=== PATIENT | male | born 1950 | race Caucasian/White ===

== ENCOUNTER 2016-12-29 23:35 | Inpatient (IN) ==
--- NOTE | 2016-12-30 00:44 | Emergency Department Note ---
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 He had fallen twice today and was previously evaluated at [facility] ED 2 hours ago. He takes a baby aspirin and reports imaging of his head did not show stroke. Full workup was reportedly performed and he was discharged home. As he was walking into his house with his walker, his legs felt weak and he subsequently fell striking his right hip. This was how he fell twice earlier today. Denies any head trauma or neck pain. Denies any loss of consciousness. Since then he has been nauseated and had a episode of emesis. Family is concerned as they can't take care of him at home with this weakness. He normally is able to ambulate with a walker and today is worse. He has physical therapy coming to the house twice a week. Denies any other symptoms such as fever, recent illness, chest pain, shortness of breath, abdominal pain. Pain only in his right hip. No facial droop moves all 4 extremities without much discomfort. He is blind in the right eye. Pain Scale: 5 - Related Data Home Medications Medication Instructions Recorded Confirmed Aspirin 325 mg PO QDPC 06/05/15 09/11/15 Finasteride 5 mg PO QDPC 06/05/15 09/11/15 Gabapentin 800 mg PO TID 06/05/15 09/11/15 GlipiZIDE 10 mg PO BID 06/05/15 09/11/15 Levemir 30 units SQ QPM 06/05/15 09/11/15 Levemir 40 units SQ QAM 06/05/15 09/11/15 Lisinopril/Hydrochlorothiazide 20 - 25 mg PO QDPC 06/05/15 09/11/15 Primidone 50 mg PO QDPC 06/05/15 09/11/15 Ranitidine 150 mg PO BID 06/05/15 09/11/15 Simvastatin 10 mg PO DAILY 06/05/15 09/11/15 Tamsulosin 0.4 mg PO DAILY 06/05/15 09/11/15 TraMADol 50 mg PO PRN PRN 06/05/15 09/11/15 Calcitriol [Rocaltrol] 0.25 PO DAILY 09/11/15 TraMADol [Ultram] 50 mg PO BID 09/11/15 09/11/15 Previous Rx's Medication Instructions Recorded Ondansetron ODT [Zofran ODT] 4 mg SL Q6HR #10 tab.rapdis 09/11/15 Allergies Allergy/AdvReac Type Severity Reaction Status Date / Time No Known Allergies Allergy Verified 12/29/16 23:37 All systems ED: reviewed and negative except as stated. Constitutional: Reports: weakness. Denies: fever, chills Cardiovascular: Denies: chest pain Respiratory: Denies: cough, dyspnea Gastrointestinal: Reports: nausea, vomiting. Denies: abdominal pain Genitourinary: Denies: urgency, dysuria Musculoskeletal: Denies: back pain Integumentary: Denies: rash, abrasion Past Medical History - Past Medical History Attestation: Yes The following information was validated with the patient. Source: patient Medical history: Reports: CVA, diabetes, hyperlipidemia, hypertension, renal disease, other Surgical history: Reports: other (eye surgeries) Psychiatric history: Reports: no psych history - Social History Smoking Status: Former smoker Smokeless Tobacco Status: No Alcohol use: Reports: none Drug use: Reports: none Physical Exam - General Limitations: no limitations General appearance: alert, in no apparent distress, obese - Head Head exam: atraumatic, normocephalic, normal inspection - Eye Eye exam: Present: normal appearance, PERRL, EOMI (With verbal command) - ENT ENT exam: normal exam, normal oropharynx, mucous membranes moist - Neck Neck exam: Present: normal inspection, full ROM, trachea midline. Absent: tenderness - Expanded Neck Exam Neck exam focused ED: Absent: midline tenderness, paraspinal tenderness - Chest Chest inspection: Present: normal inspection, symmetric chest wall rise - Respiratory Respiratory exam: Present: normal lung sounds bilaterally. Absent: respiratory distress, wheezes, stridor - Cardiovascular Cardiovascular exam: Present: regular rate, normal rhythm, normal heart sounds. Absent: systolic murmur, diastolic murmur - Abdominal Exam Abdominal exam: Present: soft (Obese), Non-Tender, normal bowel sounds. Absent : tenderness, distention, guarding, rebound, rigidity - Extremities Exam Extremities exam: Present: normal inspection, full ROM, normal capillary refill. Absent: tenderness, pedal edema, calf tenderness - Expanded Lower Extremity Exam Hip/Pelvis exam: Present: pelvis stable. Absent: dislocation, external rotation , internal rotation, shortening - Neurological Exam Neurological exam: Present: alert, oriented X3 - Expanded Neurological Exam Patient oriented to: Present: person, place, time Speech: Present: fluid speech Cranial nerves: EOM function (II, III, IV, ): Normal, facial sensation (V): Normal, facial palsy (VII): Normal, gag reflex (IX): Normal, spinal accessory function (XI): Normal, tongue deviation (XII): Normal Motor strength - LUE: 5/5 Motor strength - RUE: 5/5 Motor strength - LLE: 5/5 Motor strength - RLE: 4/5 Upper motor neuron exam: adelfo neglect: Absent bilaterally Sensory exam upper extremity: light touch: Normal Sensory exam lower extremity: light touch: Normal - Psychiatric Psychiatric exam: Present: normal affect, normal mood - Skin Skin exam: Present: warm, dry, intact, normal color Course Course Narrative: 66-year-old male presents the ED for generalized weakness. He is normally able to walk and ambulate throughout the house with a walker however today he has fallen 3 times. Reports his legs are giving out. He takes a baby aspirin denies any head trauma. Denies any neck pain. He appears in no acute distress. He is not septic appearing. HR in the 90s. He moves all 4 extremities without much difficulty. Due to discomfort in his right hip he is not able to hold it up as long as the left. Neurologic exam is otherwise unremarkable without any focal neural deficits. His pelvis is stable and does not reveal any shortening or internal rotation. He has diabetic neuropathy below the knees bilaterally. Bilateral edematous legs that are chronic. Lungs are clear to auscultation bilaterally. Heart's regular rate and rhythm. He does not have any cervical tenderness. family is concerned that they are unable to care for him at home. He does have physical therapy coming to the house twice a week. Will attempt to obtain records from [facility] to limit any unnecessary radiation. Patient and family are in agreement with plan. X-ray of the hip ordered. Dinesh for from nausea. - Reevaluation(s) Reevaluation #1: He has renal insufficiency. Apparently he follows with Dr. Hood and Dr. Altamirano and in discussion for possible hemodialysis which patient does not wish to have. He is unable to stand upon his own strength. He is overall generally weak. Review of his medical record from [facility] this morning. At that time he was complaining of head and right hip pain. CT of the head did not show any stroke or bleed. reiterates as well as patient that he did not hit his head. Neurologic exam is normal without any focal neuro deficits. Repeat CT of head not performed as a result. Patient will be admitted for generalized weakness, frequent falls in renal insufficiency. Patient is in agreement with plan. Time: 04:02 - Consultations Consultation #1: Spoke with on-call hospitalist leobardo Ly to admit for generalized weakness, frequent falls, renal insufficiency. No further orders at this time Time: 04:56 Vital Signs Temperature 98.6 F 12/29/16 23:38 Pulse Rate 97 12/29/16 23:38 Respiratory Rate 18 12/29/16 23:38 Blood Pressure 133/74 12/29/16 23:38 O2 Sat by Pulse Oximetry 92 12/29/16 23:38 Temperature 98.6 F 12/29/16 23:38 Pulse Rate 92 12/30/16 04:42 Respiratory Rate 18 12/30/16 05:12 Blood Pressure 158/82 12/30/16 05:12 O2 Sat by Pulse Oximetry 95 12/30/16 04:42 Oxygen Delivery Oxygen Delivery Nasal Cannula Weakness - Medical Records Medical records reviewed: Yes I reviewed the patient's medical records. - Lab Data Lab results reviewed: Yes I reviewed the patient's lab results. Result diagrams: 12/30/16 02:13 12/30/16 02:13 Lab Results 12/29/16 12/30/16 12/30/16 Range/Units 23:47 02:13 02:13 WBC 14.9 H (4.3-11.1) K/mcL RBC 3.57 L (4.19-5.50) M/mcL Hgb 10.2 L (12.9-16.9) g/dL Hct 31.5 L (37.5-50.1) % MCV 88.2 (83.0-100.0) fL MCH 28.6 (28.0-33.3) pg MCHC 32.4 (31.6-35.5) g/dL RDW 12.7 (11.5-14.5) % Plt Count 219 (140-400) K/mcL MPV 9.8 (9.4-12.4) fL Immature Gran % 0.5 (0-4) % Seg Neutrophils % 81.2 % Lymphocytes % 10.1 % Monocytes % 7.2 % Eosinophils % 0.7 % Basophils % 0.3 % Neutrophils # 12.1 H (1.6-8.9) K/mcL Lymphocytes # 1.5 (0.6-4.6) K/mcL Monocytes # 1.1 (0.0-1.3) K/mcL Eosinophils # 0.1 (0.0-0.6) K/mcL Basophils # 0.0 (0.0-0.2) K/mcL Sodium 137 (136-145) mEq/L Potassium 4.5 (3.5-4.5) mEq/L Chloride 104 (98-109) mEq/L Carbon Dioxide 21 (19-29) mEq/L BUN 68 H (8-26) mg/dL Creatinine 4.31 H (0.72-1.25) mg/dL Est GFR ( Amer) 17 L (> 60) Est GFR (Non-Af Amer) 14 L (> 60) BUN/Creatinine Ratio 16 (6-26) Glucose 164 H (70-99) mg/dL POC Glucose 143 H (58-89) Calculated Osmolality 307 H (280-300) Calcium 11.1 H (8.6-10.8) mg/dL Total Bilirubin 0.3 (0.2-1.2) mg/dL AST 18 (5-34) Units/L ALT 16 (0-55) Units/L Alkaline Phosphatase 69 (38-126) Units/L Troponin I (0-0.03) ng/mL Serum Total Protein 7.3 (6.0-8.3) g/dL Albumin 2.9 L (3.5-5.0) g/dL Globulin 4.4 H (2.4-3.5) g/dL Albumin/Globulin Ratio 0.7 L (1.1-2.2) Urine Color (Yellow) Urine Clarity (Clear) Urine pH (5.0-8.0) pH Units Ur Specific [place] (1.010-1.025) Urine Protein (Neg-Trace) mg/dL Urine Glucose (UA) (Normal) mg/dL Urine Ketones (Negative) mg/dL Urine Blood (Negative) Urine Nitrite (Negative) Urine Bilirubin (Negative) Urine Urobilinogen (Normal) mg/dL Ur Leukocyte Esterase (Negative) Urine Microscopic RBC (0-3) per hpf Urine Microscopic WBC (0-3) per hpf Ur Squamous Epith Cells (None-Few) per lpf Urine Bacteria (None-Few) per hpf Hyaline Casts (None-Few) per lpf Ur Culture Indicated? (NO) 12/30/16 12/30/16 Range/Units 02:13 03:00 WBC (4.3-11.1) K/mcL RBC (4.19-5.50) M/mcL Hgb (12.9-16.9) g/dL Hct (37.5-50.1) % MCV (83.0-100.0) fL MCH (28.0-33.3) pg MCHC (31.6-35.5) g/dL RDW (11.5-14.5) % Plt Count (140-400) K/mcL MPV (9.4-12.4) fL Immature Gran % (0-4) % Seg Neutrophils % % Lymphocytes % % Monocytes % % Eosinophils % % Basophils % % Neutrophils # (1.6-8.9) K/mcL Lymphocytes # (0.6-4.6) K/mcL Monocytes # (0.0-1.3) K/mcL Eosinophils # (0.0-0.6) K/mcL Basophils # (0.0-0.2) K/mcL Sodium (136-145) mEq/L Potassium (3.5-4.5) mEq/L Chloride (98-109) mEq/L Carbon Dioxide (19-29) mEq/L BUN (8-26) mg/dL Creatinine (0.72-1.25) mg/dL Est GFR ( Amer) (> 60) Est GFR (Non-Af Amer) (> 60) BUN/Creatinine Ratio (6-26) Glucose (70-99) mg/dL POC Glucose (58-89) Calculated Osmolality (280-300) Calcium (8.6-10.8) mg/dL Total Bilirubin (0.2-1.2) mg/dL AST (5-34) Units/L ALT (0-55) Units/L Alkaline Phosphatase (38-126) Units/L Troponin I 0.02 (0-0.03) ng/mL Serum Total Protein (6.0-8.3) g/dL Albumin (3.5-5.0) g/dL Globulin (2.4-3.5) g/dL Albumin/Globulin Ratio (1.1-2.2) Urine Color Yellow (Yellow) Urine Clarity Clear (Clear) Urine pH 5.5 (5.0-8.0) pH Units Ur Specific [place] 1.019 (1.010-1.025) Urine Protein >=300 H (Neg-Trace) mg/dL Urine Glucose (UA) 250 H (Normal) mg/dL Urine Ketones Negative (Negative) mg/dL Urine Blood Moderate H (Negative) Urine Nitrite Negative (Negative) Urine Bilirubin Negative (Negative) Urine Urobilinogen Normal (Normal) mg/dL Ur Leukocyte Esterase Negative (Negative) Urine Microscopic RBC 0-3 (0-3) per hpf Urine Microscopic WBC 0-3 (0-3) per hpf Ur Squamous Epith Cells Many H (None-Few) per lpf Urine Bacteria None Seen (None-Few) per hpf Hyaline Casts None Seen (None-Few) per lpf Ur Culture Indicated? NO (NO) - Radiology Data Radiology results reviewed: Yes I reviewed the patient's radiology results. Chest X-Ray 12/30/16 00:22 IMPRESSION: No definite acute disease. D/ / Cristiano Basurto MD / Cristiano Basurto MD Interpreting Provider: Cristiano Basurto MD Hip X-Ray 12/30/16 00:40 IMPRESSION: No acute osseous abnormality of the right hip. D/ / Asa Lawler MD / Asa Lawler MD Interpreting Provider: Asa Lawler MD - EKG Data EKG attestation: Yes I reviewed and interpreted this EKG. EKG results narrative: EKG performed 2340 normal sinus rhythm 97 bpm, good R-R wave progression, normal axis, there is baseline artifact, non-specific ST-T wave changes. No STEMI pattern. Intervals are within normal limits. Compared to old EKG performed 07/17/2016 shows consistent findings. No acute ischemic changes. Attestation Statement - Attestation Attestation: I personally interviewed and examined this patient and my medical decision- making was reviewed with the ED Resident Physician, Dr. Pelayo. I agree with the documented findings, disposition and treatment plan as described except to the extent set forth below. Patient is a 66-year-old white male who is brought to the emergency department for evaluation of frequent falls. Patient was evaluated twice in the last 24 hours at [facility] ED for similar complaints. Patient had CT imaging labs and following their evaluation both times patient was discharged home. Following the last discharge, he should was attempting to get out of his vehicle once he arrived home and subsequently fell onto his right side. Patient 's has been with him during these falls and he denies any preceding symptoms just complains of overwhelming generalized weakness and that his "legs give out on him". Patient is complaining of some right hip pain following the fall. Patient had issues with chronic right lower extremity edema compared to left and patient has a baseline mild weakness of his right upper and lower extremities following remote stroke. I agree with Dr. Pelayo's physical exam findings. Patient had plain film imaging which was unremarkable. We did obtain records from [facility] which did not show any abnormal findings on imaging or lab work. Patient's labs here show worsening acute on chronic renal insufficiency and uremia. After speaking with the patient's apparently his physicians have discussed the possibility of him going on dialysis due to his worsening renal function. We will admit the patient for further evaluation and treatment of his generalized weakness and frequent falls.
[2016-12-30 02:18] LABS: Basophils % 0.3 %; Eosinophils # 0.1 K/mcL (0.0-0.6); Eosinophils % 0.7 %; Hematocrit 31.5 % (37.5-50.1); Hemoglobin 10.2 g/dL (12.9-16.9); Immature Granulocytes % 0.5 % (0-4); Lymphocytes # 1.5 K/mcL (0.6-4.6); Lymphocytes % 10.1 %; Mean Corpuscular HGB Conc 32.4 g/dL (31.6-35.5); Mean Corpuscular Hemoglobin 28.6 pg (28.0-33.3); Mean Corpuscular Volume 88.2 fL (83.0-100.0); Mean Platelet Volume 9.8 fL (9.4-12.4); Monocytes # 1.1 K/mcL (0.0-1.3); Monocytes % 7.2 %; Neutrophils # 12.1 K/mcL (1.6-8.9); Platelet Count 219 K/mcL (140-400); Red Blood Count 3.57 M/mcL (4.19-5.50); Red Cell Distribution Width 12.7 % (11.5-14.5); Segmented Neutrophils % 81.2 %
[2016-12-30 02:31] LABS: Albumin 2.9 g/dL (3.5-5.0); Albumin/Globulin Ratio 0.7 (1.1-2.2); Bilirubin,Total 0.3 mg/dL (0.2-1.2); Calcium 11.1 mg/dL (8.6-10.8); Globulin 4.4 g/dL (2.4-3.5); Potassium 4.5 mEq/L (3.5-4.5); Total Protein 7.3 g/dL (6.0-8.3)
[2016-12-30 03:08] LABS: Bilirubin,Urine Negative (Negative); Blood,Urine Moderate (Negative); Clarity,Urine Clear (Clear); Color,Urine Yellow (Yellow); Glucose,Urine (UA) 250 mg/dL (Normal); Ketones,Urine Negative (Negative); Leukocyte Esterase,Urine Negative (Negative); Nitrite,Urine Negative (Negative); PH,Urine 5.5 pH Units (5.0-8.0); Protein,Urine >=300 mg/dL (Neg-Trace); Specific Gravity,Urine 1.019 (1.010-1.025); Urobilinogen,Urine Normal (Normal)
[2016-12-30 03:11] LABS: Bacteria,Urine None Seen per hpf (None-Few); Hyaline Casts,Urine None Seen per lpf (None-Few); RBC,Urine 0-3 per hpf (0-3); Squamous Epithelial Cell,Urine Many per lpf (None-Few); WBC,Urine 0-3 per hpf (0-3)
[2016-12-30] MEDS ORDERED: 0.9 % Sodium Chloride 1,000 ML IVC ONE (03:24)
[2016-12-30] MEDS ORDERED: Naloxone 0.4 MG/ML INJ IVP PRN (10:00)
[2016-12-30] MEDS ORDERED: Acetaminophen 325 MG TABLET PO PRN (10:00)
--- NOTE | 2016-12-30 10:44 | Internal Med History&Physical ---
Date of Encounter: 12/30/16 Time of Encounter: 08:30 Assessment and Plan (1) Frequent falls Current visit: Yes Status: Acute Suspect is likely due to CVA versus extension of prior CVA. Will request for MRI brain; PT / OT evaluation. Will check orthostatic vitals. (2) CVA (cerebral vascular accident) Current visit: Yes Status: Suspected Suspect CVA versus extension of prior CVA. Will request for MRI brain; PT / OT evaluation. Qualifiers: CVA mechanism: unspecified Qualified Code(s): I63.9 - Cerebral infarction, unspecified (3) Swelling of right lower extremity Current visit: Yes Status: Acute Will request Venous doppler to exclude DVT. (4) CKD (chronic kidney disease) stage 4, GFR 15-29 ml/min Current visit: Yes Status: Chronic Monitor renal function (5) 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 Current visit: Yes Status: Chronic Start sliding scale insulin and continue home dose Qualifiers: 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 type: type 2 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 complication status: with neurologic complications 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 complication detail: with polyneuropathy 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 usp insulin use: with usp use Qualified Code(s): E11.42 - Type 2 diabetes mellitus with diabetic polyneuropathy; Z79.4 - residential (current) use of insulin (6) History of CVA (cerebrovascular accident) Current visit: Yes Status: Chronic Apparently had residual right sided weakness, which is worse now (7) Leucocytosis Current visit: Yes Status: Acute No obvious source of infection at this time. Monitor WBC counts Qualifiers: Leukocytosis type: unspecified Qualified Code(s): D72.829 - Elevated white blood cell count, unspecified (8) Effusion of knee joint right Current visit: Yes Status: Acute Will obtain X-ray of the right knee. Will consider orthopedic consult, if there is concern on the X-Ray. (9) DVT prophylaxis Current visit: Yes Status: Acute subcutaneous heparin Internal Medicine - H&P: HPI Chief complaint: Falls Admitted From: Emergency Dept Plans for Post Hospital Care: [facility] History of present illness: Mr. 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 He apparently fell down twice yesterday and was evaluated at [facility] ED - apparently imaging of his head did not show stroke and Full workup was reportedly performed and he was discharged home. As he was walking into his house with his walker, and he had another fall. He reports that his right leg is weak since yesterday morning and he does not have control of the right leg (which he reports is new). He denies weakness of the right upper extremity, change in speech or facial weakness. He denies headache, vision changes (at baseline he has poor vision in his right eye), chest pain, shortness of breath cough, expectoration, fever, chills, abdominal pain, dysuria, hematuria, bowel problems. He reports some nausea but no vomiting. He was evaluated in the ER, CXR and X-ray right hip were negative. He is admitted to the hospitalist service for further work up and management. Past Med Surg Social Fam HX - Past Medical History Medical history: CVA, diabetes, hyperlipidemia, hypertension, renal disease, other Psychiatric history: no psych history - Past Surgical History Surgical History: other (eye surgeries) - Social History Smoking Status: Former smoker Smokeless Tobacco Status: No Alcohol use: none Drug use: none - Family History Mother History Unknown: Yes Living Status: Father History Unknown: Yes Living Status: Hx Family Endocrine Disorder: Yes (diabetes) Internal Medicine - H&P: Meds Aspirin 325 mg PO QDPC 06/05/15 [History] Finasteride 5 mg PO QDPC 06/05/15 [History] GlipiZIDE 10 mg PO BID 06/05/15 [History] Levemir 55 units SQ QAM 06/05/15 [History] Levemir 55 units SQ QPM 06/05/15 [History] Primidone 50 mg PO QDPC 06/05/15 [History] Ranitidine 150 mg PO BID 06/05/15 [History] Simvastatin 10 mg PO DAILY 06/05/15 [History] Tamsulosin 0.4 mg PO DAILY 06/05/15 [History] TraMADol 50 mg PO TID PRN 06/05/15 [History] Calcitriol [Rocaltrol] 0.25 PO DAILY 09/11/15 [History] Ondansetron ODT [Zofran ODT] 4 mg SL Q6HR #10 tab.rapdis 09/11/15 [Rx] TraMADol [Ultram] 50 mg PO BID 09/11/15 [History] Furosemide [Lasix] 20 mg PO DAILY 12/30/16 [History] Iron 65 mg PO DAILY 12/30/16 [History] Losartan [Cozaar] 50 mg PO 12/30/16 [History] Montelukast [Singulair] 10 mg PO DAILY 12/30/16 [History] Novolog 10 unit SQ TID 12/30/16 [History] Pregabalin [Lyrica] 100 mg PO BID 12/30/16 [History] Allergies No Known Allergies Allergy (Verified 12/29/16 23:37) All Systems PM: A 10-system review of systems was performed and is negative for pertinent findings except as documented above in the HPI. - Constitutional Vitals: Temp Pulse Resp BP Pulse Ox 98.3 F 95 18 184/101 97 12/30/16 06:52 12/30/16 06:52 12/30/16 06:52 12/30/16 06:52 12/30/16 06:52 Exam: General: Not in acute distress at the time of my evaluation HEENT: Oral mucosa is moist. No scleral icterus. There is redness of the right eye Neck: No obvious neck swellings Lungs: Clear to auscultation Cardiac: Regular rate and rhythm. systolic murmur present Abdomen: Soft, non tender. Bowel sounds present Genitourinary: No garay catheter Neurological: Alert and oriented. No gross cranial nerve deficits. There is 4/5 power in right lower extremity. There is reduced sensation of the right leg upto the knee Psych: Not aggressive or agitated Extremities: There is edema of the right leg/foot. There is suspicion for right knee effusion. Skin: No generalized rash Internal Med - H&P Results - Labs CBC & Chem 7: 12/30/16 02:13 12/30/16 02:13 - EKG Data -: EKG Interpreted by Myself EKG shows normal: sinus rhythm - EKG Data EKG comments: ST depression in leads I, AVL 12/30/16 10:48 - Impressions ITS Impressions Chest X-Ray 12/30/16 00:22 IMPRESSION: No definite acute disease. D/ / Cristiano Basurto MD / Cristiano Basurto MD Interpreting Provider: Cristiano Basurto MD Hip X-Ray 12/30/16 00:40 IMPRESSION: No acute osseous abnormality of the right hip. D/ / Asa Lawler MD / Asa Lawler MD Interpreting Provider: Asa Lawler MD
[2016-12-30] MEDS ORDERED: *HR* Dextrose 50 % in Water (Syg) 50 ML SYRINGE IVP PRN (10:58)
[2016-12-30] MEDS ORDERED: D5% in Water 1,000 ML IVC PRN (10:58)
[2016-12-30] MEDS ORDERED: Dextrose Gel 15 GM PO PRN ×2 (10:58)
--- NOTE | 2016-12-30 12:03 | Electrocardiograph Report ---
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
[2016-12-30] MEDS: Insulin LISPRO 300 UNITS/3 ML VIAL SQ SCH ×3 (13:44→21:23)
[2016-12-30] MEDS: *HR* Heparin 5,000 UNIT/ML VIAL SQ SCH ×2 (16:29→23:59)
[2016-12-30] MEDS: Pregabalin 50 MG CAPSULE PO SCH (21:23)
[2016-12-30] MEDS ORDERED: Ondansetron 4 MG/2 ML VIAL IVP PRN (22:15)
[2016-12-31 04:58] LABS: Basophils % 0.3 %; Eosinophils # 0.3 K/mcL (0.0-0.6); Eosinophils % 2.1 %; Hematocrit 30.2 % (37.5-50.1); Hemoglobin 9.6 g/dL (12.9-16.9); Immature Granulocytes % 0.6 % (0-4); Lymphocytes # 1.8 K/mcL (0.6-4.6); Lymphocytes % 14.8 %; Mean Corpuscular HGB Conc 31.8 g/dL (31.6-35.5); Mean Corpuscular Hemoglobin 28.6 pg (28.0-33.3); Mean Corpuscular Volume 89.9 fL (83.0-100.0); Mean Platelet Volume 10.5 fL (9.4-12.4); Neutrophils # 8.9 K/mcL (1.6-8.9); Platelet Count 198 K/mcL (140-400); Red Blood Count 3.36 M/mcL (4.19-5.50); Red Cell Distribution Width 12.7 % (11.5-14.5); Segmented Neutrophils % 74.2 %
[2016-12-31 05:18] LABS: Calcium 10.5 mg/dL (8.6-10.8); Potassium 4.1 mEq/L (3.5-4.5)
[2016-12-31 05:41] LABS: Thyroid Stimulating Hormone 1.314 mcIU/mL (0.350-4.840)
[2016-12-31] MEDS: *HR* Heparin 5,000 UNIT/ML VIAL SQ SCH ×3 (08:52→23:31)
[2016-12-31] MEDS: Furosemide 20 MG TABLET PO SCH (08:52)
[2016-12-31] MEDS: Pregabalin 50 MG CAPSULE PO SCH ×2 (08:52→21:39)
[2016-12-31] MEDS: Primidone 50 MG TABLET PO SCH (08:52)
[2016-12-31] MEDS: Aspirin Enteric Coated 325 MG Tablet PO SCH (08:52)
[2016-12-31] MEDS: Insulin LISPRO 300 UNITS/3 ML VIAL SQ SCH ×4 (08:53→21:39)
--- NOTE | 2016-12-31 12:16 | Venous Imaging Report ---
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 Left lower extremity: normal contralateral exam. Findings Prior Study: No prior study available for comparison. Lower Extremity Venous Duplex Side Vein Compress Spontaneous Flow Augment Diameter (cm) Depth (cm) Left Common Femoral Normal Yes Phasic Yes Right Distal Iliac Normal Yes Phasic Yes Right Common Femoral Normal Yes Phasic Yes Right Superficial Femoral Normal Yes Phasic Yes Right Popliteal Normal Yes Phasic Yes Right Posterior Tibial Normal Yes Phasic Yes Right Peroneal Normal Yes Phasic Yes Right Saphenofemoral Junction Normal Yes Phasic Yes Right Great Saphenous Normal Yes Phasic Yes Right Lesser Saphenous Normal Yes Phasic Yes Updated by Damaso Ernst MD, FACS on 12/31/2016 12:09:49 PM Damaso Ernst MD electronically signed on 12/31/2016 12:10:13 PM with status of Final
--- NOTE | 2016-12-31 14:00 | Internal Med Progress Note ---
Addendum entered and electronically signed by Leo Kennedy DO 12/31 17:31: ISMA on CKD. CKD stage IV documented with current GFR 15. Renal function improving. Likely diabetic nephropathy. - continue to monitor renal function with am labs - renally dose antibiotics and medications. Original Note: <Leo Kennedy - Last Filed: 12/31/16 17:17> Date of Encounter: 12/31/16 Time of Encounter: 11:00 - Assessment and plan (1) Right ankle injury Current Visit: Yes Status: Acute Assessment and plan: Concern for fracture, current image is not definitive for fracture. Patient had mechanical fall. Sensation reduced with diabetic neuropathy. Plan: - 3 view image of the ankle. Qualifiers: Qualified Code(s): S99.911A - Unspecified injury of right ankle, initial encounter (2) Acute right eye pain Current Visit: Yes Status: Acute Assessment and plan: Patient is blind in the right eye. appears to have jose l-orbital cellulits, concern for orbital cellulitis. inflammation of surrounding orbital structures. Patient has had worsening vision in the left eye, likely secondary to uncontrolled DM. Plan: - Zosyn - Ciprofloxacin drops - Neurology consult- discussed with neurology team. (3) Phthisis bulbi of right eye Current Visit: Yes Status: Acute Assessment and plan: There is right phthisis bulbi that is new since the previous CT on 06/05/2015. - Visualized on MRI of the brain. - Spoke with Dr. Barahona, will monitor tonight and call him back in the morning to determine inpatient vs. outpatient evaluation. (4) 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 Current Visit: Yes Status: Chronic Assessment and plan: Uncontrolled. Significant microvascular complications, Diabetic neuropathy, diabetic vision loss and diabetic neuropathy. Plan: - continue inpatient glucose control with Low dose sliding scale corrections. - If glucoses continue to be elevated will add on basal dose insulin. Prefer glucose level < 140 Qualifiers: 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 type: type 2 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 complication status: with neurologic complications 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 complication detail: with polyneuropathy 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 group home insulin use: with truck terminal manager use Qualified Code(s): E11.42 - Type 2 diabetes mellitus with diabetic polyneuropathy; Z79.4 - intermediate card tender (current) use of insulin (5) Frequent falls Current Visit: Yes Status: Acute Assessment and plan: Frequent falls from multiple inhibiting factors including blindness, severe peripheral neuropathy, previous falls, injured ankle Plan: - fall precautions. (6) DVT prophylaxis Current Visit: Yes Status: Acute Assessment and plan: SQ Heparin Q8hrs - Subjective Interval history: Mr. Prado has been seen and evaluated at patient bedside this morning. Patients is at bedside. He is sitting up and complains of right eye tenderness. He says he can not feel any pain in his right foot because his diabetic neuropathy is so bad. He does admit to falling the other day but is unsure if he inverted his ankle. The ankle/foot swelling is chronic but his says the lateral echymosis is new. In regards to his sight he says that over the past few years his sight has degraded and that in his right eye he is completely blind but his left eye he retains 30-40% vision with no peripheral vision. His right eye has been hurting him and he was putting erythromycin ointment in the eye that he recently obtained a script for. - Constitutional Vitals: Temp Pulse Resp BP Pulse Ox 98.1 F 94 16 107/64 99 12/31/16 11:01 12/31/16 11:01 12/31/16 11:01 12/31/16 11:01 12/31/16 11:01 General appearance: Present: cooperative, A&O X 3, pleasant, no acute distress - Head Head exam: Present: atraumatic, normocephalic - Eye Additional comments: Right eye appears to be atrophied, there is a white appearance behind the iris. the sclera and conjunctiva are injected with periorbital swelling. The eye is deviated to the right. The right pupil is small and irregular in shape with no pupillary reflex. - ENT ENT exam: Present: mucous membranes moist - Neck Neck exam general surgery: Present: supple, trachea midline. Absent: lymphadenopathy - Respiratory Respiratory exam: Present: CTAB. Absent: accessory muscle use, rales, rhonchi, wheezes - Cardiovascular Cardiovascular exam: Present: irregular rhythm - GI/Abdominal GI/Abdominal exam: Present: normal bowel sounds, soft, no peritoneal signs. Absent: distended, tenderness - Extremities Exam Additional comments: right foot is edematous with 2+ pitting to the right ankle. There is eccymosis on the right lateral aspect of the ankle. The LE are without hair bilateral. Sensation is very poor in both legs with difficulty with discrepancy of touch. Poor pedal pulses. - Neurological Exam Neurological exam: Present: alert. Absent: pronater drift, facial droop, speech deficit - Psychiatric Psychiatric exam: Present: normal affect, normal mood Internal Medicine: Result - Labs CBC & Chem 7: 12/31/16 03:36 12/31/16 03:36 Labs: Short CBC 12/31/16 Range/Units 03:36 WBC 11.9 H (4.3-11.1) K/mcL Hgb 9.6 L (12.9-16.9) g/dL Hct 30.2 L (37.5-50.1) % Plt Count 198 (140-400) K/mcL Neutrophils # 8.9 (1.6-8.9) K/mcL BMP 12/31/16 03:36 Sodium 138 Potassium 4.1 Chloride 104 Carbon Dioxide 22 BUN 59 H Creatinine 3.96 H Glucose 176 H Calcium 10.5 - Impressions Impressions Brain MRI 12/30/16 10:06 IMPRESSION: 1. No evidence of acute infarct. 2. Cerebral and cerebellar parenchymal volume loss with moderate chronic microvascular white matter ischemic disease. Chronic lacunar infarcts are noted in the left putamen, and left centrum semiovale. 3. There is right phthisis bulbi that is new since the previous CT on 06/05/2015. Correlation with ophthalmologic exam may be of benefit. D/ / 12/30/2016 13:58:17 Jamal Gamboa MD / [email or web address] Interpreting Provider: Jamal Gamboa MD Ankle X-Ray 12/30/16 22:17 IMPRESSION: Focal lucency is seen along the medial malleolus. If there is point tenderness in this location repeat dedicated three-view right ankle radiographs are recommended. Diffuse soft tissue swelling. D/ / Akosua Carey MD / Akosua Carey MD Interpreting Provider: Akosua Carey MD Consult Discharge Plan - Plan Referrals: Anju Britt [Primary Care Provider] - <Mikle Caicedo - Last Filed: 12/31/16 19:36> Date of Encounter: 12/31/16 - Constitutional Vitals: Temp Pulse Resp BP Pulse Ox 97.8 F 78 18 159/82 96 12/31/16 15:00 12/31/16 15:00 12/31/16 15:00 12/31/16 15:00 12/31/16 15:00 Internal Medicine: Result - Labs CBC & Chem 7: 12/31/16 03:36 12/31/16 03:36 Labs: Short CBC 12/31/16 Range/Units 03:36 WBC 11.9 H (4.3-11.1) K/mcL Hgb 9.6 L (12.9-16.9) g/dL Hct 30.2 L (37.5-50.1) % Plt Count 198 (140-400) K/mcL Neutrophils # 8.9 (1.6-8.9) K/mcL BMP 12/31/16 03:36 Sodium 138 Potassium 4.1 Chloride 104 Carbon Dioxide 22 BUN 59 H Creatinine 3.96 H Glucose 176 H Calcium 10.5 - Impressions Impressions Ankle X-Ray 12/30/16 22:17 IMPRESSION: Focal lucency is seen along the medial malleolus. If there is point tenderness in this location repeat dedicated three-view right ankle radiographs are recommended. Diffuse soft tissue swelling. D/ / Akosua Carey MD / Akosua Carey MD Interpreting Provider: Akosua Carey MD Ankle X-Ray 12/31/16 12:04 IMPRESSION: Soft tissue edema without fracture. D/ / 12/31/2016 15:34:41 Mauricio Davenport MD / [place] Interpreting Provider: Mauricio Davenport MD - Attending Attestation I examined this patient and my medical decision-making was reviewed with the Dr Kennedy, Resident Physician. I agree with the documented findings, disposition and treatment plan as described except to the extent set forth below. He appears generally weak, awake alert oriented 3. Neurologic exam nonfocal. Right ankle as swollen and show some superficial bruising, pain with passive mobilization. We will reimage D right ankle to evaluate for fracture. We will add topical right eye antibiotic for conjunctivitis. Consult neurology for recurrent strokes.
[2016-12-31] MEDS: Piperacillin/Tazobactam 3.375 GM in D5% in Water (Mini-Bag+) 100 ML IVPB SCH (15:50)
[2016-12-31] MEDS: Ciprofloxacin OPTH Soln 2.5 ML BOTTLE RIGHT EYE SCH ×3 (15:52→23:33)
--- NOTE | 2016-12-31 15:58 | Neurology - Consult Note ---
Date of Encounter: 12/31/16 Time of Encounter: 15:57 Assessment and Plan (1) Generalized weakness Current Visit: Yes Status: Acute Patient is a 66 year old man with PMH signfiicant for CVA, HTN, DM, diabetic neuropathy who developed what appeared to be diffuse weakness, although with emphasis on the right leg, likely due to ongoing medical condition, such as infectious process. Weakness improved and leg muscle strength is at least 4/5 bilaterally. There is no significant back pain to suggest Lumbar radiculopathy. No MRI of brain abnormality to suggest frontal infarct which can cause leg weakness. It is not an ascending weakness and the weakness is improving thereofre Guillain barre syndrome is unlikely. Patient does have diabetic neuropathy with sensory deficits which can also contribute to weakness as well. Overall speaking, this appears to be generalized weakness secondary to ongoing medical conditions on top of previous cerebral infarct. focal neurological deficits can certainly be aggravated by acute medical conditions. Patient is slowly improving and i expect him to continue to improve. Will not recommend further imaging studies from neurological perspective. Will follow up in AM tomorrow (2) Frequent falls Current Visit: Yes Status: Acute Secondary to diffuse weakness on top of previous CVA, diabetic neuropathy History of Present Illness Chief complaint: Weakness and difficulty walking HPI: Mr. Prado is a 66 year old male with PMH significant for morbid obesity, DM, diabetic neuropathy, hypertension and history of lacunar infarct, who developed acute onset of right leg weakness/diffuse weakness and falls. Patient interviewed in the presence of his . Last Wednesday he woke up experiencing right leg weakness. No back pain though. When he stood up he fell. He admits weakness to his right leg only but it appears that he was weak all over and the says that he was dropping his arms as well and that she could not help him to stand up. HE was initially evaluated at [facility] ER and he was eventually discharged home but he was not better and was still weak. He was then brought to [facility] for further evaluation. He was found to have an elevated WBV of 14. No fever reported. MRI of brain showed no acute infarct. He did have history of left periventricular infarct during 2011 causing weakness in his legs. At the time of this interview his leg weakness improved but not 100% recovered. He denies significant arm weakness. He does have diabetic neuropathy and could not feel very well below the knee. This has been a chronic condition though. Past Med Surg Social Fam HX - Past Medical History Medical history: CVA, diabetes, hyperlipidemia, hypertension, renal disease, other Psychiatric history: no psych history - Past Surgical History Surgical History: other (eye surgeries) - Social History Smoking Status: Former smoker Smokeless Tobacco Status: No Alcohol use: none Drug use: none - Family History Mother History Unknown: Yes Living Status: Father History Unknown: Yes Living Status: Hx Family Endocrine Disorder: Yes (diabetes) Medications and Allergies Aspirin [Ecotrin] 325 mg PO DAILY #0 06/05/15 [History] Finasteride [Proscar] 5 mg PO DAILY #0 06/05/15 [History] GlipiZIDE [Glipizide] 10 mg PO BID #0 06/05/15 [History] Insulin DETEMIR [Levemir Flextouch] 55 unit SQ BID #0 06/05/15 [History] Primidone [Mysoline] 50 mg PO DAILY #0 06/05/15 [History] Ranitidine HCl [Zantac] 150 mg PO BID #0 06/05/15 [History] Simvastatin [Zocor] 10 mg PO DAILY #0 06/05/15 [History] Tamsulosin [Flomax] 0.4 mg PO DAILY #0 06/05/15 [History] Calcitriol [Rocaltrol] 0.25 mcg PO DAILY 09/11/15 [History] Ferrous Sulfate [Iron] 325 mg PO DAILY 12/30/16 [History] Furosemide [Lasix] 20 mg PO DAILY 12/30/16 [History] Insulin ASPART [Novolog Flexpen] 10 unit SQ TID 12/30/16 [History] Losartan [Cozaar] 50 mg PO DAILY 12/30/16 [History] Montelukast [Singulair] 10 mg PO DAILY 12/30/16 [History] Omeprazole Magnesium 20 mg PO DAILY 12/30/16 [History] Pregabalin [Lyrica] 100 mg PO BID 12/30/16 [History] Allergies No Known Allergies Allergy (Verified 12/29/16 23:37) All Systems: A 10-system review of systems was performed and is negative for pertinent findings except as documented above in the HPI. Physical Examination - Vital Signs Vital Signs: Initial Vital Signs Temp Pulse Resp BP Pulse Ox 98.6 F 97 18 133/74 92 12/29/16 23:38 12/29/16 23:38 12/29/16 23:38 12/29/16 23:38 12/29/16 23:38 - Constitutional General appearance: comfortable - Neurologic Sensorimotor examination: other (Stocking pattern of sensory loss) Motor examination - right side: 4/5: hip flexors, tibialis Anterior, quadriceps , toe extension (EHL), plantarflexion, 5/5: deltoids, biceps, triceps, wrist flexion, wrist extension, cardiopulmonary supervisor Motor examination - left side: 4/5: quadriceps, tibialis Anterior, toe extension (EHL), plantarflexion, 5/5: deltoids, biceps, triceps, wrist flexion, wrist extension, hip flexors, cardiopulmonary supervisor Detailed sensory examination: other (Stocking pattern of sensory reduction to both legs) Reflex and gait examination: other (Gait not assessed) Reflexes: Biceps: 0, Triceps: 0, Brachioradialis: 0, Patella: 0 Mental Status Examination: awake, alert, oriented to person, oriented to place, oriented to time, follows commands appropriately, answers questions appropriately, no agnosia, no aphasia, no aproxia Cranial nerve examination: PERRL, EOMI, visual truong intact (Right eye blind), corneal reflexes brisk symmetrically, sensory to face intact, mastication intact , no facial asymmetry is present, no dysarthria, hearing is intact symmetrically , soft palate elevates bilaterally upon phonation, gag reflex intact, flexes SCM and trapezius muscles symmetrically with full power, tongue protrudes midline, no atrophy or facial fasiculations present Results - Laboratory Findings CBC and BMP: 12/31/16 03:36 12/31/16 03:36 Abnormal lab findings: Abnormal lab results WBC 11.9 K/mcL (4.3-11.1) H 12/31/16 03:36 RBC 3.36 M/mcL (4.19-5.50) L 12/31/16 03:36 Hgb 9.6 g/dL (12.9-16.9) L 12/31/16 03:36 Hct 30.2 % (37.5-50.1) L 12/31/16 03:36 BUN 59 mg/dL (8-26) H 12/31/16 03:36 Creatinine 3.96 mg/dL (0.72-1.25) H 12/31/16 03:36 Est GFR ( Amer) 19 (> 60) L 12/31/16 03:36 Est GFR (Non-Af Amer) 15 (> 60) L 12/31/16 03:36 Glucose 176 mg/dL (70-99) H 12/31/16 03:36 POC Glucose 255 (58-89) H 12/31/16 11:03 Calculated Osmolality 307 (280-300) H 12/31/16 03:36 Albumin 2.9 g/dL (3.5-5.0) L 12/30/16 02:13 Globulin 4.4 g/dL (2.4-3.5) H 12/30/16 02:13 Albumin/Globulin Ratio 0.7 (1.1-2.2) L 12/30/16 02:13 Urine Protein >=300 mg/dL (Neg-Trace) H 12/30/16 03:00 Urine Glucose (UA) 250 mg/dL (Normal) H 12/30/16 03:00 Urine Blood Moderate (Negative) H 12/30/16 03:00 Ur Squamous Epith Cells Many per lpf (None-Few) H 12/30/16 03:00 Consult Discharge Plan - Plan Referrals: Anju Britt [Primary Care Provider] -
[2017-01-01] MEDS: Piperacillin/Tazobactam 3.375 GM in D5% in Water (Mini-Bag+) 100 ML IVPB SCH ×2 (00:08→11:54)
[2017-01-01] MEDS: Ciprofloxacin OPTH Soln 2.5 ML BOTTLE RIGHT EYE SCH ×6 (03:43→23:44)
[2017-01-01 05:22] LABS: Basophils % 0.3 %; Eosinophils # 0.5 K/mcL (0.0-0.6); Hematocrit 29.6 % (37.5-50.1); Immature Granulocytes % 0.5 % (0-4); Lymphocytes # 2.3 K/mcL (0.6-4.6); Lymphocytes % 25.1 %; Mean Corpuscular HGB Conc 30.4 g/dL (31.6-35.5); Mean Corpuscular Hemoglobin 27.9 pg (28.0-33.3); Mean Corpuscular Volume 91.6 fL (83.0-100.0); Mean Platelet Volume 10.5 fL (9.4-12.4); Monocytes % 10.3 %; Neutrophils # 5.5 K/mcL (1.6-8.9); Platelet Count 203 K/mcL (140-400); Red Blood Count 3.23 M/mcL (4.19-5.50); Red Cell Distribution Width 12.9 % (11.5-14.5); Segmented Neutrophils % 58.8 %
[2017-01-01 05:45] LABS: Albumin 2.4 g/dL (3.5-5.0); Albumin/Globulin Ratio 0.6 (1.1-2.2); Bilirubin,Total 0.4 mg/dL (0.2-1.2); Calcium 10.5 mg/dL (8.6-10.8); Globulin 4.3 g/dL (2.4-3.5); Potassium 4.3 mEq/L (3.5-4.5); Total Protein 6.7 g/dL (6.0-8.3)
[2017-01-01] MEDS: Primidone 50 MG TABLET PO SCH (07:59)
[2017-01-01] MEDS: *HR* Heparin 5,000 UNIT/ML VIAL SQ SCH ×3 (07:59→23:45)
[2017-01-01] MEDS: Pregabalin 50 MG CAPSULE PO SCH ×2 (07:59→21:41)
[2017-01-01] MEDS: Furosemide 20 MG TABLET PO SCH (08:00)
[2017-01-01] MEDS: Aspirin Enteric Coated 325 MG Tablet PO SCH (08:00)
[2017-01-01] MEDS: Insulin LISPRO 300 UNITS/3 ML VIAL SQ SCH ×4 (08:01→21:40)
--- NOTE | 2017-01-01 08:41 | Internal Med Progress Note ---
<Leo Kennedy - Last Filed: 01/01/17 08:39> Date of Encounter: 01/01/17 Time of Encounter: 08:39 - Assessment and plan (1) Right ankle injury Current Visit: Yes Status: Acute Assessment and plan: Imaging does not demonstrate any new fractures. With ecchymosis, likely suffered an ankle sprain. Plan: - Continue physical therapy - PT recommendations ECF/SNF post discharge. Qualifiers: Qualified Code(s): S99.911A - Unspecified injury of right ankle, initial encounter (2) Acute right eye pain Current Visit: Yes Status: Acute Assessment and plan: Patient is blind in the right eye. appears to have jose l-orbital cellulits, concern for orbital cellulitis. inflammation of surrounding orbital structures. Patient has had worsening vision in the left eye, likely secondary to uncontrolled DM. - Spoke with Dr. Parra to evaluate the patients eye inpatient today. Plan: - Zosyn - Ciprofloxacin drops - Ophthalmology consult. (3) Phthisis bulbi of right eye Current Visit: Yes Status: Acute Assessment and plan: There is right phthisis bulbi that is new since the previous CT on 06/05/2015. - Visualized on MRI of the brain. - Spoke with Dr. Parra as above (4) 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 Current Visit: Yes Status: Chronic Assessment and plan: Uncontrolled. Significant microvascular complications, Diabetic neuropathy, diabetic vision loss and diabetic neuropathy. Glucose elevated today. Started on 1/2 home dose levemir BID. Plan: - continue inpatient glucose control with Low dose sliding scale corrections. - Added Levemir 25mg BID. Prefer glucose level < 140 Qualifiers: 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 type: type 2 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 complication status: with neurologic complications 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 complication detail: with polyneuropathy 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 intermediate teacher insulin use: with nursing home use Qualified Code(s): E11.42 - Type 2 diabetes mellitus with diabetic polyneuropathy; Z79.4 - intermediate project manager (current) use of insulin (5) Frequent falls Current Visit: Yes Status: Acute Assessment and plan: Frequent falls from multiple inhibiting factors including blindness, severe peripheral neuropathy, previous falls, injured ankle Plan: - fall precautions. - PT (6) End stage kidney disease Current Visit: Yes Status: Acute Assessment and plan: ISMA on CKD. His GFR has not been greater than 15 during his inpatient stay. He demonstrates ISMA on his CKD. Started Zosyn yesterday. Plan: - NS at 125ml/hr for one bag. - Continue to closely monitor renal function and avoid nephrotoxic medications and renally dose antibiotics. (7) DVT prophylaxis Current Visit: Yes Status: Acute Assessment and plan: SQ Heparin Q8hrs - Subjective Interval history: Mr. Prado has been seen and evaluated at patient bedside this morning. Denies any new concerns this morning. He is continuing to have discomfort to his right eye. He is experiencing an itchy feeling and pain to light palpation and moving of the right eye. He is unsure of improvement from yesterday. He denies any new symptoms or signs. He is tolerating PO intake and is open to evaluation from the [facility] Treatment Teacher. He is agreeable to working with PT this morning and understands he will need rehabilitation post inpatient stay. - Constitutional Vitals: Temp Pulse Resp BP Pulse Ox 98.1 F 78 16 159/75 92 01/01/17 06:51 01/01/17 06:51 01/01/17 06:51 01/01/17 06:51 01/01/17 06:51 General appearance: Present: cooperative, A&O X 3, pleasant, no acute distress - Head Head exam: Present: atraumatic, normocephalic - Eye Additional comments: Right eye appears to be atrophied, there is a white appearance behind the iris. the sclera and conjunctiva are injected with periorbital swelling. The eye is deviated to the right. The right pupil is small and irregular in shape with no pupillary reflex. - ENT ENT exam: Present: mucous membranes moist - Neck Neck exam general surgery: Present: supple, trachea midline. Absent: lymphadenopathy - Respiratory Respiratory exam: Present: CTAB. Absent: accessory muscle use, rales, rhonchi, wheezes - Cardiovascular Cardiovascular exam: Present: irregular rhythm. Absent: diastolic murmur, gallop, rubs, systolic murmur - GI/Abdominal GI/Abdominal exam: Present: normal bowel sounds, soft, no peritoneal signs. Absent: distended, tenderness - Extremities Exam Additional comments: right foot is edematous with 2+ pitting to the right ankle. There is eccymosis on the right lateral aspect of the ankle. The LE are without hair bilateral. Sensation is very poor in both legs with difficulty with discrepancy of touch. Poor pedal pulses. - Neurological Exam Neurological exam: Present: alert - Psychiatric Psychiatric exam: Present: normal affect, normal mood Internal Medicine: Result - Labs CBC & Chem 7: 01/01/17 04:40 01/01/17 04:40 Labs: Short CBC 01/01/17 Range/Units 04:40 WBC 9.3 (4.3-11.1) K/mcL Hgb 9.0 L (12.9-16.9) g/dL Hct 29.6 L (37.5-50.1) % Plt Count 203 (140-400) K/mcL Neutrophils # 5.5 (1.6-8.9) K/mcL BMP 01/01/17 04:40 Sodium 137 Potassium 4.3 Chloride 103 Carbon Dioxide 22 BUN 62 H Creatinine 4.51 H Glucose 217 H Calcium 10.5 Liver Function 01/01/17 Range/Units 04:40 Total Bilirubin 0.4 (0.2-1.2) mg/dL AST 15 (5-34) Units/L ALT 15 (0-55) Units/L Alkaline Phosphatase 60 (38-126) Units/L Albumin 2.4 L (3.5-5.0) g/dL - Impressions Impressions Ankle X-Ray 12/31/16 12:04 IMPRESSION: Soft tissue edema without fracture. D/ / 12/31/2016 15:34:41 Mauricio Davenport MD / [place] Interpreting Provider: Mauricio Davenport MD Consult Discharge Plan - Plan Referrals: Anju Britt [Primary Care Provider] - <Mikel Caicedo - Last Filed: 01/01/17 18:36> Date of Encounter: 01/01/17 - Constitutional Vitals: Temp Pulse Resp BP Pulse Ox 98.7 F 82 16 158/86 96 01/01/17 16:08 01/01/17 16:08 01/01/17 16:08 01/01/17 16:08 01/01/17 16:08 Internal Medicine: Result - Labs CBC & Chem 7: 01/01/17 04:40 01/01/17 04:40 Labs: Short CBC 01/01/17 Range/Units 04:40 WBC 9.3 (4.3-11.1) K/mcL Hgb 9.0 L (12.9-16.9) g/dL Hct 29.6 L (37.5-50.1) % Plt Count 203 (140-400) K/mcL Neutrophils # 5.5 (1.6-8.9) K/mcL BMP 01/01/17 04:40 Sodium 137 Potassium 4.3 Chloride 103 Carbon Dioxide 22 BUN 62 H Creatinine 4.51 H Glucose 217 H Calcium 10.5 Liver Function 01/01/17 Range/Units 04:40 Total Bilirubin 0.4 (0.2-1.2) mg/dL AST 15 (5-34) Units/L ALT 15 (0-55) Units/L Alkaline Phosphatase 60 (38-126) Units/L Albumin 2.4 L (3.5-5.0) g/dL - Impressions Impressions Ankle X-Ray 12/31/16 12:04 IMPRESSION: Soft tissue edema without fracture. D/ / 12/31/2016 15:34:41 Mauricio Davenport MD / [place] Interpreting Provider: Mauricio Davenport MD - Attending Attestation I examined this patient and my medical decision-making was reviewed with the Resident Physician, Dr. Kennedy. I agree with the documented findings, disposition and treatment plan as described except to the extent set forth below. He was evaluated in the bedside, currently sitting up in the chair, his right evaluation reveals erythema of the eyelid with mild discharge. There is corneal opacification. There is tenderness to palpation of periorbital area. Heart exam reveals a sinus rhythm S1-S2 no murmurs. Lungs are clear. I appreciate neurology recommendations. We will continue with IV Zosyn for suspected right periorbital cellulitis. Awaiting ophthalmology evaluation.
[2017-01-01] MEDS ORDERED: 0.9 % Sodium Chloride 1,000 ML IVC SCH (08:45)
[2017-01-01] MEDS: Insulin DETEMIR 100 UNIT/ML X5UNITS SQ SCH ×2 (09:06→21:41)
--- NOTE | 2017-01-01 09:32 | Neurology Progress Note ---
Date of Encounter: 01/01/17 Time of Encounter: 09:30 Assessment and Plan (1) Generalized weakness Current Visit: Yes Status: Acute Improving today, likely related to infectious process and co-morbidities including DM Head MRI did not demonstrate any acute intracranial abnormalities, no need for additional imaging Continue antibiotics and physical therapy per management team He will likely be discharged to [facility] for short term rehab Subjective Principal diagnosis: weakness, difficulty walking Interval history: Pt seen and examined. He states his strength is much better than yesterday and feels almost back to baseline. He was able to walk some short distances according to the physical therapist this morning. He still complains of mild headache in the back of his head after he feel back on it. No new visual complaints. 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 Absent : calf tenderness, cyanotic, pedal edema - Neurological Exam Sensorimotor examination: Present: other (Stocking pattern of sensory loss) Motor examination - right side: 5/5: deltoids, biceps, triceps, product promoter retail pet, hip flexors Motor examination - left side: 5/5: deltoids, biceps, triceps, wrist flexion, wrist extension, hip flexors, product promoter retail pet Sensation intact: Present: other (Stocking pattern of sensory reduction to both legs) Reflex and gait examination: other (Gait not assessed) Mental Status Examination: Present: awake, alert, oriented to person, oriented to place, oriented to time, follows commands appropriately, answers questions appropriately, no agnosia, no aphasia, no aproxia Cranial nerve examination: Present: visual truong intact (Right eye blind), corneal reflexes brisk symmetrically, sensory to face intact, mastication intact , no facial asymmetry is present, no dysarthria, hearing is intact symmetrically , soft palate elevates bilaterally upon phonation, gag reflex intact, flexes SCM and trapezius muscles symmetrically with full power, tongue protrudes midline, no atrophy or facial fasiculations present Results - Laboratory Findings CBC and BMP: 01/01/17 04:40 01/01/17 04:40 Abnormal lab findings: Abnormal lab results RBC 3.23 M/mcL (4.19-5.50) L 01/01/17 04:40 Hgb 9.0 g/dL (12.9-16.9) L 01/01/17 04:40 Hct 29.6 % (37.5-50.1) L 01/01/17 04:40 MCH 27.9 pg (28.0-33.3) L 01/01/17 04:40 MCHC 30.4 g/dL (31.6-35.5) L 01/01/17 04:40 BUN 62 mg/dL (8-26) H 01/01/17 04:40 Creatinine 4.51 mg/dL (0.72-1.25) H 01/01/17 04:40 Est GFR ( Amer) 16 (> 60) L 01/01/17 04:40 Est GFR (Non-Af Amer) 13 (> 60) L 01/01/17 04:40 Glucose 217 mg/dL (70-99) H 01/01/17 04:40 POC Glucose 225 (58-89) H 12/31/16 16:21 Calculated Osmolality 308 (280-300) H 01/01/17 04:40 Albumin 2.4 g/dL (3.5-5.0) L 01/01/17 04:40 Globulin 4.3 g/dL (2.4-3.5) H 01/01/17 04:40 Albumin/Globulin Ratio 0.6 (1.1-2.2) L 01/01/17 04:40 Urine Protein >=300 mg/dL (Neg-Trace) H 12/30/16 03:00 Urine Glucose (UA) 250 mg/dL (Normal) H 12/30/16 03:00 Urine Blood Moderate (Negative) H 12/30/16 03:00 Ur Squamous Epith Cells Many per lpf (None-Few) H 12/30/16 03:00 Consult Discharge Plan - Plan Referrals: Anju Britt [Primary Care Provider] -
--- NOTE | 2017-01-01 15:35 | Internal Medicine Consult Note ---
Date of Encounter: 01/01/17 Time of Encounter: 15:23 Internal Medicine - CN: HPI - Data of Consult Consult date: 01/01/17 Requesting Physician: Mikel Caicedo MD Patient is a diabetic with the complaint of right eye pain. There is swelling and discharge in the right eye as well. Patient reports that he is blind in the right eye and has no light perception in the right eye at all. He also has limited vision in the left eye. Patient has had cataract with lens implant surgery performed by Dr. Damaso Pelletier and patient is a patient of Dr. Wesley Vincent. Reportedly he lost vision in the right eye within the last year and the appearance of the right eye is not changed significantly other than the swelling around the right eyelids and discharge in the right eye at this time. Examination revealed visual acuity without correction of no light perception in the right eye and 20/200-1 in the left eye. Slit-lamp examination reveals erythema and mild swelling of the eyelids of the right eye and a yellowish white mucopurulent discharge in the right eye. 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 The right cornea has endothelial folds in the anterior chamber is deep and clear. The pupil was dilated and irregular and the pupil was filled with a white membrane in the right eye. No view could be obtained of the posterior segment in the right eye with a fundus lens at the slit-lamp. Examination of the left eye revealed a narrow anterior chamber angle grade slit. The anterior chamber was clear. The pupil was peaked for the 3:00 meridian. A posterior chamber intraocular lens implant was in place. Examination of the posterior segment through an undilated pupil revealed scattered scarring in the peripheral retina and a cup-to-disc ratio of approximately 0.7 and the optic disc was pale. This was through an undilated pupil. The intraocular pressures were 0 mmHg in the right eye and 13 mmHg in the left eye. The right eye was soft. Impression 1. mild preseptal eyelid cellulitis and conjunctivitis of the right eye. 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 2. Pseudophakia of the left eye. Recommendation continue with topical and intravenous antibiotics. The patient should follow-up with an trailhead construction worker after discharge. He can return to Dr. Pelletier and I would be happy to see him as well if he desires. Vitaly L Aida D.O. - Consult Narrative History of present illness: Mr. Prado is a 66 year old male Past Med Surg Social Fam HX - Past Medical History Medical history: CVA, diabetes, hyperlipidemia, hypertension, renal disease, other Psychiatric history: no psych history - Past Surgical History Surgical History: other (eye surgeries) - Social History Smoking Status: Former smoker Smokeless Tobacco Status: No Alcohol use: none Drug use: none - Family History Mother History Unknown: Yes Living Status: Father History Unknown: Yes Living Status: Hx Family Endocrine Disorder: Yes (diabetes) Internal Medicine - CN: Meds Aspirin [Ecotrin] 325 mg PO DAILY #0 06/05/15 [History] Finasteride [Proscar] 5 mg PO DAILY #0 06/05/15 [History] GlipiZIDE [Glipizide] 10 mg PO BID #0 06/05/15 [History] Insulin DETEMIR [Levemir Flextouch] 55 unit SQ BID #0 06/05/15 [History] Primidone [Mysoline] 50 mg PO DAILY #0 06/05/15 [History] Ranitidine HCl [Zantac] 150 mg PO BID #0 06/05/15 [History] Simvastatin [Zocor] 10 mg PO DAILY #0 06/05/15 [History] Tamsulosin [Flomax] 0.4 mg PO DAILY #0 06/05/15 [History] Calcitriol [Rocaltrol] 0.25 mcg PO DAILY 09/11/15 [History] Ferrous Sulfate [Iron] 325 mg PO DAILY 12/30/16 [History] Furosemide [Lasix] 20 mg PO DAILY 12/30/16 [History] Insulin ASPART [Novolog Flexpen] 10 unit SQ TID 12/30/16 [History] Losartan [Cozaar] 50 mg PO DAILY 12/30/16 [History] Montelukast [Singulair] 10 mg PO DAILY 12/30/16 [History] Omeprazole Magnesium 20 mg PO DAILY 12/30/16 [History] Pregabalin [Lyrica] 100 mg PO BID 12/30/16 [History] Allergies No Known Allergies Allergy (Verified 12/29/16 23:37) Internal Medicine - CN: Exam - Constitutional Vitals: Temp Pulse Resp BP Pulse Ox 98.5 F 72 16 128/76 97 01/01/17 11:09 01/01/17 11:09 01/01/17 11:09 01/01/17 11:09 01/01/17 11:09 Internal Medicine - CN: Reslt - Labs CBC & Chem 7: 01/01/17 04:40 01/01/17 04:40 Labs: Short CBC 01/01/17 Range/Units 04:40 WBC 9.3 (4.3-11.1) K/mcL Hgb 9.0 L (12.9-16.9) g/dL Hct 29.6 L (37.5-50.1) % Plt Count 203 (140-400) K/mcL Neutrophils # 5.5 (1.6-8.9) K/mcL BMP 01/01/17 04:40 Sodium 137 Potassium 4.3 Chloride 103 Carbon Dioxide 22 BUN 62 H Creatinine 4.51 H Glucose 217 H Calcium 10.5 Liver Function 01/01/17 Range/Units 04:40 Total Bilirubin 0.4 (0.2-1.2) mg/dL AST 15 (5-34) Units/L ALT 15 (0-55) Units/L Alkaline Phosphatase 60 (38-126) Units/L Albumin 2.4 L (3.5-5.0) g/dL - Impressions Impressions Ankle X-Ray 12/31/16 12:04 IMPRESSION: Soft tissue edema without fracture. D/ / 12/31/2016 15:34:41 Mauricio Davenport MD / [place] Interpreting Provider: Mauricio Davenport MD Consult Discharge Plan - Plan Referrals: Anju Britt [Primary Care Provider] -
[2017-01-02] MEDS: Piperacillin/Tazobactam 3.375 GM in D5% in Water (Mini-Bag+) 100 ML IVPB SCH (01:33)
[2017-01-02] MEDS: Ciprofloxacin OPTH Soln 2.5 ML BOTTLE RIGHT EYE SCH ×3 (04:25→12:19)
[2017-01-02 05:16] LABS: Albumin 2.4 g/dL (3.5-5.0); Albumin/Globulin Ratio 0.5 (1.1-2.2); Bilirubin,Total 0.4 mg/dL (0.2-1.2); Calcium 10.3 mg/dL (8.6-10.8); Potassium 4.5 mEq/L (3.5-4.5); Total Protein 7.4 g/dL (6.0-8.3)
[2017-01-02 06:11] LABS: Basophils % 0.4 %; Eosinophils # 0.4 K/mcL (0.0-0.6); Eosinophils % 4.6 %; Hematocrit 28.3 % (37.5-50.1); Immature Granulocytes % 0.4 % (0-4); Lymphocytes # 1.6 K/mcL (0.6-4.6); Lymphocytes % 16.7 %; Mean Corpuscular HGB Conc 31.8 g/dL (31.6-35.5); Mean Corpuscular Hemoglobin 28.8 pg (28.0-33.3); Mean Corpuscular Volume 90.7 fL (83.0-100.0); Mean Platelet Volume 10.4 fL (9.4-12.4); Monocytes # 0.8 K/mcL (0.0-1.3); Monocytes % 8.7 %; Neutrophils # 6.4 K/mcL (1.6-8.9); Platelet Count 202 K/mcL (140-400); Red Blood Count 3.12 M/mcL (4.19-5.50); Red Cell Distribution Width 12.8 % (11.5-14.5); Segmented Neutrophils % 69.2 %
--- NOTE | 2017-01-02 07:49 | Discharge Summary ---
<Leo Kennedy - Last Filed: 01/02/17 08:52> Date of Encounter: 01/02/17 Time of Encounter: 07:47 - Discharge Diagnosis (1) Right ankle injury Priority: Primary Status: Acute Qualifiers: Qualified Code(s): S99.911A - Unspecified injury of right ankle, initial encounter (2) Acute right eye pain Priority: Primary Status: Acute (3) Phthisis bulbi of right eye Priority: Primary Status: Acute (4) 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 Priority: Secondary Status: Chronic Qualifiers: 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 type: type 2 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 complication status: with neurologic complications 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 complication detail: with polyneuropathy 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 jail insulin use: with emt intermediate use Qualified Code(s): E11.42 - Type 2 diabetes mellitus with diabetic polyneuropathy; Z79.4 - MCC (current) use of insulin (5) Frequent falls Priority: Secondary Status: Acute (6) End stage kidney disease Priority: Primary Status: Acute (7) DVT prophylaxis Priority: Secondary Status: Acute - Discharge Medications Prescriptions: Ciprofloxacin OPTH Soln [Ciloxan OPTH Soln] 2 drop RIGHT EYE Q4HR 7 Days Pregabalin [Lyrica] 50 mg PO DAILY #14 capsule Home Medications: Aspirin [Ecotrin] 325 mg PO DAILY #0 06/05/15 [History] Finasteride [Proscar] 5 mg PO DAILY #0 06/05/15 [History] Primidone [Mysoline] 50 mg PO DAILY #0 06/05/15 [History] Ranitidine HCl [Zantac] 150 mg PO BID #0 06/05/15 [History] Simvastatin [Zocor] 10 mg PO DAILY #0 06/05/15 [History] Tamsulosin [Flomax] 0.4 mg PO DAILY #0 06/05/15 [History] Calcitriol [Rocaltrol] 0.25 mcg PO DAILY 09/11/15 [History] Ferrous Sulfate [Iron] 325 mg PO DAILY 12/30/16 [History] Insulin ASPART [Novolog Flexpen] 10 unit SQ TID 12/30/16 [History] Montelukast [Singulair] 10 mg PO DAILY 12/30/16 [History] Omeprazole Magnesium 20 mg PO DAILY 12/30/16 [History] Ciprofloxacin OPTH Soln [Ciloxan OPTH Soln] 2 drop RIGHT EYE Q4HR 7 Days [Rx] Insulin DETEMIR [Levemir Flextouch] 25 unit SQ BID #0 01/02/17 [Rx] Pregabalin [Lyrica] 50 mg PO DAILY #14 capsule 01/02/17 [Rx] Allergies/Adverse Reactions: Allergies No Known Allergies Allergy (Verified 12/29/16 23:37) Procedures/tests Complete & Pending: Procedures Performed prior 72 hours Category Date Time Status MR head/brain wo con [MR] Routine MRI 12/30/16 10:06 Completed EV venous imaging LE RT Routine Y 12/30/16 10:06 Completed Date of admission: 12/30/16 10:00 Primary care physician: Anju Britt Consults: 12/30/16 10:08 PT [Consult to Physical Therapy] [CONS] Routine Comment: Evaluate, develop and implement POC 12/30/16 10:58 OT [Consult to Occupational Therapy] [CONS] Routine Comment: Evaluate, develop and implement POC 12/31/16 12:05 Consult to Neurology [CONS] Routine Consulting Provider: [facility] Reason for Consult: New MRI findings of right eye. Call Completed: No 12/31/16 13:56 Consult to Fence Installer Foreman [CONS] Routine Reason for SW Consult: Pt/OT suggests SNF 01/01/17 14:24 Consult to Physician [CONS] Routine Consulting Provider: Vitaly Parra Reason for Consult: periorbital cellulitis Call Completed: Yes Discharging clinician: Leo Kennedy Anticipated date of discharge: 01/02/17 - Patient Status Disposition: Transfer SNF Condition: Fair Functional capacity at discharge: uses cane/walker Overall status at discharge: patient is progressing back to baseline - Discharge Instructions Follow Up With: Anju Britt [Primary Care Provider] - [facility] [Provider Group] Vitaly Parra, DO [Non-Partnered Physician] - Additional Instructions: I recommend follow up with your PCP in the next 3-5 days Complete antibiotic as prescribed. Follow up with Ophtamology ( Dr. Parra) in the next week. follow up with Nephrology post discharge - Diet and Activity Activity: as per physical therapy Diet: diabetic diet Interval History: Mr. 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 Originally was evaluated holes or emergency departments and in images of his head did not demonstrate any acute stroke, after arriving home he fell while walking into the house with a walker. He is brought to the [facility] emergency department and further evaluated. Chest x-ray was completed upon arrival but did not demonstrate any acute disease process. Hip x-ray did not demonstrate any acute osseous abnormality of the right hip. X-ray demonstrates moderate suprapatellar joint effusion but no evidence of acute fracture dislocation of the right knee. Brain MRI did not demonstrate any evidence of acute infarct, cerebral and cerebellar parenchymal volume loss with moderate chronic microvascular white matter ischemic disease. Chronic lacunar infarcts are noted in the left putamen and left centrum semiovale. There is a right phthisis bulbi that is new since the previous CT on 2014. Duplex Doppler of the lower extremities is negative for DVT. Laboratory work demonstrated a WBC count 14.9 hemoglobin 10.2 hematocrit 31.5, creatinine 4.31 GFR 14 be on a 68, glucose 239. He was admitted to the general medical floor with concern for possible CVA, frequent falls and swelling of his right lower extremity. After admission to general medical floor he was further evaluated and to review imaging of his right ankle did not demonstrate any acute fractures. He did have acute right eye pain swelling was started on Zosyn and ciprofloxacin eyedrops. Neurology was consult if further concern of CVA tenderness and acute CVA was not suspected and there were no recommendations for further imaging studies for neurologic perspective. Dr. Parra from ophthalmology was consult for evaluation of the patient's painful , swollen right eye. He was seen and evaluated by ophthalmology who agreed with the current antibiotic treatment plan and recommended outpatient follow- up. During his inpatient stay he was seen and evaluated by physical therapy and occupational therapy who recommended SNF/ECF. Mr. Prado was seen and evaluated on 01/02/2017 and deemed stable for discharge to ECF with appropriate follow-up with PCP and ophthalmology. Appropriate antibiotics were provided at the time of discharge. Hospital course: Mr. Prado is a 66 year old male - Time Spent with Patient Total time spent providing and/or coordinating discharge services: - Constitutional Vitals: Temp Pulse Resp BP Pulse Ox 98.8 F 73 16 164/78 96 01/02/17 06:53 01/02/17 06:53 01/02/17 06:53 01/02/17 06:53 01/02/17 06:53 General appearance: Present: cooperative, A&O X 3, pleasant, no acute distress - Head Head exam: Present: atraumatic, normocephalic - Eye Additional comments: Right eye appears to be atrophied, there is a white appearance behind the iris. the sclera and conjunctiva are injected with periorbital swelling that is improved. The eye is deviated to the right. The left pupil is small and irregular in shape with no pupillary reflex. - ENT ENT exam: Present: mucous membranes moist - Neck Neck exam general surgery: Present: supple, trachea midline. Absent: lymphadenopathy - Respiratory Respiratory exam: Present: CTAB. Absent: accessory muscle use, rales, rhonchi, wheezes - Cardiovascular Cardiovascular exam: Present: RRR, +S1, +S2. Absent: diastolic murmur, gallop, rubs, systolic murmur - GI/Abdominal GI/Abdominal exam: Present: normal bowel sounds, soft, no peritoneal signs. Absent: distended, tenderness - Extremities Exam Additional comments: right foot is edematous with 2+ pitting to the right ankle. There is eccymosis on the right lateral aspect of the ankle. The LE are without hair bilateral. Sensation is very poor in both legs with difficulty with discrepancy of touch. Poor pedal pulses. - Neurological Exam Neurological exam: Present: alert, oriented X3, no focal deficits. Absent: pronater drift, facial droop, speech deficit - Psychiatric Psychiatric exam: Present: normal affect, normal mood <Mikel Caicedo - Last Filed: 01/02/17 18:34> Date of Encounter: 01/02/17 Date of admission: 12/30/16 10:00 Primary care physician: Anju Britt Consults: 12/30/16 10:08 PT [Consult to Physical Therapy] [CONS] Routine Comment: Evaluate, develop and implement POC 12/30/16 10:58 OT [Consult to Occupational Therapy] [CONS] Routine Comment: Evaluate, develop and implement POC 12/31/16 12:05 Consult to Neurology [CONS] Routine Consulting Provider: [facility] Reason for Consult: New MRI findings of right eye. Call Completed: No 12/31/16 13:56 Consult to Fence Installer Foreman [CONS] Routine Reason for SW Consult: Pt/OT suggests SNF 01/01/17 14:24 Consult to Physician [CONS] Routine Consulting Provider: Vitaly Parra Reason for Consult: periorbital cellulitis Call Completed: Yes Hospital course: Mr. Prado is a 66 year old male - Time Spent with Patient Total time spent providing and/or coordinating discharge services: - Constitutional Vitals: Temp Pulse Resp BP Pulse Ox 98.8 F 73 16 164/78 96 01/02/17 06:53 01/02/17 06:53 01/02/17 06:53 01/02/17 06:53 01/02/17 08:21 - Attending Attestation I examined this patient and my medical decision-making was reviewed with the Resident Physician, Dr Kennedy. I agree with the documented findings, disposition and treatment plan as described except to the extent set forth below. Patient currently reports no eye pain. He has diminished vision in the left eye and he is blind in the right eye. His heart is regular S1 and S2 with no murmurs. Lungs exam reveals bibasilar crackles. Lower extremity edema is present but diminished from previous days. We will discharged the patient to subacute rehabilitation. Hold his Lasix for now due to worsening creatinine. Have him follow-up with nephrology closely.
[2017-01-02] MEDS: *HR* Heparin 5,000 UNIT/ML VIAL SQ SCH (08:19)
[2017-01-02] MEDS: Primidone 50 MG TABLET PO SCH (08:20)
[2017-01-02] MEDS: Pregabalin 50 MG CAPSULE PO SCH (08:20)
[2017-01-02] MEDS: Insulin LISPRO 300 UNITS/3 ML VIAL SQ SCH ×2 (08:20→12:18)
[2017-01-02] MEDS: Furosemide 20 MG TABLET PO SCH (08:21)
[2017-01-02] MEDS: Aspirin Enteric Coated 325 MG Tablet PO SCH (08:21)
[2017-01-02] MEDS: Insulin DETEMIR 100 UNIT/ML X5UNITS SQ SCH (09:06)
--- NOTE | 2017-01-02 09:08 | Physician Discharge Referral ---
ExtendedCare Referral Info Transfer To: ecf Provider in Charge after Transfer: PCP Institutional Level of Care: Skilled - Diagnosis (1) Right ankle injury Priority: Primary Status: Acute (2) Acute right eye pain Priority: Primary Status: Acute (3) Phthisis bulbi of right eye Priority: Primary Status: Acute (4) 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 Priority: Secondary Status: Chronic (5) Frequent falls Priority: Primary Status: Acute (6) End stage kidney disease Priority: Secondary Status: Acute (7) DVT prophylaxis Priority: Secondary Status: Acute - Transfer Medications Prescriptions: Ciprofloxacin OPTH Soln [Ciloxan OPTH Soln] 2 drop RIGHT EYE Q4HR 7 Days Home Medications: Aspirin [Ecotrin] 325 mg PO DAILY #0 06/05/15 [History] Finasteride [Proscar] 5 mg PO DAILY #0 06/05/15 [History] GlipiZIDE [Glipizide] 10 mg PO BID #0 06/05/15 [History] Insulin DETEMIR [Levemir Flextouch] 55 unit SQ BID #0 06/05/15 [History] Primidone [Mysoline] 50 mg PO DAILY #0 06/05/15 [History] Ranitidine HCl [Zantac] 150 mg PO BID #0 06/05/15 [History] Simvastatin [Zocor] 10 mg PO DAILY #0 06/05/15 [History] Tamsulosin [Flomax] 0.4 mg PO DAILY #0 06/05/15 [History] Calcitriol [Rocaltrol] 0.25 mcg PO DAILY 09/11/15 [History] Ferrous Sulfate [Iron] 325 mg PO DAILY 12/30/16 [History] Furosemide [Lasix] 20 mg PO DAILY 12/30/16 [History] Insulin ASPART [Novolog Flexpen] 10 unit SQ TID 12/30/16 [History] Montelukast [Singulair] 10 mg PO DAILY 12/30/16 [History] Omeprazole Magnesium 20 mg PO DAILY 12/30/16 [History] Pregabalin [Lyrica] 100 mg PO BID 12/30/16 [History] Ciprofloxacin OPTH Soln [Ciloxan OPTH Soln] 2 drop RIGHT EYE Q4HR 7 Days [Rx] Allergies/Adverse Reactions: Allergies No Known Allergies Allergy (Verified 12/29/16 23:37) - Respiratory Orders Smoking Cessation: Smoking cessation has been advised. For more information, call the [place] Tobacco Quit Line at 3-708-CCAD-NOW. - Ancillary Orders May use pressure relief devices daily prn, May consult with Dentist, Cna, Photo Printer PRN - Advance Directives Living Will: No Power of Sanding Machine Tender Automatic: No Code Status: Full Code - Mobility Orders Ambulate - Rehabiliation Orders Rehab Potential: Good Rehab Orders: ROM Exercises, Evaluation for Physical Therapy, Evaluation for Occupational Therapy - Treatments Skin tear care topically daily PRN per policy, Fleet enema rectally every other day PRN cleansing purposes - Diet Orders No Added Salt (MATTHEW), Renal CERTIFICATION: I certify that the transfer of the above named patient to an Extended Care Facility is necessary for the continuing treatment of the diagnosis listed. The above information is true and accurate reflection of patient's current condition. Confidential - Redisclosure prohibited without a patient's written consent.
[2017-01-05 10:32] VITALS: BP 164/78
== END 2017-01-02 12:43 | DRG 683 ==
LOC: 3NENU 23:35 → EMEROO 23:35 → 3NENU 12-30 05:14
PROVIDERS: ADMIT Internal Medicine; ATTEND Internal Medicine

== ENCOUNTER 2017-06-15 13:49 | Inpatient (IN) ==
[2017-06-15] MEDS ORDERED: Naloxone 0.4 MG/ML INJ IVP PRN (16:01)
[2017-06-15] MEDS ORDERED: Acetaminophen 325 MG TABLET PO PRN (16:01)
[2017-06-15 16:32] LABS: ABG Base Excess 2.7 mEq/L (-2.0 to 3.0); ABG HCO3 31 mEq/L (21-27); ABG Oxygen Saturation 97 % (95-98); ABG PCO2 69 mmHg (35-45); ABG PH 7.26 pH Units (7.32-7.45); ABG PO2 99 mmHg (85-104); ABG TCO2 33.1 mEq/L (20-26); Blood Gas FiO2 40 %; Blood Gas Modality BIPAP
[2017-06-15 17:13] LABS: Albumin/Globulin Ratio 0.7 (1.1-2.2); Bilirubin,Total 0.2 mg/dL (0.2-1.2); Calcium 8.6 mg/dL (8.6-10.8); Globulin 4.3 g/dL (2.4-3.5); Magnesium 1.9 mg/dL (1.6-2.6); Phosphorous 4.6 mg/dL (2.3-4.7); Potassium 5.5 mEq/L (3.5-4.5); Total Protein 7.3 g/dL (6.0-8.3)
--- NOTE | 2017-06-15 17:13 | Internal Med History&Physical ---
Date of Encounter: 06/15/17 Time of Encounter: 17:07 Assessment and Plan (1) Acute and chronic respiratory failure with hypoxia Current visit: Yes Status: Acute Reviewed his CXR showing patchy infiltrates in RML, RLL and LLL..Severe vascular congestion noticed Mostly aspirational pneumonia His resp failure multi factorial due to volume overload, COPD exacerbation and Pnemonia Will cont IV diuresis with Lasix 40mg IV Q8hr. so far had -1400 cc since this morning Strict I & O Reviewed ABG --still in resp acidosis with Ph: 7.26, Pco2 -69 So changed BiPAP setting to 20/8 Fio2 35 Repeat ABG in 1 hr Consulted pulmonary started him on empirical abx Zosyn sent for blood cx, sputum cx Cont BiPAP for next 24hrs Pt is high risk for respiratory and cardiac failure.. will continue critical care for now. Talked to pt's family at bed side and explained to them about critical condition due to his multiple commodities Pt and family wanted continue as full code for now I spent 60 minutes on this pt's critical care (2) Acute and chronic respiratory failure with hypercapnia Current visit: Yes Status: Acute (3) Volume overload Current visit: Yes Status: Acute due to Renal failure and Acute on chronic diastolic CHF exacerbation Reviewed 2 D Echo from 06/2016 showed normal LVEF 60%, DIastolic dysfunction will get another 2 D Echo Cont Lasix 40 IV Q8hr cont close monitoring Qualifiers: Qualified Code(s): E87.70 - Fluid overload, unspecified (4) Diastolic CHF, acute on chronic Current visit: Yes Status: Acute (5) Pneumonia Current visit: Yes Status: Acute mostly aspirational superimposed with bacerial infection on Zosyn abx Qualifiers: Pneumonia type: aspiration pneumonia Aspiration pneumonia type: due to gastric secretions Qualified Code(s): J69.0 - Pneumonitis due to inhalation of food and vomit (6) ISMA (acute kidney injury) Current visit: No Status: Acute ISMA with CKD-4 Cont IV Lasix avoid nephro toxic meds resumed all his home meds Consulted Nephro Pt does agree for HD now Waiting on Nephro evaluation Talked to Dr. Be who is panning on seeing him later today (7) CKD (chronic kidney disease) stage 4, GFR 15-29 ml/min Current visit: No Status: Chronic (8) Hyperkalemia Current visit: No Status: Resolved K + slightly better.. down to 5.5 Cont close monitoring Cont duoneb Will give 1 dose Kayexalate 15gm (9) Acute delirium Current visit: Yes Status: Acute Due to toxic and metabolic encephaloapthy his Left UE twitching also mostly due to his hypercapneic resp failure / hyperkalemia / hyperuricemia cont close monitoring for now no active seizure activity will put him on seizure precautions too (10) 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 Current visit: No Status: Chronic on ISS Qualifiers: 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 type: type 2 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 complication status: with neurologic complications 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 complication detail: with polyneuropathy 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 watermaster insulin use: with watermaster use Qualified Code(s): E11.42 - Type 2 diabetes mellitus with diabetic polyneuropathy; Z79.4 - halfway (current) use of insulin (11) ABIGAIL on CPAP Current visit: No Status: Acute (12) DVT prophylaxis Current visit: No Status: Acute on SQ heparin Internal Medicine - H&P: HPI Chief complaint: Shortness of breath Admitted From: Emergency Dept Plans for Post Hospital Care: Home History of present illness: Mr. Prado is a 67 year old male with known PMH of HTN, HLD, CHF, Uncontrolled DM2, CKD-4 who has been following with Nephro Dr. Be was taken to [facility] this morning when found him very lethargic , disoriented and severe SOB. Apparently pt was in severe hypoxia with Spo2 in 70's, he was placed on 100% O2 through NRB and eventually changed to BiPAP in the ER. He was also in severe respiratory acidosis with initial Ph : 7.26, PCo2 68 Po2 158.. With BiPAP his Ph improved to 7.31 and Pco2 58. We were asked to leah the pt here for further higher level of care. Pt also was severe volume overload with CKD-4, Hyperkalemia with K + 5.9. Now pt is alert, awake and Oriented x 3, still looks mild confused. He does have some twitching in Left arm since this morning as per . He denied any CP. No abd. Winter cath + Past Med Surg Social Fam HX - Past Medical History Medical history: CVA, diabetes, hyperlipidemia, hypertension, renal disease, other Psychiatric history: no psych history - Past Surgical History Surgical History: other - Social History Smoking Status: Former smoker Smokeless Tobacco Status: No Alcohol use: none Drug use: none - Family History Mother Living Status: Father Living Status: Hx Family Endocrine Disorder: Yes (diabetes) Internal Medicine - H&P: Meds Aspirin [Ecotrin] 325 mg PO DAILY #0 06/05/15 [History] Finasteride [Proscar] 5 mg PO DAILY #0 06/05/15 [History] Primidone [Mysoline] 50 mg PO DAILY #0 06/05/15 [History] Ranitidine HCl [Zantac] 150 mg PO BID #0 06/05/15 [History] Simvastatin [Zocor] 10 mg PO DAILY #0 06/05/15 [History] Tamsulosin [Flomax] 0.4 mg PO DAILY #0 06/05/15 [History] Calcitriol [Rocaltrol] 0.25 mcg PO DAILY 09/11/15 [History] Ferrous Sulfate [Iron] 325 mg PO DAILY 12/30/16 [History] Insulin ASPART [Novolog Flexpen] 10 unit SQ TID 12/30/16 [History] Montelukast [Singulair] 10 mg PO DAILY 12/30/16 [History] Omeprazole Magnesium 20 mg PO DAILY 12/30/16 [History] Ciprofloxacin OPTH Soln [Ciloxan OPTH Soln] 2 drop RIGHT EYE Q4HR 7 Days [Rx] Insulin DETEMIR [Levemir Flextouch] 25 unit SQ BID #0 01/02/17 [Rx] Pregabalin [Lyrica] 50 mg PO DAILY #14 capsule 01/02/17 [Rx] 3 Allergy/AdvReac Type Severity Reaction Status Date / Time No Known Allergies Allergy Verified 12/29/16 23:37 All Systems PM: A 10-system review of systems was performed and is negative for pertinent findings except as documented above in the HPI. Review of systems: All the systems are reviewed everything is benign except the systems and symptoms I mentioned in the history of present illness - Constitutional Vitals: Temp Pulse Resp BP Pulse Ox 98.6 F 83 20 173/93 99 06/15/17 15:40 06/15/17 15:54 06/15/17 16:57 06/15/17 16:57 06/15/17 16:57 General appearance: Present: mild distress, A&O X 3, obese, answers questions appropriately - Head Head exam: Present: atraumatic, normal inspection - Respiratory Respiratory exam: Present: decreased breath sounds, rales, respiratory distress (mild), wheezes. Absent: rhonchi - Cardiovascular Cardiovascular exam: Present: gallop, RRR, +S1, +S2. Absent: diastolic murmur, rubs, systolic murmur - GI/Abdominal GI/Abdominal exam: Present: distended, normal bowel sounds, soft. Absent: rebound, rigid, tenderness - Extremities Exam Extremities exam: Present: pedal edema (3+). Absent: calf tenderness, tenderness - Neurological Exam Neurological exam: Present: alert, altered, oriented X3, no focal deficits, strengths equal and symetr throughout. Absent: pronater drift, speech deficit - Psychiatric Psychiatric exam: Present: anxious Internal Med - H&P Results - ABG Interpretation ABG results: 06/15/17 16:20 ABG pH 7.26 L ABG pCO2 69 H ABG pO2 99 ABG HCO3 31 H ABG Total CO2 33.1 H ABG O2 Saturation 97 ABG Base Excess 2.7
[2017-06-15] MEDS: Furosemide 40 MG/4 ML VIAL IVP SCH (17:26)
[2017-06-15] MEDS: *HR* Heparin 5,000 UNIT/ML VIAL SQ SCH (17:26)
[2017-06-15] MEDS: Piperacillin/Tazobactam 3.375 GM in D5% in Water (Mini-Bag+) 100 ML IVPB SCH (17:27)
[2017-06-15] MEDS ORDERED: Dextrose Gel 15 GM PO PRN ×2 (17:32)
[2017-06-15] MEDS ORDERED: *HR* Dextrose 50 % in Water (Syg) 50 ML SYRINGE IVP PRN (17:32)
[2017-06-15] MEDS ORDERED: D5% in Water 1,000 ML IVC PRN (17:32)
[2017-06-15 18:27] LABS: ABG Base Excess 2.5 mEq/L (-2.0 to 3.0); ABG HCO3 29 mEq/L (21-27); ABG Oxygen Saturation 98 % (95-98); ABG PCO2 57 mmHg (35-45); ABG PH 7.32 pH Units (7.32-7.45); ABG PO2 113 mmHg (85-104); ABG TCO2 31.1 mEq/L (20-26); Blood Gas FiO2 35 %; Blood Gas Modality BIPAP
[2017-06-15] MEDS: Ipratropium/Albuterol Neb 3 ML IH SCH (20:40)
[2017-06-15 20:47] LABS: ABG Base Excess 2.6 mEq/L (-2.0 to 3.0); ABG HCO3 30 mEq/L (21-27); ABG Oxygen Saturation 95 % (95-98); ABG PCO2 61 mmHg (35-45); ABG PO2 81 mmHg (85-104); ABG TCO2 31.9 mEq/L (20-26); Blood Gas FiO2 35 %; Blood Gas Modality BIPAP
[2017-06-16] MEDS: Ipratropium/Albuterol Neb 3 ML IH SCH ×6 (00:44→19:48)
--- NOTE | 2017-06-16 01:23 | Pulmonology Consult Note ---
Date of Encounter: 06/16/17 Time of Encounter: 00:22 History of Present Illness Consult date: 06/16/17 Requesting physician: Dorina Mojica Reason for consult: dyspnea, hypoxemia, pneumonia Chief complaint: SOB Past Med Surg Social Fam HX - Past Medical History Medical history: CVA, diabetes, hyperlipidemia, hypertension, renal disease, other Psychiatric history: no psych history - Past Surgical History Surgical History: other - Social History Smoking Status: Former smoker Smokeless Tobacco Status: No Alcohol use: none Drug use: none - Family History Mother Living Status: Father Living Status: Hx Family Endocrine Disorder: Yes (diabetes) Medications and Allergies Aspirin [Ecotrin] 325 mg PO DAILY #0 06/05/15 [History] Finasteride [Proscar] 5 mg PO DAILY #0 06/05/15 [History] Primidone [Mysoline] 50 mg PO DAILY #0 06/05/15 [History] Ranitidine HCl [Zantac] 150 mg PO BID #0 06/05/15 [History] Simvastatin [Zocor] 10 mg PO QPM #0 06/05/15 [History] Tamsulosin [Flomax] 0.4 mg PO DAILY #0 06/05/15 [History] Calcitriol [Rocaltrol] 0.25 mcg PO DAILY 09/11/15 [History] Insulin ASPART [Novolog Flexpen] 15 unit SQ TID 12/30/16 [History] Montelukast [Singulair] 10 mg PO QPM 12/30/16 [History] Furosemide [Lasix] 20 mg PO DAILY 06/15/17 [History] Insulin DETEMIR [Levemir Flextouch] 40 unit SQ BID 06/15/17 [History] Losartan Potassium [Cozaar] 50 mg PO DAILY 06/15/17 [History] Ondansetron HCl [Zofran] 4 mg PO BID 06/15/17 [History] Oxygen 2 l NS AD 06/15/17 [History] PrednisoLONE Acetate 1% Opth [PredFORTE 1%] 1 drop OP QID PRN 06/15/17 [History] Pregabalin [Lyrica] 100 mg PO BID 06/15/17 [History] Tramadol HCl [Ultram] 50 mg PO BID PRN 06/15/17 [History] 3 Allergy/AdvReac Type Severity Reaction Status Date / Time No Known Allergies Allergy Verified 12/29/16 23:37 All Systems: A 10-system review of systems was performed and is negative for pertinent findings except as documented above in the HPI. Physical Examination Vital Signs: Vital Signs, Last 4 Hours Temp Pulse Resp BP Pulse Ox 06/15/17 23:42 98.4 F 68 12 158/92 96 06/15/17 22:59 76 16 138/73 97 06/15/17 22:00 69 10 128/66 94 06/15/17 20:48 73 16 153/83 97 06/15/17 20:40 19 153/83 96 Ventilator Settings Ventilator Settings: Ventilator Settings, Last 8 Hours Ventilator Mode Bi-Level Ventilator Mode Bi-Level Results - Laboratory Findings CBC and BMP: 06/15/17 16:38 ABG ABG pH 7.30 pH Units (7.32-7.45) L 06/15/17 20:37 ABG pCO2 61 mmHg (35-45) H 06/15/17 20:37 ABG pO2 81 mmHg (85-104) L 06/15/17 20:37 ABG O2 Saturation 95 % (95-98) 06/15/17 20:37 Abnormal lab findings: Abnormal lab results ABG pH 7.30 pH Units (7.32-7.45) L 06/15/17 20:37 ABG pCO2 61 mmHg (35-45) H 06/15/17 20:37 ABG pO2 81 mmHg (85-104) L 06/15/17 20:37 ABG HCO3 30 mEq/L (21-27) H 06/15/17 20:37 ABG Total CO2 31.9 mEq/L (20-26) H 06/15/17 20:37 Potassium 5.5 mEq/L (3.5-4.5) H 06/15/17 16:38 Chloride 110 mEq/L (98-109) H 06/15/17 16:38 BUN 49 mg/dL (8-26) H 06/15/17 16:38 Creatinine 4.73 mg/dL (0.72-1.25) H 06/15/17 16:38 Est GFR ( Amer) 15 (> 60) L 06/15/17 16:38 Est GFR (Non-Af Amer) 12 (> 60) L 06/15/17 16:38 Glucose 125 mg/dL (70-99) H 06/15/17 16:38 POC Glucose 115 (58-89) H 06/15/17 15:45 Calculated Osmolality 314 (280-300) H 06/15/17 16:38 Albumin 3.0 g/dL (3.5-5.0) L 06/15/17 16:38 Globulin 4.3 g/dL (2.4-3.5) H 06/15/17 16:38 Albumin/Globulin Ratio 0.7 (1.1-2.2) L 06/15/17 16:38 - Clinical Findings Intake & Output: Intake & Output 06/15/17 06/15/17 06/16/17 15:59 23:59 07:59 Intake Total 0 / 0 Output Total 1400 / 1400 Balance -1400 / -1400 Weight 126.4 kg 92.2 kg Consult Discharge Plan - Plan Referrals: NONE,PCP [Primary Care Provider] -
[2017-06-16 04:45] LABS: Basophils % 0.3 %; Eosinophils # 0.1 K/mcL (0.0-0.6); Eosinophils % 1.6 %; Hematocrit 32.3 % (37.5-50.1); Hemoglobin 9.7 g/dL (12.9-16.9); Immature Granulocytes % 0.2 % (0-4); Lymphocytes % 23.1 %; Mean Corpuscular Hemoglobin 28.6 pg (28.0-33.3); Mean Corpuscular Volume 95.3 fL (83.0-100.0); Mean Platelet Volume 10.4 fL (9.4-12.4); Monocytes # 0.7 K/mcL (0.0-1.3); Monocytes % 8.5 %; Neutrophils # 5.8 K/mcL (1.6-8.9); Platelet Count 158 K/mcL (140-400); Red Blood Count 3.39 M/mcL (4.19-5.50); Red Cell Distribution Width 14.7 % (11.5-14.5); Segmented Neutrophils % 66.3 %
[2017-06-16 05:03] LABS: Calcium 8.4 mg/dL (8.6-10.8); Magnesium 1.6 mg/dL (1.6-2.6); Phosphorous 3.9 mg/dL (2.3-4.7)
[2017-06-16] MEDS: Famotidine 20 MG/2 ML VIAL IVP SCH (05:52)
[2017-06-16] MEDS: Piperacillin/Tazobactam 3.375 GM in D5% in Water (Mini-Bag+) 100 ML IVPB SCH ×2 (05:52→17:02)
[2017-06-16] MEDS: *HR* Heparin 5,000 UNIT/ML VIAL SQ SCH ×2 (05:52→17:02)
[2017-06-16] MEDS: Insulin LISPRO 300 UNITS/3 ML VIAL SQ SCH ×3 (07:50→17:03)
[2017-06-16] MEDS ORDERED: Perflutren Lipid Microsphere 1.3 ML in 0.9 % Sodium Chloride 8.7 ML IVP ONE (08:26)
--- NOTE | 2017-06-16 08:47 | Nephrology Consult Note ---
Date of Encounter: 06/16/17 Time of Encounter: 08:45 Assessment and Plan (1) CKD (chronic kidney disease) stage 4, GFR 15-29 ml/min Current Visit: No Status: Chronic The patient has a history of progressive stage IV almost stage V chronic kidney disease. He now presents with volume overload and respiratory failure. He is improved with conservative treatment so far. His potassium is improved. His symptoms of improved with diuretics. Blood pressure is poorly controlled. We will adjust his diuretics as well as his antihypertensive regimen today. If he continues to improve we will treat him conservatively. If he fails to improve and/or if his renal function worsens we will initiate dialysis. I discussed this with the patient in the family and they are in agreement with this plan. 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 insulin use: without custodial use Chronic kidney disease stage: stage 4 (severe) Qualified Code(s): E11.22 - Type 2 diabetes mellitus with diabetic chronic kidney disease; N18.4 - Chronic kidney disease, stage 4 (severe) (3) Benign hypertension with CKD (chronic kidney disease) stage IV Current Visit: Yes Status: Acute (4) Anemia in CKD (chronic kidney disease) Current Visit: Yes Status: Acute Qualifiers: Chronic kidney disease stage: stage 4 (severe) Qualified Code(s): N18.4 - Chronic kidney disease, stage 4 (severe); D63.1 - Anemia in chronic kidney disease History of Present Illness - History of Present Illness This is a 67-year-old male with a history of progressive stage IV to stage V chronic kidney disease in the setting of diabetes along with proteinuria. Patient was admitted to the hospital following a 3 week history of increasing swelling and shortness of breath. He was noted to be volume overloaded. His creatinine is 4.59 with a GFR of 13. He has been treated with diuretics with some improvement in his symptoms. He also required BiPAP because of hypoxemia as well as hypercapnia. Currently is being weaned down to nasal cannula. Overall he says he feels better. Family reports that he was having some confusion at home likely related to his hypercapnia. His blood pressure remains elevated. He has occasional nausea which has been present for 6 months. He denies any vomiting. He says his appetite is been good. He denies any chest pain. He denies any previous history of heart disease. Patient has progressive stage IV to stage V chronic kidney disease. He has been adamant in the past and he does not want to have dialysis. Since she has been admitted to the hospital he now says he is agreeable to dialysis should become necessary. Past Med Surg Social Fam HX - Past Medical History Medical history: CVA, diabetes, hyperlipidemia, hypertension, renal disease, other Psychiatric history: no psych history - Past Surgical History Surgical History: other - Social History Smoking Status: Former smoker Smokeless Tobacco Status: No Alcohol use: none Drug use: none - Family History Mother Living Status: Father Living Status: Hx Family Endocrine Disorder: Yes (diabetes) Medications and Allergies Aspirin [Ecotrin] 325 mg PO DAILY #0 06/05/15 [History] Finasteride [Proscar] 5 mg PO DAILY #0 06/05/15 [History] Primidone [Mysoline] 50 mg PO DAILY #0 06/05/15 [History] Ranitidine HCl [Zantac] 150 mg PO BID #0 06/05/15 [History] Simvastatin [Zocor] 10 mg PO QPM #0 06/05/15 [History] Tamsulosin [Flomax] 0.4 mg PO DAILY #0 06/05/15 [History] Calcitriol [Rocaltrol] 0.25 mcg PO DAILY 09/11/15 [History] Insulin ASPART [Novolog Flexpen] 15 unit SQ TID 12/30/16 [History] Montelukast [Singulair] 10 mg PO QPM 12/30/16 [History] Furosemide [Lasix] 20 mg PO DAILY 06/15/17 [History] Insulin DETEMIR [Levemir Flextouch] 40 unit SQ BID 06/15/17 [History] Losartan Potassium [Cozaar] 50 mg PO DAILY 06/15/17 [History] Ondansetron HCl [Zofran] 4 mg PO BID 06/15/17 [History] Oxygen 2 l NS AD 06/15/17 [History] PrednisoLONE Acetate 1% Opth [PredFORTE 1%] 1 drop OP QID PRN 06/15/17 [History] Pregabalin [Lyrica] 100 mg PO BID 06/15/17 [History] Tramadol HCl [Ultram] 50 mg PO BID PRN 06/15/17 [History] 3 Allergy/AdvReac Type Severity Reaction Status Date / Time No Known Allergies Allergy Verified 12/29/16 23:37 Review of Systems Constitutional: weakness Eyes: bilateral: blurred vision (patient denies), diplopia (patient denies) Nose, mouth and throat: no dizziness, no headache(s) Cardiovascular: as per HPI, dyspnea, dyspnea on exertion, edema, leg edema, orthopnea Respiratory: cough, dyspnea, dyspnea on exertion Gastrointestinal: nausea Genitourinary Male: as per HPI Musculoskeletal: no muscle weakness, no numbness Integumentary: no hirsutism, no striae Neurological: convulsions, weakness Psychiatric: no depression, no difficulty concentrating Endocrine: as per HPI Exam - Vital Signs Vital signs: Initial Vital Signs Temp Pulse Resp BP Pulse Ox 98.6 F 83 22 136/104 96 06/15/17 15:40 06/15/17 15:40 06/15/17 15:40 06/15/17 15:40 06/15/17 15:40 Vital Signs - Last 8 Hours Temp Pulse Resp BP Pulse Ox 06/16/17 07:54 98.5 F 06/16/17 07:44 89 06/16/17 07:33 12 95 06/16/17 07:00 89 16 170/85 97 06/16/17 06:02 98.4 F 06/16/17 05:53 88 12 140/74 94 06/16/17 05:00 90 15 160/78 06/16/17 04:00 79 11 174/88 98 06/16/17 03:55 20 174/80 96 06/16/17 03:00 86 13 174/92 97 06/16/17 01:56 88 06/16/17 01:48 86 17 156/88 96 06/16/17 00:47 70 12 144/80 98 Intake and Output 06/15/17 06/16/17 06/16/17 23:59 07:59 15:59 Intake Total 0 / 0 600 / 600 Output Total 1400 / 1400 150 / 150 Balance -1400 / -1400 450 / 450 Intake: IV Fluids 100 / 100 Zosyn 3.375 GM In Dextrose 5% ( 100 / 100 Minibag+) 100 ML 100 ML @ 25 mls/hr IVPB Q12HR [facility] Rx#: [id number] Oral 0 / 0 500 / 500 Output: Catheter 1400 / 1400 150 / 150 Other: Weight 126.4 kg 92.2 kg Blood Glucose* 134 Patient Weight 06/16/17 23:59 Weight 92.2 kg - General Appearance Exam: The patient is seen and examined in the intensive care unit. Patient is alert and oriented. He is in no acute distress. He is on a nasal cannula. Winter catheter is in place. Lungs diminished breath sounds bilaterally. Heart regular rate and rhythm with a 2/6 systolic murmur. There is no friction rub. Abdomen shows normal bowel sounds are braze masses kassy megaly or tenderness. The reduction ratio 3+ lower extremity swelling greater on the right compared to the left. Results - Lab Results 06/16/17 04:34 06/16/17 04:34 Most recent lab results ABG pH 7.30 pH Units (7.32-7.45) L 06/15/17 20:37 ABG pCO2 61 mmHg (35-45) H 06/15/17 20:37 ABG pO2 81 mmHg (85-104) L 06/15/17 20:37 ABG HCO3 30 mEq/L (21-27) H 06/15/17 20:37 ABG O2 Saturation 95 % (95-98) 06/15/17 20:37 Calcium 8.4 mg/dL (8.6-10.8) L 06/16/17 04:34 Phosphorus 3.9 mg/dL (2.3-4.7) 06/16/17 04:34 Magnesium 1.6 mg/dL (1.6-2.6) 06/16/17 04:34 Consult Discharge Plan - Plan Referrals: NONE,PCP [Primary Care Provider] -
[2017-06-16] MEDS: Furosemide 40 MG/4 ML VIAL IVP SCH ×3 (08:50→17:02)
--- NOTE | 2017-06-16 09:33 | Internal Med Progress Note ---
Date of Encounter: 06/16/17 Time of Encounter: 09:30 - Assessment and plan (1) Volume overload Current Visit: Yes Status: Acute Assessment and plan: Patient is admitted with signs and symptoms of volume overload, pulmonary edema likely secondary to worsening renal failure. Continue aggressive diuresis with IV Lasix along with fluid restriction and urine output monitoring. Continue supplemental oxygen. Nephrology on board. Follow up 2-D echocardiogram. Qualifiers: Hypervolemia type: unspecified Qualified Code(s): E87.70 - Fluid overload, unspecified (2) Acute and chronic respiratory failure with hypoxia Current Visit: Yes Status: Acute Assessment and plan: Patient was admitted with volume overload and respiratory failure with worsening CKD. Continue IV Lasix with Zaroxolyn per Nephrology; continue supplemental O2 and NIPPV at this time; ABG shows respiratory acidosis. (3) Diastolic CHF, acute on chronic Current Visit: Yes Status: Acute Assessment and plan: Volume overload mainly due to worsening CKD; continue IV Lasix and Zaroxolyn and fluid restriction; beta libra; BiPAP support as needed. Follow-up echocardiogram. (4) Essential hypertension Current Visit: Yes Status: Chronic Assessment and plan: Blood pressure noted to be uncontrolled due to volume overload. Hold ARB at this time due to hyperkalemia. Norvasc and labetalol have been started, will use when necessary IV hydralazine for appropriate blood pressure control. (5) CKD (chronic kidney disease) stage 4, GFR 15-29 ml/min Current Visit: Yes Status: Chronic Assessment and plan: Nephrology consulted. Patient will likely need initiation off renal replacement therapy. Noted to have hyperphosphatemia due to secondary hyperparathyroidism. (6) Hyperkalemia Current Visit: Yes Status: Acute Assessment and plan: Improving serum potassium but continues to be above normal. We will give another dose of 15 g Kayexalate. (7) 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 Current Visit: Yes Status: Chronic Assessment and plan: Accu-Chek blood glucose monitoring with sliding scale insulin. Diabetic diet. 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 pumper insulin use: with dredge pumper use Chronic kidney disease stage: stage 4 (severe) Qualified Code(s): E11.22 - Type 2 diabetes mellitus with diabetic chronic kidney disease; N18.4 - Chronic kidney disease, stage 4 (severe); Z79.4 - systems eng (current) use of insulin (8) ABIGAIL on CPAP Current Visit: Yes Status: Chronic - Subjective Interval history: Improved dyspnea; no chest pain, nausea, vomiting; does have generalized edema, patient is blind in right eye and unable to provide detailed history; - Constitutional Vitals: Temp Pulse Resp BP Pulse Ox 98.5 F 92 20 179/102 95 06/16/17 07:54 06/16/17 08:00 06/16/17 08:00 06/16/17 08:00 06/16/17 08:00 General appearance: Present: A&O X 3, obese, answers questions appropriately - Respiratory Respiratory exam: Present: decreased breath sounds, CTAB, rales. Absent: accessory muscle use, rhonchi, wheezes - Cardiovascular Cardiovascular exam: Present: RRR, +S1, +S2, tachycardia. Absent: diastolic murmur, gallop, rubs, systolic murmur - GI/Abdominal GI/Abdominal exam: Present: normal bowel sounds, soft (obese), no peritoneal signs. Absent: distended, tenderness - Extremities Exam Extremities exam: Present: full ROM, pedal edema (3+ pitting pedal edema, along with upper extremity edema), warm, radial pulses palpable and symmetrical. Absent: calf tenderness, cyanotic - Neurological Exam Neurological exam: Present: CN II-XII intact, oriented X3, no focal deficits. Absent: pronater drift, facial droop, speech deficit - Skin Skin exam: Present: dry, intact Internal Medicine: Result - Labs CBC & Chem 7: 06/18/17 17:15 06/18/17 05:16 Labs: Short CBC 06/16/17 Range/Units 04:34 WBC 8.7 (4.3-11.1) K/mcL Hgb 9.7 L (12.9-16.9) g/dL Hct 32.3 L (37.5-50.1) % Plt Count 158 (140-400) K/mcL Neutrophils # 5.8 (1.6-8.9) K/mcL BMP 06/15/17 06/16/17 16:38 04:34 Sodium 145 142 Potassium 5.5 H 5.0 H Chloride 110 H 107 Carbon Dioxide 27 25 BUN 49 H 47 H Creatinine 4.73 H 4.56 H Glucose 125 H 133 H Calcium 8.6 8.4 L Cardiac Enzymes 06/15/17 06/15/17 Range/Units 16:38 21:37 Troponin I 0.02 0.02 (0-0.03) ng/mL Liver Function 06/15/17 Range/Units 16:38 Total Bilirubin 0.2 (0.2-1.2) mg/dL AST 10 (5-34) Units/L ALT 12 (0-55) Units/L Alkaline Phosphatase 84 (38-126) Units/L Albumin 3.0 L (3.5-5.0) g/dL - ABG Interpretation ABG results: ABG ABG pH 7.30 pH Units (7.32-7.45) L 06/15/17 20:37 ABG pCO2 61 mmHg (35-45) H 06/15/17 20:37 ABG pO2 81 mmHg (85-104) L 06/15/17 20:37 ABG O2 Saturation 95 % (95-98) 06/15/17 20:37 - Impressions Impressions Chest X-Ray 06/15/17 16:51 IMPRESSION: 1. Cardiomegaly with vascular congestion and interstitial infiltrates likely representing edema and congestive failure. D/ / Tristian Robledo MD / Tristian Robledo MD Interpreting Provider: Tristian Robledo MD Consult Discharge Plan - Plan Referrals: NONE,PCP [Primary Care Provider] -
[2017-06-16] MEDS: amLODIPine 5 MG TABLET PO SCH (09:58)
[2017-06-16 12:37] LABS: Phosphorous 3.8 mg/dL (2.3-4.7)
[2017-06-17] MEDS: Ipratropium/Albuterol Neb 3 ML IH SCH ×7 (00:27→23:34)
[2017-06-17 04:00] LABS: Basophils % 0.2 %; Eosinophils # 0.2 K/mcL (0.0-0.6); Eosinophils % 1.6 %; Hematocrit 31.9 % (37.5-50.1); Hemoglobin 9.5 g/dL (12.9-16.9); Immature Granulocytes % 0.2 % (0-4); Lymphocytes # 1.5 K/mcL (0.6-4.6); Lymphocytes % 15.2 %; Mean Corpuscular HGB Conc 29.8 g/dL (31.6-35.5); Mean Corpuscular Hemoglobin 27.9 pg (28.0-33.3); Mean Corpuscular Volume 93.5 fL (83.0-100.0); Mean Platelet Volume 10.7 fL (9.4-12.4); Monocytes % 9.8 %; Neutrophils # 7.3 K/mcL (1.6-8.9); Platelet Count 150 K/mcL (140-400); Red Blood Count 3.41 M/mcL (4.19-5.50); Red Cell Distribution Width 14.8 % (11.5-14.5)
[2017-06-17 04:02] LABS: Magnesium 1.6 mg/dL (1.6-2.6); Phosphorous 4.9 mg/dL (2.3-4.7)
[2017-06-17 04:05] LABS: Albumin 2.6 g/dL (3.5-5.0); Albumin/Globulin Ratio 0.6 (1.1-2.2); Bilirubin,Total 0.4 mg/dL (0.2-1.2); Globulin 4.1 g/dL (2.4-3.5); Total Protein 6.7 g/dL (6.0-8.3)
[2017-06-17 04:12] LABS: Potassium 4.2 mEq/L (3.5-4.5)
[2017-06-17] MEDS: Famotidine 20 MG/2 ML VIAL IVP SCH (05:02)
[2017-06-17] MEDS: Piperacillin/Tazobactam 3.375 GM in D5% in Water (Mini-Bag+) 100 ML IVPB SCH ×2 (05:02→17:41)
[2017-06-17] MEDS: *HR* Heparin 5,000 UNIT/ML VIAL SQ SCH ×2 (05:02→17:42)
[2017-06-17] MEDS: Insulin LISPRO 300 UNITS/3 ML VIAL SQ SCH ×3 (08:32→16:12)
[2017-06-17] MEDS: amLODIPine 5 MG TABLET PO SCH (08:39)
[2017-06-17] MEDS: Finasteride 5 MG TABLET PO SCH (08:39)
[2017-06-17] MEDS: Aspirin Enteric Coated 325 MG Tablet PO SCH (08:39)
[2017-06-17] MEDS: Furosemide 40 MG/4 ML VIAL IVP SCH ×2 (08:40→17:41)
--- NOTE | 2017-06-17 09:53 | Nephrology Progress Note ---
Date of Encounter: 06/17/17 Time of Encounter: 09:30 - Assessment and Plan (1) CKD (chronic kidney disease) stage 4, GFR 15-29 ml/min Current Visit: No Status: Chronic CKD4-5. Volume overload with respiratory failure, improved with diuresis. Will add Zaroxolyn. Start on Calcitriol, PTH 271. Fereheme infusion, tsat 10. Goal is to treat conservatively versus starting on chronic HD, although patient agreeable to HD if needed. Subjective Interval history: Sitting up in bed. States breathing much better and no longer confused or "seeing things." Objective - Vital Signs Vital signs: Vital Signs Temp Pulse Resp BP Pulse Ox 06/17/17 09:11 91 16 170/78 93 06/17/17 08:00 98.0 F 91 16 169/84 93 06/17/17 07:50 17 95 06/17/17 07:29 98.0 F 06/17/17 07:00 92 16 138/66 93 06/17/17 06:00 73 22 135/65 97 06/17/17 05:01 97.7 F 80 17 163/81 97 06/17/17 04:01 20 158/73 98 06/17/17 04:00 76 20 158/73 98 06/17/17 03:12 74 22 125/57 92 06/17/17 02:00 75 20 143/65 94 06/17/17 01:00 78 18 161/79 98 06/17/17 00:28 18 152/72 97 06/17/17 00:07 95 06/17/17 00:00 85 22 152/72 95 06/16/17 23:00 98.9 F 87 20 116/68 96 06/16/17 22:01 89 20 132/61 96 06/16/17 21:00 89 20 155/99 95 06/16/17 20:00 98.5 F 86 22 157/64 95 06/16/17 19:48 21 96 06/16/17 19:00 89 21 157/64 96 06/16/17 18:00 89 20 141/66 95 06/16/17 17:00 93 22 136/101 96 06/16/17 16:07 94 06/16/17 16:00 92 20 140/66 94 06/16/17 15:21 22 95 06/16/17 15:14 90 09/20/17 15:00 98.8 F 92 20 124/73 96 06/16/17 14:00 93 20 145/69 98 06/16/17 13:00 98 18 176/81 98 06/16/17 12:00 93 18 159/72 97 06/16/17 11:27 17 95 06/16/17 11:15 91 06/16/17 11:00 98.6 F 91 20 191/94 97 06/16/17 10:00 95 20 184/95 95 Intake and Output 06/16/17 06/17/17 06/17/17 23:59 07:59 15:59 Intake Total 150 / 150 1080 / 1080 Output Total 800 / 800 700 / 700 Balance -650 / -650 -700 / -700 1080 / 1080 Intake: IV Fluids 100 / 100 Zosyn 3.375 GM In Dextrose 5% ( 100 / 100 Minibag+) 100 ML 100 ML @ 25 mls/hr IVPB Q12HR MADELYN Rx#: [id number] Oral 50 / 50 1079 / 1080 Output: Catheter 800 / 800 700 / 700 Other: Meal Breakfast Percent of Meal Consumed 100% Blood Glucose* 213 203 203 - General Appearance General appearance: Present: well-developed, well-nourished, appears started age , obese Neck: Present: no JVD Respiratory: Present: clear Cardiology: Present: edema, irregular rhythm Additional Comments: 1+ knees down Gastrointestinal: Present: normoactive bowel sounds, no tenderness, distended Integumentary: Present: warm and dry Neurologic: Present: alert and oriented x3 Psychiatric: Present: mood/affect appropriate, cooperative - Lab 06/17/17 03:44 06/17/17 03:44 Most recent lab results ABG pH 7.30 pH Units (7.32-7.45) L 06/15/17 20:37 ABG pCO2 61 mmHg (35-45) H 06/15/17 20:37 ABG pO2 81 mmHg (85-104) L 06/15/17 20:37 ABG HCO3 30 mEq/L (21-27) H 06/15/17 20:37 ABG O2 Saturation 95 % (95-98) 06/15/17 20:37 Calcium 8.0 mg/dL (8.6-10.8) L 06/17/17 03:44 Phosphorus 4.9 mg/dL (2.3-4.7) H 06/17/17 03:44 Magnesium 1.6 mg/dL (1.6-2.6) 06/17/17 03:44 Consult Discharge Plan - Plan Referrals: NONE,PCP [Primary Care Provider] -
[2017-06-17] MEDS ORDERED: Ferumoxytol 510 MG in 0.9 % Sodium Chloride 100 ML IVPB ONE (10:00)
[2017-06-17] MEDS ORDERED: metOLazone 5 MG TABLET PO SCH (10:00)
[2017-06-17] MEDS: metOLazone 5 MG TABLET PO SCH (12:33)
[2017-06-17] MEDS: Ondansetron 4 MG/2 ML VIAL IVP PRN ×3 (12:54→23:13)
--- NOTE | 2017-06-17 13:40 | Event Note ---
Date of Encounter: 06/17/17 Time of Encounter: 13:38 I spoke with the admitting hospitalist Dr. Mojica regarding this patient on 06/16 and he confirmed that although patient presented with acute respiratory failure that this was being managed appropriately and did not require pulmonary/ critical care consult and therefore they will consult should be removed and patient was to be transferred out of ICU when bed was available.
[2017-06-17] MEDS ORDERED: Magnesium Sulfate 2 GM in D5% in Water 100 ML IVPB ONE (14:46)
--- NOTE | 2017-06-17 15:00 | Internal Med Progress Note ---
Date of Encounter: 06/17/17 Time of Encounter: 14:58 - Assessment and plan (1) Volume overload Current Visit: Yes Status: Acute Assessment and plan: Patient is admitted with signs and symptoms of volume overload, pulmonary edema likely secondary to worsening renal failure. Continue aggressive diuresis with IV Lasix along with fluid restriction and urine output monitoring. Zaroxolyn has been added by nephrology. Continue supplemental oxygen. Nephrology on board. 2-D echocardiogram shows preserved ejection fraction, mild left ventricular diastolic dysfunction, mild concentric left ventricular hypertrophy. Qualifiers: Hypervolemia type: unspecified Qualified Code(s): E87.70 - Fluid overload, unspecified (2) Diastolic CHF, acute on chronic Current Visit: Yes Status: Acute Assessment and plan: Volume overload mainly due to worsening CKD; continue IV Lasix and Zaroxolyn and fluid restriction; will increase dose of Labetalol due to HTN and tachycardia. BiPAP support as needed. Echocardiogram results as above. (3) Acute and chronic respiratory failure with hypoxia Current Visit: Yes Status: Acute Assessment and plan: Patient was admitted with volume overload and respiratory failure with worsening CKD. Continue IV Lasix with Zaroxolyn per Nephrology; continue supplemental O2 and NIPPV at this time; ABG shows respiratory acidosis. (4) Essential hypertension Current Visit: Yes Status: Chronic Assessment and plan: Blood pressure noted to be uncontrolled due to volume overload. Held ARB at this time due to hyperkalemia. Norvasc and labetalol have been started, increase doses, will use when necessary IV hydralazine for appropriate blood pressure control. (5) CKD (chronic kidney disease) stage 4, GFR 15-29 ml/min Current Visit: Yes Status: Chronic Assessment and plan: Nephrology on board. Serum creatinine slightly worsening. Patient will likely need initiation of renal replacement therapy. Noted to have hyperphosphatemia due to secondary hyperparathyroidism. (6) Hyperkalemia Current Visit: Yes Status: Resolved (7) 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 Current Visit: Yes Status: Chronic Assessment and plan: Accu-Chek blood glucose monitoring with sliding scale insulin. Blood sugars noted to be uncontrolled, start basal insulin. Diabetic diet. Qualifiers: 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 type: type 2 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 complication status: with kidney complications 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 complication detail: with chronic kidney disease 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 terminal supervisor insulin use: with terminal supervisor use Chronic kidney disease stage: stage 4 (severe) Qualified Code(s): E11.22 - Type 2 diabetes mellitus with diabetic chronic kidney disease; N18.4 - Chronic kidney disease, stage 4 (severe); Z79.4 - exterminator helper (current) use of insulin (8) ABIGAIL on CPAP Current Visit: Yes Status: Chronic - Subjective Interval history: Reports feeling slightly better; noted to have good urine output; multiple PVCs noted on Telemetry; persistent leg and arm swelling; no chest pain or dyspnea; noted to have right arm jerks; - Constitutional Vitals: Temp Pulse Resp BP Pulse Ox 97.3 F L 82 16 153/101 93 06/17/17 12:00 06/17/17 14:12 06/17/17 14:12 06/17/17 14:12 06/17/17 14:12 General appearance: Present: A&O X 3, obese, answers questions appropriately - Respiratory Respiratory exam: Present: CTAB (coarse breath sounds B/L). Absent: accessory muscle use, rales, rhonchi, wheezes - Cardiovascular Cardiovascular exam: Present: RRR, +S1, +S2. Absent: diastolic murmur, gallop, rubs, systolic murmur - GI/Abdominal GI/Abdominal exam: Present: normal bowel sounds, soft (obese), no peritoneal signs. Absent: distended, tenderness - Extremities Exam Extremities exam: Present: pedal edema, warm, radial pulses palpable and symmetrical. Absent: calf tenderness, cyanotic Additional comments: B/L lower and upper extremity edema - Neurological Exam Neurological exam: Present: CN II-XII intact, oriented X3, no focal deficits. Absent: pronater drift, facial droop, speech deficit Internal Medicine: Result - Labs CBC & Chem 7: 06/19/17 06:10 06/19/17 03:55 Labs: Short CBC 06/17/17 Range/Units 03:44 WBC 10.0 (4.3-11.1) K/mcL Hgb 9.5 L (12.9-16.9) g/dL Hct 31.9 L (37.5-50.1) % Plt Count 150 (140-400) K/mcL Neutrophils # 7.3 (1.6-8.9) K/mcL BMP 06/17/17 03:44 Sodium 139 Potassium 4.2 Chloride 104 Carbon Dioxide 26 BUN 51 H Creatinine 4.81 H Glucose 218 H Calcium 8.0 L Liver Function 06/17/17 Range/Units 03:44 Total Bilirubin 0.4 (0.2-1.2) mg/dL AST 8 (5-34) Units/L ALT 8 (0-55) Units/L Alkaline Phosphatase 72 (38-126) Units/L Albumin 2.6 L (3.5-5.0) g/dL - ABG Interpretation ABG results: ABG ABG pH 7.30 pH Units (7.32-7.45) L 06/15/17 20:37 ABG pCO2 61 mmHg (35-45) H 06/15/17 20:37 ABG pO2 81 mmHg (85-104) L 06/15/17 20:37 ABG O2 Saturation 95 % (95-98) 06/15/17 20:37 Consult Discharge Plan - Plan Referrals: NONE,PCP [Primary Care Provider] -
[2017-06-17] MEDS: Insulin DETEMIR 100 UNIT/ML X5UNITS SQ SCH (23:01)
[2017-06-18] MEDS ORDERED: *HR* Promethazine 25 MG/ML VIAL ONE (04:04)
[2017-06-18] MEDS: Ipratropium/Albuterol Neb 3 ML IH SCH ×6 (04:06→23:25)
[2017-06-18] MEDS ORDERED: *HR* Promethazine 25 MG/ML VIAL IVP ONE (04:21)
[2017-06-18 04:34] LABS: ABG Base Excess 2.7 mEq/L (-2.0 to 3.0); ABG HCO3 33 mEq/L (21-27); ABG Oxygen Saturation 82 % (95-98); ABG PO2 58 mmHg (85-104); ABG TCO2 35 mEq/L (20-26)
[2017-06-18 04:35] LABS: Blood Gas FiO2 36 %; Blood Gas Modality NC
[2017-06-18 04:36] LABS: ABG PCO2 85 mmHg (35-45); ABG PH 7.19 pH Units (7.32-7.45)
[2017-06-18 05:41] LABS: ABG Base Excess 2.6 mEq/L (-2.0 to 3.0); ABG HCO3 30 mEq/L (21-27); ABG Oxygen Saturation 89 % (95-98); ABG PCO2 63 mmHg (35-45); ABG PH 7.29 pH Units (7.32-7.45); ABG PO2 64 mmHg (85-104); ABG TCO2 32 mEq/L (20-26)
[2017-06-18 05:45] LABS: Blood Gas FiO2 35 %; Blood Gas Modality BIPAP
[2017-06-18 05:58] LABS: Basophils % 0.2 %; Eosinophils % 0.2 %; Mean Platelet Volume 11.2 fL (9.4-12.4); Segmented Neutrophils % 89.2 %
[2017-06-18 06:00] LABS: Hematocrit 33.1 % (37.5-50.1); Hemoglobin 9.8 g/dL (12.9-16.9); Immature Granulocytes % 0.4 % (0-4); Lymphocytes # 0.6 K/mcL (0.6-4.6); Lymphocytes % 4.7 %; Mean Corpuscular HGB Conc 29.6 g/dL (31.6-35.5); Mean Corpuscular Hemoglobin 28.4 pg (28.0-33.3); Mean Corpuscular Volume 95.9 fL (83.0-100.0); Monocytes # 0.6 K/mcL (0.0-1.3); Monocytes % 5.3 %; Neutrophils # 10.7 K/mcL (1.6-8.9); Platelet Count 156 K/mcL (140-400); Red Blood Count 3.45 M/mcL (4.19-5.50); Red Cell Distribution Width 15.2 % (11.5-14.5)
[2017-06-18] MEDS ORDERED: *HR* Promethazine 25 MG/ML VIAL IVP PRN (06:14)
[2017-06-18 06:15] LABS: Albumin 2.5 g/dL (3.5-5.0); Calcium 8.1 mg/dL (8.6-10.8); Magnesium 1.8 mg/dL (1.6-2.6); Phosphorous 7.1 mg/dL (2.3-4.7); Potassium 5.1 mEq/L (3.5-4.5)
[2017-06-18 06:43] LABS: Platelet Estimate Normal (Normal)
[2017-06-18] MEDS: Piperacillin/Tazobactam 3.375 GM in D5% in Water (Mini-Bag+) 100 ML IVPB SCH ×2 (06:52→17:16)
[2017-06-18] MEDS: Famotidine 20 MG/2 ML VIAL IVP SCH (06:54)
[2017-06-18] MEDS: *HR* Heparin 5,000 UNIT/ML VIAL SQ SCH ×2 (06:56→17:16)
[2017-06-18 08:11] LABS: ABG Base Excess 2.6 mEq/L (-2.0 to 3.0); ABG HCO3 30 mEq/L (21-27); ABG Oxygen Saturation 90 % (95-98); ABG PCO2 63 mmHg (35-45); ABG PH 7.29 pH Units (7.32-7.45); ABG PO2 66 mmHg (85-104); ABG TCO2 32 mEq/L (20-26); Blood Gas FiO2 44 %; Blood Gas Modality NC
[2017-06-18] MEDS: Furosemide 40 MG/4 ML VIAL IVP SCH ×2 (08:38→15:37)
[2017-06-18] MEDS: amLODIPine 5 MG TABLET PO SCH (08:46)
[2017-06-18] MEDS: Insulin LISPRO 300 UNITS/3 ML VIAL SQ SCH ×3 (08:46→15:46)
[2017-06-18] MEDS: Finasteride 5 MG TABLET PO SCH (08:46)
[2017-06-18] MEDS: Aspirin Enteric Coated 325 MG Tablet PO SCH (08:46)
[2017-06-18] MEDS: Insulin DETEMIR 100 UNIT/ML X5UNITS SQ SCH ×2 (08:48→22:28)
--- NOTE | 2017-06-18 09:01 | Internal Med Progress Note ---
Date of Encounter: 06/18/17 Time of Encounter: 08:40 - Assessment and plan (1) Hematemesis Current Visit: Yes Status: Acute Assessment and plan: New onset since this morning; currently controlled; monitor Hb closely; could be stress gastritis? Check CT abdomen/pelvis for persistent nausea and vomiting , could be uremia? Keep NPO, Will place NG tube and continue to monitor; PRN Zofran. Supportive care. Qualifiers: Nausea presence: with nausea Qualified Code(s): K92.0 - Hematemesis; R11.0 - Nausea (2) Aspiration into airway Current Visit: Yes Status: Suspected Assessment and plan: Could have had aspiration due to vomiting and use of BiPAP; continue IV Zosyn and supplemental O2; rest of the plan as below; Qualifiers: Encounter type: initial encounter Qualified Code(s): T17.908A - Unspecified foreign body in respiratory tract, part unspecified causing other injury, initial encounter (3) Acute and chronic respiratory failure with hypoxia Current Visit: Yes Status: Acute Assessment and plan: Patient was admitted with volume overload and respiratory failure with worsening CKD. Continue IV Lasix with Zaroxolyn per Nephrology; continue supplemental O2 and NIPPV at this time; ABG reviewed- shows partially improved respiratory acidosis and hypercapnia. Continue IV Zosyn for concern for possible aspiration and underlying Pneumonia; check CT chest. Initial blood cultures are uncollected, will repeat blood cultures today; Will consult Pulmonology for further assistance. (4) Diastolic CHF, acute on chronic Current Visit: Yes Status: Acute Assessment and plan: Echocardiogram shows preserved EF, mild LV diastolic dysfunction, mild concentric LVH. Volume overload mainly due to worsening CKD; continue IV Lasix and Zaroxolyn and fluid restriction; beta libra; BiPAP support as needed. (5) Volume overload Current Visit: Yes Status: Acute Qualifiers: Qualified Code(s): E87.70 - Fluid overload, unspecified (6) Essential hypertension Current Visit: Yes Status: Chronic Assessment and plan: continues to have uncontrolled BP due to volume overload; has been started on PO Labetalol and Norvasc, however cannot tolerate PO meds at this time. Will use PRN IV HYdralazine and Labetalol for appropriate BP control. (7) CKD (chronic kidney disease) stage 4, GFR 15-29 ml/min Current Visit: Yes Status: Chronic Assessment and plan: Noted to have worsening creatinine, hyperphosphatemia and hyperkalemia; Nephrology on board, recommend to optimize volume status and BP; may benefit from phosphate binders, will d/w Nephrology; (8) Hyperkalemia Current Visit: Yes Status: Acute Assessment and plan: due to renal failure; hold ACEI/ARB. Continue Telemetry monitoring and close monitoring for K; (9) 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 Current Visit: Yes Status: Chronic Assessment and plan: Noted to have elevated blood sugars; continue Accucheck blood glucose monitoring with basal bolus insulin regimen; has been started on basal insulin yesterday; currently NPO. Qualifiers: 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 type: type 2 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 complication status: with kidney complications 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 complication detail: with chronic kidney disease 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 intermediate insulin use: with intermediate use Chronic kidney disease stage: stage 4 (severe) Qualified Code(s): E11.22 - Type 2 diabetes mellitus with diabetic chronic kidney disease; N18.4 - Chronic kidney disease, stage 4 (severe); Z79.4 - FDC (current) use of insulin (10) ABIGAIL on CPAP Current Visit: Yes Status: Chronic - Subjective Interval history: Patient is currently drowsy, unable to answer questions; per nursing staff, patient vomited multiple times early this morning, including some coffee grounds ; he then went into respiratory distress and has been drowsy since then; - Constitutional Vitals: Temp Pulse Resp BP Pulse Ox 99.1 F 82 18 165/75 92 06/18/17 07:38 06/18/17 08:22 06/18/17 07:54 06/18/17 07:38 06/18/17 07:54 General appearance: Present: A&O X 0 (somnolent), obese. Absent: answers questions appropriately Exam: has coffee ground emesis on his hospital gown; has anasarca and peripheral edema - Respiratory Respiratory exam: Present: CTAB (coarse breath sounds B/L), rales (bibasal rales ). Absent: accessory muscle use, rhonchi, wheezes - Cardiovascular Cardiovascular exam: Present: RRR, +S1, +S2. Absent: diastolic murmur, gallop, rubs, systolic murmur - GI/Abdominal GI/Abdominal exam: Present: normal bowel sounds, soft (obese), no peritoneal signs. Absent: distended, tenderness - Extremities Exam Extremities exam: Present: pedal edema, warm, radial pulses palpable and symmetrical. Absent: calf tenderness, cyanotic - Neurological Exam Neurological exam: Present: altered, no focal deficits. Absent: pronater drift , facial droop, speech deficit - Skin Skin exam: Present: dry, intact Internal Medicine: Result - Labs CBC & Chem 7: 06/18/17 05:16 06/18/17 05:16 Labs: Short CBC 06/18/17 Range/Units 05:16 WBC 12.0 H (4.3-11.1) K/mcL Hgb 9.8 L (12.9-16.9) g/dL Hct 33.1 L (37.5-50.1) % Plt Count 156 (140-400) K/mcL Neutrophils # 10.7 H (1.6-8.9) K/mcL BMP 06/18/17 05:16 Sodium 139 Potassium 5.1 H Chloride 102 Carbon Dioxide 25 BUN 55 H Creatinine 5.56 H Glucose 268 H Calcium 8.1 L Liver Function 06/18/17 Range/Units 05:16 Albumin 2.5 L (3.5-5.0) g/dL - ABG Interpretation ABG results: ABG ABG pH 7.29 pH Units (7.32-7.45) L 06/18/17 07:59 ABG pCO2 63 mmHg (35-45) H 06/18/17 07:59 ABG pO2 66 mmHg (85-104) L 06/18/17 07:59 ABG O2 Saturation 90 % (95-98) L 06/18/17 07:59 - Impressions Impressions Chest X-Ray 06/18/17 04:08 IMPRESSION: Bilateral airspace disease could represent pneumonia and or aspiration. D/ / Jose Sanchez MD / Jose Sanchez MD Interpreting Provider: Jose Sanchez MD Consult Discharge Plan - Plan Referrals: NONE,PCP [Primary Care Provider] -
--- NOTE | 2017-06-18 09:33 | Pulmonology Consult Note ---
<Henrietta Dalton - Last Filed: 06/18/17 14:49> Date of Encounter: 06/18/17 Assessment and Plan (1) Acute and chronic respiratory failure with hypoxia Current Visit: Yes Status: Acute Patient transferred to the ICU after having aspiration into the airway while on BiPAP. Concern for respiratory failure caused us to intubate the patient emergently. Patient currently vented and sedated. Patient also presenting with fluid overload. Continue to trend ABGs. Patient's respiratory status now stable on ventilator. (2) Aspiration into airway Current Visit: Yes Status: Suspected Patient had an episode of vomiting while wearing the BiPAP. Concern for aspiration and airway. CT of the chest will be completed. IV Zosyn currently being given. Qualifiers: Encounter type: initial encounter Qualified Code(s): T17.908A - Unspecified foreign body in respiratory tract, part unspecified causing other injury, initial encounter (3) Hematemesis Current Visit: Yes Status: Acute Patient had episode of vomiting and hematemesis stable on the floor wearing BiPAP. Concern for possible GI bleed due to persistent nausea and vomiting since admission. We will complete a CT of the abdomen and chest to determine possible causes. The patient's hemoglobin stable at this time. No active bleeding noted at this time. Qualifiers: Nausea presence: with nausea Qualified Code(s): K92.0 - Hematemesis; R11.0 - Nausea (4) Diastolic CHF, acute on chronic Current Visit: Yes Status: Acute Echocardiogram shows preserved EF, mild LV diastolic dysfunction, mild concentric LVH. Volume overload mainly due to worsening CKD; continue IV Lasix and Zaroxolyn and fluid restriction; beta libra (5) Hyperkalemia Current Visit: Yes Status: Acute Due to end-stage renal disease. We will continue to trend. Currently 5.1. (6) Volume overload Current Visit: Yes Status: Acute due to Renal failure and Acute on chronic diastolic CHF exacerbation. Repeat echo shows stable EF from previous study. Continue Lasix. Qualifiers: Hypervolemia type: unspecified Qualified Code(s): E87.70 - Fluid overload, unspecified (7) CKD (chronic kidney disease) stage 4, GFR 15-29 ml/min Current Visit: Yes Status: Chronic Chronic condition. Nephrology has been consulted. Continue to follow BMP and kidney function (8) 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 Current Visit: Yes Status: Chronic Currently receiving basal insulin. We will continue to closely monitor glucose. Qualifiers: 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 type: type 2 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 complication status: with kidney complications 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 complication detail: with chronic kidney disease 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 usp insulin use: with intermediate frame tender use Chronic kidney disease stage: stage 4 (severe) Qualified Code(s): E11.22 - Type 2 diabetes mellitus with diabetic chronic kidney disease; N18.4 - Chronic kidney disease, stage 4 (severe); Z79.4 - penitentiary (current) use of insulin (9) DVT prophylaxis Current Visit: Yes Status: Acute Patient currently on subcutaneous heparin History of Present Illness Consult date: 06/18/17 Reason for consult: other (Acute Respiratory failure) Chief complaint: Acute respiratory failure History of present illness: 67 year old male with known PMH of HTN, HLD, CHF, Uncontrolled DM2, CKD-4 who has been following with Nephro Dr. Be was taken to [facility] ER, with complaints of lethargym disorientation, and severe SOB. Apparently pt was in severe hypoxia with Spo2 in 70's, he was placed on 100% O2 through NRB and eventually changed to BiPAP in the ER. He was also in severe respiratory acidosis with initial Ph : 7.26, PCo2 68 Po2 158.. With BiPAP his Ph improved to 7.31 and Pco2 58. Patient was admitted at [place] for further higher level of care. Pt also was severe volume overload with CKD-4, Hyperkalemia with K + 5.9. Patient originally admitted to the floor. While on the floor today he had an episode of altered mental status with vomiting into the BiPAP machine and possible aspiration. Hematemesis was also noted. Patient was transferred to the ICU. While in the ICU concern for impending respiratory failure and the patient was intubated. Poor venous access upon original presentation with a 20 placed in the right hand. Therefore central access was obtained in the right femoral vein. Patient has had worsening kidney function during his stay and therefore will need a temporary dialysis catheter placement per IR. Patient has also had persistent nausea and vomiting throughout his stay in the hospital. That in combination with the episode of hematemesis prompted us to obtain a CT of the abdomen and pelvis. Patient currently intubated and sedated. The majority of the information obtained was through charts. Medications and Allergies Aspirin [Ecotrin] 325 mg PO DAILY #0 06/05/15 [History] Finasteride [Proscar] 5 mg PO DAILY #0 06/05/15 [History] Primidone [Mysoline] 50 mg PO DAILY #0 06/05/15 [History] Ranitidine HCl [Zantac] 150 mg PO BID #0 06/05/15 [History] Simvastatin [Zocor] 10 mg PO QPM #0 06/05/15 [History] Tamsulosin [Flomax] 0.4 mg PO DAILY #0 06/05/15 [History] Calcitriol [Rocaltrol] 0.25 mcg PO DAILY 09/11/15 [History] Insulin ASPART [Novolog Flexpen] 15 unit SQ TID 12/30/16 [History] Montelukast [Singulair] 10 mg PO QPM 12/30/16 [History] Furosemide [Lasix] 20 mg PO DAILY 06/15/17 [History] Insulin DETEMIR [Levemir Flextouch] 40 unit SQ BID 06/15/17 [History] Losartan Potassium [Cozaar] 50 mg PO DAILY 06/15/17 [History] Ondansetron HCl [Zofran] 4 mg PO BID 06/15/17 [History] Oxygen 2 l NS AD 06/15/17 [History] PrednisoLONE Acetate 1% Opth [PredFORTE 1%] 1 drop OP QID PRN 06/15/17 [History] Pregabalin [Lyrica] 100 mg PO BID 06/15/17 [History] Tramadol HCl [Ultram] 50 mg PO BID PRN 06/15/17 [History] 3 Allergy/AdvReac Type Severity Reaction Status Date / Time No Known Allergies Allergy Verified 12/29/16 23:37 ROS unobtainable: due to endotracheal tube All Systems: A 10-system review of systems was performed and is negative for pertinent findings except as documented above in the HPI. Physical Examination Vital Signs: Vital Signs, Last 4 Hours Temp Pulse Resp BP Pulse Ox 06/18/17 12:00 75 20 172/87 91 06/18/17 11:55 20 91 06/18/17 11:47 18 162/81 92 06/18/17 11:00 98.8 F 76 18 134/68 91 06/18/17 10:40 18 122/56 97 06/18/17 09:22 99.7 F H 84 28 110/64 89 06/18/17 08:30 85 General appearance: comatose Eyes: nonicteric ENT: oropharynx moist Neck: supple Effort: mildly labored Inspection: normal Auscultation: bilateral: clear, diminished breath sounds Cardiovascular: regular rate and rhythm Gastrointestinal: normoactive bowel sounds, soft, non-distended Integumentary: normal Extremities: no cyanosis, edema (2+ pitting edema) Musculoskeletal: no deformities unable to assess due to mental status Ventilator Settings Ventilator Settings: Ventilator Settings, Last 8 Hours Ventilator Mode A/C Ventilator Mode A/C Ventilator Mode A/C Ventilator Mode A/C Ventilator Mode A/C Ventilator Tidal Volume 500 Setting Ventilator Tidal Volume 500 Setting Ventilator Tidal Volume 500 Setting Ventilator Tidal Volume 500 Setting Ventilator Tidal Volume 500 Setting Ventilator Respiratory Rate 20 Setting Ventilator Respiratory Rate 20 Setting Ventilator Respiratory Rate 18 Setting Ventilator Respiratory Rate 18 Setting Ventilator Respiratory Rate 18 Setting Actual Respiratory Rate 20 Actual Respiratory Rate 22 Actual Respiratory Rate 18 Actual Respiratory Rate 18 Actual Respiratory Rate 18 Positive End Expiratory 10 Pressure Positive End Expiratory 10 Pressure Positive End Expiratory 8 Pressure Positive End Expiratory 8 Pressure Positive End Expiratory 8 Pressure Peak Inspiratory Airway 33 Pressure Peak Inspiratory Airway 31 Pressure Peak Inspiratory Airway 31 Pressure Peak Inspiratory Airway 26 Pressure Peak Inspiratory Airway 33 Pressure Results - Laboratory Findings CBC and BMP: 06/18/17 05:16 06/18/17 05:16 ABG ABG pH 7.30 pH Units (7.32-7.45) L 06/18/17 11:07 ABG pCO2 60 mmHg (35-45) H 06/18/17 11:07 ABG pO2 68 mmHg (85-104) L 06/18/17 11:07 ABG O2 Saturation 91 % (95-98) L 06/18/17 11:07 Abnormal lab findings: Abnormal lab results WBC 12.0 K/mcL (4.3-11.1) H 06/18/17 05:16 RBC 3.45 M/mcL (4.19-5.50) L 06/18/17 05:16 Hgb 9.8 g/dL (12.9-16.9) L 06/18/17 05:16 Hct 33.1 % (37.5-50.1) L 06/18/17 05:16 MCHC 29.6 g/dL (31.6-35.5) L 06/18/17 05:16 RDW 15.2 % (11.5-14.5) H 06/18/17 05:16 Neutrophils # 10.7 K/mcL (1.6-8.9) H 06/18/17 05:16 ABG pH 7.30 pH Units (7.32-7.45) L 06/18/17 11:07 ABG pCO2 60 mmHg (35-45) H 06/18/17 11:07 ABG pO2 68 mmHg (85-104) L 06/18/17 11:07 ABG HCO3 30 mEq/L (21-27) H 06/18/17 11:07 ABG Total CO2 31 mEq/L (20-26) H 06/18/17 11:07 ABG O2 Saturation 91 % (95-98) L 06/18/17 11:07 Potassium 5.1 mEq/L (3.5-4.5) H 06/18/17 05:16 BUN 55 mg/dL (8-26) H 06/18/17 05:16 Creatinine 5.56 mg/dL (0.72-1.25) H 06/18/17 05:16 Est GFR ( Amer) 13 (> 60) L 06/18/17 05:16 Est GFR (Non-Af Amer) 10 (> 60) L 06/18/17 05:16 Glucose 268 mg/dL (70-99) H 06/18/17 05:16 POC Glucose 226 (58-89) H 06/18/17 09:43 Calculated Osmolality 313 (280-300) H 06/18/17 05:16 Calcium 8.1 mg/dL (8.6-10.8) L 06/18/17 05:16 Phosphorus 7.1 mg/dL (2.3-4.7) H 06/18/17 05:16 Iron 25 mcg/dL (65-175) L 06/16/17 09:13 % Saturation 10 % (20-55) L 06/16/17 09:13 Albumin 2.5 g/dL (3.5-5.0) L 06/18/17 05:16 Globulin 4.1 g/dL (2.4-3.5) H 06/17/17 03:44 Albumin/Globulin Ratio 0.6 (1.1-2.2) L 06/17/17 03:44 PTH Intact 270.4 pg/ml (8.5-72.5) H 06/16/17 09:13 Gastric Occult Blood Positive (Negative) A 06/18/17 06:13 - Diagnostic Findings Chest x-ray: report reviewed, image reviewed - Clinical Findings Intake & Output: Intake & Output 06/17/17 06/18/17 06/18/17 23:59 07:59 15:59 Intake Total 100 / 100 103 / 103 Output Total 0 / 0 0 / 0 Balance 0 / 0 80 / 80 103 / 103 Weight 128 kg 128 kg Consult Discharge Plan - Plan Referrals: NONE,PCP [Primary Care Provider] - <Yordan Ty W - Last Filed: 06/19/17 06:24> Date of Encounter: 06/19/17 Time of Encounter: 09:33 Past Med Surg Social Fam HX - Past Medical History Medical history: CVA, diabetes, hyperlipidemia, hypertension, renal disease, other Psychiatric history: no psych history - Past Surgical History Surgical History: other - Social History Smoking Status: Former smoker Smokeless Tobacco Status: No Alcohol use: none Drug use: none - Family History Mother Living Status: Father Living Status: Hx Family Endocrine Disorder: Yes (diabetes) All Systems: A 10-system review of systems was performed and is negative for pertinent findings except as documented above in the HPI. Physical Examination Vital Signs: Vital Signs, Last 4 Hours Temp Pulse Resp BP Pulse Ox 06/18/17 09:22 99.7 F H 84 28 110/64 89 06/18/17 08:22 82 06/18/17 07:54 18 92 06/18/17 07:38 99.1 F 86 20 165/75 90 Results - Laboratory Findings CBC and BMP: 06/19/17 03:55 06/19/17 03:55 ABG ABG pH 7.29 pH Units (7.32-7.45) L 06/18/17 07:59 ABG pCO2 63 mmHg (35-45) H 06/18/17 07:59 ABG pO2 66 mmHg (85-104) L 06/18/17 07:59 ABG O2 Saturation 90 % (95-98) L 06/18/17 07:59 Abnormal lab findings: Abnormal lab results WBC 12.0 K/mcL (4.3-11.1) H 06/18/17 05:16 RBC 3.45 M/mcL (4.19-5.50) L 06/18/17 05:16 Hgb 9.8 g/dL (12.9-16.9) L 06/18/17 05:16 Hct 33.1 % (37.5-50.1) L 06/18/17 05:16 MCHC 29.6 g/dL (31.6-35.5) L 06/18/17 05:16 RDW 15.2 % (11.5-14.5) H 06/18/17 05:16 Neutrophils # 10.7 K/mcL (1.6-8.9) H 06/18/17 05:16 ABG pH 7.29 pH Units (7.32-7.45) L 06/18/17 07:59 ABG pCO2 63 mmHg (35-45) H 06/18/17 07:59 ABG pO2 66 mmHg (85-104) L 06/18/17 07:59 ABG HCO3 30 mEq/L (21-27) H 06/18/17 07:59 ABG Total CO2 32 mEq/L (20-26) H 06/18/17 07:59 ABG O2 Saturation 90 % (95-98) L 06/18/17 07:59 Potassium 5.1 mEq/L (3.5-4.5) H 06/18/17 05:16 BUN 55 mg/dL (8-26) H 06/18/17 05:16 Creatinine 5.56 mg/dL (0.72-1.25) H 06/18/17 05:16 Est GFR ( Amer) 13 (> 60) L 06/18/17 05:16 Est GFR (Non-Af Amer) 10 (> 60) L 06/18/17 05:16 Glucose 268 mg/dL (70-99) H 06/18/17 05:16 POC Glucose 186 (58-89) H 06/17/17 15:03 Calculated Osmolality 313 (280-300) H 06/18/17 05:16 Calcium 8.1 mg/dL (8.6-10.8) L 06/18/17 05:16 Phosphorus 7.1 mg/dL (2.3-4.7) H 06/18/17 05:16 Iron 25 mcg/dL (65-175) L 06/16/17 09:13 % Saturation 10 % (20-55) L 06/16/17 09:13 Albumin 2.5 g/dL (3.5-5.0) L 06/18/17 05:16 Globulin 4.1 g/dL (2.4-3.5) H 06/17/17 03:44 Albumin/Globulin Ratio 0.6 (1.1-2.2) L 06/17/17 03:44 PTH Intact 270.4 pg/ml (8.5-72.5) H 06/16/17 09:13 Gastric Occult Blood Positive (Negative) A 06/18/17 06:13 - Clinical Findings Intake & Output: Intake & Output 06/17/17 06/18/17 06/18/17 23:59 07:59 15:59 Intake Total 100 / 100 0 / 0 Output Total 0 / 0 0 / 0 Balance 0 / 0 80 / 80 0 / 0 Weight 128 kg - Attending Attestation I examined this patient and my medical decision-making was reviewed with the Resident Physician. I agree with the documented findings, disposition and treatment plan as described except to the extent set forth below. We independently had [id number] contact with the patient I spent 37min of Critical Care time with this patient. It involved decision making of high complexity to assess, manipulate, and support vital organ system failure and/or to prevent further life threatening deterioration of the patient' s condition. The time involved in the performance of separately reportable procedures was not counted toward critical care time. Patient seen and examined at bedside Labs, radiology, chart personally reviewed. Management was reviewed during multidisciplinary critical care rounds. Neuropsych: Acute encephalopathy which is related to acidosis kidney failure and sepsis. We will be Be treating the underlying cause no focal neurological deficits on examination. Continue sedation for mechanical ventilation including fentanyl and Precedex for medical Addison score 2-3 with daily sedation holiday Pulm: Acute on chronic hypoxic hypercarbic respiratory failure failure of noninvasive ventilation because of vomiting requiring intubation and mechanical ventilation we are employing a low tidal volume ventilatory strategy underlying pathophysiology includes cardiogenic pulmonary edema and aspiration pneumonia. Repeat ABG shows improvement in acidosis and acceptable oxygenation. Patient will be assessed for spontaneous breathing trial daily. Ventilator bundle to prevent and later associated pneumonia Cards: Patient has chronic heart failure without evidence shock we will continue to monitor FEN-GI: Nothing by mouth for now there is evidence of coffee-ground emesis and concern for gastrointestinal hemorrhage although hemoglobin has been stable and he is alert was hemodynamically stable we will be employing a proton pump inhibitor infusion and we will consult GI. I suspect that this may be a combination of gastritis and/or small Charis-Segovia tear from vomiting and it appears the patient has chronic issues with vomiting Renal: Acute on chronic renal failure with progression to need to dialysis temporary dialysis line has been placed nephrology has been consult we will start dialysis at their discretion Electrolytes will be monitored and replaced per protocol ID: Leukocytosis with evidence of aspiration on CT scan and chest x-ray. We are covering for healthcare associated organisms and aspiration pneumonia with plan for de-escalation broad-spectrum cultures have been obtained Heme/Onc: We are holding DVT prophylaxis at present concern of potential intestinal hemorrhage. Continue to monitor H&H has chronic stable anemia platelet count is acceptable Endo: Glucose Monitored Integ/MSK: Skin Care per routine ICU Nursing Protocol to prevent ulcers. Lines: All lines examined without evidence of infection. Right femoral CVC catheter placed for need for emergent access during time of intubation this can likely be removed in the next 24 hours in addition interventional radiology was consulted for placement of a temporary dialysis catheter as above. Dispo: Remain in ICU today CODE: Full code family including updated at bedside
[2017-06-18] MEDS ORDERED: 0.9 % Sodium Chloride 1,000 ML ONE (10:01)
[2017-06-18] MEDS ORDERED: Phenylephrine 10 MG in D5% in Water 250 ML IVC SCH (10:15)
[2017-06-18 11:15] LABS: ABG Base Excess 2.2 mEq/L (-2.0 to 3.0); ABG HCO3 30 mEq/L (21-27); ABG Oxygen Saturation 91 % (95-98); ABG PCO2 60 mmHg (35-45); ABG PO2 68 mmHg (85-104); ABG TCO2 31 mEq/L (20-26)
[2017-06-18 11:19] LABS: Blood Gas FiO2 70 %
[2017-06-18 11:20] LABS: Blood Gas Modality VT
[2017-06-18] MEDS: FentaNYL (PF) 1,000 MCG in 0.9 % Sodium Chloride 80 ML IVC SCH (11:20)
--- NOTE | 2017-06-18 11:43 | Procedure Note ---
Date of procedure: 06/18/17 Pre-op diagnosis: Respiratory Failure Post-op diagnosis: same Surgeon: Yordan Ty Condition: critical Disposition: ICU Procedures: Internal Med - Central Line Placement Right Femoral Consent Obtained: consent not possible/implied Time out performed: Yes Patient placed on monitor/pulse ox: Yes prep: mask, gown, gloves Central line prep: Chlorhexidine scrub, sterile drapes applied Local anesthesia used: Lidocaine 1% Amount of anesthesia used (mls): 5 Ultrasound used for placement: Yes Central line lumen inserted: triple Post Procedure: sutured in place, good blood return, all ports aspirated, flushed, capped, sterile dressing applied, dark venous blood, biodisk applied Patient tolerated procedure: well, no complications Complications: none - Intubation Time out performed: No (Emergent consent was deferred as procedure was an emergent ) Sedative: Etomidate Amount Given: 30 Paralytic: Rocuronium Amount Given: 70 Laryngoscope: fiber optic video scope ET tube size: 7.5 Tube secured depth (cm): 23 Tube secured location: teeth Tube placement confirmation: visualized tube passing through cords, equal breath sounds bilaterally, no breath sounds over epigastrium, confirmation by capnometry Patient tolerated procedure: well, no complications, other (Endotracheal tube was passed on the first attempt) Intubation complications: none
[2017-06-18] MEDS ORDERED: Lacri-Lube 3.5 GM TUBE BOTH EYES PRN (11:44)
[2017-06-18] MEDS: Lacri-Lube 3.5 GM TUBE BOTH EYES SCH ×3 (12:05→22:28)
[2017-06-18] MEDS: metOLazone 5 MG TABLET PO SCH (12:11)
--- NOTE | 2017-06-18 12:13 | Nephrology Progress Note ---
Date of Encounter: 06/18/17 Time of Encounter: 11:05 - Assessment and Plan (1) CKD (chronic kidney disease) stage 4, GFR 15-29 ml/min Current Visit: Yes Status: Chronic CKD4-5. Volume overload with respiratory failure, improved with diuresis. This morning Intubated/vent support in setting of aspiration. Renal fct worsening, remains volume overloaded. Goal was to treat conservatively versus starting on chronic HD, although patient agreeable to HD if needed. Given current situation will have temporary catheter placed in anticipation of starting HD, no immediate need for HD today. Subjective Interval history: Transfer to ICU. Intubated, vent support in setting of aspiration. at bedside. Discussed having temporary dialysis catheter placed in anticipation of starting HD with renal fct worsening and continued volume overload. in agreement. Discussed with Dr. Ty. Objective - Vital Signs Vital signs: Vital Signs Temp Pulse Resp BP Pulse Ox 06/18/17 12:00 75 20 172/87 91 06/18/17 11:55 20 91 06/18/17 11:47 18 162/81 92 06/18/17 11:00 98.8 F 76 18 134/68 91 06/18/17 10:40 18 122/56 97 06/18/17 09:22 99.7 F H 84 28 110/64 89 06/18/17 08:30 85 06/18/17 08:22 82 06/18/17 07:54 18 92 06/18/17 07:38 99.1 F 86 20 165/75 90 06/18/17 04:30 30 89 06/18/17 04:07 20 88 06/18/17 03:46 97.6 F 73 18 104/61 86 06/17/17 23:45 97.8 F 89 20 102/55 96 06/17/17 23:35 15 92 06/17/17 21:03 98.1 F 90 17 110/69 94 06/17/17 19:39 19 92 06/17/17 18:00 98.5 F 94 16 96/50 95 06/17/17 17:02 94 06/17/17 17:00 86 16 137/59 95 06/17/17 16:00 94 16 110/86 95 06/17/17 15:58 98.5 F 06/17/17 15:40 18 93 06/17/17 15:00 94 16 159/83 93 06/17/17 14:12 82 16 153/101 93 06/17/17 14:00 92 06/17/17 13:00 86 16 153/87 93 Intake and Output 06/17/17 06/18/17 06/18/17 23:59 07:59 15:59 Intake Total 100 / 100 0 / 0 Output Total 0 / 0 20 0 / 0 Balance 0 / 0 80 / 80 0 / 0 Intake: IV Fluids 100 / 100 Zosyn 3.375 GM In Dextrose 5% ( 100 / 100 Minibag+) 100 ML 100 ML @ 25 mls/hr IVPB Q12HR [facility] Rx#: [id number] Oral 0 / 0 Output: Urine 0 / 0 0 / 0 Emesis Other: Weight 128 kg 128 kg Blood Glucose* 233 248 226 Patient Weight 06/18/17 23:59 Weight 128 kg - General Appearance General appearance: Present: well-developed, well-nourished, appears started age , obese EENT: Present: mucous membranes moist Neck: Present: no JVD Respiratory: Present: course breath sounds Cardiology: Present: edema, regular rate, regular rhythm Additional Comments: generalized, pitting Gastrointestinal: Present: normoactive bowel sounds, no tenderness Integumentary: Present: warm and dry - Lab 06/18/17 05:16 06/18/17 05:16 Most recent lab results ABG pH 7.30 pH Units (7.32-7.45) L 06/18/17 11:07 ABG pCO2 60 mmHg (35-45) H 06/18/17 11:07 ABG pO2 68 mmHg (85-104) L 06/18/17 11:07 ABG HCO3 30 mEq/L (21-27) H 06/18/17 11:07 ABG O2 Saturation 91 % (95-98) L 06/18/17 11:07 Calcium 8.1 mg/dL (8.6-10.8) L 06/18/17 05:16 Phosphorus 7.1 mg/dL (2.3-4.7) H 06/18/17 05:16 Magnesium 1.8 mg/dL (1.6-2.6) 06/18/17 05:16 Consult Discharge Plan - Plan Referrals: NONE,PCP [Primary Care Provider] -
[2017-06-18] MEDS ORDERED: *HR* Heparin 5,000 UNIT/ML VIAL ONE (13:47)
--- NOTE | 2017-06-18 13:52 | IR Procedure Note ---
Date of procedure: 06/18/17 Consent Obtained: Written consent Timeout: Correct patient and procedure verified, Correct site verified, Time out performed, Skin prep completed Local anesthetic: Lidocaine 1% Indications: CRF Procedure Performed: Temp dialysis catheter placement Results/Findings: RIJ 15.5 F temp dialysis catheter placement Complications: None; Tolerated procedure well (Monitor on floor)
[2017-06-18] MEDS ORDERED: 0.9 % Sodium Chloride 500 ML ONE (15:15)
[2017-06-18 15:16] LABS: Hepatitis B Surface Antibody 0.55 mIU/mL; Hepatitis B Surface Antigen Nonreactive (Nonreactive)
[2017-06-18] MEDS: Pantoprazole 40 MG in 0.9 % Sodium Chloride Mini Bag 100 ML IVC SCH ×2 (15:37→20:47)
--- NOTE | 2017-06-18 15:39 | Procedure Note ---
Date of procedure: 06/18/17 Pre-op diagnosis: Respiratory failure aspiration pneumonia Post-op diagnosis: same Procedure: Bronchoscopy Indication for bronchoscopy was aspiration pneumonia with right lower lobe pneumonia. After consent was obtained AmBU disposable bronchoscope was used at bedside and enter through the endotracheal tube. The entire tracheobronchial tree was examined. The endotracheal tube was in satisfactory position the left tracheobronchial tree was normal without evidence of significant mucous secretions or obstruction the mucosa was otherwise normal. The right tracheobronchial tree was notable for thick mucoid secretions in the right lower lobe. The right middle lobe was noted to be obstructive this appeared to be related to chronic inflammation there is no clear obstructing lesion and no mucus plugging in that area. The right upper lobe was normal. Bronchoalveolar lavage was performed in the right middle lobe 20 mL of saline was instilled with return of 10 mL which was sent for microbiological analysis. Oxygen saturation was greater than 96% at all times and patient remained hemodynamically stable throughout the procedure there were no immediate complications family was updated post procedure. Anesthesia: IV sedation (Patient received continuous infusion of 50 g of fentanyl along with 2 boluses of 50 g each for a total of 100 g. In addition patient had continuous infusion of 20 g of propofol see nursing flow sheet for full details) Condition: stable Disposition: no change
[2017-06-18 17:36] LABS: Basophils % 0.2 %; Eosinophils # 0.1 K/mcL (0.0-0.6); Eosinophils % 0.4 %; Hematocrit 28.1 % (37.5-50.1); Hemoglobin 8.4 g/dL (12.9-16.9); Immature Granulocytes % 0.4 % (0-4); Lymphocytes # 1.5 K/mcL (0.6-4.6); Lymphocytes % 12.3 %; Mean Corpuscular HGB Conc 29.9 g/dL (31.6-35.5); Mean Corpuscular Hemoglobin 27.6 pg (28.0-33.3); Mean Corpuscular Volume 92.4 fL (83.0-100.0); Mean Platelet Volume 10.8 fL (9.4-12.4); Monocytes # 0.7 K/mcL (0.0-1.3); Monocytes % 5.4 %; Neutrophils # 10.2 K/mcL (1.6-8.9); Platelet Count 150 K/mcL (140-400); Red Blood Count 3.04 M/mcL (4.19-5.50); Red Cell Distribution Width 15.1 % (11.5-14.5); Segmented Neutrophils % 81.3 %
[2017-06-18 19:20] LABS: Calcium 7.8 mg/dL (8.6-10.8); Potassium 4.3 mEq/L (3.5-4.5)
[2017-06-18] MEDS: Chlorhexidine Rinse 15 ML MOUTHWASH MM SCH (22:28)
[2017-06-18 23:25] LABS: Hematocrit 26.8 % (37.5-50.1); Hemoglobin 8.2 g/dL (12.9-16.9)
[2017-06-19] MEDS: FentaNYL (PF) 1,000 MCG in 0.9 % Sodium Chloride 80 ML IVC SCH ×2 (00:18→13:00)
[2017-06-19] MEDS: Lacri-Lube 3.5 GM TUBE BOTH EYES SCH ×6 (00:18→20:09)
[2017-06-19] MEDS: Pantoprazole 40 MG in 0.9 % Sodium Chloride Mini Bag 100 ML IVC SCH ×2 (01:02→05:41)
[2017-06-19] MEDS: Ipratropium/Albuterol Neb 3 ML IH SCH ×6 (03:46→23:26)
[2017-06-19 04:14] LABS: Basophils % 0.4 %; Eosinophils # 0.4 K/mcL (0.0-0.6); Eosinophils % 3.7 %; Hematocrit 26.9 % (37.5-50.1); Hemoglobin 8.3 g/dL (12.9-16.9); Immature Granulocytes % 0.5 % (0-4); Lymphocytes % 18.6 %; Mean Corpuscular HGB Conc 30.9 g/dL (31.6-35.5); Mean Corpuscular Hemoglobin 28.5 pg (28.0-33.3); Mean Corpuscular Volume 92.4 fL (83.0-100.0); Mean Platelet Volume 11.4 fL (9.4-12.4); Monocytes # 0.9 K/mcL (0.0-1.3); Monocytes % 8.6 %; Neutrophils # 7.3 K/mcL (1.6-8.9); Platelet Count 139 K/mcL (140-400); Red Blood Count 2.91 M/mcL (4.19-5.50); Red Cell Distribution Width 15.3 % (11.5-14.5); Segmented Neutrophils % 68.2 %
[2017-06-19 04:26] LABS: Calcium 7.9 mg/dL (8.6-10.8); Potassium 4.3 mEq/L (3.5-4.5)
[2017-06-19 04:49] LABS: ABG HCO3 29 mEq/L (21-27); ABG Oxygen Saturation 98 % (95-98); ABG PCO2 46 mmHg (35-45); ABG PH 7.41 pH Units (7.32-7.45); ABG PO2 98 mmHg (85-104); ABG TCO2 31 mEq/L (20-26)
[2017-06-19 04:52] LABS: Blood Gas FiO2 60 %; Blood Gas Modality ASSIST CONTROL; Blood Gas PEEP 10 cm H2O; Blood Gas Respiration Rate 20; Blood Gas VT 500 cc
[2017-06-19] MEDS: Famotidine 20 MG/2 ML VIAL IVP SCH (05:09)
[2017-06-19] MEDS: *HR* Heparin 5,000 UNIT/ML VIAL SQ SCH (05:09)
[2017-06-19] MEDS: Piperacillin/Tazobactam 3.375 GM in D5% in Water (Mini-Bag+) 100 ML IVPB SCH ×2 (05:09→17:33)
[2017-06-19 06:29] LABS: Hematocrit 26.5 % (37.5-50.1); Hemoglobin 8.1 g/dL (12.9-16.9)
--- NOTE | 2017-06-19 06:56 | Pulmonology Progress Note ---
<KarsonCrescencioYordan W - Last Filed: 06/19/17 10:13> Date of Encounter: 06/19/17 Objective PUL Vital signs: Last Vital Signs Temp 98.8 F 06/19/17 08:14 Pulse 76 06/19/17 07:15 Resp 20 06/19/17 09:16 BP 132/68 06/19/17 07:15 Pulse Ox 92 06/19/17 09:16 Ventilator Settings Ventilator Settings: Ventilator Settings, Last 8 Hours Ventilator Mode A/C Ventilator Mode A/C Ventilator Mode A/C Ventilator Mode A/C Ventilator Mode A/C Ventilator Mode A/C Ventilator Mode A/C Ventilator Mode A/C Ventilator Mode A/C Ventilator Mode A/C Ventilator Mode A/C Ventilator Tidal Volume 500 Setting Ventilator Tidal Volume 500 Setting Ventilator Tidal Volume 500 Setting Ventilator Tidal Volume 500 Setting Ventilator Tidal Volume 500 Setting Ventilator Tidal Volume 500 Setting Ventilator Tidal Volume 500 Setting Ventilator Tidal Volume 500 Setting Ventilator Tidal Volume 500 Setting Ventilator Tidal Volume 500 Setting Ventilator Tidal Volume 500 Setting Ventilator Respiratory Rate 20 Setting Ventilator Respiratory Rate 20 Setting Ventilator Respiratory Rate 20 Setting Ventilator Respiratory Rate 20 Setting Ventilator Respiratory Rate 20 Setting Ventilator Respiratory Rate 20 Setting Ventilator Respiratory Rate 20 Setting Ventilator Respiratory Rate 20 Setting Ventilator Respiratory Rate 20 Setting Ventilator Respiratory Rate 20 Setting Ventilator Respiratory Rate 20 Setting Actual Respiratory Rate 20 Actual Respiratory Rate 20 Actual Respiratory Rate 20 Actual Respiratory Rate 20 Actual Respiratory Rate 20 Actual Respiratory Rate 20 Actual Respiratory Rate 20 Actual Respiratory Rate 20 Actual Respiratory Rate 20 Actual Respiratory Rate 20 Positive End Expiratory 10 Pressure Positive End Expiratory 10 Pressure Positive End Expiratory 10 Pressure Positive End Expiratory 10 Pressure Positive End Expiratory 10 Pressure Positive End Expiratory 10 Pressure Positive End Expiratory 10 Pressure Positive End Expiratory 10 Pressure Positive End Expiratory 10 Pressure Positive End Expiratory 10 Pressure Positive End Expiratory 10 Pressure Peak Inspiratory Airway 30 Pressure Peak Inspiratory Airway 32 Pressure Peak Inspiratory Airway 38 Pressure Peak Inspiratory Airway 29 Pressure Peak Inspiratory Airway 30 Pressure Peak Inspiratory Airway 31 Pressure Peak Inspiratory Airway 30 Pressure Peak Inspiratory Airway 29 Pressure Peak Inspiratory Airway 28 Pressure Peak Inspiratory Airway 28 Pressure Results - Laboratory Findings CBC and BMP: 06/19/17 06:10 06/19/17 03:55 ABG ABG pH 7.41 pH Units (7.32-7.45) 06/19/17 04:40 ABG pCO2 46 mmHg (35-45) H 06/19/17 04:40 ABG pO2 98 mmHg (85-104) 06/19/17 04:40 ABG O2 Saturation 98 % (95-98) 06/19/17 04:40 Abnormal lab findings: Abnormal lab results RBC 2.91 M/mcL (4.19-5.50) L 06/19/17 03:55 Hgb 8.1 g/dL (12.9-16.9) L 06/19/17 06:10 Hct 26.5 % (37.5-50.1) L 06/19/17 06:10 MCHC 30.9 g/dL (31.6-35.5) L 06/19/17 03:55 RDW 15.3 % (11.5-14.5) H 06/19/17 03:55 Plt Count 139 K/mcL (140-400) L 06/19/17 03:55 ABG pCO2 46 mmHg (35-45) H 06/19/17 04:40 ABG HCO3 29 mEq/L (21-27) H 06/19/17 04:40 ABG Total CO2 31 mEq/L (20-26) H 06/19/17 04:40 ABG Base Excess 4.0 mEq/L (-2.0 to 3.0) H 06/19/17 04:40 BUN 65 mg/dL (8-26) H 06/19/17 03:55 Creatinine 6.38 mg/dL (0.72-1.25) H 06/19/17 03:55 Est GFR ( Amer) 11 (> 60) L 06/19/17 03:55 Est GFR (Non-Af Amer) 9 (> 60) L 06/19/17 03:55 Glucose 61 mg/dL (70-99) L 06/19/17 03:55 Calculated Osmolality 309 (280-300) H 06/19/17 03:55 Calcium 7.9 mg/dL (8.6-10.8) L 06/19/17 03:55 Phosphorus 7.1 mg/dL (2.3-4.7) H 06/18/17 05:16 Iron 25 mcg/dL (65-175) L 06/16/17 09:13 % Saturation 10 % (20-55) L 06/16/17 09:13 Albumin 2.5 g/dL (3.5-5.0) L 06/18/17 05:16 Globulin 4.1 g/dL (2.4-3.5) H 06/17/17 03:44 Albumin/Globulin Ratio 0.6 (1.1-2.2) L 06/17/17 03:44 PTH Intact 270.4 pg/ml (8.5-72.5) H 06/16/17 09:13 Gastric Occult Blood Positive (Negative) A 06/18/17 06:13 - Microbiology Findings Microbiology Findings: Microbiology, Last 48 Hours 06/18/17 20:15 Sputum Culture - Preliminary Sputum - Clinical Findings Intake & Output: Intake & Output 06/18/17 06/19/17 06/19/17 23:59 07:59 15:59 Intake Total 217 / 217 233 / 233 Output Total 443 / 443 75 / 75 200 / 200 Balance -226 / -226 158 / 158 -200 / -200 Weight 127.23 kg Consult Discharge Plan - Plan Referrals: NONE,PCP [Primary Care Provider] - - Attending Attestation I examined this patient and my medical decision-making was reviewed with the Resident Physician. I agree with the documented findings, disposition and treatment plan as described except to the extent set forth below. We independently had [id number] contact with the patient Patient seen and examined at bedside Labs, radiology, chart personally reviewed. Management was reviewed during multidisciplinary critical care rounds. Neuropsych: He is on low-dose infusion of fentanyl but he is easily awoken and able to follow commands and interact with my examination. This is not optimal to the level of sedation currently. We will continue to employ daily sedation holiday while intubated and receiving sedation for vent. Pulm: Acute on chronic hypoxic hypercarbic respiratory failure this is a combination of cardiogenic pulmonary edema and aspiration pneumonia not intubated vent settings evaluated today. Employing a low tidal volume ventilatory strategy with acceptable oxygenation and ventilation. Plan to continue to wean FiO2 and PEEP once acceptable we will attempt spontaneous breathing trial. Continue ventilator bundle to prevent VAP Cards: Patient has chronic heart failure without evidence shock we will continue to monitor. He had a brief episode of ventricular tachycardia that self resolved and has not been seen since we will focus on replacing electrolytes and restarting beta libra FEN-GI: Nothing by mouth for now there is evidence of coffee-ground emesis and concern for gastrointestinal hemorrhage although hemoglobin has been stable. We will start twice a day dosing of PPI for this as well as consult gastroenterology. Renal: Acute on chronic renal failure with progression to need to dialysis temporary dialysis line has been placed nephrology has been consulted plan for renal replacement therapy today and we will monitor and replace electrolytes per protocol ID: We are treating broadly for aspiration pneumonia in the healthcare setting. Cultures pending status post bronchoscopy with BAL we will de-escalate antimicrobials based upon microbiological sensitivities Heme/Onc: We are holding DVT prophylaxis at present concern of potential intestinal hemorrhage. Continue to monitor H&H has chronic stable anemia platelet count is acceptable Endo: Glucose Monitored Integ/MSK: Skin Care per routine ICU Nursing Protocol to prevent ulcers. Lines: All lines examined without evidence of infection. Dispo: Remain in ICU today CODE: Full code family including updated at bedside <Henrietta Dalton - Last Filed: 06/19/17 11:01> Date of Encounter: 06/19/17 Time of Encounter: 08:30 Assessment and Plan (1) Acute and chronic respiratory failure with hypoxia Current Visit: Yes Status: Acute Patient transferred to the ICU after having aspiration into the airway while on BiPAP. Concern for respiratory failure caused us to intubate the patient emergently. Patient currently vented and sedated. Patient also presenting with fluid overload. Continue to trend ABGs. Patient's respiratory status now stable on ventilator. (2) Aspiration into airway Current Visit: Yes Status: Suspected Patient had an episode of vomiting while wearing the BiPAP. Concern for aspiration and airway. CT of the chest showed Multifocal patchy airspace disease throughout the majority of the right lung consistent with pneumonia. Partial collapse/consolidation in the dependent left upper lobe and left lower lobe, atelectasis and/or pneumonia. There are moderate bilateral pleural effusions.. IV Zosyn currently being given. Qualifiers: Encounter type: initial encounter Qualified Code(s): T17.908A - Unspecified foreign body in respiratory tract, part unspecified causing other injury, initial encounter (3) Hematemesis Current Visit: Yes Status: Acute Patient had episode of vomiting and hematemesis stable on the floor wearing BiPAP. Concern for possible GI bleed due to persistent nausea and vomiting since admission. CT of the abdomen showed No acute intraabdominal intrapelvic abnormality on noncontrast exam. The patient's hemoglobin stable at this time. No active bleeding noted at this time. Qualifiers: Nausea presence: with nausea Qualified Code(s): K92.0 - Hematemesis; R11.0 - Nausea (4) Diastolic CHF, acute on chronic Current Visit: Yes Status: Acute Echocardiogram shows preserved EF, mild LV diastolic dysfunction, mild concentric LVH. Volume overload mainly due to worsening CKD. Patient to be dialyzed today. Will continue to closely monitor urinary output and dialysis output. After dialysis as long as the pressure is stable we will start half of his home dose of beta libra. (5) Hyperkalemia Current Visit: Yes Status: Acute Now 4.3. Due to chronic kidney disease. Patient to be dialyzed today. On electrolyte protocol. Will continue to closely monitor (6) Volume overload Current Visit: Yes Status: Acute due to Renal failure and Acute on chronic diastolic CHF exacerbation. Repeat echo shows stable EF from previous study. Patient to get dialyzed today Qualifiers: Hypervolemia type: unspecified Qualified Code(s): E87.70 - Fluid overload, unspecified (7) CKD (chronic kidney disease) stage 4, GFR 15-29 ml/min Current Visit: Yes Status: Chronic Chronic condition. Nephrology has been consulted. Continue to follow BMP and kidney function. Creatinine acutely worsening at 6.38 this morning. will get dialyzed today. HD port was placed by IR yesterday (8) 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 Current Visit: Yes Status: Chronic Currently receiving basal insulin. We will continue to closely monitor glucose. 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 tach which self resolved. Otherwise patient stable at this time. Patient remains sedated and intubated at this time. HD port was placed yesterday by IR. Worsening kidney function with creatinine of 6.3. Plan to dialyze today. Objective PUL Vital signs: Last Vital Signs Temp 98.6 F 06/19/17 04:26 Pulse 74 06/19/17 06:00 Resp 20 09/23/17 06:00 BP 117/66 06/19/17 06:00 Pulse Ox 93 06/19/17 06:00 General appearance: comatose Eyes: nonicteric ENT: oropharynx moist Neck: supple Effort: normal Auscultation: bilateral: diminished breath sounds Cardiovascular: PVC's noted Gastrointestinal: hypoactive bowel sounds, soft, non-distended Integumentary: normal Extremities: no cyanosis, edema Musculoskeletal: no deformities Gait: normal posture unable to assess due to mental status Ventilator Settings Ventilator Settings: Ventilator Settings, Last 8 Hours Ventilator Mode A/C Ventilator Mode A/C Ventilator Mode A/C Ventilator Mode A/C Ventilator Mode A/C Ventilator Mode A/C Ventilator Mode A/C Ventilator Mode A/C Ventilator Mode A/C Ventilator Mode A/C Ventilator Mode A/C Ventilator Mode A/C Ventilator Mode A/C Ventilator Tidal Volume 500 Setting Ventilator Tidal Volume 500 Setting Ventilator Tidal Volume 500 Setting Ventilator Tidal Volume 500 Setting Ventilator Tidal Volume 500 Setting Ventilator Tidal Volume 500 Setting Ventilator Tidal Volume 500 Setting Ventilator Tidal Volume 500 Setting Ventilator Tidal Volume 500 Setting Ventilator Tidal Volume 500 Setting Ventilator Tidal Volume 500 Setting Ventilator Tidal Volume 500 Setting Ventilator Tidal Volume 500 Setting Ventilator Respiratory Rate 20 Setting Ventilator Respiratory Rate 20 Setting Ventilator Respiratory Rate 20 Setting Ventilator Respiratory Rate 20 Setting Ventilator Respiratory Rate 20 Setting Ventilator Respiratory Rate 20 Setting Ventilator Respiratory Rate 20 Setting Ventilator Respiratory Rate 20 Setting Ventilator Respiratory Rate 20 Setting Ventilator Respiratory Rate 20 Setting Ventilator Respiratory Rate 20 Setting Ventilator Respiratory Rate 20 Setting Ventilator Respiratory Rate 20 Setting Actual Respiratory Rate 20 Actual Respiratory Rate 20 Actual Respiratory Rate 20 Actual Respiratory Rate 20 Actual Respiratory Rate 20 Actual Respiratory Rate 20 Actual Respiratory Rate 20 Actual Respiratory Rate 20 Actual Respiratory Rate 20 Actual Respiratory Rate 20 Actual Respiratory Rate 20 Actual Respiratory Rate 20 Positive End Expiratory 10 Pressure Positive End Expiratory 10 Pressure Positive End Expiratory 10 Pressure Positive End Expiratory 10 Pressure Positive End Expiratory 10 Pressure Positive End Expiratory 10 Pressure Positive End Expiratory 10 Pressure Positive End Expiratory 10 Pressure Positive End Expiratory 10 Pressure Positive End Expiratory 10 Pressure Positive End Expiratory 10 Pressure Positive End Expiratory 10 Pressure Positive End Expiratory 10 Pressure Peak Inspiratory Airway 29 Pressure Peak Inspiratory Airway 30 Pressure Peak Inspiratory Airway 31 Pressure Peak Inspiratory Airway 30 Pressure Peak Inspiratory Airway 29 Pressure Peak Inspiratory Airway 28 Pressure Peak Inspiratory Airway 28 Pressure Peak Inspiratory Airway 28 Pressure Peak Inspiratory Airway 28 Pressure Peak Inspiratory Airway 28 Pressure Peak Inspiratory Airway 30 Pressure Peak Inspiratory Airway 30 Pressure Results - Laboratory Findings CBC and BMP: 06/19/17 06:10 06/19/17 03:55 ABG ABG pH 7.41 pH Units (7.32-7.45) 06/19/17 04:40 ABG pCO2 46 mmHg (35-45) H 06/19/17 04:40 ABG pO2 98 mmHg (85-104) 06/19/17 04:40 ABG O2 Saturation 98 % (95-98) 06/19/17 04:40 Abnormal lab findings: Abnormal lab results RBC 2.91 M/mcL (4.19-5.50) L 06/19/17 03:55 Hgb 8.1 g/dL (12.9-16.9) L 06/19/17 06:10 Hct 26.5 % (37.5-50.1) L 06/19/17 06:10 MCHC 30.9 g/dL (31.6-35.5) L 06/19/17 03:55 RDW 15.3 % (11.5-14.5) H 06/19/17 03:55 Plt Count 139 K/mcL (140-400) L 06/19/17 03:55 ABG pCO2 46 mmHg (35-45) H 06/19/17 04:40 ABG HCO3 29 mEq/L (21-27) H 06/19/17 04:40 ABG Total CO2 31 mEq/L (20-26) H 06/19/17 04:40 ABG Base Excess 4.0 mEq/L (-2.0 to 3.0) H 06/19/17 04:40 BUN 65 mg/dL (8-26) H 06/19/17 03:55 Creatinine 6.38 mg/dL (0.72-1.25) H 06/19/17 03:55 Est GFR ( Amer) 11 (> 60) L 06/19/17 03:55 Est GFR (Non-Af Amer) 9 (> 60) L 06/19/17 03:55 Glucose 61 mg/dL (70-99) L 06/19/17 03:55 Calculated Osmolality 309 (280-300) H 06/19/17 03:55 Calcium 7.9 mg/dL (8.6-10.8) L 06/19/17 03:55 Phosphorus 7.1 mg/dL (2.3-4.7) H 06/18/17 05:16 Iron 25 mcg/dL (65-175) L 06/16/17 09:13 % Saturation 10 % (20-55) L 06/16/17 09:13 Albumin 2.5 g/dL (3.5-5.0) L 06/18/17 05:16 Globulin 4.1 g/dL (2.4-3.5) H 06/17/17 03:44 Albumin/Globulin Ratio 0.6 (1.1-2.2) L 06/17/17 03:44 PTH Intact 270.4 pg/ml (8.5-72.5) H 06/16/17 09:13 Gastric Occult Blood Positive (Negative) A 06/18/17 06:13 - Microbiology Findings Microbiology Findings: Microbiology, Last 48 Hours 06/18/17 20:15 Sputum Culture - Preliminary Sputum - Diagnostic Findings Chest x-ray: report reviewed, image reviewed - Clinical Findings Intake & Output: Intake & Output 06/18/17 06/18/17 06/19/17 15:59 23:59 07:59 Intake Total 213 / 213 217 / 217 233 / 233 Output Total 0 / 0 443 / 443 75 / 75 Balance 213 / 213 -226 / -226 158 / 158 Weight 128 kg 127.23 kg
[2017-06-19] MEDS: amLODIPine 5 MG TABLET PO SCH (09:05)
[2017-06-19] MEDS: Aspirin Enteric Coated 325 MG Tablet PO SCH (09:05)
[2017-06-19] MEDS: Finasteride 5 MG TABLET PO SCH (09:06)
[2017-06-19] MEDS ORDERED: Magnesium Sulfate 2 GM in D5% in Water 100 ML IVPB ONE (09:27)
[2017-06-19] MEDS: Chlorhexidine Rinse 15 ML MOUTHWASH MM SCH ×2 (09:35→20:09)
[2017-06-19] MEDS ORDERED: 0.9 % Sodium Chloride 250 ML IVC PRN (09:50)
--- NOTE | 2017-06-19 09:58 | Nephrology Progress Note ---
Date of Encounter: 06/19/17 Time of Encounter: 09:27 - Assessment and Plan (1) ISMA (acute kidney injury) Current Visit: No Status: Acute 1. Renal Failure. has worsening renal function with oliguria and volume overload. has underlying advanced CKD 4-5. Temporary IF dialysis cath was placed yesterday. will initiate Hemodialysis today. avoid heparin inview of recent hematemesis 2. HTN. BP stable, continue amlodipine and labetalol 3. Bone metabolism. cont calcitriol. Elevated po4. phoslo when PO feeds are started. 4. Chronic anemia with elevated RDW. Iron sat is low. check b12 and folate. Transfuse PRBC as needed Subjective Principal diagnosis: f/u of renal failure Interval history: intubated and sedated with Fentanyl. fio2 decreased from 60 % to 50 %. urine output is trending down, 363 ml in the last 24 hrs Objective - Vital Signs Vital signs: Vital Signs Temp Pulse Resp BP Pulse Ox 06/19/17 09:16 20 92 06/19/17 08:14 98.8 F 06/19/17 07:47 20 94 06/19/17 07:15 76 20 132/68 97 06/19/17 06:00 74 20 117/66 93 06/19/17 05:38 20 126/73 93 06/19/17 05:00 75 20 136/71 93 06/19/17 04:26 98.6 F 06/19/17 04:00 76 20 120/71 92 06/19/17 03:46 20 114/61 93 06/19/17 03:30 75 20 114/61 93 06/19/17 02:30 76 20 118/62 93 06/19/17 01:18 20 118/65 94 06/19/17 01:00 73 20 118/65 93 06/19/17 00:30 75 20 123/65 94 06/18/17 23:58 98.3 F 06/18/17 23:25 20 105/63 96 06/18/17 23:00 70 20 105/63 94 06/18/17 22:30 70 20 111/62 94 06/18/17 22:15 99.0 F 06/18/17 21:37 20 99/56 92 06/18/17 21:30 70 20 99/56 94 06/18/17 20:00 71 24 117/63 98 09/22/17 19:48 21 118/63 94 06/18/17 19:30 66 20 118/63 93 06/18/17 18:00 66 20 97/56 93 06/18/17 17:14 20 109/64 95 06/18/17 17:00 67 20 109/64 95 06/18/17 16:00 98.3 F 65 20 93/55 93 06/18/17 15:46 20 97 06/18/17 15:00 66 20 92/53 96 06/18/17 14:00 68 20 103/56 91 06/18/17 13:00 71 20 113/59 91 06/18/17 12:00 75 20 172/87 91 06/18/17 11:55 20 91 06/18/17 11:47 18 162/81 92 06/18/17 11:00 98.8 F 76 18 134/68 91 06/18/17 10:40 18 122/56 97 Intake and Output 06/18/17 06/19/17 06/19/17 23:59 07:59 15:59 Intake Total 217 / 217 233 / 233 Output Total 443 / 443 75 / 75 200 / 200 Balance -226 / -226 158 / 158 -200 / -200 Intake: IV Fluids 217 / 217 233 / 233 FentaNYL (PF) 1,000 MCG In 0.9 4 / 4 33 / 33 % Sodium Chloride 80 ML @ 50 MCG/HR 5 mls/hr IVC CONT [facility] Rx #:[id number] Protonix 40 MG In 0.9 % Sodium 100 / 100 200 / 200 Chloride (Mini-Bag +) 100 ML @ 20 mls/hr IVC .Q5H [facility] Rx#: [id number] Diprivan 1,000 mg In 100 ml @ 5 13 / 13 MCG/KG/MIN 3.84 mls/hr IVC . Q24H [facility] Rx#:[id number] Zosyn 3.375 GM In Dextrose 5% ( 100 / 100 Minibag+) 100 ML 100 ML @ 25 mls/hr IVPB Q12HR [facility] Rx#: [id number] Output: Catheter 363 / 363 75 / 75 200 / 200 Gastric Drainage 80 / 80 0 / 0 Other: Weight 127.23 kg Blood Glucose* 81 86 71 Patient Weight 06/19/17 23:59 Weight 127.23 kg - General Appearance Exam: CVS; s1s2 present, no murmurs RESP; decreased air entry, clear anteriorly ABD; Soft, NT, BS present, no organomegaly EXT; 2 # edema BUSGIRL; moving extremities spontaneously Rt IJ cath present - Lab 06/19/17 06:10 06/19/17 03:55 Most recent lab results ABG pH 7.41 pH Units (7.32-7.45) 06/19/17 04:40 ABG pCO2 46 mmHg (35-45) H 06/19/17 04:40 ABG pO2 98 mmHg (85-104) 06/19/17 04:40 ABG HCO3 29 mEq/L (21-27) H 06/19/17 04:40 ABG O2 Saturation 98 % (95-98) 06/19/17 04:40 Calcium 7.9 mg/dL (8.6-10.8) L 06/19/17 03:55 Phosphorus 7.1 mg/dL (2.3-4.7) H 06/18/17 05:16 Magnesium 1.8 mg/dL (1.6-2.6) 06/19/17 03:55 Consult Discharge Plan - Plan Referrals: NONE,PCP [Primary Care Provider] -
[2017-06-19] MEDS ORDERED: 0.9 % Sodium Chloride 1,000 ML PRIME SCH (10:00)
[2017-06-19] MEDS ORDERED: Magnesium Sulfate 2 GM in D5% in Water 100 ML IVPB PRN (10:02)
[2017-06-19] MEDS ORDERED: Calcium Gluconate 1,000 MG in D5% in Water 100 ML IVPB PRN (10:02)
[2017-06-19] MEDS ORDERED: Potassium Phosphate 44 MEQ in 0.9 % Sodium Chloride 250 ML IVPB PRN (10:02)
--- NOTE | 2017-06-19 10:22 | Nephrology Progress Note ---
Date of Encounter: 06/19/17 - Assessment and Plan (1) ISMA (acute kidney injury) Current Visit: No Status: Acute 1. Renal Failure. has worsening renal function with oliguria and volume overload. has underlying advanced CKD 4-5. Temporary IF dialysis cath was placed yesterday. will initiate Hemodialysis today. avoid heparin inview of recent hematemesis 2. HTN. BP stable, continue amlodipine and labetalol 3. Bone metabolism. cont calcitriol. Elevated po4. phoslo when PO feeds are started. 4. Chronic anemia with elevated RDW. Iron sat is low. check b12 and folate. Transfuse PRBC as needed Subjective Principal diagnosis: f/u of renal failure Interval history: intubated and sedated with Fentanyl. fio2 decreased from 60 % to 50 %. urine output is trending down, 363 ml in the last 24 hrs Objective - Vital Signs Vital signs: Vital Signs Temp Pulse Resp BP Pulse Ox 06/19/17 09:16 20 92 06/19/17 08:14 98.8 F 06/19/17 07:47 20 94 06/19/17 07:15 76 20 132/68 97 06/19/17 06:00 74 20 117/66 93 06/19/17 05:38 20 126/73 93 06/19/17 05:00 75 20 136/71 93 06/19/17 04:26 98.6 F 06/19/17 04:00 76 20 120/71 92 06/19/17 03:46 20 114/61 93 06/19/17 03:30 75 20 114/61 93 06/19/17 02:30 76 20 118/62 93 06/19/17 01:18 20 118/65 94 06/19/17 01:00 73 20 118/65 93 06/19/17 00:30 75 20 123/65 94 06/18/17 23:58 98.3 F 06/18/17 23:25 20 105/63 96 06/18/17 23:00 70 20 105/63 94 06/18/17 22:30 70 20 111/62 94 06/18/17 22:15 99.0 F 06/18/17 21:37 20 99/56 92 06/18/17 21:30 70 20 99/56 94 06/18/17 20:00 71 24 117/63 98 06/18/17 19:48 21 118/63 94 06/18/17 19:30 66 20 118/63 93 06/18/17 18:00 66 20 97/56 93 06/18/17 17:14 20 109/64 95 06/18/17 17:00 67 20 109/64 95 06/18/17 16:00 98.3 F 65 20 93/55 93 06/18/17 15:46 20 97 06/18/17 15:00 66 20 92/53 96 06/18/17 14:00 68 20 103/56 91 06/18/17 13:00 71 20 113/59 91 06/18/17 12:00 75 20 172/87 91 06/18/17 11:55 20 91 06/18/17 11:47 18 162/81 92 06/18/17 11:00 98.8 F 76 18 134/68 91 06/18/17 10:40 18 122/56 97 Intake and Output 06/18/17 06/19/17 06/19/17 23:59 07:59 15:59 Intake Total 217 / 217 233 / 233 Output Total 443 / 443 75 / 75 200 / 200 Balance -226 / -226 158 / 158 -200 / -200 Intake: IV Fluids 217 / 217 233 / 233 FentaNYL (PF) 1,000 MCG In 0.9 4 / 4 33 / 33 % Sodium Chloride 80 ML @ 50 MCG/HR 5 mls/hr IVC CONT [facility] Rx #:[id number] Protonix 40 MG In 0.9 % Sodium 100 / 100 200 / 200 Chloride (Mini-Bag +) 100 ML @ 20 mls/hr IVC .Q5H [facility] Rx#: [id number] Diprivan 1,000 mg In 100 ml @ 5 13 / 13 MCG/KG/MIN 3.84 mls/hr IVC . Q24H [facility] Rx#:[id number] Zosyn 3.375 GM In Dextrose 5% ( 100 / 100 Minibag+) 100 ML 100 ML @ 25 mls/hr IVPB Q12HR [facility] Rx#: [id number] Output: Catheter 363 / 363 75 / 75 200 / 200 Gastric Drainage 80 / 80 0 / 0 Other: Weight 127.23 kg Blood Glucose* 81 86 71 Patient Weight 06/19/17 23:59 Weight 127.23 kg - Lab 06/19/17 06:10 06/19/17 03:55 Most recent lab results ABG pH 7.41 pH Units (7.32-7.45) 06/19/17 04:40 ABG pCO2 46 mmHg (35-45) H 06/19/17 04:40 ABG pO2 98 mmHg (85-104) 06/19/17 04:40 ABG HCO3 29 mEq/L (21-27) H 06/19/17 04:40 ABG O2 Saturation 98 % (95-98) 06/19/17 04:40 Calcium 7.9 mg/dL (8.6-10.8) L 06/19/17 03:55 Phosphorus 7.1 mg/dL (2.3-4.7) H 06/18/17 05:16 Magnesium 1.8 mg/dL (1.6-2.6) 06/19/17 03:55 Consult Discharge Plan - Plan Referrals: NONE,PCP [Primary Care Provider] -
[2017-06-19] MEDS: Insulin LISPRO 300 UNITS/3 ML VIAL SQ SCH ×3 (11:02→16:34)
[2017-06-19] MEDS: Insulin DETEMIR 100 UNIT/ML X5UNITS SQ SCH ×2 (11:03→20:09)
--- NOTE | 2017-06-19 13:33 | Gastroenterology Consult Note ---
Date of Encounter: 06/19/17 Time of Encounter: 14:00 - Assessment and plan (1) Respiratory failure Current Visit: Yes Status: Acute Assessment and plan: Due to The pneumonia and is currently on the ventilator. Being managed by ICU attending. Qualifiers: Respiratory failure complication: hypoxia Qualified Code(s): J96.01 - Acute respiratory failure with hypoxia (2) Anemia Current Visit: Yes Status: Acute Assessment and plan: Patient with chronic anemia with a slight drop in his hemoglobin now with some blood in the NG tube rule out esophagitis/gastric causes for his anemia/blood in the NG. Also has chronic kidney disease which is contributing to his anemia. Plan: EGD today , cont PPI and follow H&H Qualifiers: Anemia type: due to chronic kidney disease Chronic kidney disease stage: on chronic dialysis Qualified Code(s): N18.6 - End stage renal disease; D63.1 - Anemia in chronic kidney disease; Z99.2 - Dependence on renal dialysis - Time Spent With Patient Total time spent is greater than 50% in coordination of care (as documented) at patient's floor/unit and/or counseling patient: GI History of Present Illness - Data of Consult Consult date: 06/19/17 Requesting Physician: Cherri Duran MD - Consult Narrative Reason for consult: Anemia with blood in the NG tube History of present illness: Mr. Prado is a 67 year old male currently in ICU on the ventilator for respiratory failure. Pt is noticed to have some blood in his NG tube and provide patient was complaining of abdominal abdominal pain by being pointing to the abdomen. No previous history of scopes done in the past. No history of abdominal pain prior to hospitalization at home per . On admission patient hemoglobin was more than 9 and it is down to 8.1 now. Past Med Surg Social Fam HX - Past Medical History Medical history: CVA, diabetes, hyperlipidemia, hypertension, renal disease, other Psychiatric history: no psych history - Past Surgical History Surgical History: other - Social History Smoking Status: Former smoker Smokeless Tobacco Status: No Alcohol use: none Drug use: none - Family History Mother Living Status: Father Living Status: Hx Family Endocrine Disorder: Yes (diabetes) Review of Systems: pt currently on the vent and no review of systems could be obtained from the patient other than getting information from the - Constitutional Vitals: Temp Pulse Resp BP Pulse Ox 98.9 F 78 18 107/68 96 06/19/17 12:40 06/19/17 11:15 06/19/17 12:40 06/19/17 12:40 06/19/17 11:15 CONSTITUTIONAL:~Patient currently on the vent sedated.~HEAD:~normocephalic.~EYES :~no jaundice.~NECK:~no obvious swelling.~HEART:~regular rate and rhythm, .~ LUNGS:~bilateral good air entry. Has ET tube in place ~ABDOMEN:~non distended, soft,, no masses pulpable, no organomegaly.~RECTAL EXAM:~Deferred.~EXTREMITIES:~ 2-3+ edema.~SKIN:~no stigmata of chronic liver disease.~NEUROLOGIC: sedated and is on the vent ( per at home he walks with the help of a cane).~~~~ Results - Labs CBC & Chem 7: 06/19/17 06:10 06/19/17 03:55 Labs: Last Result Calcium 7.9 mg/dL (8.6-10.8) L 06/19/17 03:55 Iron 25 mcg/dL (65-175) L 06/16/17 09:13 % Saturation 10 % (20-55) L 06/16/17 09:13 Transferrin 179 mg/dL (174-364) 06/16/17 09:13 Ferritin 162 ng/ml (22-275) 06/16/17 09:13 Troponin I 0.02 ng/mL (0-0.03) 06/15/17 21:37 Gastric Occult Blood Positive (Negative) A 06/18/17 06:13 Entire Visit Hgb 8.1 g/dL (12.9-16.9) L 06/19/17 06:10 Hct 26.5 % (37.5-50.1) L 06/19/17 06:10 Ferritin 162 ng/ml (22-275) 06/16/17 09:13 Total Bilirubin 0.4 mg/dL (0.2-1.2) 06/17/17 03:44 AST 8 Units/L (5-34) 06/17/17 03:44 ALT 8 Units/L (0-55) 06/17/17 03:44 - ABG ABG results: ABG ABG pH 7.41 pH Units (7.32-7.45) 06/19/17 04:40 ABG pCO2 46 mmHg (35-45) H 06/19/17 04:40 ABG pO2 98 mmHg (85-104) 06/19/17 04:40 ABG O2 Saturation 98 % (95-98) 06/19/17 04:40 - Impressions Impressions Guidance Needle Placement Ultrasound 06/18/17 00:00 IMPRESSION: 1. Right internal jugular vein temporary dialysis catheter placement as discussed above. D/ / Tristian Robledo MD / Tristian Robledo MD Interpreting Provider: Tristian Robledo MD Insertion Non-Tunneled Catheter 06/18/17 00:00 IMPRESSION: 1. Right internal jugular vein temporary dialysis catheter placement as discussed above. D/ / Tristian Robledo MD / Tristian Robledo MD Interpreting Provider: Tristian Robledo MD Abdomen/Pelvis CT 06/18/17 09:30 IMPRESSION: Multifocal patchy airspace disease throughout the majority of the right lung consistent with pneumonia. Partial collapse/consolidation in the dependent left upper lobe and left lower lobe, atelectasis and/or pneumonia. There are moderate bilateral pleural effusions. No acute intraabdominal intrapelvic abnormality on noncontrast exam. D/ / Sarah Nguyen MD / Sarah Nguyen MD Interpreting Provider: Sarah Nguyen MD Chest CT 06/18/17 09:30 IMPRESSION: Multifocal patchy airspace disease throughout the majority of the right lung consistent with pneumonia. Partial collapse/consolidation in the dependent left upper lobe and left lower lobe, atelectasis and/or pneumonia. There are moderate bilateral pleural effusions. No acute intraabdominal intrapelvic abnormality on noncontrast exam. D/ / Sarah Nguyen MD / Sarah Nguyen MD Interpreting Provider: Sarah Nguyen MD Consult Discharge Plan - Plan Referrals: NONE,PCP [Primary Care Provider] -
[2017-06-19] MEDS ORDERED: *HR* Midazolam HCl 5 MG/5 ML VIAL IVP PRN (13:47)
[2017-06-19] MEDS ORDERED: *HR* Midazolam HCl 5 MG/5 ML VIAL IVP ONE (13:48)
[2017-06-19 17:30] LABS: Hematocrit 28.1 % (37.5-50.1); Hemoglobin 8.5 g/dL (12.9-16.9)
[2017-06-19] MEDS: Pantoprazole 40 MG VIAL IVP SCH (17:33)
[2017-06-20] MEDS: Lacri-Lube 3.5 GM TUBE BOTH EYES SCH ×6 (00:03→22:36)
[2017-06-20] MEDS: FentaNYL (PF) 1,000 MCG in 0.9 % Sodium Chloride 80 ML IVC SCH (01:00)
[2017-06-20 03:18] LABS: Basophils % 0.3 %; Eosinophils # 0.4 K/mcL (0.0-0.6); Eosinophils % 3.1 %; Hematocrit 25.9 % (37.5-50.1); Immature Granulocytes % 0.7 % (0-4); Lymphocytes # 1.8 K/mcL (0.6-4.6); Lymphocytes % 14.9 %; Mean Corpuscular HGB Conc 30.9 g/dL (31.6-35.5); Mean Corpuscular Hemoglobin 28.2 pg (28.0-33.3); Mean Corpuscular Volume 91.2 fL (83.0-100.0); Mean Platelet Volume 10.6 fL (9.4-12.4); Monocytes # 1.2 K/mcL (0.0-1.3); Monocytes % 9.9 %; Neutrophils # 8.5 K/mcL (1.6-8.9); Platelet Count 133 K/mcL (140-400); Red Blood Count 2.84 M/mcL (4.19-5.50); Red Cell Distribution Width 15.3 % (11.5-14.5); Segmented Neutrophils % 71.1 %
[2017-06-20 03:24] LABS: Ionized Calcium 0.95 mmol/L (1.15-1.35)
[2017-06-20] MEDS: Ipratropium/Albuterol Neb 3 ML IH SCH ×5 (03:24→20:40)
[2017-06-20 03:26] LABS: Magnesium 1.9 mg/dL (1.6-2.6)
[2017-06-20 03:31] LABS: Albumin 2.2 g/dL (3.5-5.0); Calcium 7.8 mg/dL (8.6-10.8); Phosphorous 5.6 mg/dL (2.3-4.7)
[2017-06-20 04:25] LABS: Folate 7.6 ng/mL (7.0-31.4)
[2017-06-20] MEDS: Pantoprazole 40 MG VIAL IVP SCH ×2 (05:50→17:33)
[2017-06-20] MEDS: Piperacillin/Tazobactam 3.375 GM in D5% in Water (Mini-Bag+) 100 ML IVPB SCH ×2 (05:50→17:33)
[2017-06-20 05:52] LABS: ABG Base Excess 2.8 mEq/L (-2.0 to 3.0); ABG HCO3 27 mEq/L (21-27); ABG Oxygen Saturation 99 % (95-98); ABG PCO2 40 mmHg (35-45); ABG PH 7.44 pH Units (7.32-7.45); ABG PO2 117 mmHg (85-104); ABG TCO2 28 mEq/L (20-26)
--- NOTE | 2017-06-20 07:18 | Pulmonology Progress Note ---
<Henrietta Dalton - Last Filed: 06/20/17 09:20> Date of Encounter: 06/20/17 Time of Encounter: 07:30 Assessment and Plan (1) Acute and chronic respiratory failure with hypoxia Current Visit: Yes Status: Acute Patient transferred to the ICU after having aspiration into the airway while on BiPAP. Concern for respiratory failure caused us to intubate the patient emergently. Patient currently vented and sedated. Patient also presenting with fluid overload. Continue to trend ABGs. Patient's respiratory status now stable on ventilator. We will attempt CPAP trial and possible extubation today. (2) Aspiration into airway Current Visit: Yes Status: Suspected Patient had an episode of vomiting while wearing the BiPAP. Concern for aspiration and airway. CT of the chest showed Multifocal patchy airspace disease throughout the majority of the right lung consistent with pneumonia. Partial collapse/consolidation in the dependent left upper lobe and left lower lobe, atelectasis and/or pneumonia. There are moderate bilateral pleural effusions.. IV Zosyn currently being given. Qualifiers: Encounter type: initial encounter Qualified Code(s): T17.908A - Unspecified foreign body in respiratory tract, part unspecified causing other injury, initial encounter (3) Hematemesis Current Visit: Yes Status: Acute Patient had episode of vomiting and hematemesis stable on the floor wearing BiPAP. Concern for possible GI bleed due to persistent nausea and vomiting since admission. CT of the abdomen showed No acute intraabdominal intrapelvic abnormality on noncontrast exam. The patient's hemoglobin stable at this time. No active bleeding noted at this time. Bedside EGD completed yesterday which showed minimal blood but no active bleeding. Qualifiers: Nausea presence: with nausea Qualified Code(s): K92.0 - Hematemesis; R11.0 - Nausea (4) Diastolic CHF, acute on chronic Current Visit: Yes Status: Acute Echocardiogram shows preserved EF, mild LV diastolic dysfunction, mild concentric LVH. Volume overload mainly due to worsening CKD. Patient was dialyzed yesterday. Will continue to closely monitor urinary output and dialysis output. Patient now on half his home dose of his beta libra. (5) Hyperkalemia Current Visit: Yes Status: Resolved Now 4.0. Due to chronic kidney disease. Patient was dialyzed yesterday. On electrolyte protocol. Will continue to closely monitor (6) Volume overload Current Visit: Yes Status: Acute due to Renal failure and Acute on chronic diastolic CHF exacerbation. Repeat echo shows stable EF from previous study. Patient dialyzed yesterday with increased output. Urinary output also increasing. We will continue to closely monitor. Qualifiers: Hypervolemia type: unspecified Qualified Code(s): E87.70 - Fluid overload, unspecified (7) CKD (chronic kidney disease) stage 4, GFR 15-29 ml/min Current Visit: Yes Status: Chronic Chronic condition. Nephrology has been consulted. Continue to follow BMP and kidney function. Patient dialyzed yesterday with improving creatinine of 5.85. Possible dialysis today. (8) 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 Current Visit: Yes Status: Chronic Currently receiving basal insulin. We will continue to closely monitor glucose. Qualifiers: 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 type: type 2 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 complication status: with kidney complications 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 complication detail: with chronic kidney disease 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 half-way insulin use: with half-way use Chronic kidney disease stage: stage 4 (severe) Qualified Code(s): E11.22 - Type 2 diabetes mellitus with diabetic chronic kidney disease; N18.4 - Chronic kidney disease, stage 4 (severe); Z79.4 - rn long term care (current) use of insulin (9) DVT prophylaxis Current Visit: Yes Status: Acute Subcutaneous heparin Subjective Principal diagnosis: Acute Respiratory Failure Interval history: No acute events overnight. Patient continues to have PVCs. No episodes of SVT overnight. Patient dialyzed yesterday with improving creatinine of 5.85. Plan to CPAP trial and possible extubation today. Objective PUL Vital signs: Last Vital Signs Temp 98.6 F 06/20/17 04:00 Pulse 78 06/20/17 06:00 Resp 20 06/20/17 06:25 BP 130/74 06/20/17 06:25 Pulse Ox 97 06/20/17 06:25 General appearance: comatose Eyes: nonicteric ENT: oropharynx moist Neck: supple, no JVD Effort: normal Auscultation: bilateral: diminished breath sounds Cardiovascular: regular rate and rhythm, PVC's noted Gastrointestinal: hypoactive bowel sounds, non-distended Integumentary: normal Extremities: no cyanosis, edema Musculoskeletal: no deformities Gait: normal posture unable to assess due to mental status Ventilator Settings Ventilator Settings: Ventilator Settings, Last 8 Hours Ventilator Mode A/C Ventilator Mode A/C Ventilator Mode A/C Ventilator Mode A/C Ventilator Mode A/C Ventilator Mode A/C Ventilator Mode A/C Ventilator Mode A/C Ventilator Mode A/C Ventilator Mode A/C Ventilator Mode A/C Ventilator Mode A/C Ventilator Mode A/C Ventilator Tidal Volume 500 Setting Ventilator Tidal Volume 500 Setting Ventilator Tidal Volume 500 Setting Ventilator Tidal Volume 500 Setting Ventilator Tidal Volume 500 Setting Ventilator Tidal Volume 500 Setting Ventilator Tidal Volume 500 Setting Ventilator Tidal Volume 500 Setting Ventilator Tidal Volume 500 Setting Ventilator Tidal Volume 500 Setting Ventilator Tidal Volume 500 Setting Ventilator Tidal Volume 500 Setting Ventilator Tidal Volume 500 Setting Ventilator Respiratory Rate 20 Setting Ventilator Respiratory Rate 20 Setting Ventilator Respiratory Rate 20 Setting Ventilator Respiratory Rate 20 Setting Ventilator Respiratory Rate 20 Setting Ventilator Respiratory Rate 20 Setting Ventilator Respiratory Rate 20 Setting Ventilator Respiratory Rate 20 Setting Ventilator Respiratory Rate 20 Setting Ventilator Respiratory Rate 20 Setting Ventilator Respiratory Rate 20 Setting Ventilator Respiratory Rate 20 Setting Ventilator Respiratory Rate 20 Setting Actual Respiratory Rate 20 Actual Respiratory Rate 20 Actual Respiratory Rate 20 Actual Respiratory Rate 24 Actual Respiratory Rate 20 Actual Respiratory Rate 20 Actual Respiratory Rate 20 Actual Respiratory Rate 20 Actual Respiratory Rate 20 Actual Respiratory Rate 20 Actual Respiratory Rate 20 Actual Respiratory Rate 21 Positive End Expiratory 10 Pressure Positive End Expiratory 10 Pressure Positive End Expiratory 10 Pressure Positive End Expiratory 10 Pressure Positive End Expiratory 10 Pressure Positive End Expiratory 10 Pressure Positive End Expiratory 10 Pressure Positive End Expiratory 10 Pressure Positive End Expiratory 10 Pressure Positive End Expiratory 10 Pressure Positive End Expiratory 10 Pressure Positive End Expiratory 10 Pressure Positive End Expiratory 10 Pressure Peak Inspiratory Airway 32 Pressure Peak Inspiratory Airway 30 Pressure Peak Inspiratory Airway 30 Pressure Peak Inspiratory Airway 31 Pressure Peak Inspiratory Airway 32 Pressure Peak Inspiratory Airway 28 Pressure Peak Inspiratory Airway 31 Pressure Peak Inspiratory Airway 32 Pressure Peak Inspiratory Airway 30 Pressure Peak Inspiratory Airway 33 Pressure Peak Inspiratory Airway 32 Pressure Peak Inspiratory Airway 28 Pressure Results - Laboratory Findings CBC and BMP: 06/20/17 03:06 06/20/17 03:06 ABG ABG pH 7.44 pH Units (7.32-7.45) 06/20/17 05:45 ABG pCO2 40 mmHg (35-45) 06/20/17 05:45 ABG pO2 117 mmHg (85-104) H 06/20/17 05:45 ABG O2 Saturation 99 % (95-98) H 06/20/17 05:45 Abnormal lab findings: Abnormal lab results WBC 12.0 K/mcL (4.3-11.1) H 06/20/17 03:06 RBC 2.84 M/mcL (4.19-5.50) L 06/20/17 03:06 Hgb 8.0 g/dL (12.9-16.9) L 06/20/17 03:06 Hct 25.9 % (37.5-50.1) L 06/20/17 03:06 MCHC 30.9 g/dL (31.6-35.5) L 06/20/17 03:06 RDW 15.3 % (11.5-14.5) H 06/20/17 03:06 Plt Count 133 K/mcL (140-400) L 06/20/17 03:06 ABG pO2 117 mmHg (85-104) H 06/20/17 05:45 ABG Total CO2 28 mEq/L (20-26) H 06/20/17 05:45 ABG O2 Saturation 99 % (95-98) H 06/20/17 05:45 BUN 53 mg/dL (8-26) H 06/20/17 03:06 Creatinine 5.85 mg/dL (0.72-1.25) H 06/20/17 03:06 Est GFR ( Amer) 12 (> 60) L 06/20/17 03:06 Est GFR (Non-Af Amer) 10 (> 60) L 06/20/17 03:06 Glucose 104 mg/dL (70-99) H 06/20/17 03:06 POC Glucose 100 (58-89) H 06/20/17 04:20 Calculated Osmolality 301 (280-300) H 06/20/17 03:06 Calcium 7.8 mg/dL (8.6-10.8) L 06/20/17 03:06 Ionized Calcium 0.95 mmol/L (1.15-1.35) L 06/20/17 03:06 Phosphorus 5.6 mg/dL (2.3-4.7) H 06/20/17 03:06 Iron 25 mcg/dL (65-175) L 06/16/17 09:13 % Saturation 10 % (20-55) L 06/16/17 09:13 Albumin 2.2 g/dL (3.5-5.0) L 06/20/17 03:06 Globulin 4.1 g/dL (2.4-3.5) H 06/17/17 03:44 Albumin/Globulin Ratio 0.6 (1.1-2.2) L 06/17/17 03:44 PTH Intact 270.4 pg/ml (8.5-72.5) H 06/16/17 09:13 Gastric Occult Blood Positive (Negative) A 06/18/17 06:13 - Microbiology Findings Microbiology Findings: Microbiology, Last 48 Hours 06/18/17 15:39 Bronchoalveolar Lavage Culture - Preliminary Right Middle Lobe Lung No growth. 06/18/17 20:15 Sputum Culture - Preliminary Sputum - Diagnostic Findings Chest x-ray: report reviewed, image reviewed - Clinical Findings Intake & Output: Intake & Output 06/19/17 06/19/17 06/20/17 15:59 23:59 07:59 Intake Total 800 / 800 100 / 100 314 / 314 Output Total 2550 / 2550 225 / 225 225 / 225 Balance -1750 / -1750 -125 / -125 89 / 89 Weight 126.62 kg Consult Discharge Plan - Plan Referrals: NONE,PCP [Primary Care Provider] - <Yordan Ty W - Last Filed: 06/20/17 09:40> Date of Encounter: 06/20/17 Objective PUL Vital signs: Last Vital Signs Temp 98.6 F 06/20/17 04:00 Pulse 98 06/20/17 08:25 Resp 16 06/20/17 08:25 BP 180/88 06/20/17 08:25 Pulse Ox 97 06/20/17 08:25 Ventilator Settings Ventilator Settings: Ventilator Settings, Last 8 Hours Ventilator Mode CPAP Ventilator Mode CPAP Ventilator Mode A/C Ventilator Mode A/C Ventilator Mode A/C Ventilator Mode A/C Ventilator Mode A/C Ventilator Mode A/C Ventilator Mode A/C Ventilator Mode A/C Ventilator Mode A/C Ventilator Tidal Volume 500 Setting Ventilator Tidal Volume 500 Setting Ventilator Tidal Volume 500 Setting Ventilator Tidal Volume 500 Setting Ventilator Tidal Volume 500 Setting Ventilator Tidal Volume 500 Setting Ventilator Tidal Volume 500 Setting Ventilator Tidal Volume 500 Setting Ventilator Tidal Volume 500 Setting Ventilator Tidal Volume 500 Setting Ventilator Respiratory Rate 14 Setting Ventilator Respiratory Rate 20 Setting Ventilator Respiratory Rate 20 Setting Ventilator Respiratory Rate 20 Setting Ventilator Respiratory Rate 20 Setting Ventilator Respiratory Rate 20 Setting Ventilator Respiratory Rate 20 Setting Ventilator Respiratory Rate 20 Setting Ventilator Respiratory Rate 20 Setting Actual Respiratory Rate 16 Actual Respiratory Rate 12 Actual Respiratory Rate 16 Actual Respiratory Rate 20 Actual Respiratory Rate 20 Actual Respiratory Rate 20 Actual Respiratory Rate 24 Actual Respiratory Rate 20 Actual Respiratory Rate 20 Actual Respiratory Rate 20 Positive End Expiratory 5 Pressure Positive End Expiratory 5 Pressure Positive End Expiratory 8 Pressure Positive End Expiratory 10 Pressure Positive End Expiratory 10 Pressure Positive End Expiratory 10 Pressure Positive End Expiratory 10 Pressure Positive End Expiratory 10 Pressure Positive End Expiratory 10 Pressure Positive End Expiratory 10 Pressure Positive End Expiratory 10 Pressure Peak Inspiratory Airway 10 Pressure Peak Inspiratory Airway 10 Pressure Peak Inspiratory Airway 33 Pressure Peak Inspiratory Airway 32 Pressure Peak Inspiratory Airway 30 Pressure Peak Inspiratory Airway 30 Pressure Peak Inspiratory Airway 31 Pressure Peak Inspiratory Airway 32 Pressure Peak Inspiratory Airway 28 Pressure Peak Inspiratory Airway 31 Pressure Results - Laboratory Findings CBC and BMP: 06/20/17 03:06 06/20/17 03:06 ABG ABG pH 7.44 pH Units (7.32-7.45) 06/20/17 05:45 ABG pCO2 40 mmHg (35-45) 06/20/17 05:45 ABG pO2 117 mmHg (85-104) H 06/20/17 05:45 ABG O2 Saturation 99 % (95-98) H 06/20/17 05:45 Abnormal lab findings: Abnormal lab results WBC 12.0 K/mcL (4.3-11.1) H 06/20/17 03:06 RBC 2.84 M/mcL (4.19-5.50) L 06/20/17 03:06 Hgb 8.0 g/dL (12.9-16.9) L 06/20/17 03:06 Hct 25.9 % (37.5-50.1) L 06/20/17 03:06 MCHC 30.9 g/dL (31.6-35.5) L 06/20/17 03:06 RDW 15.3 % (11.5-14.5) H 06/20/17 03:06 Plt Count 133 K/mcL (140-400) L 06/20/17 03:06 ABG pO2 117 mmHg (85-104) H 06/20/17 05:45 ABG Total CO2 28 mEq/L (20-26) H 06/20/17 05:45 ABG O2 Saturation 99 % (95-98) H 06/20/17 05:45 BUN 53 mg/dL (8-26) H 06/20/17 03:06 Creatinine 5.85 mg/dL (0.72-1.25) H 06/20/17 03:06 Est GFR ( Amer) 12 (> 60) L 06/20/17 03:06 Est GFR (Non-Af Amer) 10 (> 60) L 06/20/17 03:06 Glucose 104 mg/dL (70-99) H 06/20/17 03:06 POC Glucose 124 (58-89) H 06/20/17 07:21 Calculated Osmolality 301 (280-300) H 06/20/17 03:06 Calcium 7.8 mg/dL (8.6-10.8) L 06/20/17 03:06 Ionized Calcium 0.95 mmol/L (1.15-1.35) L 06/20/17 03:06 Phosphorus 5.6 mg/dL (2.3-4.7) H 06/20/17 03:06 Iron 25 mcg/dL (65-175) L 06/16/17 09:13 % Saturation 10 % (20-55) L 06/16/17 09:13 Albumin 2.2 g/dL (3.5-5.0) L 06/20/17 03:06 Globulin 4.1 g/dL (2.4-3.5) H 06/17/17 03:44 Albumin/Globulin Ratio 0.6 (1.1-2.2) L 06/17/17 03:44 PTH Intact 270.4 pg/ml (8.5-72.5) H 06/16/17 09:13 Gastric Occult Blood Positive (Negative) A 06/18/17 06:13 - Microbiology Findings Microbiology Findings: Microbiology, Last 48 Hours 06/18/17 15:39 Bronchoalveolar Lavage Culture - Preliminary Right Middle Lobe Lung No growth. 06/18/17 20:15 Sputum Culture - Preliminary Sputum - Clinical Findings Intake & Output: Intake & Output 06/19/17 06/20/17 06/20/17 23:59 07:59 15:59 Intake Total 100 / 100 407 / 407 80 / 80 Output Total 225 / 225 225 / 225 Balance -125 / -125 182 / 182 80 / 80 Weight 126.62 kg - Attending Attestation I examined this patient and my medical decision-making was reviewed with the Resident Physician. I agree with the documented findings, disposition and treatment plan as described except to the extent set forth below. We independently had [id number] contact with the patient Patient seen and examined at bedside Labs, radiology, chart personally reviewed. Management was reviewed during multidisciplinary critical care rounds. Neuropsych: Alert and awake, follows commands no neuro deficit. Pulm: Acute on chronic hypoxic hypercarbic respiratory failure this is a combination of cardiogenic pulmonary edema and aspiration pneumonia acceptable oxygenation and ventilation today on current vent settings I have decreased his PEEP and FiO2 part for spontaneous breathing trial with likely extubation to BiPAP Cards: Patient has chronic heart failure without evidence shock we will continue to monitor. More hypertensive today restarting his beta libra at half dose and can adjust as tolerated FEN-GI: Evidence of coffee-ground emesis at the time of intubation scope yesterday without evidence of ongoing active bleeding or gastritis. If extubated can advance diet as tolerated once passes bedside swallow eval. If remains intubated could start trophic enteral nutrition. Continue PPI Renal: Acute on chronic kidney injury status post RT yesterday with 1 L volume removal may repeat ERP PROGRAMMER per nephrology discretion. Electrolytes are being monitored and replaced per electrolyte protocol ID: We are treating broadly for aspiration pneumonia in the healthcare setting. Continue piperacillin tazobactam stop Vancomycin Heme/Onc: Chemical DVT prophylaxis given Endo: Glucose Monitored Integ/MSK: Skin Care per routine ICU Nursing Protocol to prevent ulcers. Lines: All lines examined without evidence of infection. Dispo: Remain in ICU today for ventilator requirement CODE: Full code
[2017-06-20] MEDS: Insulin LISPRO 300 UNITS/3 ML VIAL SQ SCH ×3 (07:55→17:35)
[2017-06-20] MEDS: Chlorhexidine Rinse 15 ML MOUTHWASH MM SCH ×2 (08:11→22:36)
[2017-06-20] MEDS: Finasteride 5 MG TABLET PO SCH (08:12)
[2017-06-20] MEDS: *HR* Heparin 5,000 UNIT/ML VIAL SQ SCH ×3 (08:12→22:44)
[2017-06-20] MEDS: Aspirin Enteric Coated 325 MG Tablet PO SCH (08:12)
[2017-06-20] MEDS: amLODIPine 5 MG TABLET PO SCH (08:14)
[2017-06-20] MEDS ORDERED: Furosemide 80 MG in 0.9 % Sodium Chloride 50 ML IVPB ONE (08:24)
[2017-06-20] MEDS: Insulin DETEMIR 100 UNIT/ML X5UNITS SQ SCH ×2 (10:19→22:45)
--- NOTE | 2017-06-20 12:05 | Nephrology Progress Note ---
Date of Encounter: 06/20/17 Time of Encounter: 12:00 - Assessment and Plan (1) ISMA (acute kidney injury) Current Visit: No Status: Acute 1. Acute on chronic renal failure, currently ESRD. needs permanent dialysis cath in the next few days as pt recovers from aspiration pneumonia evaluate for HD in a.m and increase UF as tolerated by BP 2. HTN, BP is stable. 3. Chronic anemia of CKD. Received iv iron. start renal cap and procrit 4. Sec HPT, phoslo when PO feeds are started. cont calcitriol Subjective Principal diagnosis: acute on chronic renal failure Interval history: tolerated HD yesterday well, 2 kg fluid was removed. stable over night. awake, alert, follows commands. fio2 decreased to 40 % on spontaneous mode Objective - Vital Signs Vital signs: Vital Signs Temp Pulse Resp BP Pulse Ox 06/20/17 11:17 20 06/20/17 11:13 22 95 06/20/17 10:26 90 16 137/72 95 06/20/17 09:40 16 06/20/17 09:20 92 18 137/67 95 06/20/17 08:25 98 16 180/88 97 06/20/17 07:54 11 93 06/20/17 07:30 83 16 160/78 91 06/20/17 06:25 20 130/74 97 06/20/17 06:00 78 20 130/74 95 06/20/17 05:11 79 20 147/76 95 06/20/17 04:00 98.6 F 83 24 160/89 94 06/20/17 03:25 20 128/76 96 06/20/17 03:00 79 20 128/76 95 06/20/17 02:00 77 20 138/78 95 06/20/17 01:25 20 149/74 96 06/20/17 01:00 76 20 149/74 98 06/20/17 00:00 80 20 154/80 95 06/19/17 23:30 81 20 105/70 97 06/19/17 23:26 21 170/86 97 06/19/17 23:00 98.7 F 06/19/17 22:00 75 20 152/73 95 06/19/17 21:35 20 144/74 95 06/19/17 21:30 75 20 144/74 95 06/19/17 20:00 76 20 123/77 95 06/19/17 19:45 100.9 F H 06/19/17 19:39 20 130/62 91 06/19/17 19:00 79 23 119/60 92 06/19/17 18:15 80 20 122/64 93 06/19/17 17:59 20 94 06/19/17 17:15 85 20 134/65 93 06/19/17 16:15 86 20 145/81 94 06/19/17 15:59 100.3 F H 06/19/17 15:15 79 20 148/77 94 06/19/17 14:15 78 20 138/64 90 06/19/17 14:10 20 88 06/19/17 13:20 87 20 145/76 91 06/19/17 12:40 98.9 F 18 107/68 06/19/17 12:30 113/57 06/19/17 12:20 97.3 F L 73 20 116/96 92 06/19/17 12:15 100/53 Intake and Output 06/19/17 06/20/17 06/20/17 23:59 07:59 15:59 Intake Total 100 / 100 407 / 407 80 / 80 Output Total 225 / 225 225 / 225 Balance -125 / -125 182 / 182 80 / 80 Intake: IV Fluids 100 / 100 407 / 407 FentaNYL (PF) 1,000 MCG In 0.9 193 / 193 % Sodium Chloride 80 ML @ 50 MCG/HR 5 mls/hr IVC CONT [facility] Rx #:[id number] Calcium Gluconate 1,000 MG In 110 / 110 Dextrose 5% 100 ML @ 50 mls/hr IVPB Q6HR PRN Rx#:[id number] Magnesium Sulfate 2 GM In 104 / 104 Dextrose 5% 100 ML @ 50 mls/hr IVPB Q6H PRN Rx#:[id number] Zosyn 3.375 GM In Dextrose 5% ( 100 / 100 Minibag+) 100 ML 100 ML @ 25 mls/hr IVPB Q12HR [facility] Rx#: [id number] Free Water 80 / 80 Output: Catheter 225 / 225 225 / 225 Other: Weight 126.62 kg Blood Glucose* 101 100 Patient Weight 06/20/17 23:59 Weight 126.62 kg - General Appearance Exam: CVS; s1s2 present, no murmurs RESP; decreased air entry, clear anteriorly ABD; protrubarent, soft, NT, BS present EXT;2 # edema. - Lab 06/20/17 03:06 06/20/17 03:06 Most recent lab results ABG pH 7.44 pH Units (7.32-7.45) 06/20/17 05:45 ABG pCO2 40 mmHg (35-45) 06/20/17 05:45 ABG pO2 117 mmHg (85-104) H 06/20/17 05:45 ABG HCO3 27 mEq/L (21-27) 06/20/17 05:45 ABG O2 Saturation 99 % (95-98) H 06/20/17 05:45 Calcium 7.8 mg/dL (8.6-10.8) L 06/20/17 03:06 Phosphorus 5.6 mg/dL (2.3-4.7) H 06/20/17 03:06 Magnesium 1.9 mg/dL (1.6-2.6) 06/20/17 03:06 Consult Discharge Plan - Plan Referrals: NONE,PCP [Primary Care Provider] -
[2017-06-20 20:03] LABS: Hematocrit 26.7 % (37.5-50.1); Hemoglobin 8.1 g/dL (12.9-16.9)
[2017-06-21] MEDS: Lacri-Lube 3.5 GM TUBE BOTH EYES SCH ×3 (00:07→07:45)
[2017-06-21] MEDS: Ipratropium/Albuterol Neb 3 ML IH SCH ×7 (00:25→23:21)
[2017-06-21 04:10] LABS: Basophils % 0.3 %; Eosinophils # 0.3 K/mcL (0.0-0.6); Eosinophils % 2.4 %; Hematocrit 27.4 % (37.5-50.1); Immature Granulocytes % 0.4 % (0-4); Lymphocytes # 1.1 K/mcL (0.6-4.6); Lymphocytes % 8.4 %; Mean Corpuscular HGB Conc 29.2 g/dL (31.6-35.5); Mean Corpuscular Hemoglobin 27.9 pg (28.0-33.3); Mean Corpuscular Volume 95.5 fL (83.0-100.0); Mean Platelet Volume 11.7 fL (9.4-12.4); Monocytes # 1.1 K/mcL (0.0-1.3); Monocytes % 8.4 %; Neutrophils # 10.2 K/mcL (1.6-8.9); Platelet Count 130 K/mcL (140-400); Red Blood Count 2.87 M/mcL (4.19-5.50); Red Cell Distribution Width 15.1 % (11.5-14.5); Segmented Neutrophils % 80.1 %
[2017-06-21 04:13] LABS: Calcium 7.9 mg/dL (8.6-10.8); Potassium 4.2 mEq/L (3.5-4.5)
[2017-06-21 04:33] LABS: Magnesium 2.6 mg/dL (1.6-2.6)
[2017-06-21] MEDS: Pantoprazole 40 MG VIAL IVP SCH ×2 (05:46→17:55)
[2017-06-21] MEDS: *HR* Heparin 5,000 UNIT/ML VIAL SQ SCH ×3 (05:47→21:07)
[2017-06-21] MEDS: Piperacillin/Tazobactam 3.375 GM in D5% in Water (Mini-Bag+) 100 ML IVPB SCH (05:47)
[2017-06-21] MEDS: Aspirin Enteric Coated 325 MG Tablet PO SCH (07:45)
[2017-06-21] MEDS: Finasteride 5 MG TABLET PO SCH (07:46)
[2017-06-21] MEDS: amLODIPine 5 MG TABLET PO SCH (07:46)
[2017-06-21] MEDS ORDERED: Renal Vitamin 1 MG CAPSULE PO SCH (09:00)
[2017-06-21] MEDS: Insulin DETEMIR 100 UNIT/ML X5UNITS SQ SCH ×2 (09:01→19:54)
[2017-06-21] MEDS: Insulin LISPRO 300 UNITS/3 ML VIAL SQ SCH ×3 (09:02→15:53)
--- NOTE | 2017-06-21 10:40 | Pulmonology Progress Note ---
<Jc Enriquez - Last Filed: 06/21/17 11:16> Date of Encounter: 06/21/17 Time of Encounter: 09:57 Assessment and Plan (1) Acute and chronic respiratory failure with hypoxia Current Visit: Yes Status: Acute Patient emergently intubated after aspirating on BiPAP on the floor. - Currently tolerating NC. Transfer ordered to . - on Physical exam, patient currently not fluid overloaded. Dialysis today. - trend ABG (2) CKD (chronic kidney disease) stage 4, GFR 15-29 ml/min Current Visit: Yes Status: Chronic Chronic, and stable. Patient currently does not appear fluid overloaded. Cr. remains 4.8-6.4, responsive to dialysis. - Patient scheduled for dialysis today (3) Hyperkalemia Current Visit: Yes Status: Resolved Hyperkalemia most likely due to CKD. Currently 4.2. Stable (4) DVT prophylaxis Current Visit: Yes Status: Acute SubQ heparin (5) Volume overload Current Visit: Yes Status: Acute clinically is currently not volume overloaded. repeat echo shows stable EF from previous study. will receive dialysis today. UO continues to increase. closely monitor I/O Qualifiers: Hypervolemia type: unspecified Qualified Code(s): E87.70 - Fluid overload, unspecified (6) Diastolic CHF, acute on chronic Current Visit: Yes Status: Acute Echocardiogram shows preserved EF, mild LV diastolic dysfunction, mild concentric LVH. Volume overload mainly due to worsening CKD. Patient will be dialyzed today. Will continue to closely monitor urinary output and dialysis output. Patient now on half his home dose of his beta libra. (7) Hematemesis Current Visit: Yes Status: Acute Bedside EGD completed yesterday which showed minimal blood but no active bleeding. Qualifiers: Nausea presence: with nausea Qualified Code(s): K92.0 - Hematemesis; R11.0 - Nausea (8) Aspiration into airway Current Visit: Yes Status: Suspected currently not aspirating, and tolerating NC Qualifiers: Encounter type: initial encounter Qualified Code(s): T17.908A - Unspecified foreign body in respiratory tract, part unspecified causing other injury, initial encounter (9) 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 Current Visit: Yes Status: Chronic Continue Basal Insulin and closely monitor glucose Qualifiers: 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 type: type 2 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 complication status: with kidney complications 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 complication detail: with chronic kidney disease 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 prison insulin use: with prison use Chronic kidney disease stage: stage 4 (severe) Qualified Code(s): E11.22 - Type 2 diabetes mellitus with diabetic chronic kidney disease; N18.4 - Chronic kidney disease, stage 4 (severe); 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 Patient reports feeling better today, and feeling less fluid overloaded. No acute events overnight. Objective PUL Vital signs: Last Vital Signs Temp 98.3 F 06/21/17 07:25 Pulse 79 06/21/17 09:00 Resp 20 06/21/17 09:00 BP 136/86 06/21/17 09:00 Pulse Ox 94 06/21/17 09:00 General appearance: no acute distress Eyes: nonicteric ENT: oropharynx moist Neck: supple Effort: normal Cardiovascular: regular rate and rhythm Gastrointestinal: normoactive bowel sounds, non-distended Integumentary: normal Extremities: no cyanosis Musculoskeletal: no deformities normal mental status, non-focal exam mood appropriate, affect normal Results - Laboratory Findings CBC and BMP: 06/21/17 03:33 06/21/17 03:33 ABG ABG pH 7.44 pH Units (7.32-7.45) 06/20/17 05:45 ABG pCO2 40 mmHg (35-45) 06/20/17 05:45 ABG pO2 117 mmHg (85-104) H 06/20/17 05:45 ABG O2 Saturation 99 % (95-98) H 06/20/17 05:45 Abnormal lab findings: Abnormal lab results WBC 12.7 K/mcL (4.3-11.1) H 06/21/17 03:33 RBC 2.87 M/mcL (4.19-5.50) L 06/21/17 03:33 Hgb 8.0 g/dL (12.9-16.9) L 06/21/17 03:33 Hct 27.4 % (37.5-50.1) L 06/21/17 03:33 MCH 27.9 pg (28.0-33.3) L 06/21/17 03:33 MCHC 29.2 g/dL (31.6-35.5) L 06/21/17 03:33 RDW 15.1 % (11.5-14.5) H 06/21/17 03:33 Plt Count 130 K/mcL (140-400) L 06/21/17 03:33 Neutrophils # 10.2 K/mcL (1.6-8.9) H 06/21/17 03:33 ABG pO2 117 mmHg (85-104) H 06/20/17 05:45 ABG Total CO2 28 mEq/L (20-26) H 06/20/17 05:45 ABG O2 Saturation 99 % (95-98) H 06/20/17 05:45 BUN 60 mg/dL (8-26) H 06/21/17 03:33 Creatinine 6.40 mg/dL (0.72-1.25) H 06/21/17 03:33 Est GFR ( Amer) 11 (> 60) L 06/21/17 03:33 Est GFR (Non-Af Amer) 9 (> 60) L 06/21/17 03:33 Glucose 124 mg/dL (70-99) H 06/21/17 03:33 POC Glucose 118 (58-89) H 06/21/17 07:41 Calculated Osmolality 304 (280-300) H 06/21/17 03:33 Calcium 7.9 mg/dL (8.6-10.8) L 06/21/17 03:33 Ionized Calcium 0.95 mmol/L (1.15-1.35) L 06/20/17 03:06 Phosphorus 5.6 mg/dL (2.3-4.7) H 06/20/17 03:06 Iron 25 mcg/dL (65-175) L 06/16/17 09:13 % Saturation 10 % (20-55) L 06/16/17 09:13 Albumin 2.2 g/dL (3.5-5.0) L 06/20/17 03:06 Globulin 4.1 g/dL (2.4-3.5) H 06/17/17 03:44 Albumin/Globulin Ratio 0.6 (1.1-2.2) L 06/17/17 03:44 PTH Intact 270.4 pg/ml (8.5-72.5) H 06/16/17 09:13 Gastric Occult Blood Positive (Negative) A 06/18/17 06:13 - Microbiology Findings Microbiology Findings: Microbiology, Last 48 Hours 06/18/17 15:39 Bronchoalveolar Lavage Culture - Final Right Middle Lobe Lung No growth. 06/18/17 20:15 Sputum Culture - Final Sputum 06/18/17 11:14 Blood Culture - Preliminary Peripheral Venipuncture No growth. 06/18/17 09:49 Blood Culture - Preliminary Peripheral Venipuncture No growth. - Clinical Findings Intake & Output: Intake & Output 06/20/17 06/21/17 06/21/17 23:59 07:59 15:59 Intake Total 100 / 100 0 / 0 Output Total 425 / 425 750 / 750 Balance -325 / -325 -750 / -750 0 / 0 Weight 124.7 kg Consult Discharge Plan - Plan Referrals: NONE,PCP [Primary Care Provider] - <Priscila Diaz - Last Filed: 06/21/17 18:05> Date of Encounter: 06/21/17 Objective PUL Vital signs: Last Vital Signs Temp 98.4 F 06/21/17 15:30 Pulse 79 06/21/17 17:00 Resp 20 06/21/17 17:00 BP 150/70 06/21/17 17:00 Pulse Ox 93 06/21/17 17:00 Results - Laboratory Findings CBC and BMP: 06/21/17 03:33 06/21/17 03:33 ABG ABG pH 7.44 pH Units (7.32-7.45) 06/20/17 05:45 ABG pCO2 40 mmHg (35-45) 06/20/17 05:45 ABG pO2 117 mmHg (85-104) H 06/20/17 05:45 ABG O2 Saturation 99 % (95-98) H 06/20/17 05:45 Abnormal lab findings: Abnormal lab results WBC 12.7 K/mcL (4.3-11.1) H 06/21/17 03:33 RBC 2.87 M/mcL (4.19-5.50) L 06/21/17 03:33 Hgb 8.0 g/dL (12.9-16.9) L 06/21/17 03:33 Hct 27.4 % (37.5-50.1) L 06/21/17 03:33 MCH 27.9 pg (28.0-33.3) L 06/21/17 03:33 MCHC 29.2 g/dL (31.6-35.5) L 06/21/17 03:33 RDW 15.1 % (11.5-14.5) H 06/21/17 03:33 Plt Count 130 K/mcL (140-400) L 06/21/17 03:33 Neutrophils # 10.2 K/mcL (1.6-8.9) H 06/21/17 03:33 ABG pO2 117 mmHg (85-104) H 06/20/17 05:45 ABG Total CO2 28 mEq/L (20-26) H 06/20/17 05:45 ABG O2 Saturation 99 % (95-98) H 06/20/17 05:45 BUN 60 mg/dL (8-26) H 06/21/17 03:33 Creatinine 6.40 mg/dL (0.72-1.25) H 06/21/17 03:33 Est GFR ( Amer) 11 (> 60) L 06/21/17 03:33 Est GFR (Non-Af Amer) 9 (> 60) L 06/21/17 03:33 Glucose 124 mg/dL (70-99) H 06/21/17 03:33 Calculated Osmolality 304 (280-300) H 06/21/17 03:33 Calcium 7.9 mg/dL (8.6-10.8) L 06/21/17 03:33 Ionized Calcium 0.95 mmol/L (1.15-1.35) L 06/20/17 03:06 Phosphorus 5.6 mg/dL (2.3-4.7) H 06/20/17 03:06 Iron 25 mcg/dL (65-175) L 06/16/17 09:13 % Saturation 10 % (20-55) L 06/16/17 09:13 Albumin 2.2 g/dL (3.5-5.0) L 06/20/17 03:06 Globulin 4.1 g/dL (2.4-3.5) H 06/17/17 03:44 Albumin/Globulin Ratio 0.6 (1.1-2.2) L 06/17/17 03:44 PTH Intact 270.4 pg/ml (8.5-72.5) H 06/16/17 09:13 Gastric Occult Blood Positive (Negative) A 06/18/17 06:13 - Microbiology Findings Microbiology Findings: Microbiology, Last 48 Hours 06/18/17 15:39 Bronchoalveolar Lavage Culture - Final Right Middle Lobe Lung No growth. 06/18/17 20:15 Sputum Culture - Final Sputum 06/18/17 11:14 Blood Culture - Preliminary Peripheral Venipuncture No growth. 06/18/17 09:49 Blood Culture - Preliminary Peripheral Venipuncture No growth. - Clinical Findings Intake & Output: Intake & Output 06/21/17 06/21/17 06/21/17 07:59 15:59 23:59 Intake Total 700 / 700 Output Total 750 / 750 3175 / 3175 Balance -750 / -750 -2475 / -2475 Weight 124.7 kg 124.7 kg - Attending Attestation I saw the patient with the resident agree with History and Physical exam findings. 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 Cardiac : Hemodynamically stable Nutrition/GI: Patient had a swallow evaluation speech consulted because of concern for aspiration Renal : Acute on Chronic Kidney Injury looks like he will need ferry terminal agent dialysis to change the temporary dialysis catheter to permanent dialysis catheter Renal is following for daily dialysis needs will defer to Renal Heme onc : No acute issues ID : To complete Day 7 of zosyn Disposition : Patient will need step down with close monitoring for aspiration. Code status: Full Code Family/POA:
[2017-06-21] MEDS ORDERED: *HR* Promethazine 25 MG/ML VIAL IVP PRN (10:43)
[2017-06-21] MEDS ORDERED: Potassium Phosphate 44 MEQ in 0.9 % Sodium Chloride 250 ML IVPB PRN (10:43)
[2017-06-21] MEDS ORDERED: Acetaminophen 325 MG TABLET PO PRN (10:43)
[2017-06-21] MEDS ORDERED: Magnesium Sulfate 2 GM in D5% in Water 100 ML IVPB PRN (10:43)
[2017-06-21] MEDS ORDERED: Naloxone 0.4 MG/ML INJ IVP PRN (10:43)
[2017-06-21] MEDS ORDERED: Dextrose Gel 15 GM PO PRN ×2 (10:43)
[2017-06-21] MEDS ORDERED: D5% in Water 1,000 ML IVC PRN (10:43)
[2017-06-21] MEDS ORDERED: 0.9 % Sodium Chloride 250 ML IVC PRN ×2 (10:43→11:36)
[2017-06-21] MEDS ORDERED: *HR* Dextrose 50 % in Water (Syg) 50 ML SYRINGE IVP PRN (10:43)
[2017-06-21] MEDS ORDERED: Ondansetron 4 MG/2 ML VIAL IVP PRN (10:43)
[2017-06-21] MEDS ORDERED: 0.9 % Sodium Chloride 1,000 ML PRIME SCH (10:43)
[2017-06-21] MEDS ORDERED: Calcium Gluconate 1,000 MG in D5% in Water 100 ML IVPB PRN (10:43)
[2017-06-21] MEDS ORDERED: *HR* Heparin 10,000 UNIT/10 ML VIAL IV PRN (11:36)
--- NOTE | 2017-06-21 12:14 | Nephrology Progress Note ---
Date of Encounter: 06/21/17 Time of Encounter: 11:20 - Assessment and Plan (1) CKD (chronic kidney disease) stage 4, GFR 15-29 ml/min Current Visit: Yes Status: Chronic CKD4-5. Volume overload with respiratory failure, improved with diuresis. HD initiated on Wednesday. Renal fct worsening and will do HD today, orders given. Will consult IR for temp cath exchanged to tunneled catheter for outpatient chronic HD at [facility]. I will notify our office staff to put in motion outpatient HD arrangements. Subjective Principal diagnosis: acute on chronic renal failure Interval history: Transfer to ICU. at bedside. High flow O2. Discussed having temporary dialysis catheter replaced with tunneled catheter and need for chronic HD outpatient. Patient and verbally agree. Objective - Vital Signs Vital signs: Vital Signs Temp Pulse Resp BP Pulse Ox 06/21/17 11:49 26 94 06/21/17 11:30 98.4 F 06/21/17 11:00 96 06/21/17 10:00 96 26 139/75 94 06/21/17 09:00 79 20 136/86 94 06/21/17 08:00 92 06/21/17 07:52 22 136/77 94 06/21/17 07:25 98.3 F 06/21/17 07:00 96 22 136/77 94 06/21/17 06:00 84 24 139/71 96 06/21/17 05:00 77 26 137/71 95 06/21/17 04:46 98.4 F 06/21/17 04:00 86 25 149/75 92 06/21/17 03:53 24 118/57 92 06/21/17 03:00 84 28 118/57 95 06/21/17 02:00 78 25 124/63 93 06/21/17 01:00 79 25 140/70 95 06/21/17 00:25 26 114/73 94 06/21/17 00:20 98.2 F 06/21/17 00:00 77 26 114/73 94 06/20/17 23:00 81 24 132/68 94 06/20/17 22:25 23 107/49 94 06/20/17 22:00 87 22 107/49 88 06/20/17 21:00 87 18 127/67 93 06/20/17 20:40 18 134/63 92 06/20/17 20:25 98.2 F 06/20/17 20:00 81 22 134/63 93 06/20/17 19:00 89 18 133/65 93 06/20/17 18:33 96 06/20/17 18:15 89 25 128/62 92 06/20/17 17:15 90 26 130/64 90 06/20/17 16:19 16 89 06/20/17 16:00 86 26 140/70 91 06/20/17 15:45 98.8 F 06/20/17 15:00 86 26 139/71 95 06/20/17 13:35 90 25 148/68 94 06/20/17 12:44 98.7 F 06/20/17 12:20 98 26 143/74 96 Intake and Output 06/20/17 06/21/17 06/21/17 23:59 07:59 15:59 Intake Total 100 / 100 100 / 100 Output Total 425 / 425 750 / 750 225 / 225 Balance -325 / -325 -750 / -750 -125 / -125 Intake: IV Fluids 100 / 100 100 / 100 FentaNYL (PF) 1,000 MCG In 0.9 0 / 0 % Sodium Chloride 80 ML @ 50 MCG/HR 5 mls/hr IVC CONT [facility] Rx #:[id number] Zosyn 3.375 GM In Dextrose 5% ( 100 / 100 100 / 100 Minibag+) 100 ML 100 ML @ 25 mls/hr IVPB Q12HR [facility] Rx#: [id number] Oral 0 / 0 Output: Catheter 425 / 425 750 / 750 225 / 225 Other: Stool Size Large Stool Consistency formed Stool Characteristics Normal for Patient Stool Color Brown Weight 124.7 kg Blood Glucose* 132 118 122 Patient Weight 06/21/17 23:59 Weight 124.7 kg - General Appearance General appearance: Present: well-developed, well-nourished, appears started age , obese EENT: Present: mucous membranes moist Neck: Present: no JVD Respiratory: Present: clear Cardiology: Present: edema, regular rate, regular rhythm Additional Comments: mild-1+ pitting Gastrointestinal: Present: normoactive bowel sounds, no tenderness Integumentary: Present: warm and dry Neurologic: Present: alert and oriented x3 Psychiatric: Present: mood/affect appropriate, cooperative - Lab 06/21/17 03:33 06/21/17 03:33 Most recent lab results ABG pH 7.44 pH Units (7.32-7.45) 06/20/17 05:45 ABG pCO2 40 mmHg (35-45) 06/20/17 05:45 ABG pO2 117 mmHg (85-104) H 06/20/17 05:45 ABG HCO3 27 mEq/L (21-27) 06/20/17 05:45 ABG O2 Saturation 99 % (95-98) H 06/20/17 05:45 Calcium 7.9 mg/dL (8.6-10.8) L 06/21/17 03:33 Phosphorus 5.6 mg/dL (2.3-4.7) H 06/20/17 03:06 Magnesium 2.6 mg/dL (1.6-2.6) 06/21/17 03:33 Consult Discharge Plan - Plan Referrals: NONE,PCP [Primary Care Provider] -
[2017-06-21] MEDS ORDERED: *HR* Etomidate 40 MG/20 ML VIAL IVP ONE (14:01)
[2017-06-21] MEDS ORDERED: *HR* Rocuronium Bromide 100 MG/10 ML VIAL IVC ONE (14:01)
[2017-06-21] MEDS ORDERED: Piperacillin/Tazobactam 3.375 GM in D5% in Water (Mini-Bag+) 100 ML IVPB SCH (18:00)
[2017-06-22] MEDS: Ipratropium/Albuterol Neb 3 ML IH SCH ×7 (03:19→23:23)
[2017-06-22 04:01] LABS: Hematocrit 26.3 % (37.5-50.1); Hemoglobin 8.1 g/dL (12.9-16.9); Mean Corpuscular HGB Conc 30.8 g/dL (31.6-35.5); Mean Corpuscular Hemoglobin 28.8 pg (28.0-33.3); Mean Corpuscular Volume 93.6 fL (83.0-100.0); Mean Platelet Volume 11.4 fL (9.4-12.4); Platelet Count 141 K/mcL (140-400); Potassium 3.7 mEq/L (3.5-4.5); Red Blood Count 2.81 M/mcL (4.19-5.50); Red Cell Distribution Width 14.8 % (11.5-14.5)
[2017-06-22] MEDS: Pantoprazole 40 MG VIAL IVP SCH ×2 (06:04→18:34)
[2017-06-22] MEDS: *HR* Heparin 5,000 UNIT/ML VIAL SQ SCH ×3 (06:06→20:24)
--- NOTE | 2017-06-22 07:24 | Pulmonology Progress Note ---
<Jc Enriquez - Last Filed: 06/22/17 14:31> Date of Encounter: 06/22/17 Time of Encounter: 07:21 Assessment and Plan (1) Acute and chronic respiratory failure with hypoxia Current Visit: Yes Status: Acute hypoxic respiratory secondary to fluid overload vs aspiration pneumonia. Hx of CKD and diastolic CHF, patient was volume overloaded when admitted to ED. Patient emergently intubated after aspirating on BiPAP on the floor and then transferred to ICU. No growth on sputum, right middle lob lung, or blood. Finished 7 day course of zosyn yesterday. - received dialysis yesterday, removed 2600 and wt went from 124.7 to 120.2 today. renal is following. - patient tolerated NC yesterday until 8pm, when he was switched to high flow NC , and then at 10 PM when he was put on BiPAP. - Transfer orders in to 2N. - on Physical exam, patient currently not fluid overloaded, no JVD or peripheral edema. (2) CKD (chronic kidney disease) stage 4, GFR 15-29 ml/min Current Visit: Yes Status: Chronic Chronic, and stable. Patient currently does not appear fluid overloaded. Pre Dialysis patient Cr is ~6.4 and post dialysis Cr is ~5.45-5.85. Patient was started on HD on Wednesday - Patient received dialysis yesterday, removed 2600, and weight went from 124.7 yesterday to 120.2 today - Renal is following, patient will have temp cath changed to tunnel cath. Patient and agreed. (3) DVT prophylaxis Current Visit: Yes Status: Acute SubQ heparin (4) Volume overload Current Visit: Yes Status: Acute clinically is currently not volume overloaded. repeat echo shows stable EF from previous study. will receive dialysis today. UO continues to increase. closely monitor I/O. - no jvd, no peripheral edema Qualifiers: Hypervolemia type: unspecified Qualified Code(s): E87.70 - Fluid overload, unspecified (5) Diastolic CHF, acute on chronic Current Visit: Yes Status: Acute Echocardiogram shows preserved EF, mild LV diastolic dysfunction, mild concentric LVH. Volume overload mainly due to worsening CKD. Patient will be dialyzed today. Will continue to closely monitor urinary output and dialysis output. Patient now on half his home dose of his beta libra. (6) Aspiration into airway Current Visit: Yes Status: Suspected currently not aspirating. Patient failed modified barium swallow for liquids. Currently on Thickened [place] Qualifiers: Encounter type: initial encounter Qualified Code(s): T17.908A - Unspecified foreign body in respiratory tract, part unspecified causing other injury, initial encounter (7) 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 Current Visit: Yes Status: Chronic Continue Basal Insulin and closely monitor glucose Qualifiers: 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 type: type 2 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 complication status: with kidney complications 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 complication detail: with chronic kidney disease 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 alf insulin use: with alf use Chronic kidney disease stage: stage 4 (severe) Qualified Code(s): E11.22 - Type 2 diabetes mellitus with diabetic chronic kidney disease; N18.4 - Chronic kidney disease, stage 4 (severe); 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 Resolved (9) Hematemesis Current Visit: Yes Status: Acute Bedside EGD completed yesterday which showed minimal blood but no active bleeding. Qualifiers: Nausea presence: with nausea Qualified Code(s): K92.0 - Hematemesis; R11.0 - Nausea Subjective Principal diagnosis: acute on chronic renal failure Interval history: 67 year old male on day 5 in the ICU 2/2 aspiration pneumonia on BiPAP w/ Hx of HTN, HLD, CHF, uncontrolled DM2, CKD4. Patient reports that dialysis went well yesterday. no events overnight Objective PUL Vital signs: Last Vital Signs Temp 96.5 F L 06/22/17 05:03 Pulse 79 06/22/17 06:00 Resp 16 06/22/17 06:00 BP 147/71 06/22/17 06:00 Pulse Ox 94 06/22/17 06:00 General appearance: no acute distress Eyes: nonicteric Effort: normal Cardiovascular: regular rate and rhythm Gastrointestinal: normoactive bowel sounds Integumentary: normal Extremities: no cyanosis Musculoskeletal: no deformities normal mental status mood appropriate, affect normal Results - Laboratory Findings CBC and BMP: 06/22/17 03:40 06/22/17 03:40 ABG ABG pH 7.44 pH Units (7.32-7.45) 06/20/17 05:45 ABG pCO2 40 mmHg (35-45) 06/20/17 05:45 ABG pO2 117 mmHg (85-104) H 06/20/17 05:45 ABG O2 Saturation 99 % (95-98) H 06/20/17 05:45 Abnormal lab findings: Abnormal lab results RBC 2.81 M/mcL (4.19-5.50) L 06/22/17 03:40 Hgb 8.1 g/dL (12.9-16.9) L 06/22/17 03:40 Hct 26.3 % (37.5-50.1) L 06/22/17 03:40 MCHC 30.8 g/dL (31.6-35.5) L 06/22/17 03:40 RDW 14.8 % (11.5-14.5) H 06/22/17 03:40 Neutrophils # 10.2 K/mcL (1.6-8.9) H 06/21/17 03:33 ABG pO2 117 mmHg (85-104) H 06/20/17 05:45 ABG Total CO2 28 mEq/L (20-26) H 06/20/17 05:45 ABG O2 Saturation 99 % (95-98) H 06/20/17 05:45 BUN 44 mg/dL (8-26) H D 06/22/17 03:40 Creatinine 5.45 mg/dL (0.72-1.25) H 06/22/17 03:40 Est GFR ( Amer) 13 (> 60) L 06/22/17 03:40 Est GFR (Non-Af Amer) 11 (> 60) L 06/22/17 03:40 Glucose 136 mg/dL (70-99) H 06/22/17 03:40 POC Glucose 114 (58-89) H 06/22/17 04:44 Calcium 8.0 mg/dL (8.6-10.8) L 06/22/17 03:40 Ionized Calcium 0.95 mmol/L (1.15-1.35) L 06/20/17 03:06 Phosphorus 5.6 mg/dL (2.3-4.7) H 06/20/17 03:06 Iron 25 mcg/dL (65-175) L 06/16/17 09:13 % Saturation 10 % (20-55) L 06/16/17 09:13 Albumin 2.2 g/dL (3.5-5.0) L 06/20/17 03:06 Globulin 4.1 g/dL (2.4-3.5) H 06/17/17 03:44 Albumin/Globulin Ratio 0.6 (1.1-2.2) L 06/17/17 03:44 PTH Intact 270.4 pg/ml (8.5-72.5) H 06/16/17 09:13 Gastric Occult Blood Positive (Negative) A 06/18/17 06:13 - Microbiology Findings Microbiology Findings: Microbiology, Last 48 Hours 06/18/17 15:39 Bronchoalveolar Lavage Culture - Final Right Middle Lobe Lung No growth. 06/18/17 20:15 Sputum Culture - Final Sputum 06/18/17 11:14 Blood Culture - Preliminary Peripheral Venipuncture No growth. 06/18/17 09:49 Blood Culture - Preliminary Peripheral Venipuncture No growth. - Clinical Findings Intake & Output: Intake & Output 06/21/17 06/21/17 06/22/17 15:59 23:59 07:59 Intake Total 700 / 700 Output Total 3175 / 3175 100 / 100 275 / 275 Balance -2475 / -2475 -100 / -100 -275 / -275 Weight 124.7 kg 120.2 kg Consult Discharge Plan - Plan Referrals: NONE,PCP [Primary Care Provider] - <Priscila Diaz - Last Filed: 06/22/17 20:30> Date of Encounter: 06/22/17 Objective PUL Vital signs: Last Vital Signs Temp 98.4 F 06/22/17 16:00 Pulse 69 06/22/17 16:00 Resp 18 06/22/17 20:03 BP 140/76 06/22/17 16:00 Pulse Ox 95 06/22/17 20:03 Results - Laboratory Findings CBC and BMP: 06/22/17 03:40 06/22/17 03:40 ABG ABG pH 7.44 pH Units (7.32-7.45) 06/20/17 05:45 ABG pCO2 40 mmHg (35-45) 06/20/17 05:45 ABG pO2 117 mmHg (85-104) H 06/20/17 05:45 ABG O2 Saturation 99 % (95-98) H 06/20/17 05:45 Abnormal lab findings: Abnormal lab results RBC 2.81 M/mcL (4.19-5.50) L 06/22/17 03:40 Hgb 8.1 g/dL (12.9-16.9) L 06/22/17 03:40 Hct 26.3 % (37.5-50.1) L 06/22/17 03:40 MCHC 30.8 g/dL (31.6-35.5) L 06/22/17 03:40 RDW 14.8 % (11.5-14.5) H 06/22/17 03:40 Neutrophils # 10.2 K/mcL (1.6-8.9) H 06/21/17 03:33 ABG pO2 117 mmHg (85-104) H 06/20/17 05:45 ABG Total CO2 28 mEq/L (20-26) H 06/20/17 05:45 ABG O2 Saturation 99 % (95-98) H 06/20/17 05:45 BUN 44 mg/dL (8-26) H D 06/22/17 03:40 Creatinine 5.45 mg/dL (0.72-1.25) H 06/22/17 03:40 Est GFR ( Amer) 13 (> 60) L 06/22/17 03:40 Est GFR (Non-Af Amer) 11 (> 60) L 06/22/17 03:40 Glucose 136 mg/dL (70-99) H 06/22/17 03:40 POC Glucose 283 (58-89) H 06/22/17 20:15 Calcium 8.0 mg/dL (8.6-10.8) L 06/22/17 03:40 Ionized Calcium 0.95 mmol/L (1.15-1.35) L 06/20/17 03:06 Phosphorus 5.6 mg/dL (2.3-4.7) H 06/20/17 03:06 Iron 25 mcg/dL (65-175) L 06/16/17 09:13 % Saturation 10 % (20-55) L 06/16/17 09:13 Albumin 2.2 g/dL (3.5-5.0) L 06/20/17 03:06 Globulin 4.1 g/dL (2.4-3.5) H 06/17/17 03:44 Albumin/Globulin Ratio 0.6 (1.1-2.2) L 06/17/17 03:44 PTH Intact 270.4 pg/ml (8.5-72.5) H 06/16/17 09:13 Gastric Occult Blood Positive (Negative) A 06/18/17 06:13 - Clinical Findings Intake & Output: Intake & Output 06/22/17 06/22/17 06/22/17 07:59 15:59 23:59 Intake Total 480 / 480 Output Total 275 / 275 200 / 200 250 / 250 Balance -275 / -275 280 / 280 -250 / -250 Weight 120.2 kg - Attending Attestation I saw the patient with the resident agree with History and Physical exam findings. Labs and Radiology were reviewed Ventilator data were reviewed ACCOUNT PROCESSOR: Patient is conscious oriented x3 following commands NECK : No JVD appreciated Pulmonary : Hypoxic respiratory secondary to Fluid Vs Aspiration pneumonia bronchoscopy with BAL with no growth.Patient is off BIPAP during the day needs intermittent BIPAP at night will be need to evaluated for sleep apnea as an outpatient . Cardiac : Hemodynamically stable Nutrition/GI: Patient had a swallow evaluation speech consulted because of concern for aspiration which showed patient aspirated on thin liquids ok for nectar thick liquids and for chopped up food . Renal : Acute on Chronic Kidney Injury looks like he will need ferry terminal agent dialysis Renal following will get Permacath for tomorrow . Heme onc : No acute issues ID : Completed the antibiotics Disposition : Telemetry Code status: Full Code Family/POA:
[2017-06-22] MEDS: Insulin LISPRO 300 UNITS/3 ML VIAL SQ SCH ×3 (07:47→16:50)
--- NOTE | 2017-06-22 08:26 | Nephrology Progress Note ---
Date of Encounter: 06/22/17 Time of Encounter: 08:10 - Assessment and Plan (1) CKD (chronic kidney disease) stage 4, GFR 15-29 ml/min Current Visit: Yes Status: Chronic CKD4-5. Volume overload with respiratory failure, improved with diuresis. HD initiated on Wednesday. HD yesterday. Will consult IR for temp cath exchanged to tunneled catheter for outpatient chronic HD at [facility]. Assigned chair time at [place] on Wednesday, if discharged. Subjective Principal diagnosis: acute on chronic renal failure Interval history: High flow O2. Feeding self breakfast. No new complaints. Objective - Vital Signs Vital signs: Vital Signs Temp Pulse Resp BP Pulse Ox 06/22/17 08:07 98.2 F 06/22/17 06:00 79 16 147/71 94 06/22/17 05:03 96.5 F L 06/22/17 04:00 98.5 F 65 28 136/64 99 06/22/17 03:26 98.9 F 06/22/17 03:19 31 144/80 95 06/22/17 02:00 70 22 98 06/22/17 00:35 98.9 F 06/22/17 00:00 68 20 144/80 97 06/21/17 23:22 29 130/58 96 06/21/17 20:15 20 116/63 93 06/21/17 20:02 20 92 06/21/17 20:00 77 18 130/58 92 06/21/17 18:00 76 20 116/63 96 06/21/17 17:00 79 20 150/70 93 06/21/17 15:50 20 93 06/21/17 15:30 98.4 F 06/21/17 15:05 98.3 F 20 140/76 06/21/17 15:00 86 20 140/76 93 06/21/17 14:50 131/72 06/21/17 14:35 117/73 06/21/17 14:20 122/77 06/21/17 14:05 141/72 06/21/17 14:00 80 20 138/96 94 06/21/17 13:50 135/86 06/21/17 13:35 118/74 06/21/17 13:20 131/75 06/21/17 13:05 136/73 06/21/17 13:00 72 24 135/78 93 06/21/17 12:50 98.4 F 18 142/76 06/21/17 12:00 83 24 142/72 95 06/21/17 11:49 26 94 06/21/17 11:30 98.4 F 06/21/17 11:00 96 06/21/17 10:00 96 26 139/75 94 06/21/17 09:00 79 20 136/86 94 Intake and Output 06/21/17 06/22/17 06/22/17 23:59 07:59 15:59 Output Total 100 / 100 275 / 275 100 / 100 Balance -100 / -100 -275 / -275 -100 / -100 Output: Catheter 100 / 100 275 / 275 100 / 100 Other: Stool Size Large Stool Consistency formed Stool Color Brown # Bowel Movements 1 # Bowel Movement Diapers 1 Weight 120.2 kg Blood Glucose* 190 114 109 Patient Weight 06/22/17 23:59 Weight 120.2 kg - General Appearance General appearance: Present: well-developed, well-nourished, appears started age , obese EENT: Present: mucous membranes moist Neck: Present: no JVD Respiratory: Present: clear Cardiology: Present: no edema, regular rate, regular rhythm Gastrointestinal: Present: normoactive bowel sounds, no tenderness Integumentary: Present: warm and dry Neurologic: Present: alert and oriented x3 Psychiatric: Present: mood/affect appropriate, cooperative - Lab 06/22/17 03:40 06/22/17 03:40 Most recent lab results ABG pH 7.44 pH Units (7.32-7.45) 06/20/17 05:45 ABG pCO2 40 mmHg (35-45) 06/20/17 05:45 ABG pO2 117 mmHg (85-104) H 06/20/17 05:45 ABG HCO3 27 mEq/L (21-27) 06/20/17 05:45 ABG O2 Saturation 99 % (95-98) H 06/20/17 05:45 Calcium 8.0 mg/dL (8.6-10.8) L 06/22/17 03:40 Phosphorus 5.6 mg/dL (2.3-4.7) H 06/20/17 03:06 Magnesium 2.6 mg/dL (1.6-2.6) 06/21/17 03:33 Consult Discharge Plan - Plan Referrals: NONE,PCP [Primary Care Provider] -
[2017-06-22] MEDS ORDERED: Aspirin Enteric Coated 325 MG Tablet PO SCH (09:00)
[2017-06-22] MEDS ORDERED: Finasteride 5 MG TABLET PO SCH (09:00)
[2017-06-22] MEDS ORDERED: Renal Vitamin 1 MG CAPSULE PO SCH (09:00)
[2017-06-22] MEDS ORDERED: amLODIPine 5 MG TABLET PO SCH (09:00)
[2017-06-22] MEDS: Insulin DETEMIR 100 UNIT/ML X5UNITS SQ SCH ×2 (10:44→21:20)
[2017-06-22] MEDS ORDERED: NON-FORMULARY MEDICATION 1 EACH EACH (Oxygen [Oxygen] 2 L) NS SCH (13:17)
[2017-06-22] MEDS ORDERED: PrednisoLONE Acetate 1% Opth 5 ML BOTTLE BOTH EYES PRN (13:17)
[2017-06-22] MEDS ORDERED: traMADol 50 MG TABLET PO PRN (13:17)
[2017-06-22] MEDS ORDERED: Magnesium Sulfate 2 GM in D5% in Water 100 ML IVPB PRN (13:27)
[2017-06-22] MEDS ORDERED: *HR* Dextrose 50 % in Water (Syg) 50 ML SYRINGE IVP PRN (13:27)
[2017-06-22] MEDS ORDERED: Naloxone 0.4 MG/ML INJ IVP PRN (13:27)
[2017-06-22] MEDS ORDERED: Potassium Phosphate 44 MEQ in 0.9 % Sodium Chloride 250 ML IVPB PRN (13:27)
[2017-06-22] MEDS ORDERED: Acetaminophen 325 MG TABLET PO PRN (13:27)
[2017-06-22] MEDS ORDERED: Ondansetron 4 MG/2 ML VIAL IVP PRN (13:27)
[2017-06-22] MEDS ORDERED: D5% in Water 1,000 ML IVC PRN (13:27)
[2017-06-22] MEDS ORDERED: 0.9 % Sodium Chloride 250 ML IVC PRN ×2 (13:27)
[2017-06-22] MEDS ORDERED: 0.9 % Sodium Chloride 1,000 ML PRIME SCH (13:27)
[2017-06-22] MEDS ORDERED: *HR* Promethazine 25 MG/ML VIAL IVP PRN (13:27)
[2017-06-22] MEDS ORDERED: Calcium Gluconate 1,000 MG in D5% in Water 100 ML IVPB PRN (13:27)
[2017-06-22] MEDS ORDERED: Dextrose Gel 15 GM PO PRN ×2 (13:27)
[2017-06-22] MEDS ORDERED: *HR* Heparin 10,000 UNIT/10 ML VIAL IV PRN (13:27)
[2017-06-22] MEDS ORDERED: *HR* Heparin 5,000 UNIT/ML VIAL ONE (14:21)
[2017-06-22] MEDS ORDERED: Insulin LISPRO 300 UNITS/3 ML VIAL SQ SCH ×2 (15:00→21:00)
[2017-06-22] MEDS: Ondansetron ODT 4 MG TAB.RAPDIS PO SCH (20:24)
[2017-06-22] MEDS ORDERED: Pregabalin 50 MG CAPSULE PO SCH (21:00)
[2017-06-23] MEDS: Ipratropium/Albuterol Neb 3 ML IH SCH ×5 (03:42→20:41)
[2017-06-23] MEDS: Pantoprazole 40 MG VIAL IVP SCH ×2 (05:55→17:11)
[2017-06-23] MEDS: *HR* Heparin 5,000 UNIT/ML VIAL SQ SCH ×3 (05:55→21:48)
[2017-06-23] MEDS: Insulin LISPRO 300 UNITS/3 ML VIAL SQ SCH ×3 (07:42→17:15)
[2017-06-23] MEDS ORDERED: Heparin 1,000 UNITS/500 mL NS 500 ML ONE (07:59)
[2017-06-23] MEDS ORDERED: *HR* FentaNYL (PF) 100 MCG/2 ML VIAL IVP PRN (08:22)
[2017-06-23] MEDS ORDERED: *HR* Midazolam HCl 2 MG/2 ML VIAL IVP PRN (08:22)
[2017-06-23] MEDS ORDERED: ceFAZolin 2,000 MG in D5% in Water (Mini-Bag+) 100 ML IVPB ONE (08:22)
--- NOTE | 2017-06-23 08:23 | Pre-Sedation Evaluation ---
Pre-sedation evaluation - Pre-sedation checklist Date of procedure: 06/18/17 Recent Vitals: Last Vital Signs Temp 97.7 F 06/23/17 07:31 Pulse 65 06/23/17 07:45 Resp 16 06/23/17 07:45 BP 124/67 06/23/17 07:45 Pulse Ox 96 06/23/17 07:45 Airway Assessment: Patient can open mouth completely, TMJ function normal, Micrognathia (under-bite, receding chin) absent, Neck with adequate range of motion Possible difficult airway: No ASA Classification *see protocol: CLASS II-Mild systemic disease Plan of Care: Pt appropriate candidate for procedure/moderate/conscious sedation , Risks/benefits of procedure/sedation discussed w/ patient/family, If not NPO; Risk of intake outweiged by necessity to perform procedure
[2017-06-23] MEDS ORDERED: *HR* FentaNYL (PF) 100 MCG/2 ML VIAL ONE (08:33)
[2017-06-23] MEDS ORDERED: *HR* Midazolam HCl 2 MG/2 ML VIAL ONE (08:33)
[2017-06-23] MEDS ORDERED: 0.9 % Sodium Chloride 500 ML ONE (08:34)
[2017-06-23] MEDS ORDERED: *HR* Heparin 5,000 UNIT/ML VIAL ONE (08:52)
[2017-06-23] MEDS ORDERED: *HR* Heparin 10,000 UNIT/10 ML VIAL IV PRN (09:05)
[2017-06-23] MEDS ORDERED: 0.9 % Sodium Chloride 250 ML IVC PRN (09:05)
[2017-06-23] MEDS ORDERED: 0.9 % Sodium Chloride 1,000 ML PRIME SCH (09:15)
--- NOTE | 2017-06-23 09:27 | IR Procedure Note ---
Date of procedure: 06/23/17 Consent Obtained: Verbal consent Timeout: Correct patient and procedure verified, Correct site verified, Time out performed, Skin prep completed Indications: renal failure Procedure Performed: permacath Site/Technique: rt IJ access Results/Findings: adequate placement Estimated blood loss (cc): 4 Complications: None; Tolerated procedure well Post Procedure Treatment Plan: OK to use
[2017-06-23] MEDS: Renal Vitamin 1 MG CAPSULE PO SCH (12:51)
[2017-06-23] MEDS: Finasteride 5 MG TABLET PO SCH (12:51)
[2017-06-23] MEDS: Primidone 50 MG TABLET PO SCH (12:51)
[2017-06-23] MEDS: Ondansetron ODT 4 MG TAB.RAPDIS PO SCH ×2 (12:51→20:57)
[2017-06-23] MEDS: amLODIPine 5 MG TABLET PO SCH (12:52)
[2017-06-23] MEDS: Furosemide 20 MG TABLET PO SCH (12:52)
[2017-06-23] MEDS: Famotidine 20 MG TABLET PO SCH (12:52)
[2017-06-23] MEDS: Aspirin Enteric Coated 325 MG Tablet PO SCH (12:52)
--- NOTE | 2017-06-23 12:58 | Nephrology Progress Note ---
Date of Encounter: 06/23/17 Time of Encounter: 12:25 - Assessment and Plan (1) CKD (chronic kidney disease) stage 4, GFR 15-29 ml/min Current Visit: Yes Status: Chronic CKD4-5. Volume overload with respiratory failure, improved with diuresis. HD initiated on Wednesday. HD today, orders given. Tunneled cath placed today. To have outpatient chronic HD at [facility]. Assigned chair time at [place] on Wednesday, if discharged. Subjective Principal diagnosis: acute on chronic renal failure Interval history: Seen on HD. at bedside. Patient states may be transferred to [facility] for rehab. Patient states feels better since starting HD. Temp HD cath changed to tunneled. Nursing states had some bleeding issues and IR sutured and applied gelfoam. Objective - Vital Signs Vital signs: Vital Signs Temp Pulse Resp BP Pulse Ox 06/23/17 12:44 97.5 F L 20 112/79 06/23/17 12:10 106/68 06/23/17 11:40 105/68 06/23/17 11:10 119/66 06/23/17 10:40 101/70 06/23/17 10:10 121/63 06/23/17 09:40 97 F L 20 142/80 06/23/17 08:55 71 16 143/76 96 06/23/17 08:46 67 16 128/72 94 06/23/17 07:45 65 16 124/67 96 06/23/17 07:31 97.7 F 06/23/17 05:50 65 94 06/23/17 04:00 98.5 F 65 20 132/68 97 06/23/17 03:44 17 93 06/23/17 02:00 67 06/23/17 00:00 98.2 F 69 18 136/69 93 06/22/17 23:26 18 96 06/22/17 20:03 18 95 06/22/17 20:00 98.4 F 77 20 139/70 92 06/22/17 16:00 98.4 F 69 18 140/76 94 06/22/17 15:18 20 95 06/22/17 14:00 67 20 133/68 95 Intake and Output 06/22/17 06/23/17 06/23/17 23:59 07:59 15:59 Intake Total 50 / 50 0 / 0 600 / 600 Output Total 250 / 250 0 / 0 2600 / 2600 Balance -200 / -200 0 / 0 -1999 / -1999 Intake: Oral 50 / 50 0 / 0 0 / 0 Intake, Rinseback and Flushes 600 / 600 Output: Urine 0 / 0 0 / 0 0 / 0 Total Dialysis (HD) Output 2600 / 2600 Catheter 250 / 250 Other: Stool Size Large Stool Consistency loose Stool Color Yellow # Bowel Movements 2 Weight 119.7 kg Blood Glucose* 283 109 Hemodialysis Net Fluid Removed 2000 (mL) Patient Weight 06/23/17 23:59 Weight 119.7 kg - General Appearance General appearance: Present: well-developed, well-nourished, appears started age , obese EENT: Present: mucous membranes moist Neck: Present: no JVD Respiratory: Present: clear Cardiology: Present: edema, regular rate, regular rhythm Additional Comments: mild -1+ LE Gastrointestinal: Present: normoactive bowel sounds, no tenderness Integumentary: Present: warm and dry Neurologic: Present: alert and oriented x3 Psychiatric: Present: mood/affect appropriate, cooperative - Lab 06/22/17 03:40 06/22/17 03:40 Most recent lab results ABG pH 7.44 pH Units (7.32-7.45) 06/20/17 05:45 ABG pCO2 40 mmHg (35-45) 06/20/17 05:45 ABG pO2 117 mmHg (85-104) H 06/20/17 05:45 ABG HCO3 27 mEq/L (21-27) 06/20/17 05:45 ABG O2 Saturation 99 % (95-98) H 06/20/17 05:45 Calcium 8.0 mg/dL (8.6-10.8) L 06/22/17 03:40 Phosphorus 5.6 mg/dL (2.3-4.7) H 06/20/17 03:06 Magnesium 2.4 mg/dL (1.6-2.6) 06/22/17 12:45 Consult Discharge Plan - Plan Referrals: NONE,PCP [Primary Care Provider] -
[2017-06-23] MEDS: Insulin DETEMIR 100 UNIT/ML X5UNITS SQ SCH ×2 (13:01→20:57)
[2017-06-23 13:11] LABS: Hematocrit 31.3 % (37.5-50.1); Hemoglobin 9.1 g/dL (12.9-16.9); Mean Corpuscular HGB Conc 29.1 g/dL (31.6-35.5); Mean Corpuscular Hemoglobin 27.6 pg (28.0-33.3); Mean Corpuscular Volume 94.8 fL (83.0-100.0); Mean Platelet Volume 10.7 fL (9.4-12.4); Platelet Count 198 K/mcL (140-400); Red Cell Distribution Width 14.8 % (11.5-14.5)
[2017-06-23 13:28] LABS: Calcium 8.5 mg/dL (8.6-10.8); Potassium 3.8 mEq/L (3.5-4.5)
--- NOTE | 2017-06-23 15:04 | Internal Med Progress Note ---
Date of Encounter: 06/23/17 Time of Encounter: 14:40 - Assessment and plan (1) Acute and chronic respiratory failure with hypoxia Current Visit: Yes Status: Acute Assessment and plan: Acute on chronic hypoxic hypercapnic respiratory failure - secondary to volume overload from ESRD and diastolic CHF with aspiration pneumonia - now improved Continue hemodialysis, Lasix, O2 via nasal cannula Patient was dialyzed today, tolerated procedure well Right side HD permacath placed today Nephrology following Transfer to telemetry bed, labs in a.m., monitor closely (2) Pneumonia Current Visit: Yes Status: Acute Assessment and plan: Aspiration pneumonia, present on admission - now improved IV Zosyn seven-day course complete Continue DuoNeb, Tylenol as needed CT chest - reviewed Qualifiers: Pneumonia type: aspiration pneumonia Aspiration pneumonia type: due to gastric secretions Laterality: bilateral Lung location: unspecified part of lung Qualified Code(s): J69.0 - Pneumonitis due to inhalation of food and vomit (3) Diastolic CHF, acute on chronic Current Visit: Yes Status: Acute Assessment and plan: Acute respiratory failure secondary to acute on chronic diastolic CHF and volume overload due to ESRD - now improved Continue Lasix, Labetalol Echocardiogram - LVEF 60%, mild LV diastolic dysfunction, normal LV size and function (4) CKD (chronic kidney disease) stage 4, GFR 15-29 ml/min Current Visit: Yes Status: Chronic Assessment and plan: CKD stage 4-5 - with volume overload and respiratory failure - recently initiated on HD Tunneled catheter placed today Nephrology following Continue hemodialysis as outpatient (5) 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 Current Visit: Yes Status: Chronic Assessment and plan: Type 2 diabetes mellitus, insulin-dependent, hyperglycemia Continue glucose checks, insulin sliding scale, Levemir Qualifiers: 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 type: type 2 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 complication status: with kidney complications 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 complication detail: with chronic kidney disease 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 moth exterminator insulin use: with [facility] use Chronic kidney disease stage: stage 4 (severe) Qualified Code(s): E11.22 - Type 2 diabetes mellitus with diabetic chronic kidney disease; N18.4 - Chronic kidney disease, stage 4 (severe); Z79.4 - skilled nursing (current) use of insulin (6) Essential hypertension Current Visit: Yes Status: Chronic Assessment and plan: Essential hypertension, controlled, monitor Continue Amlodipine, Labetalol, IV hydralazine as needed (7) History of CVA (cerebrovascular accident) Current Visit: No Status: Chronic Assessment and plan: History of CVA, no obvious residual deficits Continue aspirin, statin (8) DVT prophylaxis Current Visit: Yes Status: Acute Assessment and plan: Continue heparin subcutaneous - Time Spent With Patient 25 - 35 minutes - Subjective Interval history: Examined in the ICU. Patient is awake and alert. Not in any distress. Denies chest pain or shortness of breath. Tolerating oral diet. No fever. No other acute events or complaints. Patient was admitted for acute on chronic hypoxic respiratory failure secondary to fluid overload likely due to ESRD. Patient underwent right-sided permacath placement today for hemodialysis. Tolerated procedure well. Patient is tolerating hemodialysis well. Anticipate discharge to ECF on Wednesday. Patient presented with aspiration pneumonia. IV Zosyn 7 day course completed. - Constitutional Vitals: Temp Pulse Resp BP Pulse Ox 97.5 F L 69 16 131/63 96 06/23/17 12:44 06/23/17 13:04 06/23/17 13:04 06/23/17 13:04 06/23/17 13:04 General appearance: Present: cooperative, A&O X 3, no acute distress, obese, answers questions appropriately - Head Head exam: Present: atraumatic - Eye Eye exam: Present: EOMI - ENT ENT exam: Present: mucous membranes moist - Respiratory Respiratory exam: Present: CTAB. Absent: chest wall tenderness, rales, rhonchi , wheezes, tachypnea Additional comments: Right side HD catheter present - Cardiovascular Cardiovascular exam: Present: RRR, +S1, +S2 - GI/Abdominal GI/Abdominal exam: Present: soft, no peritoneal signs. Absent: distended, firm , guarding, tenderness - Extremities Exam Extremities exam: Present: pedal edema (Bilateral lower leg 2+ pitting edema), radial pulses palpable and symmetrical. Absent: calf tenderness, cyanotic - Neurological Exam Neurological exam: Present: alert, CN II-XII intact, oriented X3, no focal deficits. Absent: facial droop, speech deficit Internal Medicine: Result - Labs CBC & Chem 7: 06/23/17 13:04 06/23/17 13:04 Labs: Short CBC 06/23/17 Range/Units 13:04 WBC 10.1 (4.3-11.1) K/mcL Hgb 9.1 L (12.9-16.9) g/dL Hct 31.3 L (37.5-50.1) % Plt Count 198 (140-400) K/mcL BMP 06/23/17 13:04 Sodium 141 Potassium 3.8 Chloride 102 Carbon Dioxide 26 BUN 28 H D Creatinine 4.02 H Glucose 84 Calcium 8.5 L - ABG Interpretation ABG results: ABG ABG pH 7.44 pH Units (7.32-7.45) 06/20/17 05:45 ABG pCO2 40 mmHg (35-45) 06/20/17 05:45 ABG pO2 117 mmHg (85-104) H 06/20/17 05:45 ABG O2 Saturation 99 % (95-98) H 06/20/17 05:45 - Impressions Impressions Guidance Needle Placement Ultrasound 06/23/17 00:00 IMPRESSION: Successful ultrasound and fluoroscopy guided tunneled Permacath catheter placement. Moderate sedation given over 30 minutes. D/ / 06/23/2017 11:06:39 Herminia Eubanks MD / jason Interpreting Provider: Herminia Eubanks MD Insertion Tunneled Catheter 06/23/17 00:00 IMPRESSION: Successful ultrasound and fluoroscopy guided tunneled Permacath catheter placement. Moderate sedation given over 30 minutes. D/ / 06/23/2017 11:06:39 Herminia Eubanks MD / jason Interpreting Provider: Herminia Eubanks MD Consult Discharge Plan - Plan Referrals: NONE,PCP [Primary Care Provider] -
[2017-06-23] MEDS ORDERED: Pregabalin 50 MG CAPSULE PO SCH (21:00)
[2017-06-24] MEDS: Ipratropium/Albuterol Neb 3 ML IH SCH ×7 (00:13→23:08)
[2017-06-24] MEDS: Pantoprazole 40 MG VIAL IVP SCH ×2 (05:18→16:22)
[2017-06-24] MEDS: *HR* Heparin 5,000 UNIT/ML VIAL SQ SCH ×3 (05:19→22:46)
[2017-06-24 06:19] LABS: Eosinophils # 0.4 K/mcL (0.0-0.6); Hematocrit 27.8 % (37.5-50.1); Hemoglobin 8.2 g/dL (12.9-16.9); Lymphocytes # 1.4 K/mcL (0.6-4.6); Mean Corpuscular HGB Conc 29.5 g/dL (31.6-35.5); Mean Corpuscular Hemoglobin 28.2 pg (28.0-33.3); Mean Corpuscular Volume 95.5 fL (83.0-100.0); Mean Platelet Volume 10.6 fL (9.4-12.4); Platelet Count 175 K/mcL (140-400); Red Blood Count 2.91 M/mcL (4.19-5.50); Red Cell Distribution Width 14.7 % (11.5-14.5)
[2017-06-24 06:30] LABS: Potassium 3.8 mEq/L (3.5-4.5)
[2017-06-24 07:25] LABS: Monocytes # 0.4 K/mcL (0.0-1.3); Neutrophils # 7.6 K/mcL (1.6-8.9)
[2017-06-24 07:26] LABS: Reactive Lymphocytes Present (Not Present)
[2017-06-24 07:27] LABS: Platelet Estimate Normal (Normal)
[2017-06-24] MEDS: Ondansetron ODT 4 MG TAB.RAPDIS PO SCH ×2 (08:29→20:46)
[2017-06-24] MEDS: Finasteride 5 MG TABLET PO SCH (08:29)
[2017-06-24] MEDS: Renal Vitamin 1 MG CAPSULE PO SCH (08:29)
[2017-06-24] MEDS: Furosemide 20 MG TABLET PO SCH (08:29)
[2017-06-24] MEDS: Primidone 50 MG TABLET PO SCH (08:29)
[2017-06-24] MEDS: amLODIPine 5 MG TABLET PO SCH (08:30)
[2017-06-24] MEDS: Famotidine 20 MG TABLET PO SCH (08:30)
[2017-06-24] MEDS: Aspirin Enteric Coated 325 MG Tablet PO SCH (08:30)
[2017-06-24] MEDS: Pregabalin 50 MG CAPSULE PO SCH (08:30)
[2017-06-24] MEDS: Insulin LISPRO 300 UNITS/3 ML VIAL SQ SCH ×3 (08:34→16:23)
[2017-06-24] MEDS: Insulin DETEMIR 100 UNIT/ML X5UNITS SQ SCH ×2 (08:37→20:46)
--- NOTE | 2017-06-24 09:35 | Nephrology Progress Note ---
Date of Encounter: 06/24/17 Time of Encounter: 09:30 - Assessment and Plan (1) CKD (chronic kidney disease) stage 4, GFR 15-29 ml/min Current Visit: Yes Status: Chronic CKD4-5. Volume overload with respiratory failure, improved with diuresis. Tunneled cath placed for outpatient HD. To have outpatient chronic HD at [facility]. Assigned chair time at [place] on Wednesday, if discharged prior , otherwise will dialyze here on Wednesday. Subjective Principal diagnosis: acute on chronic renal failure Interval history: Sitting up in bed. States feeling good, no new complaints. Objective - Vital Signs Vital signs: Vital Signs Temp Pulse Resp BP Pulse Ox 06/24/17 07:48 18 95 06/24/17 07:05 98 F 68 18 130/71 97 06/24/17 04:15 16 94 06/24/17 03:31 97.7 F 70 18 109/65 94 06/24/17 00:32 98.9 F 74 20 120/64 94 06/24/17 00:13 16 93 06/23/17 21:06 98.5 F 77 18 122/67 93 06/23/17 20:41 16 94 06/23/17 17:57 98.6 F 78 18 134/67 93 06/23/17 16:01 98.3 F 06/23/17 15:55 16 98 06/23/17 13:04 69 16 131/63 96 06/23/17 12:44 97.5 F L 20 112/79 06/23/17 12:10 106/68 06/23/17 11:40 105/68 06/23/17 11:10 119/66 06/23/17 10:40 101/70 06/23/17 10:10 121/63 06/23/17 09:40 97 F L 20 142/80 Intake and Output 06/23/17 06/24/17 06/24/17 23:59 07:59 15:59 Intake Total 80 / 80 Balance 80 / 80 Intake: Oral 80 / 80 Other: Weight 123 kg Blood Glucose* 102 77 Patient Weight 06/24/17 23:59 Weight 123 kg - General Appearance General appearance: Present: well-developed, well-nourished, appears started age , obese EENT: Present: mucous membranes moist Neck: Present: no JVD Respiratory: Present: clear Cardiology: Present: edema, regular rate, regular rhythm Additional Comments: trace Gastrointestinal: Present: normoactive bowel sounds, no tenderness, no guarding Integumentary: Present: warm and dry Neurologic: Present: alert and oriented x3 - Lab 06/24/17 05:44 06/24/17 05:44 Most recent lab results ABG pH 7.44 pH Units (7.32-7.45) 06/20/17 05:45 ABG pCO2 40 mmHg (35-45) 06/20/17 05:45 ABG pO2 117 mmHg (85-104) H 06/20/17 05:45 ABG HCO3 27 mEq/L (21-27) 06/20/17 05:45 ABG O2 Saturation 99 % (95-98) H 06/20/17 05:45 Calcium 8.0 mg/dL (8.6-10.8) L 06/24/17 05:44 Phosphorus 5.6 mg/dL (2.3-4.7) H 06/20/17 03:06 Magnesium 2.4 mg/dL (1.6-2.6) 06/22/17 12:45 Consult Discharge Plan - Plan Referrals: NONE,PCP [Primary Care Provider] -
[2017-06-24 10:26] LABS: ABG Base Excess 1.4 mEq/L (-2.0 to 3.0); ABG HCO3 28 mEq/L (21-27); ABG Oxygen Saturation 95 % (95-98); ABG PCO2 56 mmHg (35-45); ABG PH 7.31 pH Units (7.32-7.45); ABG PO2 81 mmHg (85-104); ABG TCO2 30 mEq/L (20-26)
[2017-06-24 10:28] LABS: Blood Gas Liter Flow 3 L/MIN; Blood Gas Modality NC
--- NOTE | 2017-06-24 19:03 | Internal Med Progress Note ---
Date of Encounter: 06/24/17 Time of Encounter: 09:30 - Assessment and plan (1) Acute and chronic respiratory failure with hypoxia Current Visit: Yes Status: Acute Assessment and plan: Acute on chronic hypoxic hypercapnic respiratory failure - secondary to volume overload from ESRD and diastolic CHF with aspiration pneumonia - now improved Continue hemodialysis, Lasix, O2 via nasal cannula. Patient was dialyzed today, tolerated procedure well Right side HD permacath placed today Nephrology following Needs close monitoring. Refuses bipap at times, repeat ABG in AM to assess current management. (2) Diastolic CHF, acute on chronic Current Visit: Yes Status: Acute Assessment and plan: Acute respiratory failure secondary to acute on chronic diastolic CHF and volume overload due to ESRD - now improved Continue Lasix, Labetalol. Echocardiogram - LVEF 60%, mild LV diastolic dysfunction, normal LV size and function (3) Pneumonia Current Visit: Yes Status: Acute Assessment and plan: Secondary to aspiration IV Zosyn seven-day course complete. Needs to continue speech therapy and as outpatient to prevent reoccurance. Diet appropriately changed per Speech Therapy. Qualifiers: Pneumonia type: aspiration pneumonia Aspiration pneumonia type: due to gastric secretions Laterality: bilateral Lung location: unspecified part of lung Qualified Code(s): J69.0 - Pneumonitis due to inhalation of food and vomit (4) Type 2 diabetes mellitus with diabetic chronic kidney disease Current Visit: Yes Status: Acute Assessment and plan: Goal of glucose of 140-180 while in hospital. Continue Levemir 40 mg BID and medium dose sliding scale. Qualifiers: 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 fdc insulin use: without intermediate designer use Chronic kidney disease stage: stage 4 (severe) Qualified Code(s): E11.22 - Type 2 diabetes mellitus with diabetic chronic kidney disease; N18.4 - Chronic kidney disease, stage 4 (severe) (5) Volume overload Current Visit: Yes Status: Acute Assessment and plan: Patient is admitted with signs and symptoms of volume overload, pulmonary edema likely secondary to worsening renal failure. Continue aggressive diuresis with IV Lasix along with fluid restriction and urine output monitoring. Zaroxolyn has been added by nephrology. Continue supplemental oxygen. Nephrology on board. 2-D echocardiogram shows preserved ejection fraction, mild left ventricular diastolic dysfunction, mild concentric left ventricular hypertrophy. Qualifiers: Hypervolemia type: unspecified Qualified Code(s): E87.70 - Fluid overload, unspecified (6) CKD (chronic kidney disease) stage 4, GFR 15-29 ml/min Current Visit: Yes Status: Chronic Assessment and plan: CKD stage 4-5 - with volume overload and respiratory failure - recently initiated on HD Tunneled catheter placed today Nephrology following Continue hemodialysis as outpatient (7) ABIGAIL on CPAP Current Visit: Yes Status: Chronic Assessment and plan: Continued to encourage compliance with BIPAP - Subjective Interval history: Overnight had difficulty sleeping. Patient fatigued this AM. States he had poor sleep. He was easily aroused but drowsy. ABG showed he had pH 7.1 with increased pCO2 in the 50s, similar to ABG done when he was stable. He refused bipap this AM. Working with Speech Therapy. Tunnel cath planned to placed for today. - Constitutional Vitals: Temp Pulse Resp BP Pulse Ox 97.9 F 82 18 106/59 94 06/24/17 18:35 06/24/17 18:35 06/24/17 18:35 06/24/17 18:35 06/24/17 18:35 General appearance: Present: cooperative, A&O X 3, no acute distress, obese, answers questions appropriately Exam: AAOx3 CVS: RRR, no m/r/g Lungs: decreased breath sounds at bases, + rales, air exchange is fair. Abdomen: soft, NT/ND Ext: trace bipedal edema, no cyanosis. Internal Medicine: Result - Labs CBC & Chem 7: 06/24/17 05:44 06/24/17 05:44 Labs: Short CBC 06/24/17 Range/Units 05:44 WBC 9.7 (4.3-11.1) K/mcL Hgb 8.2 L (12.9-16.9) g/dL Hct 27.8 L (37.5-50.1) % Plt Count 175 (140-400) K/mcL Neutrophils # 7.6 (1.6-8.9) K/mcL BMP 06/24/17 05:44 Sodium 139 Potassium 3.8 Chloride 104 Carbon Dioxide 22 BUN 36 H Creatinine 5.10 H Glucose 76 Calcium 8.0 L - ABG Interpretation ABG results: ABG ABG pH 7.31 pH Units (7.32-7.45) L 06/24/17 10:08 ABG pCO2 56 mmHg (35-45) H 06/24/17 10:08 ABG pO2 81 mmHg (85-104) L 06/24/17 10:08 ABG O2 Saturation 95 % (95-98) 06/24/17 10:08 Consult Discharge Plan - Plan Referrals: NONE,PCP [Primary Care Provider] -
[2017-06-25] MEDS: Ipratropium/Albuterol Neb 3 ML IH SCH ×3 (03:56→11:07)
[2017-06-25 04:19] LABS: Basophils % 0.3 %; Eosinophils # 0.4 K/mcL (0.0-0.6); Eosinophils % 3.9 %; Hematocrit 27.6 % (37.5-50.1); Hemoglobin 8.1 g/dL (12.9-16.9); Immature Granulocytes % 0.6 % (0-4); Lymphocytes # 1.6 K/mcL (0.6-4.6); Lymphocytes % 16.5 %; Mean Corpuscular HGB Conc 29.3 g/dL (31.6-35.5); Mean Corpuscular Hemoglobin 28.1 pg (28.0-33.3); Mean Corpuscular Volume 95.8 fL (83.0-100.0); Mean Platelet Volume 10.5 fL (9.4-12.4); Monocytes % 10.3 %; Neutrophils # 6.6 K/mcL (1.6-8.9); Platelet Count 204 K/mcL (140-400); Red Blood Count 2.88 M/mcL (4.19-5.50); Red Cell Distribution Width 14.8 % (11.5-14.5); Segmented Neutrophils % 68.4 %
[2017-06-25 04:33] LABS: Potassium 4.2 mEq/L (3.5-4.5)
[2017-06-25] MEDS: Pantoprazole 40 MG VIAL IVP SCH (06:04)
[2017-06-25] MEDS: *HR* Heparin 5,000 UNIT/ML VIAL SQ SCH (06:05)
[2017-06-25] MEDS ORDERED: 0.9 % Sodium Chloride 250 ML IVC PRN (08:08)
[2017-06-25] MEDS ORDERED: *HR* Heparin 10,000 UNIT/10 ML VIAL IV PRN (08:08)
[2017-06-25] MEDS ORDERED: 0.9 % Sodium Chloride 1,000 ML PRIME SCH (08:15)
[2017-06-25] MEDS ORDERED: 0.9 % Sodium Chloride 2,000 ML ONE (08:32)
--- NOTE | 2017-06-25 08:55 | Nephrology Progress Note ---
Date of Encounter: 06/25/17 Time of Encounter: 08:45 - Assessment and Plan (1) CKD (chronic kidney disease) stage 4, GFR 15-29 ml/min Current Visit: Yes Status: Chronic CKD4-5. Volume overload with respiratory failure, improved with diuresis. Tunneled cath placed for outpatient HD. To have outpatient chronic HD at [facility]. Assigned chair time in [facility]. Will dialyze today here. Orders given. Subjective Principal diagnosis: acute on chronic renal failure Interval history: Sitting up in bed. States feeling good, no new complaints. Nursing to band non dominant arm "No use" for potential future AVF site Objective - Vital Signs Vital signs: Vital Signs Temp Pulse Resp BP Pulse Ox 06/25/17 07:47 22 94 06/25/17 06:30 97.9 F 65 18 128/74 93 06/25/17 04:12 98.2 F 69 18 116/60 99 06/25/17 03:56 14 92 06/24/17 23:57 98.4 F 73 16 110/50 92 06/24/17 23:08 16 91 06/24/17 20:09 16 93 06/24/17 18:35 97.9 F 82 18 106/59 94 06/24/17 16:00 98 F 83 18 140/70 96 06/24/17 15:34 18 94 06/24/17 11:42 98.6 F 69 18 119/72 98 06/24/17 11:18 18 94 Intake and Output 06/24/17 06/25/17 06/25/17 23:59 07:59 15:59 Intake Total 240 / 240 Balance 240 / 240 Intake: Oral 240 / 240 Other: # Urine Diapers 1 Blood Glucose* 150 119 - General Appearance General appearance: Present: well-developed, well-nourished, appears started age , obese EENT: Present: mucous membranes moist Neck: Present: no JVD Respiratory: Present: clear Cardiology: Present: no edema, regular rate, regular rhythm Gastrointestinal: Present: normoactive bowel sounds, no tenderness Integumentary: Present: warm and dry Neurologic: Present: alert and oriented x3 Psychiatric: Present: mood/affect appropriate, cooperative - Lab 06/25/17 03:50 06/25/17 03:50 Most recent lab results ABG pH 7.31 pH Units (7.32-7.45) L 06/24/17 10:08 ABG pCO2 56 mmHg (35-45) H 06/24/17 10:08 ABG pO2 81 mmHg (85-104) L 06/24/17 10:08 ABG HCO3 28 mEq/L (21-27) H 06/24/17 10:08 ABG O2 Saturation 95 % (95-98) 06/24/17 10:08 Calcium 8.0 mg/dL (8.6-10.8) L 06/25/17 03:50 Phosphorus 5.6 mg/dL (2.3-4.7) H 06/20/17 03:06 Magnesium 2.4 mg/dL (1.6-2.6) 06/22/17 12:45 Consult Discharge Plan - Plan Referrals: NONE,PCP [Primary Care Provider] -
[2017-06-25 12:09] VITALS: BP 137/75
--- NOTE | 2017-06-25 12:26 | Discharge Summary ---
Date of Encounter: 06/25/17 Time of Encounter: 12:26 - Discharge Diagnosis (1) Acute and chronic respiratory failure with hypoxia Priority: Primary Status: Acute (2) Diastolic CHF, acute on chronic Priority: Secondary Status: Acute (3) Pneumonia Priority: Secondary Status: Acute Qualifiers: Pneumonia type: aspiration pneumonia Aspiration pneumonia type: due to gastric secretions Laterality: bilateral Lung location: unspecified part of lung Qualified Code(s): J69.0 - Pneumonitis due to inhalation of food and vomit (4) Type 2 diabetes mellitus with diabetic chronic kidney disease Priority: Secondary Status: Acute Qualifiers: 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 half-way insulin use: without terminal manager use Chronic kidney disease stage: stage 4 (severe) Qualified Code(s): E11.22 - Type 2 diabetes mellitus with diabetic chronic kidney disease; N18.4 - Chronic kidney disease, stage 4 (severe) (5) Volume overload Priority: Secondary Status: Acute Qualifiers: Hypervolemia type: unspecified Qualified Code(s): E87.70 - Fluid overload, unspecified (6) CKD (chronic kidney disease) stage 4, GFR 15-29 ml/min Priority: Secondary Status: Chronic (7) ABIGAIL on CPAP Priority: Secondary Status: Chronic - Discharge Medications Prescriptions: amLODIPine [Norvasc] 5 mg PO DAILY #30 tablet Labetalol [Trandate] 100 mg PO BID #60 tablet Home Medications: Aspirin [Ecotrin] 325 mg PO DAILY #0 06/05/15 [History] Finasteride [Proscar] 5 mg PO DAILY #0 06/05/15 [History] Primidone [Mysoline] 50 mg PO DAILY #0 06/05/15 [History] Ranitidine HCl [Zantac] 150 mg PO BID #0 06/05/15 [History] Simvastatin [Zocor] 10 mg PO QPM #0 06/05/15 [History] Tamsulosin [Flomax] 0.4 mg PO DAILY #0 06/05/15 [History] Calcitriol [Rocaltrol] 0.25 mcg PO DAILY 09/11/15 [History] Insulin ASPART [Novolog Flexpen] 15 unit SQ TID 12/30/16 [History] Montelukast [Singulair] 10 mg PO QPM 12/30/16 [History] Furosemide [Lasix] 20 mg PO DAILY 06/15/17 [History] Insulin DETEMIR [Levemir Flextouch] 40 unit SQ BID 06/15/17 [History] Ondansetron HCl [Zofran] 4 mg PO BID 06/15/17 [History] Oxygen 2 l NS AD 06/15/17 [History] PrednisoLONE Acetate 1% Opth [PredFORTE 1%] 1 drop OP QID PRN 06/15/17 [History] Pregabalin [Lyrica] 100 mg PO BID 06/15/17 [History] Tramadol HCl [Ultram] 50 mg PO BID PRN 06/15/17 [History] Epoetin Donell [Procrit] 10,000 unit SQ 3XW vial 06/25/17 [Rx] Labetalol [Trandate] 100 mg PO BID #60 tablet 06/25/17 [Rx] Pregabalin [Lyrica] 50 mg PO MoWeFr@2100 capsule 06/25/17 [Rx] amLODIPine [Norvasc] 5 mg PO DAILY #30 tablet 06/25/17 [Rx] Allergies/Adverse Reactions: 3 Allergy/AdvReac Type Severity Reaction Status Date / Time No Known Allergies Allergy Verified 12/29/16 23:37 Procedures/tests Complete & Pending: Procedures Performed prior 72 hours Category Date Time Status 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 [IR] Routine IR 06/23/17 Completed IR us guide needle place [IR] Routine IR 06/23/17 Completed Pending Tests Category Date Time Status Culture,Blood,Additional [BC] Stat Lab 06/15/17 16:05 Incomplete Date of admission: 06/15/17 15:34 Primary care physician: PCP NONE Consults: 06/15/17 16:07 Consult to Nephrology [CONS] Routine Consulting Provider: [facility] KARINA Reason for Consult: ISMA with CKD-4 Call Completed: Yes 06/17/17 15:02 Consult to Occupational Therapy [CONS] Routine Comment: Evaluate, develop and implement POC Reason for Consult: Generalized weakness, edema Consult to Physical Therapy [CONS] Routine Comment: Evaluate, develop and implement POC Reason for Consult: Generalized weakness, edema 06/18/17 08:54 Consult to Pulmonology [CONS] Routine Consulting Provider: [facility]m [facility] Reason for Consult: Acute on chronic respiratory failure, hypercapnia, pulmonary edema, hematemesis Call Completed: Yes 06/18/17 11:47 Consult to Interventional Radiology [CONS] Routine Consulting Provider: Radiology Interventional Cols Reason for Consult: Temporary Dialysis access (enoch cath vs HD port) Call Completed: Yes 06/19/17 09:18 Consult to Gastroenterology [CONS] Routine Consulting Provider: Gastroenterology Erika Reason for Consult: Blood per NG, hematemesis Call Completed: No 06/19/17 10:00 Consult to Dialysis [CONS] ONCE 06/19/17 11:45 Consult to Dialysis [CONS] ONCE 06/21/17 08:38 Consult to Speech Therapy [CONS] Routine Comment: Evaluate, develop and implement POC Reason for Consult: patient admitted due to aspiration pneumonia. Call Completed: Yes 06/21/17 11:45 Consult to Dialysis [CONS] ONCE 06/21/17 12:17 Consult to Interventional Radiology [CONS] Routine Consulting Provider: Radiology Interventional Cols Reason for Consult: needs temp cath exchange to tunneled for outpatient chronic HD Time Notified: 12:18 Call Completed: Yes 06/23/17 09:15 Consult to Dialysis [CONS] ONCE 06/25/17 08:15 Consult to Dialysis [CONS] ONCE Discharging clinician: Richard Mariee - Patient Status Disposition: Transfer Inpatient Rehab Fac Condition: Fair Functional capacity at discharge: uses cane/walker Overall status at discharge: patient is progressing back to baseline - Discharge Instructions Follow Up With: NONE,PCP [Primary Care Provider] - - Diet and Activity Activity: as per physical therapy Diet: other (Renal) Hospital course: Mr. Prado is a 67 year old male - Time Spent with Patient Total time spent providing and/or coordinating discharge services: - Constitutional Vitals: Temp Pulse Resp BP Pulse Ox 98.2 F 65 18 137/75 94 06/25/17 12:00 06/25/17 06:30 06/25/17 12:00 06/25/17 12:00 06/25/17 07:47 General appearance: Present: cooperative, A&O X 3, no acute distress, obese, answers questions appropriately
[2017-06-25] MEDS: Insulin LISPRO 300 UNITS/3 ML VIAL SQ SCH ×2 (12:29→12:30)
[2017-06-25] MEDS: Furosemide 20 MG TABLET PO SCH (12:41)
[2017-06-25] MEDS: Finasteride 5 MG TABLET PO SCH (12:41)
[2017-06-25] MEDS: amLODIPine 5 MG TABLET PO SCH (12:42)
[2017-06-25] MEDS: Ondansetron ODT 4 MG TAB.RAPDIS PO SCH (12:42)
[2017-06-25] MEDS: Primidone 50 MG TABLET PO SCH (12:42)
[2017-06-25] MEDS: Famotidine 20 MG TABLET PO SCH (12:42)
[2017-06-25] MEDS: Renal Vitamin 1 MG CAPSULE PO SCH (12:42)
[2017-06-25] MEDS: Aspirin Enteric Coated 325 MG Tablet PO SCH (12:43)
[2017-06-25] MEDS: Insulin DETEMIR 100 UNIT/ML X5UNITS SQ SCH (12:44)
[2017-06-25] MEDS: Pregabalin 50 MG CAPSULE PO SCH (12:44)
--- NOTE | 2017-06-25 12:50 | Physician Discharge Referral ---
ExtendedCare Referral Info Transfer To: [facility] Provider in Charge after Transfer: PCP (Inpatient Rehab), Other (inpatient rehab ) - Diagnosis (1) Acute and chronic respiratory failure with hypoxia Priority: Primary Status: Acute (2) Diastolic CHF, acute on chronic Priority: Secondary Status: Acute (3) Pneumonia Priority: Secondary Status: Acute (4) Type 2 diabetes mellitus with diabetic chronic kidney disease Priority: Secondary Status: Acute (5) Volume overload Priority: Secondary Status: Acute (6) CKD (chronic kidney disease) stage 4, GFR 15-29 ml/min Priority: Secondary Status: Chronic (7) ABIGAIL on CPAP Priority: Secondary Status: Chronic - Transfer Medications Prescriptions: amLODIPine [Norvasc] 5 mg PO DAILY #30 tablet Labetalol [Trandate] 100 mg PO BID #60 tablet Home Medications: Aspirin [Ecotrin] 325 mg PO DAILY #0 06/05/15 [History] Finasteride [Proscar] 5 mg PO DAILY #0 06/05/15 [History] Primidone [Mysoline] 50 mg PO DAILY #0 06/05/15 [History] Ranitidine HCl [Zantac] 150 mg PO BID #0 06/05/15 [History] Simvastatin [Zocor] 10 mg PO QPM #0 06/05/15 [History] Tamsulosin [Flomax] 0.4 mg PO DAILY #0 06/05/15 [History] Calcitriol [Rocaltrol] 0.25 mcg PO DAILY 09/11/15 [History] Insulin ASPART [Novolog Flexpen] 15 unit SQ TID 12/30/16 [History] Montelukast [Singulair] 10 mg PO QPM 12/30/16 [History] Furosemide [Lasix] 20 mg PO DAILY 06/15/17 [History] Insulin DETEMIR [Levemir Flextouch] 40 unit SQ BID 06/15/17 [History] Ondansetron HCl [Zofran] 4 mg PO BID 06/15/17 [History] Oxygen 2 l NS AD 06/15/17 [History] PrednisoLONE Acetate 1% Opth [PredFORTE 1%] 1 drop OP QID PRN 06/15/17 [History] Pregabalin [Lyrica] 100 mg PO BID 06/15/17 [History] Tramadol HCl [Ultram] 50 mg PO BID PRN 06/15/17 [History] Epoetin Donell [Procrit] 10,000 unit SQ 3XW vial 06/25/17 [Rx] Labetalol [Trandate] 100 mg PO BID #60 tablet 06/25/17 [Rx] Pregabalin [Lyrica] 50 mg PO MoWeFr@2100 capsule 06/25/17 [Rx] amLODIPine [Norvasc] 5 mg PO DAILY #30 tablet 06/25/17 [Rx] Allergies/Adverse Reactions: 3 Allergy/AdvReac Type Severity Reaction Status Date / Time No Known Allergies Allergy Verified 12/29/16 23:37 - Respiratory Orders Oxygen / L per min (2) Smoking Cessation: Smoking cessation has been advised. For more information, call the [employer] Tobacco Quit Line at 5-945-EMWW-NOW. - Mobility Orders Other (Walker) - Rehabiliation Orders Rehab Potential: Fair Rehab Orders: Evaluation for Physical Therapy, Evaluation for Occupational Therapy - Treatments Skin tear care topically daily PRN per policy, May check for fecal impaction rectally daily PRN - Diet Orders Renal CERTIFICATION: I certify that the transfer of the above named patient to an Extended Care Facility is necessary for the continuing treatment of the diagnosis listed. The above information is true and accurate reflection of patient's current condition. Confidential - Redisclosure prohibited without a patient's written consent.
== END 2017-06-25 14:33 | DRG 166 ==
LOC: ICNU 15:34 → SUATTDRO 15:34 → 2ANU 06-17 20:56 → ICNU 06-18 09:42 → 2ANU 06-23 17:54
PROVIDERS: ADMIT Family Medicine; ATTEND Student in an Organized Health Care Education/Training Program
PROC: IRPERMA (2017-06-23 09:00)

== ENCOUNTER 2017-06-29 14:19 | Inpatient (IN) ==
[2017-06-29] MEDS ORDERED: Aminoglycoside Consult 1 EACH MC ONE (16:23)
[2017-06-29] MEDS ORDERED: Naloxone 0.4 MG/ML INJ IVP PRN (19:52)
[2017-06-29] MEDS ORDERED: Ondansetron 4 MG/2 ML VIAL IVP PRN (19:58)
[2017-06-29] MEDS ORDERED: Acetaminophen 325 MG TABLET PO PRN (19:58)
[2017-06-29] MEDS ORDERED: Vancomycin 1,750 MG in D5% in Water 250 ML IVPB SCH (20:00)
[2017-06-29] MEDS ORDERED: PrednisoLONE Acetate 1% Opth 5 ML BOTTLE BOTH EYES PRN (20:06)
[2017-06-29] MEDS ORDERED: traMADol 50 MG TABLET PO PRN (20:06)
[2017-06-29] MEDS ORDERED: *HR* Dextrose 50 % in Water (Syg) 50 ML SYRINGE IVP PRN (20:06)
[2017-06-29] MEDS ORDERED: D5% in Water 1,000 ML IVC PRN (20:06)
[2017-06-29] MEDS ORDERED: Dextrose Gel 15 GM PO PRN ×2 (20:06)
--- NOTE | 2017-06-29 20:19 | Internal Med History&Physical ---
Date of Encounter: 06/29/17 Time of Encounter: 19:30 Assessment and Plan (1) Fever Current visit: Yes Status: Acute 1. Unfortunately, I have no documentation or records from [facility]. Fever reported by and confirmed by patient. 2. Will order some STAT labs including CBC, CMP, blood and urine cultures, and CXR. 3. Will start empiric antibiotics with Vancomycin and Zosyn and will deescalate when clinically appropriate. 4. Will monitor on telemetry and clinically as well. Qualifiers: Fever type: unspecified Qualified Code(s): R50.9 - Fever, unspecified (2) Weakness generalized Current visit: Yes Status: Acute 1. Will check labs and cultures as above. 2. If infection ruled out, then consider PT/OT consults. 3. Monitor glucose for hypoglycemia. (3) ESRD (end stage renal disease) on dialysis Current visit: Yes Status: Chronic 1. Consult Dr. Be for ESRD needs. 2. Monitor Potassium and other chemistry levels. (4) Essential hypertension Current visit: No Status: Chronic 1. Continue home meds as appropriate. 2. Monitor and adjust as necessary. (5) DVT prophylaxis Current visit: Yes Status: Acute 1. Heparin SQ. Internal Medicine - H&P: HPI Chief complaint: transfer from [facility] Admitted From: Hospital to Hospital Transfer Plans for Post Hospital Care: Transfer [facility] Facility History of present illness: Mr. Prado is a 67 year old male who presents in transfer from [facility] in [place]. He was just discharged from the hospital here to a swing bed at [facility] 4 days ago. Because of increasing weakness, somnolence, and reported fever, he was transferred back to [facility]. Unfortunately, there are no transfer records available and, according to nursing staff, no transfer records were sent with patient from [facility]. I obtained history exclusively from his and old records. Patient is somnolent but easily easily arousable, oriented, and does not appear to be in any distress. However, he is pale, has generalized weakness, and has some generalized edema. His reports that he had aspiration pneumonia requiring ICU admission during his last stay here at [facility]. He was sent to [facility] for rehabilitation in a swing bed. However, he has become progressively weaker and unable to care for himself now. His states he had a fever this weekend. He has had no difficulty breathing, but there were reports that his oxygen level was low. He still makes urine and has a Winter catheter in place since his stay at [facility]. Patient denies any chest pain, shortness of breath, coughing, congestion, vomiting, diarrhea, focal numbness, or any focal weakness. He and his both state he has had a fever and progressive weakness. Past Med Surg Social Fam HX - Past Medical History Source: old records reviewed, obtained from family Medical history: CVA, diabetes, hyperlipidemia, hypertension, renal disease Psychiatric history: no psych history - Past Surgical History Surgical History: other (eye surgeries) - Social History Smoking Status: Former smoker Smokeless Tobacco Status: No Alcohol use: none Drug use: none Current living situation: Home, With Family Recent Out of Country Travel Within the Last 8 Weeks: No - Family History Mother Living Status: Father Living Status: Hx Family Endocrine Disorder: Yes (diabetes) Internal Medicine - H&P: Meds Aspirin [Ecotrin] 325 mg PO DAILY #0 06/05/15 [History] Finasteride [Proscar] 5 mg PO DAILY #0 06/05/15 [History] Primidone [Mysoline] 50 mg PO DAILY #0 06/05/15 [History] Ranitidine HCl [Zantac] 150 mg PO BID #0 06/05/15 [History] Simvastatin [Zocor] 10 mg PO QPM #0 06/05/15 [History] Tamsulosin [Flomax] 0.4 mg PO DAILY #0 06/05/15 [History] Calcitriol [Rocaltrol] 0.25 mcg PO DAILY 09/11/15 [History] Insulin ASPART [Novolog Flexpen] 15 unit SQ TID 12/30/16 [History] Montelukast [Singulair] 10 mg PO QPM 12/30/16 [History] Furosemide [Lasix] 20 mg PO DAILY 06/15/17 [History] Insulin DETEMIR [Levemir Flextouch] 40 unit SQ BID 06/15/17 [History] Ondansetron HCl [Zofran] 4 mg PO BID 06/15/17 [History] Oxygen 2 l NS AD 06/15/17 [History] PrednisoLONE Acetate 1% Opth [PredFORTE 1%] 1 drop OP QID PRN 06/15/17 [History] Pregabalin [Lyrica] 100 mg PO BID 06/15/17 [History] Tramadol HCl [Ultram] 50 mg PO BID PRN 06/15/17 [History] Epoetin Donell [Procrit] 10,000 unit SQ 3XW vial 06/25/17 [Rx] Labetalol [Trandate] 100 mg PO BID #60 tablet 06/25/17 [Rx] Pregabalin [Lyrica] 50 mg PO MoWeFr@2100 capsule 06/25/17 [Rx] amLODIPine [Norvasc] 5 mg PO DAILY #30 tablet 06/25/17 [Rx] 3 Allergy/AdvReac Type Severity Reaction Status Date / Time No Known Allergies Allergy Verified 12/29/16 23:37 - Constitutional Constitutional: fever(s), weakness, no chills, no night sweats - EENT Eyes: 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)), no change in vision Ears: no ear pain, no tinnitus Nose, mouth and throat: no nasal congestion, no nasal discharge, no sinus pressure - Cardiovascular Cardiovascular ROS IM: edema, no chest pain, no dyspnea - Respiratory Respiratory: no cough, no dyspnea, no hemoptysis - Gastrointestinal Gastrointestinal: no abdominal pain, no diarrhea, no nausea, no vomiting - Genitourinary Genitourinary ROS male: no dysuria, no flank pain, no hematuria - Musculoskeletal Musculoskeletal ROS IM: no arthralgias, no back pain, no joint swelling - Integumentary Integumentary IM: sores (heel decubiti), no rash, no jaundice - Neurological Neurological ROS: weakness, no dizziness, no focal weakness, no frequent falls, no headache(s) - Psychiatric Psychiatric: no anxiety, no depression - Endocrine Endocrine IM: no polydipsia, no polyuria - Allergic/Immunologic Allergic/Immunologic: no GI upset with certain foods - Constitutional Vitals: Temp Pulse Resp BP Pulse Ox 98.0 F 70 19 158/78 94 06/29/17 18:38 06/29/17 18:38 06/29/17 18:38 06/29/17 18:38 06/29/17 18:38 General appearance: Present: A&O X 3, no acute distress Exam: somnolent and weak but easily arousable and appropriate - Head Head exam: Present: atraumatic, normal inspection - Expanded Head Exam Head exam expanded: Absent: abrasion, contusion, general tenderness - Eye Eye exam: Absent: scleral icterus Additional comments: blind in right eye - ENT ENT exam: Present: mucous membranes dry, normal exam, normal oropharynx - Neck Neck exam general surgery: Present: full ROM, supple. Absent: lymphadenopathy, tenderness - Expanded Neck Exam Neck exam: Absent: carotid bruit - Respiratory Respiratory exam: Present: decreased breath sounds (bases bilaterally), CTAB. Absent: chest wall tenderness, rales, respiratory distress, rhonchi, wheezes Additional comments: dialysis catheter in right subclavian area with no redness, pain, or swelling noted - Cardiovascular Cardiovascular exam: Present: RRR, +S1, +S2. Absent: diastolic murmur, systolic murmur - GI/Abdominal GI/Abdominal exam: Present: normal bowel sounds, soft. Absent: guarding, hepatomegaly, mass, rebound, splenomegaly, tenderness - Extremities Exam Extremities exam: Present: full ROM, pedal edema (2+ ). Absent: calf tenderness , joint swelling Additional comments: heels with dressing on them bilaterally - Back Exam Back exam: Absent: CVA tenderness (L), CVA tenderness (R), tenderness - Neurological Exam Neurological exam: Present: alert, oriented X3, no focal deficits. Absent: speech deficit - Psychiatric Psychiatric exam: Present: normal affect, normal mood - Skin Skin exam: Present: dry, pallor, warm. Absent: petechiae, rash
[2017-06-29 20:56] LABS: Basophils % 0.3 %; Eosinophils # 0.2 K/mcL (0.0-0.6); Hematocrit 26.2 % (37.5-50.1); Hemoglobin 7.7 g/dL (12.9-16.9); Immature Granulocytes % 1.2 % (0-4); Lymphocytes # 1.1 K/mcL (0.6-4.6); Lymphocytes % 14.6 %; Mean Corpuscular HGB Conc 29.4 g/dL (31.6-35.5); Mean Corpuscular Hemoglobin 27.8 pg (28.0-33.3); Mean Corpuscular Volume 94.6 fL (83.0-100.0); Mean Platelet Volume 9.6 fL (9.4-12.4); Monocytes # 0.8 K/mcL (0.0-1.3); Monocytes % 11.5 %; Neutrophils # 5.2 K/mcL (1.6-8.9); Platelet Count 235 K/mcL (140-400); Red Blood Count 2.77 M/mcL (4.19-5.50); Red Cell Distribution Width 14.9 % (11.5-14.5); Segmented Neutrophils % 70.4 %
[2017-06-29 21:01] LABS: INR 1.1; Prothrombin Time 11.5 Seconds (9.4-12.1)
[2017-06-29 21:04] LABS: Activated Partial Thrombo Time 27.9 Seconds (26.0-36.0)
[2017-06-29 21:11] LABS: Albumin 2.4 g/dL (3.5-5.0); Albumin/Globulin Ratio 0.5 (1.1-2.2); Bilirubin,Total 0.5 mg/dL (0.2-1.2); Calcium 7.9 mg/dL (8.6-10.8); Globulin 4.8 g/dL (2.4-3.5); Magnesium 1.9 mg/dL (1.6-2.6); Potassium 4.5 mEq/L (3.5-4.5); Total Protein 7.2 g/dL (6.0-8.3)
[2017-06-29 22:20] LABS: Hemoglobin A1C 6.8 %
[2017-06-29] MEDS: Pregabalin 50 MG CAPSULE PO SCH (22:30)
[2017-06-29] MEDS: *HR* Heparin 5,000 UNIT/ML VIAL SQ SCH (22:30)
[2017-06-29] MEDS: Insulin DETEMIR 100 UNIT/ML X5UNITS SQ SCH (22:30)
[2017-06-29] MEDS: Famotidine 20 MG TABLET PO SCH (22:31)
[2017-06-30] MEDS ORDERED: Vancomycin 1,500 MG in D5% in Water 250 ML IVPB ONE (01:00)
[2017-06-30 01:38] LABS: Bilirubin,Urine Negative (Negative); Blood,Urine Moderate (Negative); Clarity,Urine Cloudy (Clear); Color,Urine Yellow (Yellow); Glucose,Urine (UA) 500 mg/dL (Normal); Ketones,Urine Negative (Negative); Leukocyte Esterase,Urine Small (Negative); Nitrite,Urine Negative (Negative); Protein,Urine >=300 mg/dL (Neg-Trace); Specific Gravity,Urine 1.017 (1.010-1.025); Urobilinogen,Urine Normal (Normal)
[2017-06-30 01:41] LABS: Bacteria,Urine None Seen per hpf (None-Few); Hyaline Casts,Urine Few per lpf (None-Few); RBC,Urine 15-30 per hpf (0-3); Squamous Epithelial Cell,Urine Many per lpf (None-Few); WBC,Urine 30-50 per hpf (0-3)
[2017-06-30 01:51] LABS: Renal Epithelial Cells,Urine Few per hpf (None-Few); Transitional Epi Cells,Urine Few per hpf (None-Few)
[2017-06-30] MEDS: *HR* Heparin 5,000 UNIT/ML VIAL SQ SCH ×3 (05:11→21:38)
[2017-06-30] MEDS ORDERED: Piperacillin/Tazobactam 3.375 GM in D5% in Water (Mini-Bag+) 100 ML IVPB SCH (06:00)
--- NOTE | 2017-06-30 08:37 | Nephrology Consult Note ---
Date of Encounter: 06/30/17 Time of Encounter: 08:35 Assessment and Plan (1) End-stage renal disease Current Visit: Yes Status: Acute The patient will undergo dialysis today. He will continue to receive dialysis every Wednesday. A bestowed on [facility] for his anemia. We will follow the blood cultures. (2) 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 Current Visit: No Status: Chronic Qualifiers: 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 type: type 2 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 complication status: with kidney complications 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 complication detail: with chronic kidney disease 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 long chain beamer insulin use: with senior care use Chronic kidney disease stage: on chronic dialysis Qualified Code(s): E11.22 - Type 2 diabetes mellitus with diabetic chronic kidney disease; N18.6 - End stage renal disease; N18.6 - End stage renal disease; N18.6 - End stage renal disease; N18.6 - End stage renal disease; Z79.4 - alf (current) use of insulin; Z79.4 - intermediate project manager (current) use of insulin; Z79.4 - alf (current ) use of insulin; Z79.4 - intermediate project manager (current) use of insulin; Z99.2 - Dependence on renal dialysis; Z99.2 - Dependence on renal dialysis; Z99.2 - Dependence on renal dialysis; Z99.2 - Dependence on renal dialysis (3) ABIGAIL on CPAP Current Visit: No Status: Chronic (4) Anemia Current Visit: No Status: Acute Qualifiers: Anemia type: due to chronic kidney disease Chronic kidney disease stage: on chronic dialysis Qualified Code(s): N18.6 - End stage renal disease; D63.1 - Anemia in chronic kidney disease; Z99.2 - Dependence on renal dialysis (5) Fever Current Visit: Yes Status: Acute Qualifiers: Fever type: unspecified Qualified Code(s): R50.9 - Fever, unspecified History of Present Illness - History of Present Illness This is a 67-year-old male with progressive chronic kidney disease. He was recently hospitalized for respiratory failure and aspiration pneumonia. During that hospitalization he was started on dialysis. He subsequently was discharged for inpatient rehabilitation. He continued outpatient dialysis. Patient was sent from the inpatient rehabilitation facility to the emergency room. Patient is clear as to the reason. He is a very poor historian. Medical record indicates that no outside records were accompanied with the patient. There is an indication that the patient may have been febrile may have exhibited some mental status changes. This morning his mental status is close to his baseline. Hearing is afebrile. The patient currently denies any fevers chills or abdominal pain cough and shortness of breath chest pain dysuria or diarrhea. Cultures have been done and he has been started on empiric antibiotics. He is scheduled for his usual dialysis today his white count is normal. Vital signs are stable. Past Med Surg Social Fam HX - Past Medical History Medical history: CVA, diabetes, hyperlipidemia, hypertension, renal disease Psychiatric history: no psych history - Past Surgical History Surgical History: other (eye surgeries) - Social History Smoking Status: Former smoker Smokeless Tobacco Status: No Alcohol use: none Drug use: none - Family History Mother Living Status: Father Living Status: Hx Family Endocrine Disorder: Yes (diabetes) Medications and Allergies Aspirin [Ecotrin] 325 mg PO DAILY #0 06/05/15 [History] Finasteride [Proscar] 5 mg PO DAILY #0 06/05/15 [History] Primidone [Mysoline] 50 mg PO DAILY #0 06/05/15 [History] Ranitidine HCl [Zantac] 150 mg PO BID #0 06/05/15 [History] Simvastatin [Zocor] 10 mg PO QPM #0 06/05/15 [History] Tamsulosin [Flomax] 0.4 mg PO DAILY #0 06/05/15 [History] Calcitriol [Rocaltrol] 0.25 mcg PO DAILY 09/11/15 [History] Insulin ASPART [Novolog Flexpen] 15 unit SQ TID 12/30/16 [History] Montelukast [Singulair] 10 mg PO QPM 12/30/16 [History] Furosemide [Lasix] 20 mg PO DAILY 06/15/17 [History] Insulin DETEMIR [Levemir Flextouch] 40 unit SQ BID 06/15/17 [History] Ondansetron HCl [Zofran] 4 mg PO BID 06/15/17 [History] Oxygen 2 l NS AD 06/15/17 [History] PrednisoLONE Acetate 1% Opth [PredFORTE 1%] 1 drop OP QID PRN 06/15/17 [History] Pregabalin [Lyrica] 100 mg PO BID 06/15/17 [History] Tramadol HCl [Ultram] 50 mg PO BID PRN 06/15/17 [History] Epoetin Donell [Procrit] 10,000 unit SQ 3XW vial 06/25/17 [Rx] Labetalol [Trandate] 100 mg PO BID #60 tablet 06/25/17 [Rx] Pregabalin [Lyrica] 50 mg PO MoWeFr@2100 capsule 06/25/17 [Rx] amLODIPine [Norvasc] 5 mg PO DAILY #30 tablet 06/25/17 [Rx] 3 Allergy/AdvReac Type Severity Reaction Status Date / Time No Known Allergies Allergy Verified 12/29/16 23:37 Review of Systems Constitutional: weight gain Eyes: bilateral: blurred vision (patient denies), diplopia (patient denies) Nose, mouth and throat: no dizziness, no headache(s) Cardiovascular: dyspnea on exertion, no chest pain, no palpitations Respiratory: dyspnea on exertion Gastrointestinal: no abdominal pain, no change in bowel habits Musculoskeletal: no muscle weakness, no numbness Integumentary: no hirsutism, no striae Neurological: as per HPI, weakness Psychiatric: no depression, no difficulty concentrating Endocrine: as per HPI Exam - Vital Signs Vital signs: Initial Vital Signs Temp Pulse Resp BP Pulse Ox 98.0 F 84 18 138/60 95 06/29/17 16:41 06/29/17 16:41 06/29/17 16:41 06/29/17 16:41 06/29/17 16:41 Vital Signs - Last 8 Hours Temp Pulse Resp BP Pulse Ox 06/30/17 07:30 98.1 F 68 18 130/73 97 06/30/17 03:27 98.2 F 68 19 150/71 98 Intake and Output 06/29/17 06/30/17 06/30/17 23:59 07:59 15:59 Intake Total 0 / 0 Output Total 50 / 50 400 / 400 Balance -50 / -50 -400 / -400 Intake: Oral 0 / 0 Output: Urine 50 / 50 400 / 400 Other: Weight 109.769 kg 114.4 kg Blood Glucose* 180 132 Patient Weight 06/30/17 23:59 Weight 114.4 kg - General Appearance Exam: The patient is alert and oriented. He appears chronically ill. Lungs breath sounds otherwise clear. Heart regular rate and rhythm. Abdomen shows normal bowel sounds braze masses, megaly or tenderness. Motor examination mild lower extremity swelling. This is a large improvement compared to when the patient was hospitalized previously. There is a tunnel dialysis catheter in the right chest. Results - Lab Results 06/29/17 20:36 06/29/17 20:36 Most recent lab results Calcium 7.9 mg/dL (8.6-10.8) L 06/29/17 20:36 Magnesium 1.9 mg/dL (1.6-2.6) 06/29/17 20:36 Consult Discharge Plan - Plan Referrals: NONE,PCP [Primary Care Provider] -
[2017-06-30] MEDS ORDERED: 0.9 % Sodium Chloride 250 ML IVC PRN (08:39)
[2017-06-30] MEDS ORDERED: PrednisoLONE Acetate 1% Opth 5 ML BOTTLE BOTH EYES PRN (09:05)
[2017-06-30] MEDS: Insulin LISPRO 300 UNITS/3 ML VIAL SQ SCH ×5 (10:00→21:31)
[2017-06-30] MEDS: Aspirin Enteric Coated 325 MG Tablet PO SCH (10:24)
[2017-06-30] MEDS: Primidone 50 MG TABLET PO SCH (10:24)
[2017-06-30] MEDS: Furosemide 20 MG TABLET PO SCH (10:25)
[2017-06-30] MEDS: Finasteride 5 MG TABLET PO SCH (10:25)
[2017-06-30] MEDS: Famotidine 20 MG TABLET PO SCH (10:25)
[2017-06-30] MEDS: Pregabalin 50 MG CAPSULE PO SCH ×2 (10:26→21:37)
--- NOTE | 2017-06-30 10:51 | Internal Med Progress Note ---
Date of Encounter: 06/30/17 Time of Encounter: 10:49 - Assessment and plan (1) Diastolic CHF, acute on chronic Current Visit: No Status: Acute Assessment and plan: Acute on chronic diastolic CHF exacerbation Remove fluid through dialysis, continue Lasix Strict I's and O's and daily weight Will require fluid restriction Echocardiogram from May 2017 shows an ejection fraction of 60%, mild concentric left ventricular hypertrophy, mild diastolic dysfunction Chest x-ray showed:. Cardiomegaly with findings of acute congestive heart failure including small layering bilateral pleural effusions. (2) Aspiration pneumonia Current Visit: No Status: Acute Assessment and plan: Apparently was intubated during last hospitalization Continue mechanical diet with thick liquids, aspiration precautions De-escalate antibiotic therapy and discontinue vancomycin and Zosyn, start Unasyn IV Qualifiers: Aspiration pneumonia type: unspecified Laterality: bilateral Lung location: lower lobe of lung Qualified Code(s): J69.0 - Pneumonitis due to inhalation of food and vomit (3) ABIGAIL on CPAP Current Visit: No Status: Chronic (4) History of CVA (cerebrovascular accident) Current Visit: No Status: Chronic (5) Essential hypertension Current Visit: No Status: Chronic Assessment and plan: Stable, continue amlodipine and labetalol (6) Anemia Current Visit: No Status: Acute Assessment and plan: Anemia of chronic disease/end-stage renal disease Qualifiers: Anemia type: due to chronic kidney disease Chronic kidney disease stage: on chronic dialysis Qualified Code(s): N18.6 - End stage renal disease; D63.1 - Anemia in chronic kidney disease; Z99.2 - Dependence on renal dialysis (7) Fever Current Visit: Yes Status: Acute Assessment and plan: Possibly secondary to aspiration Qualifiers: Fever type: unspecified Qualified Code(s): R50.9 - Fever, unspecified (8) ESRD (end stage renal disease) on dialysis Current Visit: Yes Status: Chronic Assessment and plan: Continue hemodialysis (9) 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 Current Visit: No Status: Chronic Assessment and plan: Continue insulin sliding scale Levemir 40 units twice a day Qualifiers: 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 type: type 2 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 complication status: with kidney complications 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 complication detail: with chronic kidney disease 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 longterm insulin use: with longterm use Chronic kidney disease stage: on chronic dialysis Qualified Code(s): E11.22 - Type 2 diabetes mellitus with diabetic chronic kidney disease; N18.6 - End stage renal disease; Z99.2 - Dependence on renal dialysis; Z99.2 - Dependence on renal dialysis; Z99.2 - Dependence on renal dialysis; N18.6 - End stage renal disease; N18.6 - End stage renal disease; N18.6 - End stage renal disease ; Z79.4 - continuous churn buttermaker (current) use of insulin; Z79.4 - intermediate (current) use of insulin; Z79.4 - continuous churn buttermaker (current) use of insulin; Z79.4 - continuous churn buttermaker ( current) use of insulin; Z99.2 - Dependence on renal dialysis - Subjective Interval history: Very somnolent, poor historian. Does not remember much about what happened yesterday. Examined during dialysis. Denies any chest pain, feels short of breath, has minimal phlegm production. According to the records apparently he had a fever at the nursing facility. Denies pain. Appears to be comfortable - Constitutional Vitals: Temp Pulse Resp BP Pulse Ox 98.1 F 68 18 130/73 97 06/30/17 07:30 06/30/17 07:30 06/30/17 07:30 06/30/17 07:30 06/30/17 07:30 General appearance: Present: A&O X 3, no acute distress - Head Head exam: Present: atraumatic, normocephalic - Eye Eye exam: Present: PERRL, conjuntiva pink, sclera anicteric Pupils: Present: PERRL - Neck Neck exam general surgery: Present: supple, trachea midline. Absent: lymphadenopathy - Respiratory Respiratory exam: Present: decreased breath sounds, CTAB. Absent: accessory muscle use, rales, rhonchi, wheezes Additional comments: bibasilar fine crackles - Cardiovascular Cardiovascular exam: Present: RRR, +S1, +S2. Absent: diastolic murmur, gallop, rubs, systolic murmur - GI/Abdominal GI/Abdominal exam: Present: distended, normal bowel sounds, soft, no peritoneal signs. Absent: tenderness - Extremities Exam Extremities exam: Present: warm, radial pulses palpable and symmetrical. Absent : calf tenderness, cyanotic, pedal edema - Neurological Exam Neurological exam: Present: CN II-XII intact, oriented X3, no focal deficits. Absent: pronater drift, facial droop, speech deficit - Skin Skin exam: Present: dry, intact Additional comments: Right upper chest dialysis catheter Internal Medicine: Result - Labs CBC & Chem 7: 06/29/17 20:36 06/29/17 20:36 Labs: Short CBC 06/29/17 Range/Units 20:36 WBC 7.3 (4.3-11.1) K/mcL Hgb 7.7 L (12.9-16.9) g/dL Hct 26.2 L (37.5-50.1) % Plt Count 235 (140-400) K/mcL Neutrophils # 5.2 (1.6-8.9) K/mcL BMP 06/29/17 20:36 Sodium 136 Potassium 4.5 Chloride 100 Carbon Dioxide 26 BUN 46 H Creatinine 5.35 H Glucose 186 H Calcium 7.9 L Liver Function 06/29/17 Range/Units 20:36 Total Bilirubin 0.5 (0.2-1.2) mg/dL AST 57 H (5-34) Units/L ALT 30 (0-55) Units/L Alkaline Phosphatase 202 H (38-126) Units/L Albumin 2.4 L (3.5-5.0) g/dL Urine 06/30/17 Range/Units 01:20 Urine Color Yellow (Yellow) Urine Clarity Cloudy A (Clear) Urine pH 6.0 (5.0-8.0) pH Units Ur Specific [place] 1.017 (1.010-1.025) Urine Protein >=300 H (Neg-Trace) mg/dL Urine Glucose (UA) 500 H (Normal) mg/dL - ABG Interpretation ABG results: PT/INR, D-dimer PT 11.5 Seconds (9.4-12.1) 06/29/17 20:36 - Impressions Impressions Chest X-Ray 06/29/17 19:58 IMPRESSION: 1. Cardiomegaly with findings of acute congestive heart failure including small layering bilateral pleural effusions. 2. New right-sided dialysis catheter with the tip in the lower SVC. D/ / Asa Lawler MD / Asa Lawler MD Interpreting Provider: Asa Lawler MD Consult Discharge Plan - Plan Referrals: NONE,PCP [Primary Care Provider] -
[2017-06-30] MEDS: amLODIPine 5 MG TABLET PO SCH (11:31)
[2017-06-30] MEDS: Insulin DETEMIR 100 UNIT/ML X5UNITS SQ SCH ×2 (11:34→21:32)
[2017-06-30] MEDS: Ciprofloxacin OPTH Soln 2.5 ML BOTTLE BOTH EYES SCH ×3 (11:34→21:38)
[2017-06-30] MEDS ORDERED: Ampicillin/Sulbactam 1,500 MG in 0.9 % Sodium Chloride Mini Bag 100 ML IVPB SCH ×2 (12:00→17:00)
[2017-06-30] MEDS ORDERED: Ampicillin/Sulbactam 3,000 MG in 0.9 % Sodium Chloride Mini Bag 100 ML IVPB SCH (12:00)
[2017-06-30] MEDS: Levofloxacin 500 MG/100 ML 500 MG/100 ML BAG IVPB SCH (13:27)
[2017-06-30] MEDS ORDERED: 0.9 % Sodium Chloride 1,000 ML ONE (15:37)
[2017-06-30] MEDS ORDERED: Piperacillin/Tazobactam 2.25 GM in D5% in Water (Mini-Bag+) 100 ML IVPB SCH (16:00)
[2017-06-30] MEDS: Piperacillin/Tazobactam 3.375 GM in D5% in Water (Mini-Bag+) 100 ML IVPB SCH (17:31)
[2017-07-01] MEDS: Ciprofloxacin OPTH Soln 2.5 ML BOTTLE BOTH EYES SCH ×6 (01:00→21:50)
[2017-07-01 05:37] LABS: Hemoglobin 7.9 g/dL (12.9-16.9); Mean Corpuscular HGB Conc 29.3 g/dL (31.6-35.5); Mean Corpuscular Hemoglobin 27.7 pg (28.0-33.3); Mean Corpuscular Volume 94.7 fL (83.0-100.0); Mean Platelet Volume 9.8 fL (9.4-12.4); Platelet Count 228 K/mcL (140-400); Red Blood Count 2.85 M/mcL (4.19-5.50); Red Cell Distribution Width 14.7 % (11.5-14.5)
[2017-07-01 05:52] LABS: Calcium 7.8 mg/dL (8.6-10.8); Potassium 4.5 mEq/L (3.5-4.5)
[2017-07-01] MEDS: Piperacillin/Tazobactam 3.375 GM in D5% in Water (Mini-Bag+) 100 ML IVPB SCH ×2 (05:53→16:27)
[2017-07-01] MEDS: *HR* Heparin 5,000 UNIT/ML VIAL SQ SCH ×3 (05:53→21:48)
[2017-07-01] MEDS: Finasteride 5 MG TABLET PO SCH (09:44)
[2017-07-01] MEDS: Pregabalin 50 MG CAPSULE PO SCH (09:44)
[2017-07-01] MEDS: amLODIPine 5 MG TABLET PO SCH (09:44)
[2017-07-01] MEDS: Famotidine 20 MG TABLET PO SCH (09:45)
[2017-07-01] MEDS: Furosemide 20 MG TABLET PO SCH (09:45)
[2017-07-01] MEDS: Aspirin Enteric Coated 325 MG Tablet PO SCH (09:45)
[2017-07-01] MEDS: Primidone 50 MG TABLET PO SCH (09:45)
[2017-07-01] MEDS: Insulin LISPRO 300 UNITS/3 ML VIAL SQ SCH ×4 (09:52→21:50)
[2017-07-01] MEDS: Insulin DETEMIR 100 UNIT/ML X5UNITS SQ SCH ×2 (09:52→21:49)
--- NOTE | 2017-07-01 11:20 | Nephrology Progress Note ---
Date of Encounter: 07/01/17 Time of Encounter: 10:55 - Assessment and Plan (1) End stage kidney disease Current Visit: No Status: Acute Blood cultures negative. No HD today, keeping MWF schedule. Subjective Interval history: Laying quietly in bed. States feels somewhat stronger today. at bedside, no new complaints. Objective - Vital Signs Vital signs: Vital Signs Temp Pulse Resp BP Pulse Ox 07/01/17 10:36 98.3 F 66 18 100/59 97 07/01/17 06:41 98.1 F 68 18 108/59 96 07/01/17 03:44 97.5 F L 66 18 120/65 93 06/30/17 22:57 98.5 F 74 17 136/65 97 06/30/17 19:09 98.2 F 77 18 156/69 94 06/30/17 16:21 99.8 F H 77 18 136/78 93 06/30/17 13:05 97.8 F 18 104/68 06/30/17 12:45 113/57 06/30/17 12:15 129/69 06/30/17 11:45 130/62 Intake and Output 06/30/17 07/01/17 07/01/17 23:59 07:59 15:59 Intake Total 160 / 160 Output Total 150 / 150 Balance 160 / 160 -150 / -150 Intake: IV Fluids 100 / 100 Zosyn 3.375 GM In Dextrose 5% ( 100 / 100 Minibag+) 100 ML 100 ML @ 25 mls/hr IVPB Q12H [facility] Rx#: [id number] Oral 60 / 60 Output: Catheter 150 / 150 Other: Meal Dinner Percent of Meal Consumed 50% Weight 114 kg Blood Glucose* 119 102 110 Patient Weight 07/01/17 23:59 Weight 114 kg - General Appearance General appearance: Present: well-developed, well-nourished, appears started age , obese EENT: Present: mucous membranes moist Neck: Present: no JVD Cardiology: Present: edema, regular rate, regular rhythm Additional Comments: moderate pitting pedal edema Gastrointestinal: Present: normoactive bowel sounds, no tenderness Integumentary: Present: warm and dry Neurologic: Present: alert and oriented x3 Psychiatric: Present: mood/affect appropriate, cooperative - Lab 07/01/17 05:12 07/01/17 05:12 Most recent lab results Calcium 7.8 mg/dL (8.6-10.8) L 07/01/17 05:12 Magnesium 1.9 mg/dL (1.6-2.6) 06/29/17 20:36 Consult Discharge Plan - Plan Referrals: Anju Britt [Advanced Practice Nurse] -
--- NOTE | 2017-07-01 12:48 | Internal Med Progress Note ---
Date of Encounter: 07/01/17 Time of Encounter: 12:45 - Assessment and plan (1) Diastolic CHF, acute on chronic Current Visit: No Status: Acute Assessment and plan: Acute on chronic diastolic CHF exacerbation Removed fluid through dialysis, continue Lasix Strict I's and O's and daily weight Will require fluid restriction Echocardiogram from May 2017 shows an ejection fraction of 60%, mild concentric left ventricular hypertrophy, mild diastolic dysfunction Chest x-ray showed:. Cardiomegaly with findings of acute congestive heart failure including small layering bilateral pleural effusions. (2) Aspiration pneumonia Current Visit: No Status: Acute Assessment and plan: With gram-negative ruby bacteremia Apparently was intubated during last hospitalization Continue mechanical diet with thick liquids, aspiration precautions Discontinued IV vancomycin Continue Zosyn and Levaquin day 2 [facility] lab is reporting growth of gram-negative rods in blood. Apparently took only one bottle. Qualifiers: Aspiration pneumonia type: unspecified Laterality: bilateral Lung location: lower lobe of lung Qualified Code(s): J69.0 - Pneumonitis due to inhalation of food and vomit (3) ABIGAIL on CPAP Current Visit: No Status: Chronic (4) History of CVA (cerebrovascular accident) Current Visit: No Status: Chronic (5) Essential hypertension Current Visit: No Status: Chronic Assessment and plan: Stable, continue amlodipine and labetalol (6) Anemia Current Visit: No Status: Acute Assessment and plan: Anemia of chronic disease/end-stage renal disease Qualifiers: Anemia type: due to chronic kidney disease Chronic kidney disease stage: on chronic dialysis Qualified Code(s): N18.6 - End stage renal disease; D63.1 - Anemia in chronic kidney disease; Z99.2 - Dependence on renal dialysis (7) Fever Current Visit: Yes Status: Acute Assessment and plan: Possibly secondary to aspiration Qualifiers: Fever type: unspecified Qualified Code(s): R50.9 - Fever, unspecified (8) ESRD (end stage renal disease) on dialysis Current Visit: Yes Status: Chronic Assessment and plan: Continue hemodialysis (9) 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 Current Visit: No Status: Chronic Assessment and plan: Continue insulin sliding scale Levemir 40 units twice a day Qualifiers: 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 type: type 2 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 complication status: with kidney complications 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 complication detail: with chronic kidney disease 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 half-way insulin use: with long term care phlebotomist use Chronic kidney disease stage: on chronic dialysis Qualified Code(s): E11.22 - Type 2 diabetes mellitus with diabetic chronic kidney disease; N18.6 - End stage renal disease; Z99.2 - Dependence on renal dialysis; Z99.2 - Dependence on renal dialysis; Z99.2 - Dependence on renal dialysis; N18.6 - End stage renal disease; N18.6 - End stage renal disease; N18.6 - End stage renal disease ; Z79.4 - watermaster (current) use of insulin; Z79.4 - watermaster (current) use of insulin; Z79.4 - watermaster (current) use of insulin; Z79.4 - detention ( current) use of insulin; Z99.2 - Dependence on renal dialysis - Subjective Interval history: Somnolent, poor historian. Does not remember much about what happened prior to his admission. Denies any chest pain, feels short of breath, has minimal phlegm production. According to the records apparently he had a fever at the nursing facility. Denies pain. Appears to be comfortable - Constitutional Vitals: Temp Pulse Resp BP Pulse Ox 98.3 F 66 18 100/59 97 07/01/17 10:36 07/01/17 10:36 07/01/17 10:36 07/01/17 10:36 07/01/17 10:36 General appearance: Present: A&O X 3, no acute distress Exam: - Head Head exam: Present: atraumatic, normocephalic - Eye Eye exam: Present: PERRL, conjuntiva pink, sclera anicteric Pupils: Present: PERRL - Neck Neck exam general surgery: Present: supple, trachea midline. Absent: lymphadenopathy - Respiratory Respiratory exam: Present: decreased breath sounds, CTAB. Absent: accessory muscle use, rales, rhonchi, wheezes Additional comments: bibasilar fine crackles - Cardiovascular Cardiovascular exam: Present: RRR, +S1, +S2. Absent: diastolic murmur, gallop, rubs, systolic murmur - GI/Abdominal GI/Abdominal exam: Present: distended, normal bowel sounds, soft, no peritoneal signs. Absent: tenderness - Extremities Exam Extremities exam: Present: warm, radial pulses palpable and symmetrical. Absent : calf tenderness, cyanotic, pedal edema - Neurological Exam Neurological exam: Present: CN II-XII intact, oriented X3, no focal deficits. Absent: pronater drift, facial droop, speech deficit - Skin Skin exam: Present: dry, intact Additional comments: Right upper chest dialysis catheter Internal Medicine: Result - Labs CBC & Chem 7: 07/01/17 05:12 07/01/17 05:12 Labs: Short CBC 07/01/17 Range/Units 05:12 WBC 8.8 (4.3-11.1) K/mcL Hgb 7.9 L (12.9-16.9) g/dL Hct 27.0 L (37.5-50.1) % Plt Count 228 (140-400) K/mcL BMP 07/01/17 05:12 Sodium 136 Potassium 4.5 Chloride 100 Carbon Dioxide 25 BUN 40 H Creatinine 4.82 H Glucose 100 H Calcium 7.8 L - ABG Interpretation ABG results: PT/INR, D-dimer PT 11.5 Seconds (9.4-12.1) 06/29/17 20:36 Consult Discharge Plan - Plan Referrals: Anju Britt [Advanced Practice Nurse] -
[2017-07-01 15:27] LABS: ABG Base Excess 4 mEq/L (-2 to 3); ABG HCO3 31 mEq/L (21-27); ABG Oxygen Saturation 94 % (95-98); ABG PCO2 62 mmHg (35-45); ABG PH 7.31 pH Units (7.32-7.45); ABG PO2 81 mmHg (85-104); ABG TCO2 33 mEq/L (20-26); Blood Gas FiO2 2.5 (1-15=lpm or21-100=%)
[2017-07-02] MEDS: Ciprofloxacin OPTH Soln 2.5 ML BOTTLE BOTH EYES SCH ×6 (00:28→20:23)
[2017-07-02] MEDS: Piperacillin/Tazobactam 3.375 GM in D5% in Water (Mini-Bag+) 100 ML IVPB SCH ×2 (04:31→17:21)
[2017-07-02 05:17] LABS: Hematocrit 26.7 % (37.5-50.1); Hemoglobin 7.9 g/dL (12.9-16.9); Mean Corpuscular HGB Conc 29.6 g/dL (31.6-35.5); Mean Corpuscular Hemoglobin 27.7 pg (28.0-33.3); Mean Corpuscular Volume 93.7 fL (83.0-100.0); Mean Platelet Volume 9.8 fL (9.4-12.4); Platelet Count 234 K/mcL (140-400); Red Blood Count 2.85 M/mcL (4.19-5.50); Red Cell Distribution Width 14.6 % (11.5-14.5)
[2017-07-02 05:35] LABS: Calcium 8.3 mg/dL (8.6-10.8); Potassium 4.7 mEq/L (3.5-4.5)
[2017-07-02] MEDS: *HR* Heparin 5,000 UNIT/ML VIAL SQ SCH ×3 (05:56→21:42)
[2017-07-02] MEDS ORDERED: 0.9 % Sodium Chloride 2,000 ML ONE (06:56)
[2017-07-02] MEDS ORDERED: 0.9 % Sodium Chloride 250 ML IVC PRN (07:30)
[2017-07-02] MEDS ORDERED: *HR* Heparin 10,000 UNIT/10 ML VIAL IV PRN (07:30)
[2017-07-02] MEDS ORDERED: 0.9 % Sodium Chloride 1,000 ML PRIME SCH (07:30)
[2017-07-02] MEDS: Insulin LISPRO 300 UNITS/3 ML VIAL SQ SCH ×4 (07:45→20:45)
[2017-07-02] MEDS: Aspirin Enteric Coated 325 MG Tablet PO SCH (09:07)
[2017-07-02] MEDS: Primidone 50 MG TABLET PO SCH (09:07)
[2017-07-02] MEDS: amLODIPine 5 MG TABLET PO SCH (09:07)
[2017-07-02] MEDS: Furosemide 20 MG TABLET PO SCH (09:08)
[2017-07-02] MEDS: Pregabalin 50 MG CAPSULE PO SCH ×2 (09:08→20:23)
[2017-07-02] MEDS: Famotidine 20 MG TABLET PO SCH (09:08)
[2017-07-02] MEDS: Insulin DETEMIR 100 UNIT/ML X5UNITS SQ SCH ×2 (09:08→20:46)
[2017-07-02] MEDS: Finasteride 5 MG TABLET PO SCH (09:08)
--- NOTE | 2017-07-02 10:24 | Nephrology Progress Note ---
Date of Encounter: 07/02/17 Time of Encounter: 10:15 - Assessment and Plan (1) End stage kidney disease Current Visit: No Status: Acute Blood cultures negative. HD today, keeping MWF schedule. Orders given. Subjective Interval history: Seen on HD. States feeling better. No new complaints Objective - Vital Signs Vital signs: Vital Signs Temp Pulse Resp BP Pulse Ox 07/02/17 07:15 98.8 F 67 18 136/72 96 07/02/17 04:52 98.3 F 76 17 148/76 97 07/01/17 23:54 98.5 F 62 17 130/75 96 07/01/17 18:58 98 F 68 16 129/73 95 07/01/17 15:33 25 94 07/01/17 15:07 98.4 F 67 16 128/77 98 07/01/17 10:36 98.3 F 66 18 100/59 97 Intake and Output 07/01/17 07/02/17 07/02/17 23:59 07:59 15:59 Intake Total 100 / 100 Output Total 200 / 200 500 / 500 Balance 100 / 100 -200 / -200 -500 / -500 Intake: IV Fluids 100 / 100 Zosyn 3.375 GM In Dextrose 5% ( 100 / 100 Minibag+) 100 ML 100 ML @ 25 mls/hr IVPB Q12H [facility] Rx#: [id number] Oral 0 / 0 Output: Catheter 200 / 200 500 / 500 Other: Meal Dinner Breakfast Percent of Meal Consumed 90% 0% Weight 113.9 kg Blood Glucose* 270 110 Patient Weight 07/02/17 23:59 Weight 113.9 kg - General Appearance General appearance: Present: well-developed, well-nourished, appears started age , obese EENT: Present: mucous membranes moist Neck: Present: no JVD Respiratory: Present: clear Cardiology: Present: no edema, regular rate, regular rhythm Gastrointestinal: Present: normoactive bowel sounds, no tenderness Integumentary: Present: warm and dry Neurologic: Present: alert and oriented x3 Psychiatric: Present: mood/affect appropriate, cooperative - Lab 07/02/17 04:50 07/02/17 04:50 Most recent lab results ABG pH 7.31 pH Units (7.32-7.45) L 07/01/17 15:23 ABG pCO2 62 mmHg (35-45) H 10/05/17 15:23 ABG pO2 81 mmHg (85-104) L 07/01/17 15:23 ABG HCO3 31 mEq/L (21-27) H 07/01/17 15:23 ABG O2 Saturation 94 % (95-98) L 07/01/17 15:23 Calcium 8.3 mg/dL (8.6-10.8) L 07/02/17 04:50 Magnesium 1.9 mg/dL (1.6-2.6) 06/29/17 20:36 Consult Discharge Plan - Plan Referrals: Anju Britt [Advanced Practice Nurse] - 07/08/17 10:45 am (Please follow up as schedule..)
[2017-07-02] MEDS: Levofloxacin 500 MG/100 ML 500 MG/100 ML BAG IVPB SCH (13:54)
--- NOTE | 2017-07-02 14:43 | Internal Med Progress Note ---
Date of Encounter: 07/02/17 Time of Encounter: 14:41 - Assessment and plan (1) Diastolic CHF, acute on chronic Current Visit: No Status: Acute Assessment and plan: Acute on chronic diastolic CHF exacerbation Removed fluid through dialysis, continue Lasix Strict I's and O's and daily weight Will require fluid restriction Echocardiogram from May 2017 shows an ejection fraction of 60%, mild concentric left ventricular hypertrophy, mild diastolic dysfunction Chest x-ray showed:. Cardiomegaly with findings of acute congestive heart failure including small layering bilateral pleural effusions. (2) Aspiration pneumonia Current Visit: No Status: Acute Assessment and plan: With gram-negative ruby bacteremia Apparently was intubated during last hospitalization Continue mechanical diet with nectar thick liquids, aspiration precautions Discontinued IV vancomycin Continue Zosyn and Levaquin day 3 [facility] lab is reporting growth of gram-negative rods in blood. Apparently took only one bottle. Report still pending Qualifiers: Aspiration pneumonia type: unspecified Laterality: bilateral Lung location: lower lobe of lung Qualified Code(s): J69.0 - Pneumonitis due to inhalation of food and vomit (3) ABIGAIL on CPAP Current Visit: No Status: Chronic (4) History of CVA (cerebrovascular accident) Current Visit: No Status: Chronic (5) Essential hypertension Current Visit: No Status: Chronic Assessment and plan: Stable, continue amlodipine and labetalol (6) Anemia Current Visit: No Status: Acute Assessment and plan: Anemia of chronic disease/end-stage renal disease Qualifiers: Anemia type: due to chronic kidney disease Chronic kidney disease stage: on chronic dialysis Qualified Code(s): N18.6 - End stage renal disease; D63.1 - Anemia in chronic kidney disease; Z99.2 - Dependence on renal dialysis (7) Fever Current Visit: Yes Status: Acute Assessment and plan: Possibly secondary to aspiration Qualifiers: Fever type: unspecified Qualified Code(s): R50.9 - Fever, unspecified (8) ESRD (end stage renal disease) on dialysis Current Visit: Yes Status: Chronic Assessment and plan: Continue hemodialysis (9) 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 Current Visit: No Status: Chronic Assessment and plan: Continue insulin sliding scale Levemir 40 units twice a day Qualifiers: 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 type: type 2 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 complication status: with kidney complications 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 complication detail: with chronic kidney disease 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 terminal manager insulin use: with terminal manager use Chronic kidney disease stage: on chronic dialysis Qualified Code(s): E11.22 - Type 2 diabetes mellitus with diabetic chronic kidney disease; N18.6 - End stage renal disease; Z99.2 - Dependence on renal dialysis; Z99.2 - Dependence on renal dialysis; Z99.2 - Dependence on renal dialysis; N18.6 - End stage renal disease; N18.6 - End stage renal disease; N18.6 - End stage renal disease ; Z79.4 - lobsterman (current) use of insulin; Z79.4 - lobsterman (current) use of insulin; Z79.4 - skilled nursing (current) use of insulin; Z79.4 - lobsterman ( current) use of insulin; Z99.2 - Dependence on renal dialysis - Subjective Interval history: Somnolent, but more awake. Does not remember much about what happened prior to his admission. Denies any chest pain, feels short of breath, has minimal phlegm production. According to the records apparently he had a fever at the nursing facility. Denies pain. Appears to be comfortable - Constitutional Vitals: Temp Pulse Resp BP Pulse Ox 97.4 F L 67 18 109/56 96 07/02/17 13:37 07/02/17 07:15 07/02/17 13:37 07/02/17 13:37 07/02/17 07:15 General appearance: Present: A&O X 3, no acute distress Exam: Head Head exam: Present: atraumatic, normocephalic - Eye Eye exam: Present: PERRL, conjuntiva pink, sclera anicteric Pupils: Present: PERRL - Neck Neck exam general surgery: Present: supple, trachea midline. Absent: lymphadenopathy - Respiratory Respiratory exam: Present: decreased breath sounds, CTAB. Absent: accessory muscle use, rales, rhonchi, wheezes Additional comments: bibasilar fine crackles - Cardiovascular Cardiovascular exam: Present: RRR, +S1, +S2. Absent: diastolic murmur, gallop, rubs, systolic murmur - GI/Abdominal GI/Abdominal exam: Present: distended, normal bowel sounds, soft, no peritoneal signs. Absent: tenderness - Extremities Exam Extremities exam: Present: warm, radial pulses palpable and symmetrical. Absent : calf tenderness, cyanotic, pedal edema - Neurological Exam Neurological exam: Present: CN II-XII intact, oriented X3, no focal deficits. Absent: pronater drift, facial droop, speech deficit - Skin Skin exam: Present: dry, intact Additional comments: Right upper chest dialysis catheter Internal Medicine: Result - Labs CBC & Chem 7: 07/02/17 04:50 07/02/17 04:50 Labs: Short CBC 07/02/17 Range/Units 04:50 WBC 9.2 (4.3-11.1) K/mcL Hgb 7.9 L (12.9-16.9) g/dL Hct 26.7 L (37.5-50.1) % Plt Count 234 (140-400) K/mcL BMP 07/02/17 04:50 Sodium 137 Potassium 4.7 H Chloride 99 Carbon Dioxide 25 BUN 53 H D Creatinine 6.38 H Glucose 110 H Calcium 8.3 L - ABG Interpretation ABG results: ABG ABG pH 7.31 pH Units (7.32-7.45) L 07/01/17 15:23 ABG pCO2 62 mmHg (35-45) H 07/01/17 15:23 ABG pO2 81 mmHg (85-104) L 07/01/17 15:23 ABG O2 Saturation 94 % (95-98) L 07/01/17 15:23 PT/INR, D-dimer PT 11.5 Seconds (9.4-12.1) 06/29/17 20:36 Consult Discharge Plan - Plan Referrals: Anju Britt [Advanced Practice Nurse] - 07/08/17 10:45 am (Please follow up as schedule..)
[2017-07-03] MEDS: Ciprofloxacin OPTH Soln 2.5 ML BOTTLE BOTH EYES SCH ×6 (00:18→21:57)
[2017-07-03] MEDS: Piperacillin/Tazobactam 3.375 GM in D5% in Water (Mini-Bag+) 100 ML IVPB SCH ×2 (04:50→16:57)
[2017-07-03] MEDS: *HR* Heparin 5,000 UNIT/ML VIAL SQ SCH ×3 (06:04→21:56)
--- NOTE | 2017-07-03 09:16 | Nephrology Progress Note ---
Date of Encounter: 07/03/17 Time of Encounter: 09:05 - Assessment and Plan (1) End stage kidney disease Current Visit: No Status: Acute HD on Wednesday, keeping MWF schedule. Subjective Interval history: Sleeping, HOB elevated. Arouses easily.States did not feel weak after HD yesterday. Objective - Vital Signs Vital signs: Vital Signs Temp Pulse Resp BP Pulse Ox 07/03/17 07:36 97.4 F L 70 19 112/67 98 07/03/17 04:48 97.6 F 70 19 100/57 97 07/03/17 04:30 24 96 07/03/17 00:25 99.9 F H 75 19 130/67 97 07/03/17 00:06 30 97 07/02/17 19:56 98.6 F 80 22 133/82 95 07/02/17 15:43 98.4 F 82 20 120/63 91 07/02/17 13:37 97.4 F L 18 109/56 07/02/17 13:15 105/60 07/02/17 13:10 100/55 07/02/17 12:55 100/55 07/02/17 12:40 94/57 07/02/17 12:25 91/57 07/02/17 12:10 102/62 07/02/17 11:55 110/62 07/02/17 11:40 105/60 07/02/17 11:25 98/59 07/02/17 11:10 101/50 07/02/17 10:55 96/44 07/02/17 10:40 99/50 07/02/17 10:25 117/62 07/02/17 10:10 97 F L 18 121/57 Intake and Output 07/02/17 07/03/17 07/03/17 23:59 07:59 15:59 Intake Total 460 / 460 480 / 480 Output Total 150 / 150 Balance 310 / 310 480 / 480 Intake: IV Fluids 100 / 100 Zosyn 3.375 GM In Dextrose 5% ( 100 / 100 Minibag+) 100 ML 100 ML @ 25 mls/hr IVPB Q12H [facility] Rx#: [id number] Oral 360 / 360 480 / 480 Output: Catheter 150 / 150 Other: Meal No fluids given. Breakfast Percent of Meal Consumed 100% 100% Blood Glucose* 200 73 - General Appearance General appearance: Present: well-developed, well-nourished, appears started age , obese EENT: Present: mucous membranes moist Neck: Present: no JVD Respiratory: Present: clear Cardiology: Present: edema, regular rate, regular rhythm Additional Comments: mild pedal Gastrointestinal: Present: normoactive bowel sounds, no tenderness Integumentary: Present: warm and dry Neurologic: Present: alert and oriented x3 Psychiatric: Present: mood/affect appropriate, cooperative - Lab 07/02/17 04:50 07/02/17 04:50 Most recent lab results ABG pH 7.31 pH Units (7.32-7.45) L 07/01/17 15:23 ABG pCO2 62 mmHg (35-45) H 07/01/17 15:23 ABG pO2 81 mmHg (85-104) L 07/01/17 15:23 ABG HCO3 31 mEq/L (21-27) H 07/01/17 15:23 ABG O2 Saturation 94 % (95-98) L 07/01/17 15:23 Calcium 8.3 mg/dL (8.6-10.8) L 07/02/17 04:50 Magnesium 1.9 mg/dL (1.6-2.6) 06/29/17 20:36 Consult Discharge Plan - Plan Referrals: Anju Britt [Advanced Practice Nurse] - 07/08/17 10:45 am (Please follow up as schedule..)
[2017-07-03] MEDS: Insulin LISPRO 300 UNITS/3 ML VIAL SQ SCH ×4 (09:31→21:57)
[2017-07-03] MEDS: Famotidine 20 MG TABLET PO SCH ×2 (09:39→12:24)
[2017-07-03] MEDS: Aspirin Enteric Coated 325 MG Tablet PO SCH (09:39)
[2017-07-03] MEDS: Insulin DETEMIR 100 UNIT/ML X5UNITS SQ SCH ×3 (09:39→21:56)
[2017-07-03] MEDS: amLODIPine 5 MG TABLET PO SCH (09:39)
[2017-07-03] MEDS: Furosemide 20 MG TABLET PO SCH (09:39)
[2017-07-03] MEDS: Primidone 50 MG TABLET PO SCH (09:39)
[2017-07-03] MEDS: Finasteride 5 MG TABLET PO SCH (09:39)
[2017-07-03] MEDS: Pregabalin 50 MG CAPSULE PO SCH ×2 (09:40→12:23)
--- NOTE | 2017-07-03 15:37 | Internal Med Progress Note ---
Date of Encounter: 07/03/17 Time of Encounter: 15:35 - Assessment and plan (1) Aspiration pneumonia Current Visit: No Status: Acute Assessment and plan: With gram-negative ruby bacteremia Apparently was intubated during last hospitalization Continue mechanical diet with nectar thick liquids, aspiration precautions Discontinued IV vancomycin Continue Zosyn and Levaquin day 4 [facility] lab is reporting growth of gram-negative rods in blood. Apparently took only one bottle. Report still pending Qualifiers: Aspiration pneumonia type: unspecified Laterality: bilateral Lung location: lower lobe of lung Qualified Code(s): J69.0 - Pneumonitis due to inhalation of food and vomit (2) Diastolic CHF, acute on chronic Current Visit: No Status: Acute Assessment and plan: Acute on chronic diastolic CHF exacerbation Removed fluid through dialysis, continue Lasix Strict I's and O's and daily weight Will require fluid restriction Echocardiogram from May 2017 shows an ejection fraction of 60%, mild concentric left ventricular hypertrophy, mild diastolic dysfunction Chest x-ray showed:. Cardiomegaly with findings of acute congestive heart failure including small layering bilateral pleural effusions. (3) ABIGAIL on CPAP Current Visit: No Status: Chronic (4) History of CVA (cerebrovascular accident) Current Visit: No Status: Chronic (5) Essential hypertension Current Visit: No Status: Chronic Assessment and plan: Stable, continue amlodipine and labetalol (6) Anemia Current Visit: No Status: Acute Assessment and plan: Anemia of chronic disease/end-stage renal disease Qualifiers: Anemia type: due to chronic kidney disease Chronic kidney disease stage: on chronic dialysis Qualified Code(s): N18.6 - End stage renal disease; D63.1 - Anemia in chronic kidney disease; Z99.2 - Dependence on renal dialysis (7) Fever Current Visit: Yes Status: Acute Assessment and plan: Possibly secondary to aspiration Qualifiers: Fever type: unspecified Qualified Code(s): R50.9 - Fever, unspecified (8) ESRD (end stage renal disease) on dialysis Current Visit: Yes Status: Chronic Assessment and plan: Continue hemodialysis (9) 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 Current Visit: No Status: Chronic Assessment and plan: Continue insulin sliding scale Levemir 40 units twice a day Qualifiers: 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 type: type 2 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 complication status: with kidney complications 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 complication detail: with chronic kidney disease 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 keno terminal operator insulin use: with keno terminal operator use Chronic kidney disease stage: on chronic dialysis Qualified Code(s): E11.22 - Type 2 diabetes mellitus with diabetic chronic kidney disease; N18.6 - End stage renal disease; Z99.2 - Dependence on renal dialysis; Z99.2 - Dependence on renal dialysis; Z99.2 - Dependence on renal dialysis; N18.6 - End stage renal disease; N18.6 - End stage renal disease; N18.6 - End stage renal disease ; Z79.4 - termite exterminator helper (current) use of insulin; Z79.4 - termite exterminator helper (current) use of insulin; Z79.4 - correction (current) use of insulin; Z79.4 - termite exterminator helper ( current) use of insulin; Z99.2 - Dependence on renal dialysis - Subjective Interval history: Somnolent, but able to mention that he is not in pain. Does not remember much about what happened prior to his admission. Denies any chest pain, feels short of breath, has minimal phlegm production. According to the records apparently he had a fever at the nursing facility. Denies pain. - Constitutional Vitals: Temp Pulse Resp BP Pulse Ox 97.9 F 78 18 145/70 94 07/03/17 11:04 07/03/17 11:04 07/03/17 11:04 07/03/17 11:04 07/03/17 11:04 General appearance: Present: A&O X 3, no acute distress Exam: Head Head exam: Present: atraumatic, normocephalic - Eye Eye exam: Present: PERRL, conjuntiva pink, sclera anicteric Pupils: Present: PERRL - Neck Neck exam general surgery: Present: supple, trachea midline. Absent: lymphadenopathy - Respiratory Respiratory exam: Present: decreased breath sounds, CTAB. Absent: accessory muscle use, rales, rhonchi, wheezes Additional comments: bibasilar fine crackles - Cardiovascular Cardiovascular exam: Present: RRR, +S1, +S2. Absent: diastolic murmur, gallop, rubs, systolic murmur - GI/Abdominal GI/Abdominal exam: Present: distended, normal bowel sounds, soft, no peritoneal signs. Absent: tenderness - Extremities Exam Extremities exam: Present: warm, radial pulses palpable and symmetrical. Absent : calf tenderness, cyanotic, pedal edema - Neurological Exam Neurological exam: Present: CN II-XII intact, oriented X3, no focal deficits. Absent: pronater drift, facial droop, speech deficit - Skin Skin exam: Present: dry, intact Additional comments: Right upper chest dialysis catheter Internal Medicine: Result - Labs CBC & Chem 7: 07/02/17 04:50 07/02/17 04:50 - ABG Interpretation ABG results: ABG ABG pH 7.31 pH Units (7.32-7.45) L 07/01/17 15:23 ABG pCO2 62 mmHg (35-45) H 07/01/17 15:23 ABG pO2 81 mmHg (85-104) L 07/01/17 15:23 ABG O2 Saturation 94 % (95-98) L 07/01/17 15:23 PT/INR, D-dimer PT 11.5 Seconds (9.4-12.1) 06/29/17 20:36 Consult Discharge Plan - Plan Referrals: Anju Britt [Advanced Practice Nurse] - 07/08/17 10:45 am (Please follow up as schedule..)
[2017-07-03 23:45] LABS: Albumin 2.2 g/dL (3.5-5.0); Albumin/Globulin Ratio 0.4 (1.1-2.2); Bilirubin,Total 0.6 mg/dL (0.2-1.2); Calcium 8.2 mg/dL (8.6-10.8); Globulin 4.9 g/dL (2.4-3.5); Magnesium 1.9 mg/dL (1.6-2.6); Potassium 4.8 mEq/L (3.5-4.5); Total Protein 7.1 g/dL (6.0-8.3)
[2017-07-04] MEDS: Ciprofloxacin OPTH Soln 2.5 ML BOTTLE BOTH EYES SCH ×5 (00:43→17:07)
[2017-07-04] MEDS: Piperacillin/Tazobactam 3.375 GM in D5% in Water (Mini-Bag+) 100 ML IVPB SCH (05:47)
[2017-07-04] MEDS: *HR* Heparin 5,000 UNIT/ML VIAL SQ SCH ×2 (05:48→13:43)
[2017-07-04 08:02] LABS: Hematocrit 25.7 % (37.5-50.1); Hemoglobin 7.9 g/dL (12.9-16.9); Mean Corpuscular HGB Conc 30.7 g/dL (31.6-35.5); Mean Corpuscular Volume 91.1 fL (83.0-100.0); Mean Platelet Volume 9.3 fL (9.4-12.4); Platelet Count 224 K/mcL (140-400); Red Blood Count 2.82 M/mcL (4.19-5.50); Red Cell Distribution Width 14.8 % (11.5-14.5)
[2017-07-04 08:16] LABS: Calcium 8.4 mg/dL (8.6-10.8); Potassium 4.8 mEq/L (3.5-4.5)
[2017-07-04] MEDS: Primidone 50 MG TABLET PO SCH (08:22)
[2017-07-04] MEDS: Famotidine 20 MG TABLET PO SCH (08:23)
[2017-07-04] MEDS: amLODIPine 5 MG TABLET PO SCH (08:23)
[2017-07-04] MEDS: Insulin LISPRO 300 UNITS/3 ML VIAL SQ SCH ×3 (08:23→17:08)
[2017-07-04] MEDS: Finasteride 5 MG TABLET PO SCH (08:23)
[2017-07-04] MEDS: Pregabalin 50 MG CAPSULE PO SCH (08:23)
[2017-07-04] MEDS: Furosemide 20 MG TABLET PO SCH (08:23)
[2017-07-04] MEDS: Aspirin Enteric Coated 325 MG Tablet PO SCH (08:23)
[2017-07-04] MEDS: Insulin DETEMIR 100 UNIT/ML X5UNITS SQ SCH (08:29)
--- NOTE | 2017-07-04 09:43 | Nephrology Progress Note ---
Date of Encounter: 07/04/17 Time of Encounter: 09:35 - Assessment and Plan (1) End stage kidney disease Current Visit: No Status: Acute HD on Wednesday, keeping MWF schedule. Subjective Interval history: Laying in bed, head elevated. Ate breakfast. No new complaints. Objective - Vital Signs Vital signs: Vital Signs Temp Pulse Resp BP Pulse Ox 07/04/17 07:05 98.3 F 76 20 125/66 93 07/04/17 03:52 98.4 F 64 22 126/75 96 07/03/17 23:34 98.2 F 72 22 126/73 96 07/03/17 19:37 98.1 F 70 18 130/74 97 07/03/17 15:47 98.1 F 74 18 120/65 93 07/03/17 11:04 97.9 F 78 18 145/70 94 Intake and Output 07/03/17 07/04/17 07/04/17 23:59 07:59 15:59 Intake Total 340 / 340 0 / 0 Output Total 500 / 500 0 / 0 Balance 340 / 340 -500 / -500 0 / 0 Intake: IV Fluids 100 / 100 Zosyn 3.375 GM In Dextrose 5% ( 100 / 100 Minibag+) 100 ML 100 ML @ 25 mls/hr IVPB Q12H [facility] Rx#: [id number] Oral 240 / 240 0 / 0 Output: Urine 0 / 0 Catheter 500 / 500 Other: Meal Dinner Percent of Meal Consumed 100% Stool Size Small Stool Consistency soft Stool Color Brown Weight 113.5 kg Blood Glucose* 195 142 - General Appearance General appearance: Present: well-developed, well-nourished, appears started age , obese EENT: Present: mucous membranes moist Neck: Present: no JVD Respiratory: Present: clear Cardiology: Present: no edema, regular rate, regular rhythm Gastrointestinal: Present: normoactive bowel sounds, no tenderness Integumentary: Present: warm and dry Neurologic: Present: alert and oriented x3 Psychiatric: Present: mood/affect appropriate, cooperative - Lab 07/04/17 07:45 07/04/17 07:45 Most recent lab results ABG pH 7.31 pH Units (7.32-7.45) L 07/01/17 15:23 ABG pCO2 62 mmHg (35-45) H 07/01/17 15:23 ABG pO2 81 mmHg (85-104) L 07/01/17 15:23 ABG HCO3 31 mEq/L (21-27) H 07/01/17 15:23 ABG O2 Saturation 94 % (95-98) L 07/01/17 15:23 Calcium 8.4 mg/dL (8.6-10.8) L 07/04/17 07:45 Magnesium 1.9 mg/dL (1.6-2.6) 07/03/17 23:07 Consult Discharge Plan - Plan Referrals: Anju Britt [Advanced Practice Nurse] - 07/08/17 10:45 am (Please follow up as schedule..)
[2017-07-04] MEDS: Levofloxacin 500 MG/100 ML 500 MG/100 ML BAG IVPB SCH (12:03)
--- NOTE | 2017-07-04 12:33 | Discharge Summary ---
Date of Encounter: 07/04/17 Time of Encounter: 12:31 - Discharge Diagnosis (1) Aspiration pneumonia Priority: Primary Status: Acute Comments: Blood cultures possibly contaminated with Enterobacter asburiae Chest x-ray showed findings consistent with acute congestive heart failure including small bilateral pleural effusions/opacities, could represent pneumonia Qualifiers: Aspiration pneumonia type: unspecified Laterality: bilateral Lung location: lower lobe of lung Qualified Code(s): J69.0 - Pneumonitis due to inhalation of food and vomit (2) Diastolic CHF, acute on chronic Priority: Primary Status: Acute (3) ABIGAIL on CPAP Priority: Secondary Status: Chronic (4) History of CVA (cerebrovascular accident) Priority: Secondary Status: Chronic (5) Essential hypertension Priority: Secondary Status: Chronic (6) Anemia Priority: Secondary Status: Acute Comments: Anemia of chronic disease/end-stage renal disease Qualifiers: Anemia type: due to chronic kidney disease Chronic kidney disease stage: on chronic dialysis Qualified Code(s): N18.6 - End stage renal disease; D63.1 - Anemia in chronic kidney disease; Z99.2 - Dependence on renal dialysis (7) Fever Priority: Primary Status: Acute Qualifiers: Fever type: unspecified Qualified Code(s): R50.9 - Fever, unspecified (8) ESRD (end stage renal disease) on dialysis Priority: Secondary Status: Chronic (9) 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 Priority: Secondary Status: Chronic Qualifiers: 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 type: type 2 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 complication status: with kidney complications 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 complication detail: with chronic kidney disease 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 Chronic kidney disease stage: on chronic dialysis Qualified Code(s): E11.22 - Type 2 diabetes mellitus with diabetic chronic kidney disease; N18.6 - End stage renal disease; Z99.2 - Dependence on renal dialysis; Z99.2 - Dependence on renal dialysis; Z99.2 - Dependence on renal dialysis; N18.6 - End stage renal disease; N18.6 - End stage renal disease; N18.6 - End stage renal disease ; Z79.4 - FPC (current) use of insulin; Z79.4 - FPC (current) use of insulin; Z79.4 - FPC (current) use of insulin; 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; Z99.2 - Dependence on renal dialysis - Discharge Medications Prescriptions: Cefepime HCl/Dextrose, Iso-Osm [Cefepime 1 gm Injection] 1 gm IV DAILY #5 froz.piggy Tramadol HCl [Ultram] 50 mg PO BID PRN #15 tablet PRN Reason: Pain Home Medications: Aspirin [Ecotrin] 325 mg PO DAILY #0 06/05/15 [History] Finasteride [Proscar] 5 mg PO DAILY #0 06/05/15 [History] Primidone [Mysoline] 50 mg PO DAILY #0 06/05/15 [History] Ranitidine HCl [Zantac] 150 mg PO BID #0 06/05/15 [History] Simvastatin [Zocor] 10 mg PO QPM #0 06/05/15 [History] Tamsulosin [Flomax] 0.4 mg PO DAILY #0 06/05/15 [History] Calcitriol [Rocaltrol] 0.25 mcg PO DAILY 09/11/15 [History] Insulin ASPART [Novolog Flexpen] 15 unit SQ TID 12/30/16 [History] Montelukast [Singulair] 10 mg PO QPM 12/30/16 [History] Furosemide [Lasix] 20 mg PO DAILY 06/15/17 [History] Insulin DETEMIR [Levemir Flextouch] 40 unit SQ BID 06/15/17 [History] Ondansetron HCl [Zofran] 4 mg PO BID 06/15/17 [History] Oxygen 2 l NS AD 06/15/17 [History] PrednisoLONE Acetate 1% Opth [PredFORTE 1%] 1 drop OP QID PRN 06/15/17 [History] Pregabalin [Lyrica] 100 mg PO BID 06/15/17 [History] Epoetin Donell [Procrit] 10,000 unit SQ 3XW vial 06/25/17 [Rx] Labetalol [Trandate] 100 mg PO BID #60 tablet 06/25/17 [Rx] Pregabalin [Lyrica] 50 mg PO MoWeFr@2100 capsule 06/25/17 [Rx] amLODIPine [Norvasc] 5 mg PO DAILY #30 tablet 06/25/17 [Rx] Cefepime HCl/Dextrose, Iso-Osm [Cefepime 1 gm Injection] 1 gm IV DAILY #5 froz.piggy 07/04/17 [Rx] Ciprofloxacin OPTH Soln [Ciloxan OPTH Soln] 2 drop BOTH EYES Q4HR bottle [Rx] Tramadol HCl [Ultram] 50 mg PO BID PRN #15 tablet 07/04/17 [Rx] Allergies/Adverse Reactions: 3 Allergy/AdvReac Type Severity Reaction Status Date / Time No Known Allergies Allergy Verified 12/29/16 23:37 Date of admission: 06/30/17 15:41 Primary care physician: PCP NONE Consults: 06/29/17 20:03 Consult to Speech Therapy [CONS] Routine Comment: Evaluate, develop and implement POC Reason for Consult: history of apsiration pneumonia Call Completed: No 06/29/17 20:04 Consult to Physician [CONS] Routine Consulting Provider: Varun Be Reason for Consult: HD needs Time Notified: 20:04 Call Completed: Yes 06/30/17 08:45 Consult to Dialysis [CONS] ONCE 06/30/17 14:18 Consult to Occupational Therapy [CONS] Routine Comment: Evaluate, develop and implement POC Reason for Consult: eval for ecf Consult to Physical Therapy [CONS] Routine Comment: Evaluate, develop and implement POC Reason for Consult: eval for ecf 07/01/17 08:37 Consult to [employer] [CONS] Routine Reason for SW Consult: from swing bed 07/02/17 07:30 Consult to Dialysis [CONS] ONCE 07/03/17 07:30 Consult to Dialysis [CONS] ONCE - Patient Status Disposition: Transfer SNF Condition: Fair Overall status at discharge: patient is progressing back to baseline - Discharge Instructions Follow Up With: Anju Britt [Advanced Practice Nurse] - 07/08/17 10:45 am (Please follow up as schedule..) Additional Instructions: Continue 5 more days of cefepime 1 g daily. Continue hemodialyses. Consider treating with fluconazole if the patient becomes symptomatic as the urine culture showed growth of Leighann. Aspiration precautions - Diet and Activity Activity: increase activity as tolerated Diet: diabetic diet Hospital course: Mr. Prado is a 67 year old male with a past medical history of CVA, diabetes type 2 insulin-dependent, hypertension, hyperlipidemia, end-stage renal disease on dialysis, who presented in transfer from [facility] in [place]. He was just discharged from the hospital here to a swing bed at [facility] 4 days prior to his admission. Complained of increasing weakness, somnolence, and reported fever, he was transferred back to [place]. There were no transfer records as no transfer records were sent with patient from [facility]. Patient remained somnolent but easily easily arousable, oriented. During his past admission he had aspiration pneumonia requiring ICU admission and intubation. He was sent to [facility] for rehabilitation in a swing bed. However, he became progressively weaker and unable to care for himself now. Was started on Levaquin and Zosyn which were continued for 5 days, was being treated for gram-negative bacteremia. [facility] microbiology lab initially reported growth of gram-negative rods in blood. Apparently took only one bottle. Discontinued IV vancomycin The patient was also treated for acute on chronic diastolic CHF exacerbation. Removed fluid through dialysis, and continued Lasix Echocardiogram from May 2017 showed an ejection fraction of 60%, mild concentric left ventricular hypertrophy, mild diastolic dysfunction Chest x-ray showed:. Cardiomegaly with findings of acute congestive heart failure including small layering bilateral pleural effusions, bilateral lower lobe opacities, pneumonia could not be ruled out. Blood cultures over here were negative, urine culture showed growth of Leighann albicans and Winter the patient is asymptomatic. Finally, the report from [facility] was obtained and showed Enterobacter asburiae, sensitive only to cefepime, ertapenem, Bactrim, ceftazidime, amikacin and imipenem. Was resistant to levofloxacin, Zosyn, cefoxitin, ceftriaxone and intermediate sensitivity to gentamicin. According to this sensitivity the total antibiotics used should not have worked. Most likely this bacteria was a contaminant. Risks were explained to the patient and he prefers to be treated with cefepime. We will require 5 more days of cefepime to complete a total of 10 days of antibiotics. - Time Spent with Patient Total time spent providing and/or coordinating discharge services: Greater than 30 minutes (40 min) - Constitutional Vitals: Temp Pulse Resp BP Pulse Ox 97.6 F 81 19 130/68 95 07/04/17 11:03 07/04/17 11:03 07/04/17 11:03 07/04/17 11:03 07/04/17 11:03 General appearance: Present: A&O X 3, no acute distress Exam: Head Head exam: Present: atraumatic, normocephalic - Eye Eye exam: Present: PERRL, conjuntiva pink, sclera anicteric Pupils: Present: PERRL Crusts in both eyes have improved, conjunctivitis has improved - Neck Neck exam general surgery: Present: supple, trachea midline. Absent: lymphadenopathy - Respiratory Respiratory exam: Present: decreased breath sounds, CTAB. Absent: accessory muscle use, rales, rhonchi, wheezes Additional comments: bibasilar fine crackles - Cardiovascular Cardiovascular exam: Present: RRR, +S1, +S2. Absent: diastolic murmur, gallop, rubs, systolic murmur - GI/Abdominal GI/Abdominal exam: Present: distended, normal bowel sounds, soft, no peritoneal signs. Absent: tenderness - Extremities Exam Extremities exam: Present: warm, radial pulses palpable and symmetrical. Absent : calf tenderness, cyanotic, pedal edema - Neurological Exam Neurological exam: Present: CN II-XII intact, oriented X3, no focal deficits. Absent: pronater drift, facial droop, speech deficit - Skin Skin exam: Present: dry, intact Additional comments: Right upper chest dialysis catheter
--- NOTE | 2017-07-04 12:50 | Physician Discharge Referral ---
ExtendedCare Referral Info Provider in Charge after Transfer: PCP Institutional Level of Care: Skilled - Diagnosis (1) Aspiration pneumonia Status: Acute (2) Diastolic CHF, acute on chronic Status: Acute (3) ABIGAIL on CPAP Status: Chronic (4) History of CVA (cerebrovascular accident) Status: Chronic (5) Essential hypertension Status: Chronic (6) Anemia Status: Acute (7) Fever Status: Acute (8) ESRD (end stage renal disease) on dialysis Status: Chronic (9) 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 Status: Chronic - Transfer Medications Prescriptions: Cefepime HCl/Dextrose, Iso-Osm [Cefepime 1 gm Injection] 1 gm IV DAILY #5 froz.piggy Tramadol HCl [Ultram] 50 mg PO BID PRN #15 tablet PRN Reason: Pain Home Medications: Aspirin [Ecotrin] 325 mg PO DAILY #0 06/05/15 [History] Finasteride [Proscar] 5 mg PO DAILY #0 06/05/15 [History] Primidone [Mysoline] 50 mg PO DAILY #0 06/05/15 [History] Ranitidine HCl [Zantac] 150 mg PO BID #0 06/05/15 [History] Simvastatin [Zocor] 10 mg PO QPM #0 06/05/15 [History] Tamsulosin [Flomax] 0.4 mg PO DAILY #0 06/05/15 [History] Calcitriol [Rocaltrol] 0.25 mcg PO DAILY 09/11/15 [History] Insulin ASPART [Novolog Flexpen] 15 unit SQ TID 12/30/16 [History] Montelukast [Singulair] 10 mg PO QPM 12/30/16 [History] Furosemide [Lasix] 20 mg PO DAILY 06/15/17 [History] Insulin DETEMIR [Levemir Flextouch] 40 unit SQ BID 06/15/17 [History] Ondansetron HCl [Zofran] 4 mg PO BID 06/15/17 [History] Oxygen 2 l NS AD 06/15/17 [History] PrednisoLONE Acetate 1% Opth [PredFORTE 1%] 1 drop OP QID PRN 06/15/17 [History] Pregabalin [Lyrica] 100 mg PO BID 06/15/17 [History] Epoetin Donell [Procrit] 10,000 unit SQ 3XW vial 06/25/17 [Rx] Labetalol [Trandate] 100 mg PO BID #60 tablet 06/25/17 [Rx] Pregabalin [Lyrica] 50 mg PO MoWeFr@2100 capsule 06/25/17 [Rx] amLODIPine [Norvasc] 5 mg PO DAILY #30 tablet 06/25/17 [Rx] Cefepime HCl/Dextrose, Iso-Osm [Cefepime 1 gm Injection] 1 gm IV DAILY #5 froz.piggy 07/04/17 [Rx] Ciprofloxacin OPTH Soln [Ciloxan OPTH Soln] 2 drop BOTH EYES Q4HR bottle [Rx] Tramadol HCl [Ultram] 50 mg PO BID PRN #15 tablet 07/04/17 [Rx] Allergies/Adverse Reactions: 3 Allergy/AdvReac Type Severity Reaction Status Date / Time No Known Allergies Allergy Verified 12/29/16 23:37 - Respiratory Orders Smoking Cessation: Smoking cessation has been advised. For more information, call the [place] Tobacco Quit Line at 6-217-LQWH-NOW. - Advance Directives Code Status: Full Code - Diet Orders Renal House Supplement per Dietary: Continue 5 more days of cefepime 1 g daily. Continue hemodialyses. Consider treating with fluconazole if the patient becomes symptomatic as the urine culture showed growth of Leighann. Aspiration precautions CERTIFICATION: I certify that the transfer of the above named patient to an Extended Care Facility is necessary for the continuing treatment of the diagnosis listed. The above information is true and accurate reflection of patient's current condition. Confidential - Redisclosure prohibited without a patient's written consent.
[2017-07-04] MEDS ORDERED: Cefepime HCl 1,000 MG in D5% in Water (Mini-Bag+) 100 ML IVPB SCH (13:00)
[2017-07-04 16:04] VITALS: BP 138/61
== END 2017-07-04 18:33 | DRG 177 ==
LOC: 2ANU
PROVIDERS: ADMIT Internal Medicine; ATTEND Internal Medicine

== ENCOUNTER 2017-07-05 19:30 | Inpatient (IN) ==
[2017-07-05] MEDS ORDERED: Naloxone 0.4 MG/ML INJ IVP PRN (22:52)
[2017-07-05] MEDS ORDERED: Dextrose Gel 15 GM PO PRN ×2 (23:06)
[2017-07-05] MEDS ORDERED: D5% in Water 1,000 ML IVC PRN (23:06)
[2017-07-05] MEDS ORDERED: *HR* Dextrose 50 % in Water (Syg) 50 ML SYRINGE IVP PRN (23:06)
[2017-07-05] MEDS ORDERED: Levofloxacin 750 MG/150 ML 750 MG/150 ML BAG IVPB SCH (23:30)
[2017-07-05] MEDS ORDERED: Vancomycin 1,750 MG in D5% in Water 250 ML IVPB SCH (23:45)
--- NOTE | 2017-07-05 23:48 | Internal Med History&Physical ---
Date of Encounter: 07/05/17 Time of Encounter: 22:30 Assessment and Plan (1) Sepsis Current visit: Yes Status: Suspected 1. Given fever spikes and encephalopathy immediately after dialysis, I am concerned about infected dialysis catheter. 2. Culture dialysis catheter ports and peripheral blood cultures. 3. Will start on IV Vancomycin, Zosyn, and Levaquin. 4. Culture urine. 5. Will give IVF if needed. Qualifiers: Sepsis type: sepsis due to unspecified organism Qualified Code(s): A41.9 - Sepsis, unspecified organism (2) Encephalopathy acute Current visit: Yes Status: Acute 1. Likely due toxic metabolic encephalopathy as well suspected line sepsis. 2. Minimize sedating meds and monitor closely. 3. Resume HD schedule per nephrology. 4. Monitor glucose. 5. Will order Head CT. (3) ESRD (end stage renal disease) on dialysis Current visit: Yes Status: Chronic 1. Consult nephrology for HD needs. 2. May need removal of dialysis catheter if infected. Follow cultures and continue antibiotics for now. (4) IDDM (insulin dependent diabetes mellitus) Current visit: Yes Status: Acute 1. Monitor glucose closely. 2. Will place on SSI and resume home basal insulin when more awake and eating. (5) DVT prophylaxis Current visit: Yes Status: Acute 1. Heparin SQ. Internal Medicine - H&P: HPI Chief complaint: fever; cough Admitted From: Hospital to Hospital Transfer Plans for Post Hospital Care: Transfer [facility] Facility History of present illness: Mr. Prado is a 67 year old male who presents in transfer from [facility] in [place]. Patient was just discharged from the hospital yesterday back to [facility] for ongoing rehabilitation. He was doing well until today when he developed acute fever right after dialysis. Fever was 103 degrees Fahrenheit. He also developed subsequent coughing and shortness of breath. He was therefore sent to the ER locally at [facility]. He had preliminary workup there and was transferred here for ongoing care and further treatment as necessary. Upon my assessment of the patient, he is somnolent but arousable. He responds to painful and loud verbal stimuli. I reviewed his old records from his last visit a few days ago when I admitted him that time as well. His blood cultures were negative. His chest x-ray then did not show any evidence of infiltrate. It did show some signs of CHF. His states he has had some "dirty looking urine in his catheter". He's had no nausea, vomiting, or diarrhea. His cough is new tonight. It was somewhat productive as well. His states that he has been spiking fevers immediately after dialysis after the last several dialysis treatments. I am concerned that he may have an infected dialysis port. His last blood cultures were negative. However, they were peripheral blood cultures. I will order blood cultures both from his dialysis catheter and peripherally as well. Past Med Surg Social Fam HX - Past Medical History Attestation: Yes The following information was validated with the patient. Source: old records reviewed, obtained from family Medical history: CVA, diabetes, hyperlipidemia, hypertension, renal disease Psychiatric history: no psych history - Past Surgical History Surgical History: other (dialysis catheter placement; eye surgeries) - Social History Smoking Status: Former smoker Smokeless Tobacco Status: No Alcohol use: none Drug use: none Current living situation: [facility] Recent Out of Country Travel Within the Last 8 Weeks: No - Family History Mother Living Status: Age at : 78 Cause of : RA, old age Hx Family Musculoskeletal Disorders: Yes (rhumatoria arthritis) Father Living Status: Age at : 80 Hx Family Respiratory Disorders: Yes (emphasema) Hx Family Endocrine Disorder: Yes (diabetes) Internal Medicine - H&P: Meds Aspirin [Ecotrin] 325 mg PO DAILY #0 06/05/15 [History] Finasteride [Proscar] 5 mg PO DAILY #0 06/05/15 [History] Primidone [Mysoline] 50 mg PO DAILY #0 06/05/15 [History] Ranitidine HCl [Zantac] 150 mg PO BID #0 06/05/15 [History] Simvastatin [Zocor] 10 mg PO QPM #0 06/05/15 [History] Tamsulosin [Flomax] 0.4 mg PO DAILY #0 06/05/15 [History] Calcitriol [Rocaltrol] 0.25 mcg PO DAILY 09/11/15 [History] Insulin ASPART [Novolog Flexpen] 15 unit SQ TID 12/30/16 [History] Montelukast [Singulair] 10 mg PO QPM 12/30/16 [History] Furosemide [Lasix] 20 mg PO DAILY 06/15/17 [History] Insulin DETEMIR [Levemir Flextouch] 40 unit SQ BID 06/15/17 [History] Ondansetron HCl [Zofran] 4 mg PO BID 06/15/17 [History] Oxygen 2 l NS AD 06/15/17 [History] PrednisoLONE Acetate 1% Opth [PredFORTE 1%] 1 drop OP QID PRN 06/15/17 [History] Pregabalin [Lyrica] 100 mg PO BID 06/15/17 [History] Epoetin Donell [Procrit] 10,000 unit SQ 3XW vial 06/25/17 [Rx] Labetalol [Trandate] 100 mg PO BID #60 tablet 06/25/17 [Rx] Pregabalin [Lyrica] 50 mg PO MoWeFr@2100 capsule 06/25/17 [Rx] amLODIPine [Norvasc] 5 mg PO DAILY #30 tablet 06/25/17 [Rx] Cefepime HCl/Dextrose, Iso-Osm [Cefepime 1 gm Injection] 1 gm IV DAILY #5 froz.piggy 07/04/17 [Rx] Ciprofloxacin OPTH Soln [Ciloxan OPTH Soln] 2 drop BOTH EYES Q4HR bottle [Rx] Tramadol HCl [Ultram] 50 mg PO BID PRN #15 tablet 07/04/17 [Rx] 3 Allergy/AdvReac Type Severity Reaction Status Date / Time No Known Allergies Allergy Verified 12/29/16 23:37 - Constitutional Constitutional: chills, fever(s) (right after dialysis), no night sweats - EENT Eyes: no change in vision Ears: no ear pain, no tinnitus Nose, mouth and throat: no nasal congestion, no sinus pressure, no sore throat - Cardiovascular Cardiovascular ROS IM: no chest pain, no diaphoresis, no dyspnea - Respiratory Respiratory: cough, excessive phlegm production, no hemoptysis - Gastrointestinal Gastrointestinal: no abdominal pain, no diarrhea, no hematemesis, no hematochezia, no melena, no nausea, no vomiting - Genitourinary Genitourinary ROS male: dysuria, no flank pain, no hematuria - Musculoskeletal Musculoskeletal ROS IM: no arthralgias, no back pain - Integumentary Integumentary IM: no rash, no jaundice - Neurological Neurological ROS: no dizziness, no focal weakness, no weakness - Psychiatric Psychiatric: no anxiety, no depression - Endocrine Endocrine IM: no polydipsia, no polyuria - Allergic/Immunologic Allergic/Immunologic: no wheezing, no GI upset with certain foods - Constitutional Vitals: Temp Pulse Resp BP Pulse Ox 99.7 F H 87 18 99/53 94 07/05/17 21:12 07/05/17 21:12 07/05/17 21:12 07/05/17 21:12 07/05/17 21:12 Exam: Somnolent; responds to painful and loud stimuli - Head Head exam: Present: atraumatic, normal inspection - Expanded Head Exam Head exam expanded: Absent: abrasion, contusion, general tenderness - Eye Eye exam: Present: EOMI. Absent: scleral icterus - ENT ENT exam: Present: mucous membranes dry, normal exam - Neck Neck exam general surgery: Present: full ROM, supple. Absent: lymphadenopathy, tenderness - Respiratory Respiratory exam: Present: decreased breath sounds, rales (right base), rhonchi. Absent: accessory muscle use, chest wall tenderness, respiratory distress, wheezes - Cardiovascular Cardiovascular exam: Present: RRR, +S1, +S2. Absent: diastolic murmur, systolic murmur - GI/Abdominal GI/Abdominal exam: Present: normal bowel sounds, soft. Absent: guarding, hepatomegaly, mass, rebound, splenomegaly, tenderness - Additional comments: Winter in place with dark, concentrated urine - Extremities Exam Extremities exam: Present: full ROM, pedal edema (1+), warm. Absent: calf tenderness, tenderness - Back Exam Back exam: Absent: CVA tenderness (L), CVA tenderness (R) - Neurological Exam Additional comments: Somnolent; responds as above; verbalizes some, then falls right back to sleep - Skin Skin exam: Present: dry, warm. Absent: rash Internal Med - H&P Results - Labs Labs: I reviewed his labs from [facility] and include the following: WBC 12.6 Hemoglobin 8.2 Hematocrit 24.8 Platelet count 235 Neutrophils 96% Lipocytes 2% Monocytes 2% Sodium 136 Potassium 4.8 Chloride 98 Carbon dioxide 28 BUN 39 Glucose 164 Creatinine 5.84 I do not see any evidence of EKG or imaging studies performed at [facility].
[2017-07-06] MEDS ORDERED: 0.9 % Sodium Chloride 1,000 ML IVC SCH (00:30)
[2017-07-06 00:37] LABS: Basophils % 0.2 %; Hematocrit 24.4 % (37.5-50.1); Hemoglobin 7.3 g/dL (12.9-16.9); Immature Platelets 2.6 % (1.1-6.1); Lymphocytes # 0.8 K/mcL (0.6-4.6); Lymphocytes % 3.7 %; Mean Corpuscular HGB Conc 29.9 g/dL (31.6-35.5); Mean Corpuscular Hemoglobin 28.1 pg (28.0-33.3); Mean Corpuscular Volume 93.8 fL (83.0-100.0); Mean Platelet Volume 9.3 fL (9.4-12.4); Monocytes # 1.4 K/mcL (0.0-1.3); Monocytes % 6.5 %; Neutrophils # 19.5 K/mcL (1.6-8.9); Platelet Count 239 K/mcL (140-400); Red Cell Distribution Width 15.3 % (11.5-14.5); Segmented Neutrophils % 88.6 %
[2017-07-06 00:41] LABS: INR 1.2
[2017-07-06 00:44] LABS: Activated Partial Thrombo Time 31.5 Seconds (26.0-36.0)
[2017-07-06 00:51] LABS: Albumin 2.4 g/dL (3.5-5.0); Albumin/Globulin Ratio 0.5 (1.1-2.2); Bilirubin,Total 0.6 mg/dL (0.2-1.2); Calcium 8.1 mg/dL (8.6-10.8); Globulin 4.8 g/dL (2.4-3.5); Magnesium 1.8 mg/dL (1.6-2.6); Potassium 5.2 mEq/L (3.5-4.5); Total Protein 7.2 g/dL (6.0-8.3)
[2017-07-06] MEDS ORDERED: Vancomycin 1,750 MG in D5% in Water 500 ML IVPB ONE (01:00)
[2017-07-06 03:23] LABS: Bilirubin,Urine Moderate (Negative); Blood,Urine Large (Negative); Clarity,Urine Turbid (Clear); Color,Urine Red (Yellow); Glucose,Urine (UA) 100 mg/dL (Normal); Ketones,Urine Trace mg/dL (Negative); Leukocyte Esterase,Urine Large (Negative); Nitrite,Urine Negative (Negative); Protein,Urine >=1000 mg/dL (Neg-Trace); Specific Gravity,Urine 1.022 (1.010-1.025); Urobilinogen,Urine Normal (Normal)
[2017-07-06] MEDS: Ondansetron 4 MG/2 ML VIAL IVP PRN ×2 (04:19→19:35)
[2017-07-06] MEDS: Piperacillin/Tazobactam 3.375 GM in D5% in Water (Mini-Bag+) 100 ML IVPB SCH ×2 (07:21→17:06)
[2017-07-06] MEDS: *HR* Heparin 5,000 UNIT/ML VIAL SQ SCH ×2 (07:21→17:08)
--- NOTE | 2017-07-06 08:12 | Nephrology Consult Note ---
Date of Encounter: 07/06/17 Time of Encounter: 08:09 Assessment and Plan (1) ESRD (end stage renal disease) on dialysis Current Visit: No Status: Chronic The patient has end-stage renal disease. He is maintained on hemodialysis with a right-sided tunneled dialysis catheter. In the outpatient dialysis unit yesterday he was afebrile and mental status was at baseline. Overnight he presented with reported fever and lethargy. He does have a documented leukocytosis. Cultures of been drawn he and his been placed on empiric antibiotics. He was being maintained on cefepime at the senior living. Etiology of his recurrent fever and leukocytosis is unclear. There is no obvious external sign of infection for his tunneled dialysis catheter nor his PICC line. However if his cultures remain negative and he continues to have issues we may have to remove the tunneled dialysis catheter empirically. We will await current culture results and then make a decision. (2) End stage renal disease on dialysis due to type 2 diabetes mellitus Current Visit: Yes Status: Acute (3) ABIGAIL on CPAP Current Visit: No Status: Chronic (4) History of CVA (cerebrovascular accident) Current Visit: No Status: Chronic (5) Leucocytosis Current Visit: No Status: Acute Qualifiers: Leukocytosis type: unspecified Qualified Code(s): D72.829 - Elevated white blood cell count, unspecified History of Present Illness - History of Present Illness This is a 67-year-old male who was recently admitted to the hospital discharge back to the [facility]. He has end-stage renal disease and receives dialysis every Wednesday in [place]. Patient was made readmitted to the hospital overnight with a reported history of fever and lethargy. He presents with an elevated white count. Patient was in the outpatient dialysis unit in [place] yesterday. At that time he was afebrile. He was alert and oriented. His vital signs remained stable during his dialysis treatment. He had no external sign of infection with regards to his tunneled dialysis catheter. He has been maintained on [facility] at the [facility] for a previous episode of aspiration pneumonia. Patient does not remember feeling ill at the senior living. Currently he says he feels well. He denies any shortness of breath cough or sputum production chest pain chest discomfort abdominal pain nausea vomiting or diarrhea. Past Med Surg Social Fam HX - Past Medical History Medical history: CVA, diabetes, hyperlipidemia, hypertension, renal disease Psychiatric history: no psych history - Past Surgical History Surgical History: other (dialysis catheter placement; eye surgeries) - Social History Smoking Status: Former smoker Smokeless Tobacco Status: No Alcohol use: none Drug use: none - Family History Mother Living Status: Age at : 78 Cause of : RA, old age Hx Family Musculoskeletal Disorders: Yes (rhumatoria arthritis) Father Living Status: Age at : 80 Hx Family Respiratory Disorders: Yes (emphasema) Hx Family Endocrine Disorder: Yes (diabetes) Medications and Allergies Aspirin [Ecotrin] 325 mg PO DAILY #0 06/05/15 [History] Finasteride [Proscar] 5 mg PO DAILY #0 06/05/15 [History] Primidone [Mysoline] 50 mg PO DAILY #0 06/05/15 [History] Ranitidine HCl [Zantac] 150 mg PO BID #0 06/05/15 [History] Simvastatin [Zocor] 10 mg PO QPM #0 06/05/15 [History] Tamsulosin [Flomax] 0.4 mg PO DAILY #0 06/05/15 [History] Calcitriol [Rocaltrol] 0.25 mcg PO DAILY 09/11/15 [History] Insulin ASPART [Novolog Flexpen] 15 unit SQ TID 12/30/16 [History] Montelukast [Singulair] 10 mg PO QPM 12/30/16 [History] Furosemide [Lasix] 20 mg PO DAILY 06/15/17 [History] Insulin DETEMIR [Levemir Flextouch] 40 unit SQ BID 06/15/17 [History] Ondansetron HCl [Zofran] 4 mg PO BID 06/15/17 [History] Oxygen 2 l NS AD 06/15/17 [History] PrednisoLONE Acetate 1% Opth [PredFORTE 1%] 1 drop OP QID PRN 06/15/17 [History] Pregabalin [Lyrica] 100 mg PO BID 06/15/17 [History] Epoetin Donell [Procrit] 10,000 unit SQ 3XW vial 06/25/17 [Rx] Labetalol [Trandate] 100 mg PO BID #60 tablet 06/25/17 [Rx] Pregabalin [Lyrica] 50 mg PO [id number]@2100 capsule 06/25/17 [Rx] amLODIPine [Norvasc] 5 mg PO DAILY #30 tablet 06/25/17 [Rx] Cefepime HCl/Dextrose, Iso-Osm [Cefepime 1 gm Injection] 1 gm IV DAILY #5 marta 07/04/17 [Rx] Ciprofloxacin OPTH Soln [Ciloxan OPTH Soln] 2 drop BOTH EYES Q4HR bottle [Rx] Tramadol HCl [Ultram] 50 mg PO BID PRN #15 tablet 07/04/17 [Rx] 3 Allergy/AdvReac Type Severity Reaction Status Date / Time No Known Allergies Allergy Verified 12/29/16 23:37 Review of Systems Constitutional: as per HPI Eyes: bilateral: blurred vision (patient denies), diplopia (patient denies) Nose, mouth and throat: no dizziness, no headache(s) Cardiovascular: no chest pain, no palpitations Respiratory: no cough, no dyspnea Gastrointestinal: no abdominal pain, no change in bowel habits Musculoskeletal: no muscle weakness, no numbness Integumentary: no hirsutism, no striae Neurological: as per HPI Psychiatric: no depression, no difficulty concentrating Endocrine: as per HPI Hematologic/Lymphatic: no easy bruising, no lymphadenopathy Exam - Vital Signs Vital signs: Initial Vital Signs Temp Pulse Resp BP Pulse Ox 99.7 F H 87 18 99/53 94 07/05/17 21:12 07/05/17 21:12 07/05/17 21:12 07/05/17 21:12 07/05/17 21:12 Vital Signs - Last 8 Hours Temp Pulse Resp BP Pulse Ox 07/06/17 06:54 97.8 F 74 18 102/62 92 07/06/17 04:37 98.0 F 69 20 115/65 100 07/06/17 01:11 98.8 F 89 18 100/56 94 Intake and Output 07/05/17 07/06/17 07/06/17 23:59 07:59 15:59 Intake Total 0 / 0 650 / 650 Output Total 300 / 300 Balance 0 / 0 350 / 350 Intake: IV Fluids 650 / 650 Levaquin Premix 750mg/150 mL 150 / 150 750 mg In 150 ml @ 100 mls/hr IVPB Q48H [facility] Rx#:[id number] Vancocin 1,750 MG In Dextrose 5 500 / 500 % 500 ML @ 333.333 mls/hr IVPB ONCE ONE Rx#:[id number] Oral 0 / 0 0 / 0 Output: Catheter 300 / 300 Other: Weight 114.8 kg Blood Glucose* 199 225 - General Appearance Exam: Patient is alert and oriented. He is in no acute distress. Vital signs are stable. Neck is supple. Lungs Maisch breath sounds otherwise clear. Heart regular rhythm with a 2/6 talk ejection murmur. Abdomen shows normal bowel sounds. No bruits masses organomegaly or tenderness. There is no lower extremity swelling. There is a tunnel dialysis catheter in the right chest. The toe is not red nor tender. There is no drainage from the catheter exit site. There is a PICC line in the left upper extremity. Catheter exit site shows no drainage or redness. There is no tenderness over the site. Results - Lab Results 07/06/17 00:29 07/06/17 00:29 Most recent lab results Calcium 8.1 mg/dL (8.6-10.8) L 07/06/17 00:29 Magnesium 1.8 mg/dL (1.6-2.6) 07/06/17 00:29 Consult Discharge Plan - Plan Referrals: Anju Britt CNP [Primary Care Provider] -
[2017-07-06] MEDS: Darbepoetin 100 MCG/0.5 ML SYRINGE SQ SCH (09:01)
[2017-07-06] MEDS: Insulin LISPRO 300 UNITS/3 ML VIAL SQ SCH ×5 (09:01→20:21)
[2017-07-06 13:28] LABS: Acinetobacter baumannii by PCR Not Detected (Not Detect); Candida albicans by PCR Not Detected (Not Detect); Candida glabrata by PCR Not Detected (Not Detect); Candida krusei by PCR Not Detected (Not Detect); Candida parapsilosis by PCR Not Detected (Not Detect); Candida tropicalis by PCR Not Detected (Not Detect); Enterococcus by PCR Not Detected (Not Detect); Escherichia coli by PCR Not Detected (Not Detect); Klebsiella oxytoca by PCR Not Detected (Not Detect); Klebsiella pneumoniae by PCR Not Detected (Not Detect); Pseudomonas aeruginosa by PCR Not Detected (Not Detect); Serratia marcescens by PCR Not Detected (Not Detect); Staphylococcus aureus by PCR Not Detected (Not Detect); Streptococcus agalactiae(B)PCR Not Detected (Not Detect); Streptococcus by PCR Not Detected (Not Detect); Streptococcus pneumoniae PCR Not Detected (Not Detect); Streptococcus pyogenes (A) PCR Not Detected (Not Detect); blaKPC Carbapenem-Resist Gene Not Detected (Not Detect)
--- NOTE | 2017-07-06 16:53 | Electrocardiograph Report ---
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
--- NOTE | 2017-07-06 18:09 | Internal Med Progress Note ---
Date of Encounter: 07/06/17 Time of Encounter: 13:00 - Assessment and plan (1) Enterobacter sepsis Current Visit: Yes Status: Acute Assessment and plan: Most likely his tunneled cath is source of infections. Will need to switch to Carbapenem for coverage. Nephrology was to determine dialysis access based on these culture results. Appreciate Nephro recs in regards to patient line access. For now will add Invanz. 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.4 - 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 Medications are renally dosed. - Subjective Interval history: Patient does not recall any events that happened overnight, he has no complaints. I did speak to his was present at bedside. She states he was having fevers and has been having a rough night sleeping overnight. And has not been acting his usual self. - Constitutional Vitals: Temp Pulse Resp BP Pulse Ox 98.3 F 73 16 116/66 98 07/06/17 15:55 07/06/17 15:55 07/06/17 15:55 07/06/17 15:55 07/06/17 15:55 Exam: Awake, alert. AAO x2 - Head Head exam: Present: atraumatic, normal inspection - Expanded Head Exam Head exam expanded: Absent: abrasion, contusion, general tenderness - ENT ENT exam: Present: mucous membranes dry, normal exam - Neck Neck exam general surgery: Present: full ROM, supple. Absent: lymphadenopathy, tenderness - Respiratory Respiratory exam: Present: decreased breath sounds, rales (right base), rhonchi. Absent: accessory muscle use, chest wall tenderness, respiratory distress, wheezes - Cardiovascular Cardiovascular exam: Present: RRR, +S1, +S2. Absent: diastolic murmur, systolic murmur - GI/Abdominal GI/Abdominal exam: Present: normal bowel sounds, soft. Absent: guarding, hepatomegaly, mass, rebound, splenomegaly, tenderness - Additional comments: Winter in place with dark, concentrated urine - Extremities Exam Extremities exam: Present: full ROM, pedal edema (1+), warm. Absent: calf tenderness, tenderness - Back Exam Back exam: Absent: CVA tenderness (L), CVA tenderness (R) Internal Medicine: Result - Labs CBC & Chem 7: 07/06/17 00:29 07/06/17 00:29 Labs: Short CBC 07/06/17 Range/Units 00:29 WBC 22.0 H D (4.3-11.1) K/mcL Hgb 7.3 L (12.9-16.9) g/dL Hct 24.4 L (37.5-50.1) % Plt Count 239 (140-400) K/mcL Neutrophils # 19.5 H (1.6-8.9) K/mcL BMP 07/06/17 00:29 Sodium 135 L Potassium 5.2 H Chloride 98 Carbon Dioxide 27 BUN 42 H D Creatinine 5.67 H Glucose 217 H Calcium 8.1 L Cardiac Enzymes 07/06/17 07/06/17 Range/Units 00:29 05:30 Troponin I 0.02 0.02 (0-0.03) ng/mL Liver Function 07/06/17 Range/Units 00:29 Total Bilirubin 0.6 (0.2-1.2) mg/dL AST 25 (5-34) Units/L ALT 27 (0-55) Units/L Alkaline Phosphatase 152 H (38-126) Units/L Albumin 2.4 L (3.5-5.0) g/dL Urine 10/10/17 Range/Units 03:00 Urine Color Red A (Yellow) Urine Clarity Turbid A (Clear) Urine pH 6.0 (5.0-8.0) pH Units Ur Specific [place] 1.022 (1.010-1.025) Urine Protein >=1000 H (Neg-Trace) mg/dL Urine Glucose (UA) 100 H (Normal) mg/dL - ABG Interpretation ABG results: PT/INR, D-dimer PT 13.0 Seconds (9.4-12.1) H 07/06/17 00:29 - Impressions Impressions Chest X-Ray 07/05/17 23:02 IMPRESSION: Persistent right pleural effusion and bilateral airspace disease, likely pulmonary edema. Airspace disease is likely accentuated by low lung volumes. D/ / Maureen Harvey Cha, MD / Maureen Harvey Cha, MD Interpreting Provider: Maureen Harvey Cha, MD Head CT 07/06/17 10:30 IMPRESSION: No acute intracranial abnormality. Parenchymal volume loss and sequela of chronic microvascular ischemic changes. D/ / Jose Cevallos MD / Jose Cevallos MD Interpreting Provider: Jose Cevallos MD Consult Discharge Plan - Plan Referrals: Anju Britt CNP [Primary Care Provider] - (From [facility])
[2017-07-07 03:49] LABS: Basophils % 0.3 %; Eosinophils # 0.4 K/mcL (0.0-0.6); Eosinophils % 2.5 %; Hematocrit 22.5 % (37.5-50.1); Hemoglobin 6.7 g/dL (12.9-16.9); Immature Granulocytes % 0.9 % (0-4); Lymphocytes # 1.7 K/mcL (0.6-4.6); Lymphocytes % 10.9 %; Mean Corpuscular HGB Conc 29.8 g/dL (31.6-35.5); Mean Corpuscular Hemoglobin 28.2 pg (28.0-33.3); Mean Corpuscular Volume 94.5 fL (83.0-100.0); Mean Platelet Volume 9.7 fL (9.4-12.4); Monocytes # 1.5 K/mcL (0.0-1.3); Monocytes % 9.5 %; Neutrophils # 11.7 K/mcL (1.6-8.9); Platelet Count 203 K/mcL (140-400); Red Blood Count 2.38 M/mcL (4.19-5.50); Red Cell Distribution Width 15.3 % (11.5-14.5); Segmented Neutrophils % 75.9 %
[2017-07-07 03:59] LABS: Albumin 2.3 g/dL (3.5-5.0); Albumin/Globulin Ratio 0.5 (1.1-2.2); Bilirubin,Total 0.5 mg/dL (0.2-1.2); Calcium 8.1 mg/dL (8.6-10.8); Globulin 4.7 g/dL (2.4-3.5); Phosphorous 7.6 mg/dL (2.3-4.7); Potassium 5.1 mEq/L (3.5-4.5)
[2017-07-07] MEDS: Ondansetron 4 MG/2 ML VIAL IVP PRN ×3 (06:16→20:27)
[2017-07-07] MEDS: *HR* Heparin 5,000 UNIT/ML VIAL SQ SCH ×2 (06:16→18:04)
[2017-07-07] MEDS: Insulin LISPRO 300 UNITS/3 ML VIAL SQ SCH ×7 (07:55→20:52)
--- NOTE | 2017-07-07 08:16 | Nephrology Progress Note ---
Date of Encounter: 07/07/17 Time of Encounter: 08:14 - Assessment and Plan (1) ESRD (end stage renal disease) on dialysis Current Visit: No Status: Chronic Patient will undergo dialysis today. He will be transfused 2 units of packed red blood cells on dialysis. Following dialysis he will need to have a tunnel dialysis catheter removed. We will repeat blood cultures. If the blood cultures remain negative he can have another tunnel dialysis catheter placed in 2 days. In the meantime he should continue on antibiotics. We are awaiting final sensitivities for the culture drawn through the tunnel dialysis catheter. (2) End stage renal disease on dialysis due to type 2 diabetes mellitus Current Visit: Yes Status: Acute (3) ABIGAIL on CPAP Current Visit: No Status: Chronic (4) History of CVA (cerebrovascular accident) Current Visit: No Status: Chronic (5) Leucocytosis Current Visit: No Status: Acute Qualifiers: Leukocytosis type: unspecified Qualified Code(s): D72.829 - Elevated white blood cell count, unspecified Subjective Interval history: Patient denies any complaints. He denies any shortness of breath or chest pain. He has been afebrile. Cultures drawn through the tunnel dialysis catheter growing gram-negative rods. Blood cultures are negative. Hemoglobin is dropped down to 6.7. White count is improving. Objective - Vital Signs Vital signs: Vital Signs Temp Pulse Resp BP Pulse Ox 07/07/17 07:43 97.7 F 77 18 122/65 95 07/07/17 03:24 98.1 F 74 18 148/84 98 07/06/17 23:57 98.1 F 71 20 136/77 100 07/06/17 22:03 21 96 07/06/17 19:36 98.0 F 78 17 156/71 96 07/06/17 15:55 98.3 F 73 16 116/66 98 07/06/17 11:04 98.8 F 75 17 125/70 95 07/06/17 09:01 102/62 Intake and Output 07/06/17 07/07/17 07/07/17 23:59 07:59 15:59 Intake Total 0 / 0 0 / 0 Output Total 0 / 0 450 / 450 Balance 0 / 0 -450 / -450 Intake: Oral 0 / 0 0 / 0 Output: Urine 0 / 0 Catheter 450 / 450 Other: Weight 115 kg Blood Glucose* 231 148 Patient Weight 07/07/17 23:59 Weight 115 kg - General Appearance Exam: Patient is alert and oriented. He is in no acute distress. Lungs smidge breath sounds otherwise clear. Heart regular rate and rhythm. Abdomen is benign. There is no lower extremity swelling. There is a tunnel dialysis catheter in the right chest. No external sign of infection. There is a PICC line in the left upper extremity. No external sign of infection. - Lab 07/07/17 03:30 07/07/17 03:30 Most recent lab results Calcium 8.1 mg/dL (8.6-10.8) L 07/07/17 03:30 Phosphorus 7.6 mg/dL (2.3-4.7) H 07/07/17 03:30 Magnesium 1.8 mg/dL (1.6-2.6) 07/06/17 00:29 Consult Discharge Plan - Plan Referrals: Anju Britt CNP [Primary Care Provider] - (From [facility])
[2017-07-07] MEDS ORDERED: 0.9 % Sodium Chloride 250 ML IVC PRN (08:17)
[2017-07-07] MEDS ORDERED: Aminoglycoside Consult 1 EACH MC ONE (08:26)
[2017-07-07] MEDS: Insulin DETEMIR 100 UNIT/ML X5UNITS SQ SCH (10:41)
[2017-07-07] MEDS: *HR* Promethazine 25 MG/ML VIAL IVP PRN (15:47)
--- NOTE | 2017-07-07 18:01 | Internal Med Progress Note ---
Date of Encounter: 07/07/17 Time of Encounter: 09:00 - Assessment and plan (1) Enterobacter sepsis Current Visit: Yes Status: Acute Assessment and plan: Removed tunnel cath has been sent for culture. Continue Invanz renally dose and Levaquin. Will need new dialysis access. (2) 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 Current Visit: No Status: Chronic Qualifiers: 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 type: type 2 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 complication status: with kidney complications 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 complication detail: with chronic kidney disease 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 residential insulin use: with residential use Chronic kidney disease stage: on chronic dialysis Qualified Code(s): E11.22 - Type 2 diabetes mellitus with diabetic chronic kidney disease; N18.6 - End stage renal disease; N18.6 - End stage renal disease; N18.6 - End stage renal disease; N18.6 - End stage renal disease; Z79.4 - skilled nursing (current) use of insulin; Z79.4 - long term care phlebotomist (current) use of insulin; Z79.4 - skilled nursing (current ) use of insulin; Z79.4 - skilled nursing (current) use of insulin; Z99.2 - Dependence on renal dialysis; Z99.2 - Dependence on renal dialysis; Z99.2 - Dependence on renal dialysis; Z99.2 - Dependence on renal dialysis (3) Encephalopathy acute Current Visit: Yes Status: Resolved (4) End stage renal disease on dialysis due to type 2 diabetes mellitus Current Visit: Yes Status: Acute Assessment and plan: Nephrology following. As above, patient needs access, due for dialysis in two days. - Subjective Interval history: Patient had dialysis. Tunneled cath removed earlier today post dialysis. Denies fevers/chills. - Constitutional Vitals: Temp Pulse Resp BP Pulse Ox 98.5 F 89 18 160/87 96 07/07/17 15:36 07/07/17 15:36 07/07/17 15:36 07/07/17 15:36 07/07/17 15:36 Internal Medicine: Result - Labs CBC & Chem 7: 07/07/17 03:30 07/07/17 03:30 Labs: Short CBC 07/07/17 Range/Units 03:30 WBC 15.4 H (4.3-11.1) K/mcL Hgb 6.7 L (12.9-16.9) g/dL Hct 22.5 L (37.5-50.1) % Plt Count 203 (140-400) K/mcL Neutrophils # 11.7 H (1.6-8.9) K/mcL BMP 07/07/17 03:30 Sodium 136 Potassium 5.1 H Chloride 98 Carbon Dioxide 27 BUN 59 H D Creatinine 7.02 H Glucose 163 H Calcium 8.1 L Cardiac Enzymes 07/07/17 Range/Units 03:30 Troponin I 0.02 (0-0.03) ng/mL Liver Function 07/07/17 Range/Units 03:30 Total Bilirubin 0.5 (0.2-1.2) mg/dL AST 21 (5-34) Units/L ALT 24 (0-55) Units/L Alkaline Phosphatase 131 H (38-126) Units/L Albumin 2.3 L (3.5-5.0) g/dL - ABG Interpretation ABG results: PT/INR, D-dimer PT 13.0 Seconds (9.4-12.1) H 07/06/17 00:29 Consult Discharge Plan - Plan Referrals: Anju Britt CNP [Primary Care Provider] - (From [facility])
[2017-07-07] MEDS ORDERED: 0.9 % Sodium Chloride 2,000 ML ONE (19:04)
[2017-07-07 19:32] LABS: Hemoglobin A1C 6.6 %
[2017-07-08] MEDS ORDERED: Levofloxacin 500 MG/100 ML 500 MG/100 ML BAG IVPB SCH (01:00)
[2017-07-08] MEDS: Ondansetron 4 MG/2 ML VIAL IVP PRN ×3 (03:07→21:19)
[2017-07-08 03:34] LABS: Basophils % 0.2 %; Eosinophils # 0.3 K/mcL (0.0-0.6); Hematocrit 26.8 % (37.5-50.1); Immature Granulocytes % 0.6 % (0-4); Lymphocytes # 1.3 K/mcL (0.6-4.6); Lymphocytes % 10.5 %; Mean Corpuscular Hemoglobin 28.7 pg (28.0-33.3); Mean Corpuscular Volume 92.7 fL (83.0-100.0); Mean Platelet Volume 9.9 fL (9.4-12.4); Monocytes # 1.3 K/mcL (0.0-1.3); Neutrophils # 9.7 K/mcL (1.6-8.9); Platelet Count 220 K/mcL (140-400); Red Blood Count 2.89 M/mcL (4.19-5.50); Red Cell Distribution Width 15.7 % (11.5-14.5); Segmented Neutrophils % 76.7 %
[2017-07-08 03:35] LABS: Hemoglobin 8.3 g/dL (12.9-16.9)
[2017-07-08] MEDS: *HR* Heparin 5,000 UNIT/ML VIAL SQ SCH ×2 (06:19→16:19)
[2017-07-08 08:19] LABS: Calcium 8.3 mg/dL (8.6-10.8); Potassium 4.3 mEq/L (3.5-4.5)
[2017-07-08] MEDS: Insulin LISPRO 300 UNITS/3 ML VIAL SQ SCH ×7 (08:35→21:21)
[2017-07-08] MEDS: Insulin DETEMIR 100 UNIT/ML X5UNITS SQ SCH (08:36)
--- NOTE | 2017-07-08 08:40 | Nephrology Progress Note ---
Date of Encounter: 07/08/17 Time of Encounter: 08:25 - Assessment and Plan (1) End stage kidney disease Current Visit: No Status: Acute Hospitalist to cover Enterobacter Cloace-final growth CVC. Catheter removed yesterday following dialysis. Line vacation today, possible reinsertion tomorrow. Repeat blood cultures today. Subjective Interval history: Laying quietly. States has nausea with emesis earlier. Rec'd Zofran. States passing flatus, denies abdominal pain. Afebrile. Final growth CVC-Enterobactor Cloace Objective - Vital Signs Vital signs: Vital Signs Temp Pulse Resp BP Pulse Ox 07/08/17 05:24 98.2 F 78 17 166/80 94 07/07/17 22:56 98.1 F 87 18 163/82 95 07/07/17 20:03 98.1 F 79 17 157/73 97 07/07/17 15:36 98.5 F 89 18 160/87 96 07/07/17 14:15 97.9 F 16 162/79 07/07/17 14:05 153/72 07/07/17 13:50 160/82 07/07/17 13:20 163/93 07/07/17 13:14 98.4 F 81 16 175/87 07/07/17 13:02 98.4 F 80 14 172/83 07/07/17 12:50 177/79 07/07/17 12:47 98.2 F 80 15 172/83 07/07/17 12:40 98.2 F 78 14 171/79 07/07/17 12:29 98.0 F 84 14 146/82 07/07/17 12:20 138/78 07/07/17 12:14 98.2 F 78 15 139/66 07/07/17 11:50 150/71 07/07/17 11:20 159/81 07/07/17 10:50 98.2 F 15 165/84 Intake and Output 07/07/17 07/08/17 07/08/17 23:59 07:59 15:59 Intake Total 0 / 0 Output Total 250 / 250 Balance -250 / -250 Intake: Oral 0 / 0 Output: Urine 0 / 0 Catheter 250 / 250 Other: Blood Glucose* 139 - General Appearance General appearance: Present: well-developed, well-nourished, appears started age , obese EENT: Present: mucous membranes moist Neck: Present: no JVD Respiratory: Present: clear Cardiology: Present: no edema, regular rate, regular rhythm Gastrointestinal: Present: hypoactive bowel sounds, no tenderness, no guarding Integumentary: Present: warm and dry Neurologic: Present: alert and oriented x3 Psychiatric: Present: mood/affect appropriate, cooperative - Lab 07/08/17 03:18 07/08/17 08:02 Most recent lab results Calcium 8.3 mg/dL (8.6-10.8) L 07/08/17 08:02 Phosphorus 7.6 mg/dL (2.3-4.7) H 07/07/17 03:30 Magnesium 1.8 mg/dL (1.6-2.6) 07/06/17 00:29 Consult Discharge Plan - Plan Referrals: Anju Britt FRONT OFFICE COORDINATOR [Primary Care Provider] - (From [facility])
[2017-07-08] MEDS: *HR* Promethazine 25 MG/ML VIAL IVP PRN ×3 (08:42→22:02)
[2017-07-08] MEDS: Acetaminophen 325 MG TABLET PO PRN ×2 (13:59→21:30)
--- NOTE | 2017-07-08 21:10 | Internal Med Progress Note ---
Date of Encounter: 07/08/17 Time of Encounter: 10:00 - Assessment and plan (1) Enterobacter sepsis Current Visit: Yes Status: Acute Assessment and plan: Sensitivities came back today sensitive to Invanz and resistant to Levaquin. D/ C Levaquin and Continue Invanz. Repeat blood cultures today. Need cultures negative at 48 hours. (2) 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 Current Visit: No Status: Chronic Qualifiers: 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 type: type 2 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 complication status: with kidney complications 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 complication detail: with chronic kidney disease 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 continuous churn buttermaker insulin use: with chcf use Chronic kidney disease stage: on chronic dialysis Qualified Code(s): E11.22 - Type 2 diabetes mellitus with diabetic chronic kidney disease; N18.6 - End stage renal disease; Z99.2 - Dependence on renal dialysis; Z99.2 - Dependence on renal dialysis; Z99.2 - Dependence on renal dialysis; N18.6 - End stage renal disease; N18.6 - End stage renal disease; N18.6 - End stage renal disease ; Z79.4 - [facility] (current) use of insulin; Z79.4 - [facility] (current) use of insulin; Z79.4 - [facility] (current) use of insulin; 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 no acute events. - Constitutional Vitals: Temp Pulse Resp BP Pulse Ox 98.6 F 82 18 142/76 95 07/08/17 19:16 07/08/17 19:16 07/08/17 19:16 07/08/17 19:16 07/08/17 19:16 Exam: Gen: NAD CVS: RRR Lungs: CTAB Ext: no edema Internal Medicine: Result - Labs CBC & Chem 7: 07/08/17 03:18 07/08/17 08:02 Labs: Short CBC 07/08/17 Range/Units 03:18 WBC 12.7 H (4.3-11.1) K/mcL Hgb 8.3 L D (12.9-16.9) g/dL Hct 26.8 L (37.5-50.1) % Plt Count 220 (140-400) K/mcL Neutrophils # 9.7 H (1.6-8.9) K/mcL BMP 07/08/17 08:02 Sodium 142 Potassium 4.3 Chloride 99 Carbon Dioxide 31 H BUN 33 H D Creatinine 5.07 H Glucose 124 H Calcium 8.3 L - ABG Interpretation ABG results: PT/INR, D-dimer PT 13.0 Seconds (9.4-12.1) H 07/06/17 00:29 - Impressions Impressions Insertion Tunneled Catheter 07/07/17 00:00 IMPRESSION: Successful removal of the tunneled hemodialysis catheter. D/ / Cody Krishnamurthy MD / Cody Krishnamurthy MD Interpreting Provider: Cody Krishnamurthy MD Consult Discharge Plan - Plan Referrals: Anju Britt CNP [Primary Care Provider] - (From [facility])
[2017-07-09] MEDS: Ondansetron 4 MG/2 ML VIAL IVP PRN ×2 (03:32→16:21)
[2017-07-09 04:50] LABS: Basophils # 0.1 K/mcL (0.0-0.2); Basophils % 0.4 %; Eosinophils # 0.3 K/mcL (0.0-0.6); Eosinophils % 1.8 %; Hematocrit 30.1 % (37.5-50.1); Immature Granulocytes % 0.6 % (0-4); Lymphocytes # 1.5 K/mcL (0.6-4.6); Lymphocytes % 10.7 %; Mean Corpuscular HGB Conc 29.9 g/dL (31.6-35.5); Mean Corpuscular Hemoglobin 27.6 pg (28.0-33.3); Mean Corpuscular Volume 92.3 fL (83.0-100.0); Mean Platelet Volume 9.8 fL (9.4-12.4); Monocytes # 1.3 K/mcL (0.0-1.3); Monocytes % 9.1 %; Neutrophils # 10.8 K/mcL (1.6-8.9); Platelet Count 221 K/mcL (140-400); Red Blood Count 3.26 M/mcL (4.19-5.50); Red Cell Distribution Width 15.5 % (11.5-14.5); Segmented Neutrophils % 77.4 %
[2017-07-09 05:05] LABS: Calcium 8.4 mg/dL (8.6-10.8); Potassium 4.1 mEq/L (3.5-4.5)
[2017-07-09] MEDS: *HR* Heparin 5,000 UNIT/ML VIAL SQ SCH ×2 (05:57→16:21)
[2017-07-09] MEDS: *HR* Promethazine 25 MG/ML VIAL IVP PRN (06:55)
[2017-07-09] MEDS: Insulin LISPRO 300 UNITS/3 ML VIAL SQ SCH ×5 (08:20→23:08)
[2017-07-09] MEDS: Insulin DETEMIR 100 UNIT/ML X5UNITS SQ SCH (08:29)
--- NOTE | 2017-07-09 09:25 | Nephrology Progress Note ---
Date of Encounter: 07/09/17 Time of Encounter: 08:45 - Assessment and Plan (1) End stage kidney disease Current Visit: No Status: Acute Hospitalist to cover Enterobacter Cloace-final growth CVC-Ertapenem. IR consulted for temp cath placement today, followed by dialysis. Orders given. Repeat blood cultures pending. Subjective Interval history: Laying quietly. States has nausea without emesis. States passing flatus, denies abdominal pain. Hypoactive BS, soft, no guarding. States moved bowels yesterday.Afebrile. Final growth -CVC-Enterobactor Cloace, Ertapenem coverage. Objective - Vital Signs Vital signs: Vital Signs Temp Pulse Resp BP Pulse Ox 07/09/17 08:12 154/78 07/09/17 06:36 98.7 F 71 16 166/78 96 07/09/17 02:58 98.4 F 90 19 160/78 94 07/08/17 23:02 98.5 F 85 17 163/74 96 07/08/17 19:16 98.6 F 82 18 142/76 95 07/08/17 15:01 98.1 F 79 17 143/85 95 07/08/17 14:03 98.3 F 72 18 126/71 99 07/08/17 12:13 98.5 F 88 17 126/70 99 07/08/17 12:03 98.5 F 74 17 122/74 99 07/08/17 10:55 98.4 F 83 17 189/80 95 Intake and Output 07/08/17 07/09/17 07/09/17 23:59 07:59 15:59 Intake Total 0 / 0 Output Total 575 / 575 0 / 0 Balance -575 / -575 0 / 0 Intake: Oral 0 / 0 Output: Urine 75 / 75 0 / 0 Urethral (Winter) 75 / 75 Catheter 500 / 500 Other: Weight 115.6 kg Blood Glucose* 126 98 Patient Weight 07/09/17 23:59 Weight 115.6 kg - General Appearance General appearance: Present: well-developed, well-nourished, appears started age , obese EENT: Present: mucous membranes moist Neck: Present: no JVD Respiratory: Present: clear Cardiology: Present: no edema, regular rate, regular rhythm Gastrointestinal: Present: hypoactive bowel sounds, no tenderness, no guarding Integumentary: Present: warm and dry Neurologic: Present: alert and oriented x3 Psychiatric: Present: mood/affect appropriate, cooperative - Lab 07/09/17 03:39 07/09/17 03:39 Most recent lab results Calcium 8.4 mg/dL (8.6-10.8) L 07/09/17 03:39 Phosphorus 7.6 mg/dL (2.3-4.7) H 07/07/17 03:30 Magnesium 1.8 mg/dL (1.6-2.6) 07/06/17 00:29 Consult Discharge Plan - Plan Referrals: Anju Britt CNP [Primary Care Provider] - (From [facility])
[2017-07-09] MEDS ORDERED: Prochlorperazine 10 MG/2 ML VIAL IVP ONE (09:29)
[2017-07-09] MEDS ORDERED: Sucralfate 1 GM TABLET PO ONE (09:44)
[2017-07-09] MEDS ORDERED: 0.9 % Sodium Chloride 250 ML IVC PRN ×2 (09:46→09:47)
[2017-07-09] MEDS ORDERED: *HR* Heparin 10,000 UNIT/10 ML VIAL IV PRN (09:47)
[2017-07-09] MEDS ORDERED: 0.9 % Sodium Chloride 1,000 ML PRIME SCH (10:00)
[2017-07-09] MEDS ORDERED: *HR* Heparin 5,000 UNIT/ML VIAL ONE (10:01)
--- NOTE | 2017-07-09 10:26 | IR Procedure Note ---
Date of procedure: 07/09/17 Consent Obtained: Verbal consent Timeout: Correct patient and procedure verified, Correct site verified, Time out performed, Skin prep completed Indications: renal failure Procedure Performed: temp HDC Site/Technique: rt IJ Results/Findings: will review CXR for placement Estimated blood loss (cc): 0 Complications: None; Tolerated procedure well Post Procedure Treatment Plan: CXR and then can use
[2017-07-09] MEDS: Prochlorperazine 10 MG/2 ML VIAL IVP PRN ×2 (14:36→20:10)
--- NOTE | 2017-07-09 15:58 | Internal Med Progress Note ---
Date of Encounter: 07/09/17 Time of Encounter: 14:30 - Assessment and plan (1) Enterobacter sepsis Current Visit: Yes Status: Acute Assessment and plan: He was initially improving after his infected line removal and starting Invanz. However within the past 24 hours he has had signs of malaise and n/v. Antiemetics were not effective. Lactic acid, troponin, lipase were wnl. He has been afebrile. He denies any abdominal pain/ chest pain, diarrhea, fevers/ chills. However, WBCs slightly increased today to 14 and was 12 yesterday. Alk phos is elevated in 150s, chest x-ray with possibly lower lobe consolidation, possibly new. These changes could be bacterial infection/PNA that not covered by Invanz, or a viral gastroenteritis. Hepatobiliary pathology is possible but not as likely. Repeat blood cultures are pending. Plan: - Abdominal ultrasound in AM; weekend might delay study. 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 insulin use: with retirement use Chronic kidney disease stage: on chronic dialysis Qualified Code(s): E11.22 - Type 2 diabetes mellitus with diabetic chronic kidney disease; N18.6 - End stage renal disease; N18.6 - End stage renal disease; N18.6 - End stage renal disease; N18.6 - End stage renal disease; Z79.4 - long term acute care registered nurse (current) use of insulin; Z79.4 - [facility] (current) use of insulin; Z79.4 - long term acute care registered nurse (current ) use of insulin; Z79.4 - [facility] (current) use of insulin; Z99.2 - Dependence on renal dialysis; Z99.2 - Dependence on renal dialysis; Z99.2 - Dependence on renal dialysis; Z99.2 - Dependence on renal dialysis (3) Encephalopathy acute Current Visit: Yes Status: Resolved (4) End stage renal disease on dialysis due to type 2 diabetes mellitus Current Visit: Yes Status: Acute - Subjective Interval history: Patient complained of persistent nausea. Had few episodes of emesis. Throughout morning did not tolerate diet well. Zofran, carafate, compazine were ineffective in treating symptoms. Alk phosphorus was done showing elevation in 150s. Lipase, lactic acid, troponin were wnl. He denies abdominal , chest pain, n/v, fevers/chills. Abdominal series with chest x-ray showed no acute abdominal process, but did show patchy perihilar and lower lob consolidative changes with interstitial reticular nodular densities and bronchial wall thickening. Currently on Invanz renally dosed. Had Right IJ non- tunneled cath was placed today. - Constitutional Vitals: Temp Pulse Resp BP Pulse Ox 97 F L 83 18 113/65 95 07/09/17 14:46 07/09/17 10:52 07/09/17 14:46 07/09/17 14:46 07/09/17 10:52 Exam: Gen: mild distress/discomfort. AAOx3, answers questions appropriately CVS: RRR Lungs: course rales at bases, fair air exchange, no w/r/r. Abd: soft, non-distended. Shows discomfort with palpation but denies any pain. Ext: No edema. Skin: warm, dry Internal Medicine: Result - Labs CBC & Chem 7: 07/09/17 03:39 07/09/17 03:39 Labs: Short CBC 07/09/17 Range/Units 03:39 WBC 14.0 H (4.3-11.1) K/mcL Hgb 9.0 L (12.9-16.9) g/dL Hct 30.1 L (37.5-50.1) % Plt Count 221 (140-400) K/mcL Neutrophils # 10.8 H (1.6-8.9) K/mcL BMP 07/09/17 03:39 Sodium 138 Potassium 4.1 Chloride 97 L Carbon Dioxide 31 H BUN 40 H Creatinine 5.89 H Glucose 86 Calcium 8.4 L - ABG Interpretation ABG results: PT/INR, D-dimer PT 13.0 Seconds (9.4-12.1) H 07/06/17 00:29 - Impressions Impressions Guidance Needle Placement Ultrasound 07/09/17 00:00 IMPRESSION: Successful ultrasound guided non-tunneled catheter placement. D/ / 07/09/2017 12:02:40 Herminia Eubanks MD / [place] Interpreting Provider: Herminia Eubanks MD Insertion Non-Tunneled Catheter 07/09/17 00:00 IMPRESSION: Successful ultrasound guided non-tunneled catheter placement. D/ / 07/09/2017 12:02:40 Herminia Eubanks MD / [place] Interpreting Provider: Herminia Eubanks MD Chest/Abdomen X-ray 07/09/17 09:37 IMPRESSION: 1. Right CVC with distal catheter tip at the atrio-caval junction. No pneumothorax. 2. Stable interstitial edema with patchy lower lobe consolidation. 3. Possible mild bilateral pleural effusions. 4. No acute abdominal process. D/ / 07/09/2017 11:25:33 Denver Byers MD / [place] Interpreting Provider: Denver Byers MD Consult Discharge Plan - Plan Referrals: Anju Britt RN REFERRAL [Primary Care Provider] - (From [facility])
[2017-07-09 17:18] LABS: Albumin 2.4 g/dL (3.5-5.0); Albumin/Globulin Ratio 0.5 (1.1-2.2); Bilirubin,Direct 0.4 mg/dL (0.0-0.5); Bilirubin,Indirect 0.1 mg/dL (0.0-1.2); Bilirubin,Total 0.5 mg/dL (0.2-1.2); Globulin 5.1 g/dL (2.4-3.5); Magnesium 1.7 mg/dL (1.6-2.6); Total Protein 7.5 g/dL (6.0-8.3)
[2017-07-09 17:19] LABS: Phosphorous 3.5 mg/dL (2.3-4.7)
[2017-07-09] MEDS ORDERED: 0.9 % Sodium Chloride 1,000 ML ONE (17:57)
[2017-07-09] MEDS: Ondansetron 4 MG/2 ML VIAL IVP SCH (23:08)
[2017-07-10 05:00] LABS: Basophils # 0.1 K/mcL (0.0-0.2); Basophils % 0.4 %; Eosinophils # 0.1 K/mcL (0.0-0.6); Eosinophils % 0.6 %; Hemoglobin 9.5 g/dL (12.9-16.9); Immature Granulocytes % 0.5 % (0-4); Lymphocytes # 1.6 K/mcL (0.6-4.6); Lymphocytes % 11.5 %; Mean Corpuscular HGB Conc 30.6 g/dL (31.6-35.5); Mean Corpuscular Hemoglobin 28.4 pg (28.0-33.3); Mean Corpuscular Volume 92.5 fL (83.0-100.0); Mean Platelet Volume 9.3 fL (9.4-12.4); Monocytes # 1.1 K/mcL (0.0-1.3); Monocytes % 8.1 %; Neutrophils # 10.9 K/mcL (1.6-8.9); Platelet Count 234 K/mcL (140-400); Red Blood Count 3.35 M/mcL (4.19-5.50); Red Cell Distribution Width 15.1 % (11.5-14.5); Segmented Neutrophils % 78.9 %
[2017-07-10] MEDS: Ondansetron 4 MG/2 ML VIAL IVP SCH ×3 (05:02→16:58)
[2017-07-10] MEDS: *HR* Heparin 5,000 UNIT/ML VIAL SQ SCH ×2 (05:03→16:59)
[2017-07-10 05:10] LABS: Calcium 8.6 mg/dL (8.6-10.8); Potassium 4.7 mEq/L (3.5-4.5)
--- NOTE | 2017-07-10 07:53 | Nephrology Progress Note ---
Date of Encounter: 07/10/17 Time of Encounter: 07:40 - Assessment and Plan (1) End stage kidney disease Current Visit: No Status: Acute Enterobacter Cloace-final growth CVC-Ertapenem. Repeat preliminary blood cultures-no growth. Will start on PPI. No HD today.. Subjective Interval history: Laying quietly. States has nausea without emesis. States passing flatus, denies abdominal pain. Hypoactive BS, soft, no guarding. States was able to eat few bites yesterday and keep down. Afebrile. Objective - Vital Signs Vital signs: Vital Signs Temp Pulse Resp BP Pulse Ox 07/10/17 07:42 98.3 F 96 17 164/92 96 07/10/17 04:19 98.4 F 88 16 139/72 95 07/09/17 23:36 97.7 F 90 18 131/77 94 07/09/17 20:45 98.5 F 84 19 168/92 96 07/09/17 16:22 98.7 F 83 17 134/77 94 07/09/17 14:46 97 F L 18 113/65 07/09/17 14:35 93/58 07/09/17 14:20 104/62 07/09/17 14:05 102/54 07/09/17 13:50 93/64 07/09/17 13:35 92/54 07/09/17 13:20 108/51 07/09/17 13:05 95/53 07/09/17 12:50 96/57 07/09/17 12:35 103/62 07/09/17 12:20 117/69 07/09/17 12:05 109/69 07/09/17 11:50 136/70 07/09/17 11:35 146/72 07/09/17 11:20 97.5 F L 19 159/89 07/09/17 10:52 98.7 F 83 14 183/93 95 07/09/17 08:12 154/78 Intake and Output 07/09/17 07/09/17 07/10/17 15:59 23:59 07:59 Intake Total 600 / 600 120 / 120 Output Total 3800 / 3800 0 / 0 Balance -3200 / -3200 120 / 120 Intake: Oral 0 / 0 120 / 120 Intake, Rinseback and Flushes 600 / 600 Output: Urine 0 / 0 0 / 0 Total Dialysis (HD) Output 3600 / 3600 Catheter 200 / 200 Other: Meal NPO Weight 107.1 kg Blood Glucose* 103 163 128 Hemodialysis Net Fluid Removed 3000 (mL) Patient Weight 07/10/17 23:59 Weight 107.1 kg - General Appearance General appearance: Present: well-developed, well-nourished, appears started age , obese EENT: Present: mucous membranes moist Neck: Present: no JVD Respiratory: Present: clear Cardiology: Present: no edema, regular rate, regular rhythm Gastrointestinal: Present: hypoactive bowel sounds, no tenderness, no guarding Integumentary: Present: warm and dry Neurologic: Present: alert and oriented x3 Psychiatric: Present: mood/affect appropriate, cooperative - Lab 07/10/17 04:48 07/10/17 04:48 Most recent lab results Calcium 8.6 mg/dL (8.6-10.8) 07/10/17 04:48 Phosphorus 3.5 mg/dL (2.3-4.7) D 07/09/17 16:17 Magnesium 1.7 mg/dL (1.6-2.6) 07/09/17 16:17 Consult Discharge Plan - Plan Referrals: Anju Britt CNP [Primary Care Provider] - (From [facility])
[2017-07-10] MEDS: Insulin DETEMIR 100 UNIT/ML X5UNITS SQ SCH (09:38)
[2017-07-10] MEDS: Prochlorperazine 10 MG/2 ML VIAL IVP PRN ×2 (10:44→19:52)
--- NOTE | 2017-07-10 18:33 | Internal Med Progress Note ---
Date of Encounter: 07/10/17 Time of Encounter: 18:33 - Assessment and plan (1) Nausea and vomiting Current Visit: Yes Status: Acute Assessment and plan: Unsure etiology. Suspect viral infection vs gastritis or other. Taking carafate, omeprazole ppi daily, Zofran/Compazine prn. Still ineffective. LA and KUB were wnl. Alk phos borderline elevated otherwise LFTs normal. Plan: - Continue Zofran, ppi. - Obtain abdominal ultrasound when available, consider a CT abdomen in AM - Stool studies. Qualifiers: Vomiting type: unspecified Vomiting Intractability: unspecified Qualified Code(s): R11.2 - Nausea with vomiting, unspecified (2) Poor appetite Current Visit: Yes Status: Acute Assessment and plan: as per problem #1 (3) Enterobacter sepsis Current Visit: Yes Status: Acute Assessment and plan: Clinically was doing well but now nauseated for two days. Unsure if nausea is related to medications. ID consult not available at the moment. Treated with Invanz. He was initially improving after his infected line removal and starting Invanz. However within the past 24 hours he has had signs of malaise and n/v. Antiemetics were not effective. Lactic acid, troponin, lipase were wnl. He has been afebrile. He denies any abdominal pain/ chest pain, diarrhea, fevers/ chills. However, WBCs slightly increased today to 14 and was 12 yesterday. Alk phos is elevated in 150s, chest x-ray with possibly lower lobe consolidation, possibly new. These changes could be bacterial infection/PNA that not covered by Invanz, or a viral gastroenteritis. Hepatobiliary pathology is possible but not as likely. Repeat blood cultures are pending. Plan: - Abdominal ultrasound in AM; weekend might delay study. - Consult ID in AM - Stool studies, flu pcr (4) 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 Current Visit: No Status: Chronic Assessment and plan: Serum glucose goal is 140-180. Caution if his diet remains poor, may have to lower Levemir dose. 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 Chronic kidney disease stage: on chronic dialysis Qualified Code(s): E11.22 - Type 2 diabetes mellitus with diabetic chronic kidney disease; N18.6 - End stage renal disease; N18.6 - End stage renal disease; N18.6 - End stage renal disease; N18.6 - End stage renal disease; Z79.4 - assisted (current) use of insulin; Z79.4 - meterman (current) use of insulin; Z79.4 - assisted (current ) use of insulin; Z79.4 - meterman (current) use of insulin; Z99.2 - Dependence on renal dialysis; Z99.2 - Dependence on renal dialysis; Z99.2 - Dependence on renal dialysis; Z99.2 - Dependence on renal dialysis (5) Encephalopathy acute Current Visit: Yes Status: Resolved (6) End stage renal disease on dialysis due to type 2 diabetes mellitus Current Visit: Yes Status: Acute - Subjective Interval history: Still complains of nausea. Two episodes of emesis in the morning. Denies fevers/chills. PO intake was poor for lunch. - Constitutional Vitals: Temp Pulse Resp BP Pulse Ox 98.2 F 90 17 150/80 94 07/10/17 16:11 07/10/17 16:11 07/10/17 16:11 07/10/17 16:11 07/10/17 16:11 Exam: Gen: NAD, AAOx3 CVS: RRR Lungs: CTAB Abd: NT/ND Ext: no edema Internal Medicine: Result - Labs CBC & Chem 7: 07/10/17 04:48 07/10/17 04:48 Labs: Short CBC 07/10/17 Range/Units 04:48 WBC 13.9 H (4.3-11.1) K/mcL Hgb 9.5 L (12.9-16.9) g/dL Hct 31.0 L (37.5-50.1) % Plt Count 234 (140-400) K/mcL Neutrophils # 10.9 H (1.6-8.9) K/mcL BMP 07/10/17 04:48 Sodium 138 Potassium 4.7 H Chloride 97 L Carbon Dioxide 28 BUN 35 H Creatinine 5.35 H Glucose 141 H Calcium 8.6 - ABG Interpretation ABG results: PT/INR, D-dimer PT 13.0 Seconds (9.4-12.1) H 07/06/17 00:29 Consult Discharge Plan - Plan Referrals: Anju Britt CNP [Primary Care Provider] - (From [facility])
[2017-07-10] MEDS: Insulin LISPRO 300 UNITS/3 ML VIAL SQ SCH (21:40)
[2017-07-11] MEDS: Ondansetron 4 MG/2 ML VIAL IVP SCH ×6 (05:27→23:55)
[2017-07-11] MEDS: *HR* Heparin 5,000 UNIT/ML VIAL SQ SCH ×2 (05:34→17:38)
[2017-07-11 06:36] LABS: Basophils # 0.1 K/mcL (0.0-0.2); Basophils % 0.5 %; Eosinophils # 0.3 K/mcL (0.0-0.6); Eosinophils % 2.3 %; Hematocrit 32.2 % (37.5-50.1); Hemoglobin 10.1 g/dL (12.9-16.9); Immature Granulocytes % 0.6 % (0-4); Lymphocytes # 1.6 K/mcL (0.6-4.6); Lymphocytes % 12.5 %; Mean Corpuscular HGB Conc 31.4 g/dL (31.6-35.5); Mean Corpuscular Hemoglobin 28.5 pg (28.0-33.3); Mean Corpuscular Volume 90.7 fL (83.0-100.0); Mean Platelet Volume 9.7 fL (9.4-12.4); Monocytes # 1.2 K/mcL (0.0-1.3); Monocytes % 9.3 %; Neutrophils # 9.5 K/mcL (1.6-8.9); Platelet Count 264 K/mcL (140-400); Red Blood Count 3.55 M/mcL (4.19-5.50); Red Cell Distribution Width 14.6 % (11.5-14.5); Segmented Neutrophils % 74.8 %
[2017-07-11 06:42] LABS: Calcium 8.7 mg/dL (8.6-10.8); Potassium 4.2 mEq/L (3.5-4.5)
[2017-07-11] MEDS: Insulin LISPRO 300 UNITS/3 ML VIAL SQ SCH ×11 (07:22→20:59)
--- NOTE | 2017-07-11 07:58 | Nephrology Progress Note ---
Date of Encounter: 07/11/17 Time of Encounter: 07:40 - Assessment and Plan (1) End stage kidney disease Current Visit: No Status: Acute Enterobacter Cloace-final growth CVC-Ertapenem. Repeat preliminary blood cultures-no growth. No HD today., keeping MWF schedule. Subjective Interval history: Laying quietly. Denies nausea. Started on PPI yesterday. States able to eat dinner las night without nausea. Objective - Vital Signs Vital signs: Vital Signs Temp Pulse Resp BP Pulse Ox 07/11/17 07:42 97.8 F 80 17 100/76 92 07/11/17 04:13 98.2 F 78 16 167/82 95 07/11/17 00:56 98.3 F 75 16 153/79 97 07/10/17 19:03 98.6 F 93 17 156/82 92 07/10/17 16:11 98.2 F 90 17 150/80 94 Intake and Output 07/10/17 07/10/17 07/11/17 15:59 23:59 07:59 Intake Total 120 / 120 120 / 120 Output Total 750 / 750 Balance 120 / 120 120 / 120 -750 / -750 Intake: Oral 120 / 120 120 / 120 Output: Catheter 750 / 750 Other: Meal Lunch Dinner Percent of Meal Consumed 10% 25% Stool Size Large Stool Consistency loose soft Stool Color Brown # Bowel Movements 1 Weight 107.3 kg Blood Glucose* 173 121 Patient Weight 07/11/17 23:59 Weight 107.3 kg - General Appearance General appearance: Present: well-developed, well-nourished, appears started age , obese EENT: Present: mucous membranes moist Neck: Present: no JVD Respiratory: Present: clear Cardiology: Present: no edema, regular rate, regular rhythm Gastrointestinal: Present: normoactive bowel sounds, no tenderness, no guarding Integumentary: Present: warm and dry Neurologic: Present: alert and oriented x3 Psychiatric: Present: mood/affect appropriate, cooperative - Lab 07/11/17 05:53 07/11/17 05:53 Most recent lab results Calcium 8.7 mg/dL (8.6-10.8) 07/11/17 05:53 Phosphorus 3.5 mg/dL (2.3-4.7) D 07/09/17 16:17 Magnesium 1.7 mg/dL (1.6-2.6) 07/09/17 16:17 Consult Discharge Plan - Plan Referrals: Anju Britt CNP [Primary Care Provider] - (From [facility])
[2017-07-11] MEDS: Insulin DETEMIR 100 UNIT/ML X5UNITS SQ SCH (10:21)
--- NOTE | 2017-07-11 17:51 | Internal Med Progress Note ---
Date of Encounter: 07/11/17 Time of Encounter: 13:00 - Assessment and plan (1) Enterobacter sepsis Current Visit: Yes Status: Acute Assessment and plan: Repeat blood and cath cultures on 07/08 have been no growth to date. Continue Invanz. (2) Nausea and vomiting Current Visit: Yes Status: Resolved Qualifiers: Vomiting type: unspecified Vomiting Intractability: unspecified Qualified Code(s): R11.2 - Nausea with vomiting, unspecified (3) 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 Current Visit: No Status: Chronic Assessment and plan: Serum glucose goal is 140-180. At home he takes 40 units Levemir daily. During this admission he requires about 20 units to keep glucose at current goal. Qualifiers: 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 type: type 2 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 complication status: with kidney complications 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 complication detail: with chronic kidney disease 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 alf insulin use: with alf use Chronic kidney disease stage: on chronic dialysis Qualified Code(s): E11.22 - Type 2 diabetes mellitus with diabetic chronic kidney disease; N18.6 - End stage renal disease; Z99.2 - Dependence on renal dialysis; Z99.2 - Dependence on renal dialysis; Z99.2 - Dependence on renal dialysis; N18.6 - End stage renal disease; N18.6 - End stage renal disease; N18.6 - End stage renal disease ; Z79.4 - correction (current) use of insulin; Z79.4 - terminal carman (current) use of insulin; Z79.4 - terminal carman (current) use of insulin; Z79.4 - correction ( current) use of insulin; Z99.2 - Dependence on renal dialysis (4) Encephalopathy acute Current Visit: Yes Status: Resolved Assessment and plan: Dialysis per schedule. (5) End stage renal disease on dialysis due to type 2 diabetes mellitus Current Visit: Yes Status: Acute - Subjective Interval history: And has been more active. A CT abdomen and pelvis was done and was negative. Appetite has improved. He denies fevers chills, vomiting, chest pain, shortness of breath. - Constitutional Vitals: Temp Pulse Resp BP Pulse Ox 98.7 F 98 17 188/72 95 07/11/17 16:49 07/11/17 16:49 07/11/17 16:49 07/11/17 16:49 07/11/17 16:49 Exam: Gen: NAD, AAOx3, pleasant CVS: RRR Lungs: CTAB Abd: NT/ND Ext: no edema Internal Medicine: Result - Labs CBC & Chem 7: 07/11/17 05:53 07/11/17 05:53 Labs: Short CBC 07/11/17 Range/Units 05:53 WBC 12.7 H (4.3-11.1) K/mcL Hgb 10.1 L (12.9-16.9) g/dL Hct 32.2 L (37.5-50.1) % Plt Count 264 (140-400) K/mcL Neutrophils # 9.5 H (1.6-8.9) K/mcL BMP 07/11/17 05:53 Sodium 140 Potassium 4.2 Chloride 101 Carbon Dioxide 25 BUN 50 H D Creatinine 6.76 H Glucose 125 H Calcium 8.7 - ABG Interpretation ABG results: PT/INR, D-dimer PT 13.0 Seconds (9.4-12.1) H 07/06/17 00:29 - Impressions Impressions Abdomen/Pelvis CT 07/11/17 12:30 IMPRESSION: 1. No acute abdominopelvic process demonstrated 2. Small bilateral pleural effusions with atelectasis D/ / Damaso Stoner MD / Damaso Stoner MD Interpreting Provider: Damaso Stoner MD Consult Discharge Plan - Plan Referrals: Anju Britt CNP [Primary Care Provider] - (From [facility])
[2017-07-11] MEDS: hydrALAZINE 10 MG TABLET PO SCH ×2 (18:46→23:54)
[2017-07-11 22:00] LABS: C.difficile Toxin A/B by PCR Not detected (Not detect); Campylobacter by PCR Not detected (Not detect); Cryptosporidium by PCR Not detected (Not detect); Cyclospora cayetanensis PCR Not detected (Not detect); E. coli O157 by PCR Not detected (Not detect); Entamoeba histolytica PCR Not detected (Not detect); Enteroaggregative E.coli(EAEC) Not detected (Not detect); Enteropathogenic E.coli(EPEC) Not detected (Not detect); Enterotoxigenic E.coli (ETEC) Not detected (Not detect); Giardia lamblia PCR Not detected (Not detect); Plesiomonas shigelloides PCR Not detected (Not detect); Salmonella PCR Not detected (Not detect); Shig/EnteroinvasiveE coli EIEC Not detected (Not detect); Shigalike tox-prod E coli STEC Not detected (Not detect); Vibrio PCR Not detected (Not detect); Vibrio cholerae PCR Not detected (Not detect); Yersinia enterocolitica PCR Not detected (Not detect)
[2017-07-11 22:01] LABS: Adenovirus F 40/41 PCR Not detected (Not detect); Astrovirus PCR Not detected (Not detect); Norovirus GI/GII PCR Not detected (Not detect); Rotavirus A PCR Not detected (Not detect); Sapovirus PCR Not detected (Not detect)
[2017-07-12 04:36] LABS: Basophils # 0.1 K/mcL (0.0-0.2); Basophils % 0.5 %; Eosinophils # 0.4 K/mcL (0.0-0.6); Eosinophils % 3.3 %; Hematocrit 30.1 % (37.5-50.1); Hemoglobin 9.3 g/dL (12.9-16.9); Immature Granulocytes % 0.7 % (0-4); Lymphocytes # 1.8 K/mcL (0.6-4.6); Lymphocytes % 15.3 %; Mean Corpuscular HGB Conc 30.9 g/dL (31.6-35.5); Mean Corpuscular Hemoglobin 28.3 pg (28.0-33.3); Mean Corpuscular Volume 91.5 fL (83.0-100.0); Mean Platelet Volume 9.3 fL (9.4-12.4); Monocytes # 1.1 K/mcL (0.0-1.3); Monocytes % 9.1 %; Neutrophils # 8.4 K/mcL (1.6-8.9); Platelet Count 265 K/mcL (140-400); Red Blood Count 3.29 M/mcL (4.19-5.50); Red Cell Distribution Width 14.7 % (11.5-14.5); Segmented Neutrophils % 71.1 %
[2017-07-12 04:55] LABS: Calcium 8.4 mg/dL (8.6-10.8); Potassium 4.1 mEq/L (3.5-4.5)
[2017-07-12 04:58] LABS: Large Platelets Present (Not Present); Platelet Estimate Normal (Normal)
[2017-07-12] MEDS: *HR* Heparin 5,000 UNIT/ML VIAL SQ SCH ×2 (05:59→17:02)
[2017-07-12] MEDS: Ondansetron 4 MG/2 ML VIAL IVP SCH ×4 (06:00→23:53)
[2017-07-12] MEDS ORDERED: 0.9 % Sodium Chloride 250 ML IVC PRN (08:22)
--- NOTE | 2017-07-12 08:22 | Nephrology Progress Note ---
Date of Encounter: 07/12/17 Time of Encounter: 08:20 - Assessment and Plan (1) ESRD (end stage renal disease) on dialysis Current Visit: No Status: Chronic Blood cultures from July 08 remain negative. Therefore the patient can have a tunnel dialysis catheter placed today. Orders have been submitted. He will then undergo routine dialysis. (2) End stage renal disease on dialysis due to type 2 diabetes mellitus Current Visit: Yes Status: Acute (3) ABIGAIL on CPAP Current Visit: No Status: Chronic (4) History of CVA (cerebrovascular accident) Current Visit: No Status: Chronic (5) Leucocytosis Current Visit: No Status: Acute Qualifiers: Leukocytosis type: unspecified Qualified Code(s): D72.829 - Elevated white blood cell count, unspecified Subjective Interval history: The patient currently denies any complaints. Blood cultures from July 08 remain negative. He is scheduled to have a tunnel dialysis catheter placed today and then later on have routine dialysis. He continues on antibiotics for Enterobacter bacteremia. Objective - Vital Signs Vital signs: Vital Signs Temp Pulse Resp BP Pulse Ox 07/12/17 04:11 97.9 F 75 16 113/73 95 07/12/17 00:30 98.3 F 76 16 145/70 95 07/11/17 23:53 98.7 F 81 18 165/83 94 07/11/17 20:03 98.2 F 75 16 149/81 96 07/11/17 16:49 98.7 F 98 17 188/72 95 07/11/17 11:27 98.2 F 82 17 154/74 93 Intake and Output 07/11/17 07/12/17 07/12/17 23:59 07:59 15:59 Intake Total 600 / 600 Balance 600 / 600 Intake: Oral 600 / 600 Other: Meal Dinner Percent of Meal Consumed 35% Stool Size Small Stool Consistency soft Stool Color Brown # Voids 1 1 # Bowel Movements 1 Weight 108.2 kg Blood Glucose* 171 Patient Weight 07/12/17 23:59 Weight 108.2 kg - General Appearance Exam: Patient is alert and oriented. He is in no acute distress. Lungs clear to auscultation. Heart irregular rate and rhythm. Abdomen is benign. There is no lower extremity swelling. There is temporal dialysis catheter in the right internal jugular vein. - Lab 07/12/17 04:25 10/16/17 04:25 Most recent lab results Calcium 8.4 mg/dL (8.6-10.8) L 07/12/17 04:25 Phosphorus 3.5 mg/dL (2.3-4.7) D 07/09/17 16:17 Magnesium 1.7 mg/dL (1.6-2.6) 07/09/17 16:17 Consult Discharge Plan - Plan Referrals: Anju Britt CNP [Primary Care Provider] - (From [facility])
[2017-07-12] MEDS: hydrALAZINE 10 MG TABLET PO SCH ×4 (08:42→23:52)
[2017-07-12] MEDS: Insulin LISPRO 300 UNITS/3 ML VIAL SQ SCH ×7 (08:42→21:53)
[2017-07-12] MEDS ORDERED: 0.9 % Sodium Chloride 2,000 ML ONE (11:54)
[2017-07-12] MEDS ORDERED: *HR* FentaNYL (PF) 100 MCG/2 ML VIAL IVP PRN (13:33)
[2017-07-12] MEDS ORDERED: *HR* Midazolam HCl 2 MG/2 ML VIAL IVP PRN (13:33)
[2017-07-12] MEDS ORDERED: ceFAZolin 2,000 MG in D5% in Water (Mini-Bag+) 100 ML IVPB ONE (13:33)
[2017-07-12] MEDS ORDERED: 0.9 % Sodium Chloride 500 ML ONE (13:43)
[2017-07-12] MEDS ORDERED: ceFAZolin 2,000 MG in D5% in Water 100 ML IVPB ONE (13:45)
[2017-07-12] MEDS ORDERED: Heparin 1,000 UNITS/500 mL NS 500 ML ONE (13:52)
[2017-07-12] MEDS ORDERED: *HR* Heparin 5,000 UNIT/ML VIAL ONE (14:26)
--- NOTE | 2017-07-12 14:32 | IR Procedure Note ---
Date of procedure: 07/12/17 Consent Obtained: Verbal consent Timeout: Correct patient and procedure verified, Correct site verified, Time out performed, Skin prep completed Local anesthetic: Lidocaine 1% Indications: Renal insufficiency, clear blood cx Procedure Performed: Temp HD cath removal, tunneled HD catheter placement Site/Technique: RIJV access. 28cm catheter used. Results/Findings: Tip in right atrium. Working well. Ok to use. Estimated blood loss (cc): 2 Complications: None; Tolerated procedure well Post Procedure Treatment Plan: Monitoring in pts room
[2017-07-12] MEDS: Insulin DETEMIR 100 UNIT/ML X5UNITS SQ SCH (15:37)
--- NOTE | 2017-07-13 00:45 | Internal Med Progress Note ---
Date of Encounter: 07/12/17 Time of Encounter: 15:00 - Assessment and plan (1) Enterobacter sepsis Current Visit: Yes Status: Resolved Assessment and plan: Repeat blood and cath cultures on 07/08 have been no growth to date. Monitor PO intake. Prior workup for nausea was negative, and most medications were not effective in treating his symptoms. Most likely discharge home in AM to [facility] if he can tolerate some food. [facility] go [facility] with 10 more days of Invanz therapy to complete a 14 day course. (2) Nausea and vomiting Current Visit: Yes Status: Resolved Assessment and plan: Unsure etiology. Suspect viral infection vs gastritis or other. He is currently on daily ppi without relief. LA and KUB were wnl. Alk phos borderline elevated otherwise LFTs normal. CT abdomen/pelvis was negative. Stool PCR studies are negative. He has tried Zofran, phenergan, compazine, Carafate without any relief. Plan: - Continue daily ppi, Zofran/phenergan prn (cautiously) - encourage increasing activity might help with symptoms. Qualifiers: Vomiting type: unspecified Vomiting Intractability: unspecified Qualified Code(s): R11.2 - Nausea with vomiting, unspecified (3) 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 Current Visit: No Status: Chronic Qualifiers: 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 type: type 2 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 complication status: with kidney complications 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 complication detail: with chronic kidney disease 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 emt intermediate insulin use: with emt intermediate use Chronic kidney disease stage: on chronic dialysis Qualified Code(s): E11.22 - Type 2 diabetes mellitus with diabetic chronic kidney disease; N18.6 - End stage renal disease; N18.6 - End stage renal disease; N18.6 - End stage renal disease; N18.6 - End stage renal disease; Z79.4 - assisted (current) use of insulin; Z79.4 - rat exterminator (current) use of insulin; Z79.4 - rat exterminator (current ) use of insulin; Z79.4 - rat exterminator (current) use of insulin; Z99.2 - Dependence on renal dialysis; Z99.2 - Dependence on renal dialysis; Z99.2 - Dependence on renal dialysis; Z99.2 - Dependence on renal dialysis (4) Encephalopathy acute Current Visit: Yes Status: Resolved (5) End stage renal disease on dialysis due to type 2 diabetes mellitus Current Visit: Yes Status: Acute - Subjective Interval history: Today patient had temp HD cath removed and a tunneled HD catheter placed. Just returned from dialysis. at bedside. Patient drowsy. His notes that he's still having difficulty with appetite. - Constitutional Vitals: Temp Pulse Resp BP Pulse Ox 98.2 F 73 18 127/73 96 07/12/17 23:36 07/12/17 23:36 07/12/17 23:36 07/12/17 23:36 07/12/17 23:36 Exam: Gen: laying in bed, AAOx3 Lungs: CTAB CVS: irreg irreg rythm, normal rate Ext: no edema RIJ port clean no discharge or bleeding. Internal Medicine: Result - Labs CBC & Chem 7: 07/12/17 04:25 07/12/17 04:25 Labs: Short CBC 07/12/17 Range/Units 04:25 WBC 11.8 H (4.3-11.1) K/mcL Hgb 9.3 L (12.9-16.9) g/dL Hct 30.1 L (37.5-50.1) % Plt Count 265 (140-400) K/mcL Neutrophils # 8.4 (1.6-8.9) K/mcL BMP 07/12/17 04:25 Sodium 140 Potassium 4.1 Chloride 100 Carbon Dioxide 26 BUN 61 H Creatinine 7.64 H Glucose 106 H Calcium 8.4 L - ABG Interpretation ABG results: PT/INR, D-dimer PT 13.0 Seconds (9.4-12.1) H 07/06/17 00:29 - Impressions Impressions Guidance Needle Placement Ultrasound 07/12/17 00:00 IMPRESSION: Successful ultrasound and fluoroscopy guided tunneled catheter placement . Successful temporary hemodialysis catheter removal. D/ / Greg Higuera MD / Greg Higuera MD Interpreting Provider: Greg Higuera MD Insertion Tunneled Catheter 07/12/17 00:00 IMPRESSION: Successful ultrasound and fluoroscopy guided tunneled catheter placement . Successful temporary hemodialysis catheter removal. D/ / Greg Higuera MD / Greg Higuera MD Interpreting Provider: Greg Higuera MD Consult Discharge Plan - Plan Referrals: Anju Britt CNP [Primary Care Provider] - (From [facility])
[2017-07-13] MEDS: Ondansetron 4 MG/2 ML VIAL IVP SCH (06:34)
[2017-07-13] MEDS: *HR* Heparin 5,000 UNIT/ML VIAL SQ SCH ×2 (06:34→17:20)
[2017-07-13] MEDS: hydrALAZINE 10 MG TABLET PO SCH ×3 (06:35→17:20)
--- NOTE | 2017-07-13 07:47 | Nephrology Progress Note ---
Date of Encounter: 07/13/17 Time of Encounter: 07:46 - Assessment and Plan (1) ESRD (end stage renal disease) on dialysis Current Visit: No Status: Chronic The patient will continue to be supported with dialysis every Wednesday. He continues on antibiotics for Enterobacter bacteremia. He will require a total of 2 weeks of IV antibiotics. (2) End stage renal disease on dialysis due to type 2 diabetes mellitus Current Visit: Yes Status: Acute (3) ABIGAIL on CPAP Current Visit: No Status: Chronic (4) History of CVA (cerebrovascular accident) Current Visit: No Status: Chronic (5) Leucocytosis Current Visit: No Status: Acute Qualifiers: Leukocytosis type: unspecified Qualified Code(s): D72.829 - Elevated white blood cell count, unspecified Subjective Interval history: The patient denies any complaints. He remains afebrile. He did have a tunnel dialysis catheter placed yesterday and also had his routine dialysis yesterday. Objective - Vital Signs Vital signs: Vital Signs Temp Pulse Resp BP Pulse Ox 07/13/17 06:32 98.5 F 78 18 133/73 97 07/13/17 02:39 98.6 F 76 15 130/79 97 07/12/17 23:36 98.2 F 73 18 127/73 96 07/12/17 19:52 98.4 F 72 18 123/70 95 07/12/17 15:54 84 18 159/92 99 07/12/17 15:25 98.5 F 81 18 167/94 98 07/12/17 13:25 97.9 F 15 103/43 07/12/17 13:15 102/61 07/12/17 12:45 104/50 07/12/17 12:35 73 18 108/64 07/12/17 12:15 127/74 07/12/17 11:45 119/68 07/12/17 11:15 120/69 07/12/17 10:45 146/85 07/12/17 10:15 97.9 F 17 162/85 Intake and Output 07/12/17 07/12/17 07/13/17 15:59 23:59 07:59 Intake Total 600 / 600 240 / 240 0 / 0 Output Total 1481 / 1481 Balance -881 / -881 240 / 240 0 / 0 Intake: Oral 0 / 0 240 / 240 0 / 0 Intake, Rinseback and Flushes 600 / 600 Output: Urine 0 / 0 Total Dialysis (HD) Output 1481 / 1481 Other: Weight 109.6 kg Blood Glucose* 140 159 93 Hemodialysis Net Fluid Removed 881 (mL) Patient Weight 07/13/17 23:59 Weight 109.6 kg - General Appearance Exam: Patient is alert and oriented. He is in no acute distress. Lungs benchpress sounds otherwise clear. Heart regular rate and rhythm. Abdomen is benign. There is no lower extremity swelling. There is a tunnel dialysis catheter in the right chest with no sign of bleeding. - Lab 07/12/17 04:25 07/12/17 04:25 Most recent lab results Calcium 8.4 mg/dL (8.6-10.8) L 07/12/17 04:25 Phosphorus 3.5 mg/dL (2.3-4.7) D 07/09/17 16:17 Magnesium 1.7 mg/dL (1.6-2.6) 07/09/17 16:17 Consult Discharge Plan - Plan Referrals: Anju Britt WHEEL TRUER [Primary Care Provider] - (From [facility])
[2017-07-13] MEDS: Insulin LISPRO 300 UNITS/3 ML VIAL SQ SCH ×6 (07:50→17:20)
[2017-07-13] MEDS: Darbepoetin 100 MCG/0.5 ML SYRINGE SQ SCH (08:21)
[2017-07-13] MEDS: Insulin DETEMIR 100 UNIT/ML X5UNITS SQ SCH (09:53)
[2017-07-13 10:08] LABS: Basophils # 0.1 K/mcL (0.0-0.2); Basophils % 0.5 %; Eosinophils # 0.3 K/mcL (0.0-0.6); Eosinophils % 3.2 %; Hematocrit 32.3 % (37.5-50.1); Hemoglobin 9.8 g/dL (12.9-16.9); Immature Granulocytes % 0.7 % (0-4); Lymphocytes # 1.4 K/mcL (0.6-4.6); Lymphocytes % 13.9 %; Mean Corpuscular HGB Conc 30.3 g/dL (31.6-35.5); Mean Corpuscular Hemoglobin 28.2 pg (28.0-33.3); Mean Corpuscular Volume 92.8 fL (83.0-100.0); Mean Platelet Volume 8.8 fL (9.4-12.4); Monocytes # 0.9 K/mcL (0.0-1.3); Monocytes % 8.6 %; Neutrophils # 7.4 K/mcL (1.6-8.9); Platelet Count 249 K/mcL (140-400); Red Blood Count 3.48 M/mcL (4.19-5.50); Red Cell Distribution Width 14.8 % (11.5-14.5); Segmented Neutrophils % 73.1 %
[2017-07-13 10:29] LABS: Calcium 8.5 mg/dL (8.6-10.8); Potassium 4.6 mEq/L (3.5-4.5)
[2017-07-13] MEDS ORDERED: Ondansetron 4 MG/2 ML VIAL IVP PRN ×2 (10:57→11:46)
[2017-07-13] MEDS ORDERED: GI Cocktail 40 ML EACH PO ONE (10:58)
[2017-07-13] MEDS ORDERED: Leptospermum Honey GEL 1 APPL/5 ML MLS TP SCH (13:15)
--- NOTE | 2017-07-13 15:01 | Discharge Summary ---
Date of Encounter: 07/13/17 Time of Encounter: 14:59 - Discharge Diagnosis (1) Enterobacter sepsis Priority: Primary Status: Resolved (2) 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 Priority: Secondary Status: Chronic Qualifiers: 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 type: type 2 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 complication status: with kidney complications 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 complication detail: with chronic kidney disease 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 intermediate manager insulin use: with intermediate manager use Chronic kidney disease stage: on chronic dialysis Qualified Code(s): E11.22 - Type 2 diabetes mellitus with diabetic chronic kidney disease; N18.6 - End stage renal disease; N18.6 - End stage renal disease; N18.6 - End stage renal disease; N18.6 - End stage renal disease; Z79.4 - halfway (current) use of insulin; Z79.4 - halfway (current) use of insulin; Z79.4 - medical terminologist (current ) use of insulin; Z79.4 - medical terminologist (current) use of insulin; Z99.2 - Dependence on renal dialysis; Z99.2 - Dependence on renal dialysis; Z99.2 - Dependence on renal dialysis; Z99.2 - Dependence on renal dialysis (3) Encephalopathy acute Priority: Secondary Status: Resolved (4) ESRD (end stage renal disease) on dialysis Priority: Secondary Status: Chronic (5) Nausea and vomiting Priority: Secondary Status: Resolved Qualifiers: Vomiting type: unspecified Vomiting Intractability: unspecified Qualified Code(s): R11.2 - Nausea with vomiting, unspecified - Discharge Medications Prescriptions: Ondansetron ODT [Zofran ODT] 4 mg SL Q6HR PRN #30 tab.rapdis PRN Reason: Nausea Benzocaine 20% [Orajel] 9 gm MM TID PRN #1 gel..gram. PRN Reason: oral pain Ertapenem [INVanz] 1,000 mg IVPB DAILY #9 vial Metoclopramide [Reglan] 10 mg PO QIDAC #60 tablet Omeprazole [PriLOSEC] 40 mg PO DAILY@0630 #30 capsule. Tramadol HCl [Ultram] 50 mg PO BID PRN #15 tablet PRN Reason: Pain Home Medications: Aspirin [Ecotrin] 325 mg PO DAILY #0 06/05/15 [History] Finasteride [Proscar] 5 mg PO DAILY #0 06/05/15 [History] Primidone [Mysoline] 50 mg PO DAILY #0 06/05/15 [History] Ranitidine HCl [Zantac] 150 mg PO BID #0 06/05/15 [History] Simvastatin [Zocor] 10 mg PO QPM #0 06/05/15 [History] Tamsulosin [Flomax] 0.4 mg PO DAILY #0 06/05/15 [History] Calcitriol [Rocaltrol] 0.25 mcg PO DAILY 09/11/15 [History] Montelukast [Singulair] 10 mg PO QPM 12/30/16 [History] Furosemide [Lasix] 20 mg PO DAILY 06/15/17 [History] Ondansetron HCl [Zofran] 4 mg PO BID 06/15/17 [History] Oxygen 2 l NS AD 06/15/17 [History] PrednisoLONE Acetate 1% Opth [PredFORTE 1%] 1 drop OP QID PRN 06/15/17 [History] Pregabalin [Lyrica] 100 mg PO BID 06/15/17 [History] Epoetin Donell [Procrit] 10,000 unit SQ 3XW vial 06/25/17 [Rx] Labetalol [Trandate] 100 mg PO BID #60 tablet 06/25/17 [Rx] Pregabalin [Lyrica] 50 mg PO MoWeFr@2100 capsule 06/25/17 [Rx] amLODIPine [Norvasc] 5 mg PO DAILY #30 tablet 06/25/17 [Rx] Ciprofloxacin OPTH Soln [Ciloxan OPTH Soln] 2 drop BOTH EYES Q4HR bottle [Rx] Benzocaine 20% [Orajel] 9 gm MM TID PRN #1 gel..gram. 07/13/17 [Rx] Ertapenem [INVanz] 1,000 mg IVPB DAILY #9 vial 07/13/17 [Rx] Insulin ASPART [Novolog Flexpen] 5 unit SQ TID #0 07/13/17 [Rx] Insulin DETEMIR [Levemir Flextouch] 20 unit SQ DAILY #0 07/13/17 [Rx] Metoclopramide [Reglan] 10 mg PO QIDAC #60 tablet 07/13/17 [Rx] Omeprazole [PriLOSEC] 40 mg PO DAILY@0630 #30 capsule. 07/13/17 [Rx] Ondansetron ODT [Zofran ODT] 4 mg SL Q6HR PRN #30 tab.mecca 07/13/17 [Rx] Tramadol HCl [Ultram] 50 mg PO BID PRN #15 tablet 07/13/17 [Rx] Allergies/Adverse Reactions: 3 Allergy/AdvReac Type Severity Reaction Status Date / Time No Known Allergies Allergy Verified 12/29/16 23:37 Procedures/tests Complete & Pending: Procedures Performed prior 72 hours Category Date Time Status CT abd pelvis wo no iv no oral [CT] Routine Cat Scan 07/11/17 12:30 Completed IR cvc insrt tunnel wo prt/certified cytotechnologist [IR] Routine IR 07/12/17 Completed IR us guide needle place [IR] Routine IR 07/12/17 Completed Date of admission: 07/05/17 22:52 Primary care physician: Anju Britt, Consults: 07/05/17 23:02 Consult to Physician [CONS] Routine Consulting Provider: Varun Be Reason for Consult: ESRD; sepsis Call Completed: No 07/06/17 03:13 Consult to Microbiology Technologist [CONS] Routine Reason for SW Consult: discharge planning, SNF, came from [facility] 07/07/17 08:16 Consult to Interventional Radiology [CONS] Routine Consulting Provider: Radiology Interventional Cols Reason for Consult: place tunneled catheter Time Notified: 07:53 Call Completed: No 07/07/17 08:30 Consult to Dialysis [CONS] ONCE 07/09/17 08:41 Consult to Interventional Radiology [CONS] Stat Consulting Provider: Radiology Interventional Cols Reason for Consult: temp HD cath placement Time Notified: 08:41 Call Completed: Yes 07/09/17 10:00 Consult to Dialysis [CONS] ONCE Consult to Dialysis [CONS] ONCE 07/11/17 08:00 Consult to Physical Therapy [CONS] Routine Comment: Evaluate, develop and implement POC Reason for Consult: Disposition planning. Therapy - weakness in bed. 07/12/17 08:30 Consult to Dialysis [CONS] ONCE 07/12/17 13:09 Consult to Wound Care [CONS] Routine Reason for Consult: Left heel wound Call Completed: Yes Discharging clinician: Yessenia Gaytan Anticipated date of discharge: 07/13/17 - Patient Status Disposition: Transfer SNF Condition: Good Overall status at discharge: patient is progressing back to baseline - Discharge Instructions Instructions: Diabetes Mellitus Type 2 in Adults (DC), Sepsis (DC) Follow Up With: Anju Britt CNP [Primary Care Provider] - (Patient is from [facility] and will follow up with the PCP there) - Diet and Activity Activity: as per physical therapy, wear oxygen at all times Diet: diabetic diet, low fat, low cholesterol, low salt diet Hospital course: Mr. Prado is a 67 year old male patient with a history of diabetes mellitus, hyperlipidemia, hypertension, prior CVA who was admitted here after presenting to the ER at [facility] from his nursing facility with a fever of 103 Fahrenheit. Patient had just been discharged from the hospital following an episode of aspiration pneumonia and diastolic congestive heart failure. He was started on treatment for sepsis and acute encephalopathy. He was treated with broad-spectrum antibiotics with close monitoring of his neurologic function and his blood sugars. One set of blood culture from his dialysis catheter was positive for Enterobacter. Per nephrology recommendations, this catheter was removed on 07/09/17. A temporary dialysis catheter was placed. The patient continued to receive IV antibiotics and after repeat blood cultures were negative, he underwent placement of tunneled dialysis catheter on 07/12/17. Patient was Also having episodes of intractable nausea. He was treated for this with Zofran and Phenergan with slight improvement in his symptoms. Most likely, patient has hiatal hernia and gastritis. He has been placed on PPI. He also has a history of diabetes mellitus and may have underlying diabetic gastroparesis. He has now been started on Reglan and so far has tolerated it well with improvement in his nausea. He also has a couple of tiny blisters on his tongue which do not appear to be thrush. This can be treated symptomatically with Orajel. At this time, patient is doing much better, tolerating diet well. He will be discharged back to [facility] facility today. He will complete intravenous antibiotic course with Invanz. Patient's blood sugars have been well controlled with much lower insulin regimen than he was on previously. As such I am decreasing his insulin dosages. - Time Spent with Patient Total time spent providing and/or coordinating discharge services: Greater than 30 minutes (40 min) - Constitutional Vitals: Temp Pulse Resp BP Pulse Ox 98.4 F 71 74 119/64 98 10/17/17 11:09 07/13/17 11:09 07/13/17 13:13 07/13/17 13:13 07/13/17 11:09 General appearance: Present: cooperative, A&O X 3, answers questions appropriately - ENT ENT exam: Present: mucous membranes moist Additional comments: blister on tip of tongue - Respiratory Respiratory exam: Present: CTAB. Absent: accessory muscle use, rales, rhonchi, wheezes - Cardiovascular Cardiovascular exam: Present: RRR, +S1, +S2. Absent: diastolic murmur, gallop, rubs, systolic murmur - GI/Abdominal GI/Abdominal exam: Present: normal bowel sounds, soft, no peritoneal signs. Absent: distended, tenderness - Extremities Exam Extremities exam: Present: warm, radial pulses palpable and symmetrical. Absent : calf tenderness, cyanotic, pedal edema - Neurological Exam Neurological exam: Present: CN II-XII intact, oriented X3. Absent: facial droop , speech deficit Additional comments: right upper extremity tremor
--- NOTE | 2017-07-13 15:14 | Physician Discharge Referral ---
ExtendedCare Referral Info Transfer To: [facility] Provider in Charge after Transfer: PCP Institutional Level of Care: Skilled - Diagnosis (1) Enterobacter sepsis Priority: Primary Status: Resolved (2) 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 Priority: Secondary Status: Chronic (3) Encephalopathy acute Priority: Secondary Status: Resolved (4) ESRD (end stage renal disease) on dialysis Priority: Secondary Status: Chronic (5) Nausea and vomiting Priority: Secondary Status: Resolved Prognosis: Fair Aware of Diagnosis: Patient, Family Aware of Prognosis: Patient, Family - Transfer Medications Prescriptions: Ondansetron ODT [Zofran ODT] 4 mg SL Q6HR PRN #30 tab.rapdis PRN Reason: Nausea Benzocaine 20% [Orajel] 9 gm MM TID PRN #1 gel..gram. PRN Reason: oral pain Ertapenem [INVanz] 1,000 mg IVPB DAILY #9 vial Metoclopramide [Reglan] 10 mg PO QIDAC #60 tablet Omeprazole [PriLOSEC] 40 mg PO DAILY@0630 #30 capsule. Tramadol HCl [Ultram] 50 mg PO BID PRN #15 tablet PRN Reason: Pain Home Medications: Aspirin [Ecotrin] 325 mg PO DAILY #0 06/05/15 [History] Finasteride [Proscar] 5 mg PO DAILY #0 06/05/15 [History] Primidone [Mysoline] 50 mg PO DAILY #0 06/05/15 [History] Ranitidine HCl [Zantac] 150 mg PO BID #0 06/05/15 [History] Simvastatin [Zocor] 10 mg PO QPM #0 06/05/15 [History] Tamsulosin [Flomax] 0.4 mg PO DAILY #0 06/05/15 [History] Calcitriol [Rocaltrol] 0.25 mcg PO DAILY 09/11/15 [History] Montelukast [Singulair] 10 mg PO QPM 12/30/16 [History] Furosemide [Lasix] 20 mg PO DAILY 06/15/17 [History] Ondansetron HCl [Zofran] 4 mg PO BID 06/15/17 [History] Oxygen 2 l NS AD 06/15/17 [History] PrednisoLONE Acetate 1% Opth [PredFORTE 1%] 1 drop OP QID PRN 06/15/17 [History] Pregabalin [Lyrica] 100 mg PO BID 06/15/17 [History] Epoetin Donell [Procrit] 10,000 unit SQ 3XW vial 06/25/17 [Rx] Labetalol [Trandate] 100 mg PO BID #60 tablet 06/25/17 [Rx] Pregabalin [Lyrica] 50 mg PO MoWeFr@2100 capsule 06/25/17 [Rx] amLODIPine [Norvasc] 5 mg PO DAILY #30 tablet 06/25/17 [Rx] Ciprofloxacin OPTH Soln [Ciloxan OPTH Soln] 2 drop BOTH EYES Q4HR bottle [Rx] Benzocaine 20% [Orajel] 9 gm MM TID PRN #1 gel..gram. 07/13/17 [Rx] Ertapenem [INVanz] 1,000 mg IVPB DAILY #9 vial 07/13/17 [Rx] Insulin ASPART [Novolog Flexpen] 5 unit SQ TID #0 07/13/17 [Rx] Insulin DETEMIR [Levemir Flextouch] 20 unit SQ DAILY #0 07/13/17 [Rx] Metoclopramide [Reglan] 10 mg PO QIDAC #60 tablet 07/13/17 [Rx] Omeprazole [PriLOSEC] 40 mg PO DAILY@0630 #30 capsule.dr 07/13/17 [Rx] Ondansetron ODT [Zofran ODT] 4 mg SL Q6HR PRN #30 tab.rapdis 07/13/17 [Rx] Tramadol HCl [Ultram] 50 mg PO BID PRN #15 tablet 07/13/17 [Rx] Allergies/Adverse Reactions: 3 Allergy/AdvReac Type Severity Reaction Status Date / Time No Known Allergies Allergy Verified 12/29/16 23:37 - Respiratory Orders Oxygen / L per min (3) Smoking Cessation: Smoking cessation has been advised. For more information, call the [employer] Tobacco Quit Line at 6-078-RWXX-NOW. - Ancillary Orders May consult with Dentist, Sandfill Operator, Fence Laborer PRN - Advance Directives Code Status: Full Code - Mobility Orders Other (per PT eval) - Rehabiliation Orders Rehab Potential: Fair Rehab Orders: Evaluation for Physical Therapy, Evaluation for Occupational Therapy - Diet Orders No Concentrated Sweets (diabetic), Cardiac CERTIFICATION: I certify that the transfer of the above named patient to an Extended Care Facility is necessary for the continuing treatment of the diagnosis listed. The above information is true and accurate reflection of patient's current condition. Confidential - Redisclosure prohibited without a patient's written consent.
[2017-07-13 15:33] VITALS: BP 153/76
== END 2017-07-13 18:20 | DRG 314 ==
LOC: 2ANU → SUATTDRO 22:52
PROVIDERS: ADMIT Family Medicine; ATTEND Student in an Organized Health Care Education/Training Program
PROC: IRPERMA (2017-07-12 12:00)

== ENCOUNTER 2017-07-18 18:21 | Inpatient (IN) ==
--- NOTE | 2017-07-19 00:07 | Internal Med History&Physical ---
Date of Encounter: 07/19/17 Time of Encounter: 00:07 Assessment and Plan (1) UTI (urinary tract infection) Current visit: Yes Status: Acute Continue Rocephin Winter in place Urine culture pending Qualifiers: Urinary tract infection type: acute cystitis Hematuria presence: with hematuria Qualified Code(s): N30.01 - Acute cystitis with hematuria (2) Fungal infection of the groin Current visit: Yes Status: Acute Continue Nystatin cream (3) Bacteremia due to Enterobacter species Current visit: Yes Status: Acute 07/13/17 after hospitalization for enterobacter sepsis complicated by dialysis catheter infection. Previous dialysis catheter was removed due to bacteremia and his current tunneled dialysis catheter was placed on 07/12/17. He has been on Invanz 1g IV daily since discharge 07/13/17. Continue Invanz Repeat blood cultures pending (4) Generalized weakness Current visit: No Status: Acute Sent from [facility] due weakness and inability to participate in rehab, near syncope with position changes Orthostatic vital signs PT/OT consulted (5) ESRD (end stage renal disease) on dialysis Current visit: No Status: Chronic Cr 7.63 Current tunneled dialysis catheter was placed on 07/12/17 Resume HD MWF Nephrology consulted (6) Type 2 diabetes mellitus with diabetic chronic kidney disease Current visit: No Status: Acute Continue insulin and accuchecks Qualifiers: 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 medical terminologist insulin use: without medical terminologist use Chronic kidney disease stage: stage 4 (severe) Qualified Code(s): E11.22 - Type 2 diabetes mellitus with diabetic chronic kidney disease; N18.4 - Chronic kidney disease, stage 4 (severe); N18.4 - Chronic kidney disease, stage 4 (severe); N18.4 - Chronic kidney disease, stage 4 (severe); N18.4 - Chronic kidney disease , stage 4 (severe) (7) HTN (hypertension) Current visit: Yes Status: Chronic Continue home meds Qualifiers: Hypertension type: renovascular hypertension Qualified Code(s): I15.0 - Renovascular hypertension (8) HLD (hyperlipidemia) Current visit: Yes Status: Chronic Continue home meds Qualifiers: Hyperlipidemia type: unspecified Qualified Code(s): E78.5 - Hyperlipidemia , unspecified (9) History of CVA (cerebrovascular accident) Current visit: No Status: Chronic No new neurological deficits Continue to monitor (10) Phthisis bulbi of right eye Current visit: No Status: Chronic Continue home meds (11) Decubitus ulcer of sacral region, stage 1 Current visit: Yes Status: Acute Turn patient q2h Wound care consulted (12) Decubitus ulcer of left foot Current visit: Yes Status: Acute Wound care consulted Consider surgical evaluation for wound debridement Qualifiers: Pressure ulcer stage: unspecified pressure ulcer stage Qualified Code(s): L89.899 - Pressure ulcer of other site, unspecified stage (13) DVT prophylaxis Current visit: No Status: Acute Heparin subq TID Internal Medicine - H&P: HPI Chief complaint: Weakness Admitted From: Emergency Dept ([facility]) Plans for Post Hospital Care: Transfer Intermediate Facility History of present illness: Mr. Prado is a 67 year old male with a PMH of ESRD on HD every MWF, diabetes mellitus, hypertension, hyperlipidemia, aspiration pneumonia, diastolic CHF, CVA , near blindness, and recent discharge from [facility] to rehab on 07/13/17 after hospitalization for enterobacter sepsis complicated by dialysis catheter infection. He presented today from [facility] ER after her was sent from [facility] due weakness and inability to participate in rehab, near syncope with position changes, and urinary tract infection. noted he has been difficult to arose today and initial SpO2 in the 80s. Of note, previous dialysis catheter was removed due to bacteremia and his current tunneled dialysis catheter was placed on 07/12/17. He has been on Invanz 1g IV daily since discharge 07/13/17. Last dialysis treatment was Wednesday. Patient is requesting food at this time. In the ED at [facility], labs revealed, WBC 11.0, HGB 9.7, HCT 29.5, PLT 313, NA 139 , K 4.6, Cl 102, BUN 27, Cr 7.29, glucose 125, mag 2.0, INR 1.02, lactic acid 1.5, and ammonia 21. Urinalysis revealed turbid appearance,specific gravity 1.020, protein >300, moderate blood, negative nitrite, large leukocyte esterase , WBC >100, RBC 10-20, and epithelial cells 3-5, bacteria 3+, UDS negative. ABG revealed pH 7.330, pCO2 58.0, pO2 99.0, HCO3 30.6, SpO2 97.0% on 3L NC Past Med Surg Social Fam HX - Past Medical History Medical history: CVA, diabetes, hyperlipidemia, hypertension, renal disease Psychiatric history: no psych history - Past Surgical History Surgical History: other (dialysis catheter placement; eye surgeries) - Social History Smoking Status: Former smoker Smokeless Tobacco Status: No Alcohol use: none Drug use: none Current living situation: With Family, ECF - Family History Mother History Unknown: Yes Living Status: Father History Unknown: Yes Living Status: Hx Family Respiratory Disorders: Yes (emphasema) Hx Family Endocrine Disorder: Yes (diabetes) Internal Medicine - H&P: Meds Aspirin [Ecotrin] 325 mg PO DAILY #0 06/05/15 [History] Finasteride [Proscar] 5 mg PO DAILY #0 06/05/15 [History] Primidone [Mysoline] 50 mg PO DAILY #0 06/05/15 [History] Ranitidine HCl [Zantac] 150 mg PO BID #0 06/05/15 [History] Simvastatin [Zocor] 10 mg PO QPM #0 06/05/15 [History] Tamsulosin [Flomax] 0.4 mg PO DAILY #0 06/05/15 [History] Calcitriol [Rocaltrol] 0.25 mcg PO DAILY 09/11/15 [History] Montelukast [Singulair] 10 mg PO QPM 12/30/16 [History] Furosemide [Lasix] 20 mg PO DAILY 06/15/17 [History] Ondansetron HCl [Zofran] 4 mg PO BID 06/15/17 [History] Oxygen 2 l NS AD 06/15/17 [History] PrednisoLONE Acetate 1% Opth [PredFORTE 1%] 1 drop OP QID PRN 06/15/17 [History] Pregabalin [Lyrica] 100 mg PO BID 06/15/17 [History] Epoetin Donell [Procrit] 10,000 unit SQ 3XW vial 06/25/17 [Rx] Labetalol [Trandate] 100 mg PO BID #60 tablet 06/25/17 [Rx] Pregabalin [Lyrica] 50 mg PO MoWeFr@2100 capsule 06/25/17 [Rx] amLODIPine [Norvasc] 5 mg PO DAILY #30 tablet 06/25/17 [Rx] Ciprofloxacin OPTH Soln [Ciloxan OPTH Soln] 2 drop BOTH EYES Q4HR bottle [Rx] Benzocaine 20% [Orajel] 9 gm MM TID PRN #1 gel..gram. 07/13/17 [Rx] Ertapenem [INVanz] 1,000 mg IVPB DAILY #9 vial 07/13/17 [Rx] Insulin ASPART [Novolog Flexpen] 5 unit SQ TID #0 07/13/17 [Rx] Insulin DETEMIR [Levemir Flextouch] 20 unit SQ DAILY #0 07/13/17 [Rx] Metoclopramide [Reglan] 10 mg PO QIDAC #60 tablet 07/13/17 [Rx] Omeprazole [PriLOSEC] 40 mg PO DAILY@0630 #30 capsule.dr 07/13/17 [Rx] Ondansetron ODT [Zofran ODT] 4 mg SL Q6HR PRN #30 tab.rapdis 07/13/17 [Rx] Tramadol HCl [Ultram] 50 mg PO BID PRN #15 tablet 07/13/17 [Rx] 3 Allergy/AdvReac Type Severity Reaction Status Date / Time No Known Allergies Allergy Verified 12/29/16 23:37 All Systems PM: A 10-system review of systems was performed and is negative for pertinent findings except as documented above in the HPI. - Constitutional Constitutional: fatigue, lethargy, weakness, no chills, no fever(s), no weight gain, no weight loss - EENT Eyes: blurry vision, dry eye, irritation, loss of vision, other visual disturbances, no change in vision Nose, mouth and throat: no nasal congestion, no sinus pressure, no sore throat - Cardiovascular Cardiovascular ROS IM: no chest pain, no lightheadedness, no orthopnea, no palpitations, no syncope - Respiratory Respiratory: no cough, no excessive phlegm production, no change in phlegm color - Gastrointestinal Gastrointestinal: no abdominal pain, no diarrhea, no hematemesis, no hematochezia, no nausea, no vomiting - Genitourinary Genitourinary ROS male: difficulty urinating, dysuria, hematuria, urinary frequency, urinary hesitancy, urinary incontinence, urinary urgency - Musculoskeletal Musculoskeletal ROS IM: numbness, no back pain, no tingling - Integumentary Integumentary IM: erythema, new lesions, non-healing lesions, skin ulcer - Neurological Neurological ROS: numbness, weakness, no confusion, no dizziness, no tingling - Psychiatric Psychiatric: no anxiety, no depression - Endocrine Endocrine IM: no polydipsia, no polyphagia, no polyuria - Hematologic/Lymphatic Hematologic/Lymphatic: no easy bleeding, no easy bruising - Constitutional Vitals: Temp Pulse Resp BP Pulse Ox 97.6 F 73 19 137/61 96 07/18/17 23:26 07/18/17 23:26 07/18/17 23:26 07/18/17 23:26 07/18/17 23:26 General appearance: Present: cooperative, A&O X 3, pleasant, answers questions appropriately Exam: eyes closed, somnolent, but answers all questions - Head Head exam: Present: atraumatic, normal inspection, normocephalic - Eye Eye exam: Present: PERRL (left) Additional comments: complete blindness right eye - Expanded Eye Exam sclera: right: exudate - ENT ENT exam: Present: mucous membranes dry, normal oropharynx - Neck Neck exam general surgery: Present: normal inspection, supple. Absent: tenderness - Respiratory Respiratory exam: Present: CTAB. Absent: wheezes Additional comments: dialysis cath right upper chest - Cardiovascular Cardiovascular exam: Present: RRR, +S1, +S2 - GI/Abdominal GI/Abdominal exam: Present: normal bowel sounds, soft. Absent: distended - External exam: Present: erythema (scrotal, moist skin, odor) - Incison Incision: Present: clean and dry (right upper chest HD cath), intact. Absent: red, swollen, inflamed, erythema - Back Exam Back exam: Present: normal inspection. Absent: tenderness - Neurological Exam Neurological exam: Present: alert, oriented X3, strengths equal and symetr throughout. Absent: speech deficit - Psychiatric Psychiatric exam: Present: normal affect, normal mood - Skin Skin exam: Present: erythema, rash, warm Additional comments: 4cm x 2cm black necrotic left heel ulcer with no surrounding erythema, stage 1 sacral decubitus ulcer - Expanded Skin Exam Distribution of rash: Present: genitals Internal Med - H&P Results - Labs CBC & Chem 7: 07/19/17 03:17 07/19/17 03:17
[2017-07-19] MEDS ORDERED: Naloxone 0.4 MG/ML INJ IVP PRN (00:54)
[2017-07-19] MEDS ORDERED: Acetaminophen 325 MG TABLET PO PRN (00:57)
[2017-07-19] MEDS ORDERED: Ondansetron 4 MG/2 ML VIAL IVP PRN (00:57)
[2017-07-19] MEDS ORDERED: 0.9 % Sodium Chloride 1,000 ML IVC SCH (01:00)
[2017-07-19] MEDS ORDERED: PrednisoLONE Acetate 1% Opth 5 ML BOTTLE RIGHT EYE PRN (01:06)
[2017-07-19] MEDS ORDERED: Benzocaine 20% 9 GM GEL..GRAM. MM PRN (01:06)
[2017-07-19] MEDS ORDERED: Dextrose Gel 15 GM PO PRN ×2 (01:44)
[2017-07-19] MEDS ORDERED: *HR* Dextrose 50 % in Water (Syg) 50 ML SYRINGE IVP PRN (01:44)
[2017-07-19] MEDS ORDERED: D5% in Water 1,000 ML IVC PRN (01:44)
[2017-07-19 01:54] LABS: Bilirubin,Urine Negative (Negative); Blood,Urine Large (Negative); Clarity,Urine Turbid (Clear); Color,Urine Yellow (Yellow); Glucose,Urine (UA) Normal (Normal); Ketones,Urine Negative (Negative); Leukocyte Esterase,Urine Large (Negative); Nitrite,Urine Negative (Negative); Protein,Urine >=300 mg/dL (Neg-Trace); Specific Gravity,Urine 1.018 (1.010-1.025); Urobilinogen,Urine Normal (Normal)
[2017-07-19 02:03] LABS: Bacteria,Urine Many per hpf (None-Few)
[2017-07-19 02:05] LABS: WBC,Urine TNTC per hpf (0-3)
[2017-07-19 02:07] LABS: RBC,Urine Present per hpf (0-3); Yeast,Urine Present per hpf (None Seen)
[2017-07-19 02:09] LABS: Squamous Epithelial Cell,Urine Few per lpf (None-Few)
--- NOTE | 2017-07-19 02:38 | Event Note ---
Date of Encounter: 07/19/17 Time of Encounter: 02:38 Vicious and examined with certified medical technician assistant. Agree with assessment and plan.
[2017-07-19] MEDS ORDERED: Vancomycin 1,500 MG in D5% in Water 250 ML IVPB ONE (03:00)
[2017-07-19] MEDS ORDERED: Vancomycin 1,000 MG in D5% in Water 250 ML IVPB SCH (03:00)
[2017-07-19 03:24] LABS: Basophils # 0.1 K/mcL (0.0-0.2); Basophils % 0.6 %; Eosinophils # 0.5 K/mcL (0.0-0.6); Eosinophils % 5.2 %; Hematocrit 31.6 % (37.5-50.1); Hemoglobin 9.3 g/dL (12.9-16.9); Immature Granulocytes % 0.4 % (0-4); Immature Platelets 1.4 % (1.1-6.1); Lymphocytes # 1.8 K/mcL (0.6-4.6); Mean Corpuscular HGB Conc 29.4 g/dL (31.6-35.5); Mean Corpuscular Hemoglobin 27.8 pg (28.0-33.3); Mean Corpuscular Volume 94.3 fL (83.0-100.0); Monocytes # 0.9 K/mcL (0.0-1.3); Monocytes % 9.6 %; Neutrophils # 6.1 K/mcL (1.6-8.9); Platelet Count 292 K/mcL (140-400); Red Blood Count 3.35 M/mcL (4.19-5.50); Red Cell Distribution Width 14.4 % (11.5-14.5); Segmented Neutrophils % 65.2 %
[2017-07-19 03:29] LABS: INR 1.1; Prothrombin Time 11.7 Seconds (9.4-12.1)
[2017-07-19 03:31] LABS: Activated Partial Thrombo Time 30.5 Seconds (26.0-36.0)
[2017-07-19 03:45] LABS: Alanine Aminotransferase < 6 Units/L (0-55); Albumin 2.6 g/dL (3.5-5.0); Albumin/Globulin Ratio 0.6 (1.1-2.2); Alkaline Phosphatase 98 Units/L (38-126); Aspartate Amino Transferase 15 Units/L (5-34); BUN/Creatinine Ratio 4 (6-26); Bilirubin,Total 0.4 mg/dL (0.2-1.2); Blood Urea Nitrogen 29 mg/dL (8-26); Carbon Dioxide 24 mEq/L (19-29); Chloride 104 mEq/L (98-109); Globulin 4.4 g/dL (2.4-3.5); Glucose 90 mg/dL (70-99); Osmolality,Calculated 297 (280-300); Potassium 4.2 mEq/L (3.5-4.5); Sodium 141 mEq/L (136-145); eGFR For African Americans 9 (> 60); eGFR For Non-African Americans 7 (> 60)
[2017-07-19] MEDS: Nystatin Cream 15 GM TUBE TP SCH ×4 (04:45→21:41)
[2017-07-19] MEDS: Ciprofloxacin OPTH Soln 2.5 ML BOTTLE BOTH EYES SCH (04:46)
[2017-07-19] MEDS: Insulin LISPRO 300 UNITS/3 ML VIAL SQ SCH ×7 (04:49→21:40)
[2017-07-19] MEDS ORDERED: Famotidine 20 MG/2 ML VIAL IVP SCH (06:00)
[2017-07-19] MEDS: *HR* Heparin 5,000 UNIT/ML VIAL SQ SCH ×3 (06:32→21:39)
[2017-07-19] MEDS ORDERED: Famotidine 20 MG TABLET PO SCH (07:30)
[2017-07-19] MEDS ORDERED: 0.9 % Sodium Chloride 250 ML IVC PRN (08:02)
[2017-07-19] MEDS ORDERED: 0.9 % Sodium Chloride 1,000 ML PRIME SCH (08:15)
[2017-07-19] MEDS ORDERED: 0.9 % Sodium Chloride 2,000 ML ONE (08:19)
[2017-07-19] MEDS ORDERED: Insulin LISPRO 300 UNITS/3 ML VIAL SQ SCH (09:00)
[2017-07-19] MEDS ORDERED: Ertapenem 1,000 MG in 0.9 % Sodium Chloride Mini Bag 100 ML IVPB SCH (09:00)
[2017-07-19] MEDS ORDERED: NON-FORMULARY MEDICATION 1 EACH EACH (Insulin Detemir [Levemir Flextouch] 20 UNIT) SQ SCH (09:00)
[2017-07-19] MEDS: Aspirin Enteric Coated 325 MG Tablet PO SCH (09:39)
[2017-07-19] MEDS: Primidone 50 MG TABLET PO SCH (09:40)
[2017-07-19] MEDS: Finasteride 5 MG TABLET PO SCH (09:40)
[2017-07-19] MEDS: Pregabalin 50 MG CAPSULE PO SCH ×2 (09:40→21:39)
[2017-07-19] MEDS: amLODIPine 5 MG TABLET PO SCH (09:44)
[2017-07-19] MEDS: Insulin DETEMIR 100 UNIT/ML X5UNITS SQ SCH (09:56)
--- NOTE | 2017-07-19 11:37 | Nephrology Consult Note ---
Date of Encounter: 07/19/17 Time of Encounter: 11:15 Assessment and Plan (1) End stage kidney disease Current Visit: No Status: Acute ESRD on dialysis. Enterobactor sepsis due to dialysis catheter infection, continue Invanz. Will obtain blood cultures and from tunneled catheter site. Urine culture pending. Will dialyze today, keeping MWF schedule. History of Present Illness - Reason for Consult end stage renal disease - History of Present Illness Mr. Prado is a 67 year old male who dialyzes at [facility] on MWF. Last dialysis on Wednesday. Other PMH-CVA, diabetes, hyperlipidemia, hypertension, sacral and left foot decub. 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 Mr. Prado was transferred from [facility] after nursing facility stated patient weak with near syncopal episodes. Mr. Prado was recently discharged from [place] for for enterobacter sepsis complicated by dialysis catheter infection. Original tunneled catheter taken out and new tunneled catheter placed on 07/12/17. He was discharged on Ertapenem 1 gm daily. WBC 11.0, UA large leuks, culture pending. Hgb 9.7, lactic acid 1.5, ammonia 21, creat 7.29, K 4.6. This morning Mr. Prado is alert, oriented to environment. Tunneled catheter site erythemic with scant drainage. Past Med Surg Social Fam HX - Past Medical History Medical history: CVA, diabetes, hyperlipidemia, hypertension, renal disease Psychiatric history: no psych history - Past Surgical History Surgical History: other (dialysis catheter placement; eye surgeries) - Social History Smoking Status: Former smoker Smokeless Tobacco Status: No Alcohol use: none Drug use: none - Family History Mother History Unknown: Yes Living Status: Father History Unknown: Yes Living Status: Hx Family Respiratory Disorders: Yes (emphasema) Hx Family Endocrine Disorder: Yes (diabetes) Medications and Allergies Aspirin [Ecotrin] 325 mg PO DAILY #0 06/05/15 [History] Finasteride [Proscar] 5 mg PO DAILY #0 06/05/15 [History] Primidone [Mysoline] 50 mg PO DAILY #0 06/05/15 [History] Ranitidine HCl [Zantac] 150 mg PO BID #0 06/05/15 [History] Simvastatin [Zocor] 10 mg PO QPM #0 06/05/15 [History] Tamsulosin [Flomax] 0.4 mg PO DAILY #0 06/05/15 [History] Calcitriol [Rocaltrol] 0.25 mcg PO DAILY 09/11/15 [History] Montelukast [Singulair] 10 mg PO QPM 12/30/16 [History] Furosemide [Lasix] 20 mg PO DAILY 06/15/17 [History] Oxygen 2 l NS AD 06/15/17 [History] PrednisoLONE Acetate 1% Opth [PredFORTE 1%] 1 drop OP QID PRN 06/15/17 [History] Pregabalin [Lyrica] 100 mg PO BID 06/15/17 [History] Epoetin Donell [Procrit] 10,000 unit SQ 3XW vial 06/25/17 [Rx] Labetalol [Trandate] 100 mg PO BID #60 tablet 06/25/17 [Rx] Pregabalin [Lyrica] 50 mg PO MoWeFr@2100 capsule 06/25/17 [Rx] amLODIPine [Norvasc] 5 mg PO DAILY #30 tablet 06/25/17 [Rx] Ertapenem [INVanz] 1,000 mg IVPB DAILY #9 vial 07/13/17 [Rx] Insulin ASPART [Novolog Flexpen] 5 unit SQ TID #0 07/13/17 [Rx] Insulin DETEMIR [Levemir Flextouch] 20 unit SQ DAILY #0 07/13/17 [Rx] Metoclopramide [Reglan] 10 mg PO QIDAC #60 tablet 07/13/17 [Rx] Omeprazole [PriLOSEC] 40 mg PO DAILY@0630 #30 capsule.dr 07/13/17 [Rx] Ondansetron ODT [Zofran ODT] 4 mg SL Q6HR PRN #30 tab.rapdis 07/13/17 [Rx] Tramadol HCl [Ultram] 50 mg PO BID PRN #15 tablet 07/13/17 [Rx] 3 Allergy/AdvReac Type Severity Reaction Status Date / Time No Known Allergies Allergy Verified 12/29/16 23:37 Review of Systems All Systems: reviewed and no additional remarkable complaints except as stated Exam - Vital Signs Vital signs: Initial Vital Signs Temp Pulse Resp BP Pulse Ox 97.5 F L 72 17 145/78 96 10/22/17 21:06 07/18/17 21:06 07/18/17 21:06 07/18/17 21:06 07/18/17 21:06 Vital Signs - Last 8 Hours Temp Pulse Resp BP Pulse Ox 07/19/17 11:05 98.0 F 77 18 180/89 97 07/19/17 06:48 97.9 F 82 18 111/57 98 07/19/17 05:01 97.8 F 71 18 127/69 97 Intake and Output 07/18/17 07/19/17 07/19/17 23:59 07:59 15:59 Intake Total 0 / 0 Output Total 600 / 600 300 / 300 Balance -600 / -600 -300 / -300 0 / 0 Intake: Oral 0 / 0 Output: Urine 300 / 300 Catheter 300 / 300 300 / 300 Other: Stool Size Smear Stool Characteristics Pasty Stool Color Green # Bowel Movement Diapers 1 Weight 102.625 kg Blood Glucose* 100 133 Patient Weight 07/19/17 23:59 Weight 102.625 kg - General Appearance General appearance: well-developed, well-nourished, appears started age, obese EENT: mucous membranes moist Neck: no JVD Respiratory: clear Cardiology: no edema, regular rate, regular rhythm Gastrointestinal: normoactive bowel sounds, no tenderness Integumentary: warm and dry Neurologic: alert and oriented x3 Psychiatric: mood/affect appropriate, cooperative Results - Lab Results 07/19/17 03:17 07/19/17 03:17 Most recent lab results Calcium 8.0 mg/dL (8.6-10.8) L 07/19/17 03:17 Consult Discharge Plan - Plan Referrals: Anju Britt CNP [Primary Care Provider] - (Patient will follow up with F PCP)
[2017-07-19 11:55] LABS: ABG Base Excess 1 mEq/L (-2 to 3); ABG HCO3 28 mEq/L (21-27); ABG Oxygen Saturation 96 % (95-98); ABG PCO2 54 mmHg (35-45); ABG PH 7.32 pH Units (7.32-7.45); ABG PO2 89 mmHg (85-104); ABG TCO2 29 mEq/L (20-26)
[2017-07-19] MEDS ORDERED: Ciprofloxacin OPTH Soln 2.5 ML BOTTLE BOTH EYES SCH (12:00)
[2017-07-19 12:01] LABS: Hepatitis B Surface Antibody 0.52 mIU/mL; Hepatitis B Surface Antigen Nonreactive (Nonreactive)
--- NOTE | 2017-07-19 14:15 | Event Note ---
Date of Encounter: 07/19/17 Time of Encounter: 11:00 Patient is somnolent but is disoriented on waking up. Denies any pain. Has not had any fever overnight. He is definitely more confused compared to the time of discharge last week. Denies any nausea or vomiting. Continue current antibiotics. Patient uses BiPAP at bedtime which she will continue. Nephrology consult appreciated. No longer appears to have conjunctivitis. We will stop ciprofloxacin ophthalmic solution. Otherwise continue home medications for now. If condition does not improve, consider MRI of the brain and neurology consult tomorrow. Currently on vancomycin for possible urinary tract infection but as patient is a dialysis patient, he very likely has abnormal urine all the time. Continue Invanz to treat Enterobacter sepsis. Repeat cultures have been drawn. We will follow results.
[2017-07-19] MEDS ORDERED: Pregabalin 50 MG CAPSULE PO SCH (21:00)
[2017-07-20 01:46] LABS: Vancomycin,Random 29.5 mcg/mL
[2017-07-20 05:02] LABS: Basophils # 0.1 K/mcL (0.0-0.2); Basophils % 0.7 %; Eosinophils # 0.4 K/mcL (0.0-0.6); Eosinophils % 5.3 %; Hematocrit 27.3 % (37.5-50.1); Hemoglobin 8.3 g/dL (12.9-16.9); Immature Granulocytes % 0.4 % (0-4); Lymphocytes # 1.8 K/mcL (0.6-4.6); Lymphocytes % 21.9 %; Mean Corpuscular HGB Conc 30.4 g/dL (31.6-35.5); Mean Corpuscular Hemoglobin 28.2 pg (28.0-33.3); Mean Corpuscular Volume 92.9 fL (83.0-100.0); Mean Platelet Volume 9.6 fL (9.4-12.4); Monocytes # 0.9 K/mcL (0.0-1.3); Monocytes % 10.5 %; Neutrophils # 5.1 K/mcL (1.6-8.9); Platelet Count 196 K/mcL (140-400); Red Blood Count 2.94 M/mcL (4.19-5.50); Red Cell Distribution Width 14.4 % (11.5-14.5); Segmented Neutrophils % 61.2 %
[2017-07-20] MEDS ORDERED: Haloperidol Lactate 5 MG/ML VIAL IVP ONE (05:54)
[2017-07-20] MEDS: *HR* Heparin 5,000 UNIT/ML VIAL SQ SCH ×2 (06:02→13:58)
[2017-07-20] MEDS: Ciprofloxacin OPTH Soln 2.5 ML BOTTLE BOTH EYES SCH (07:53)
--- NOTE | 2017-07-20 08:11 | Nephrology Progress Note ---
Date of Encounter: 07/20/17 Time of Encounter: 08:09 - Assessment and Plan (1) End stage kidney disease Current Visit: No Status: Acute The patient will continue to be supported with dialysis every Wednesday. It may be reasonable to consider decreasing the dose of his Lyrica to see if his confusion improves. He is receiving Procrit for his anemia. (2) Acute delirium Current Visit: No Status: Acute (3) Anemia in CKD (chronic kidney disease) Current Visit: No Status: Acute Qualifiers: Chronic kidney disease stage: stage 4 (severe) Qualified Code(s): N18.4 - Chronic kidney disease, stage 4 (severe); D63.1 - Anemia in chronic kidney disease Subjective Interval history: The patient denies any complaints. However he appears be more confused and he has been in the past. He did have his routine dialysis yesterday. Vital signs are stable. Objective - Vital Signs Vital signs: Vital Signs Temp Pulse Resp BP Pulse Ox 07/20/17 07:25 97.5 F L 70 18 143/75 99 07/20/17 03:19 97.6 F 70 18 112/67 95 07/20/17 00:27 98.2 F 80 16 160/78 94 07/19/17 19:45 98.9 F 18 147/78 07/19/17 19:15 134/58 07/19/17 19:00 111/47 07/19/17 18:45 147/53 07/19/17 18:30 130/69 07/19/17 18:15 114/58 07/19/17 18:00 122/58 07/19/17 17:45 120/56 07/19/17 17:30 132/73 07/19/17 17:16 119/60 07/19/17 17:00 108/60 07/19/17 16:45 101/58 07/19/17 16:30 127/56 07/19/17 16:15 98.4 F 20 154/74 07/19/17 11:05 98.0 F 77 18 180/89 97 Intake and Output 07/19/17 07/20/17 07/20/17 23:59 07:59 15:59 Intake Total 600 / 600 Output Total 2700 / 2700 400 / 400 Balance -2100 / -2100 -400 / -400 Intake: Oral 0 / 0 Intake, Rinseback and Flushes 600 / 600 Output: Urine 100 / 100 Total Dialysis (HD) Output 2600 / 2600 Catheter 400 / 400 Other: Weight 101.242 kg Blood Glucose* 92 83 Hemodialysis Net Fluid Removed 2000 (mL) Patient Weight 07/20/17 23:59 Weight 101.242 kg - General Appearance Exam: Patient will answer questions. He does not open his eyes. He appears to be somewhat confused. However he is oriented to name and in place. Lungs benchpress sounds otherwise clear. Heart regular rate and rhythm. Abdomen is benign. There is no peripheral edema. There is a tunnel dialysis catheter in the right chest. - Lab 07/20/17 04:20 07/19/17 03:17 Most recent lab results ABG pH 7.32 pH Units (7.32-7.45) 07/19/17 11:53 ABG pCO2 54 mmHg (35-45) H 07/19/17 11:53 ABG pO2 89 mmHg (85-104) 07/19/17 11:53 ABG HCO3 28 mEq/L (21-27) H 07/19/17 11:53 ABG O2 Saturation 96 % (95-98) 07/19/17 11:53 Calcium 8.0 mg/dL (8.6-10.8) L 07/19/17 03:17 - VTE Documentation of Mechanical Device: Intermittent pneumatic compression device Consult Discharge Plan - Plan Referrals: Anju Britt CNP [Primary Care Provider] - (Patient will follow up with ECF PCP)
[2017-07-20] MEDS: Insulin LISPRO 300 UNITS/3 ML VIAL SQ SCH ×6 (08:41→16:29)
[2017-07-20] MEDS: Aspirin Enteric Coated 325 MG Tablet PO SCH (08:48)
[2017-07-20] MEDS: Primidone 50 MG TABLET PO SCH (08:48)
[2017-07-20] MEDS: amLODIPine 5 MG TABLET PO SCH (08:48)
[2017-07-20] MEDS: Pregabalin 50 MG CAPSULE PO SCH (08:49)
[2017-07-20] MEDS: Finasteride 5 MG TABLET PO SCH (08:49)
[2017-07-20] MEDS: Insulin DETEMIR 100 UNIT/ML X5UNITS SQ SCH (08:52)
[2017-07-20] MEDS: Nystatin Cream 15 GM TUBE TP SCH ×2 (08:56→16:11)
[2017-07-20 10:14] LABS: ABG Base Excess -2 mEq/L (-2 to 3); ABG HCO3 29 mEq/L (21-27); ABG Oxygen Saturation 100 % (95-98); ABG PCO2 83 mmHg (35-45); ABG PH 7.15 pH Units (7.32-7.45); ABG PO2 414 mmHg (85-104); ABG TCO2 31 mEq/L (20-26)
[2017-07-20 10:16] LABS: Calcium 7.5 mg/dL (8.6-10.8); Potassium 4.1 mEq/L (3.5-4.5)
[2017-07-20 10:39] LABS: Calcium 8.1 mg/dL (8.6-10.8); Potassium 4.5 mEq/L (3.5-4.5)
[2017-07-20 11:03] LABS: Basophils # 0.1 K/mcL (0.0-0.2); Basophils % 0.6 %; Eosinophils # 0.5 K/mcL (0.0-0.6); Eosinophils % 4.4 %; Hematocrit 30.8 % (37.5-50.1); Hemoglobin 9.3 g/dL (12.9-16.9); Immature Granulocytes % 0.9 % (0-4); Lymphocytes # 3.7 K/mcL (0.6-4.6); Lymphocytes % 34.8 %; Mean Corpuscular HGB Conc 30.2 g/dL (31.6-35.5); Mean Corpuscular Hemoglobin 28.8 pg (28.0-33.3); Mean Corpuscular Volume 95.4 fL (83.0-100.0); Mean Platelet Volume 9.4 fL (9.4-12.4); Monocytes % 8.8 %; Neutrophils # 5.4 K/mcL (1.6-8.9); Platelet Count 252 K/mcL (140-400); Red Blood Count 3.23 M/mcL (4.19-5.50); Red Cell Distribution Width 14.4 % (11.5-14.5); Segmented Neutrophils % 50.5 %
[2017-07-20] MEDS ORDERED: 0.9 % Sodium Chloride 500 ML ONE (11:07)
[2017-07-20] MEDS ORDERED: 0.9 % Sodium Chloride 500 ML IVC ONE (11:14)
[2017-07-20 11:20] LABS: INR 1.1
[2017-07-20 11:58] LABS: Albumin 2.8 g/dL (3.5-5.0); Albumin/Globulin Ratio 0.6 (1.1-2.2); Bilirubin,Direct 0.2 mg/dL (0.0-0.5); Bilirubin,Indirect 0.1 mg/dL (0.0-1.2); Bilirubin,Total 0.3 mg/dL (0.2-1.2); Globulin 4.7 g/dL (2.4-3.5); Total Protein 7.5 g/dL (6.0-8.3)
--- NOTE | 2017-07-20 12:00 | Pulmonology Consult Note ---
<Alan Morales - Last Filed: 07/20/17 16:38> Date of Encounter: 07/20/17 Time of Encounter: 11:51 Assessment and Plan (1) Cardiac arrest Current Visit: Yes Status: Acute Patient had a witnessed cardiac arrest with PEA. Patient had spontaneous return of circulation with 2 rounds of CPR and one round of epinephrine. Patient was transferred to the ED and upon arrival began to move all his limbs spontaneously and follow commands. At this point most likely cause is septic shock (2) Acute and chronic respiratory failure Current Visit: Yes Status: Acute Patient uses 2 L chronically at home. During a cardiac arrest he went into respiratory arrest as well and was intubated. Upon arrival to the ICU the patient was beginning to wake up and following commands so spontaneous breathing trial was performed which the patient did well with so he was extubated. At this point he remains on BiPAP and seems to be tolerating this well. Family has requested that the patient be made a DNR CCA DO NOT INTUBATE. Qualifiers: Respiratory failure complication: hypoxia and hypercapnia Qualified Code(s) : J96.21 - Acute and chronic respiratory failure with hypoxia; J96.22 - Acute and chronic respiratory failure with hypercapnia; J96.22 - Acute and chronic respiratory failure with hypercapnia; J96.22 - Acute and chronic respiratory failure with hypercapnia (3) End stage renal disease Current Visit: Yes Status: Acute On Wednesday dialysis. Patient received dialysis yesterday. Nephrology is following (4) Septic shock Current Visit: Yes Status: Acute Possible but unclear at this point. Patient did recently have enterococcus bacteremia and required exchange of his temporary dialysis catheter. Blood cultures are pending. Patient is currently requiring norepinephrine for blood pressure support. Continue broad-spectrum antibiotics. Infectious disease has been consulted. (5) Type 2 diabetes mellitus Current Visit: Yes Status: Acute Blood sugars have been under adequate control. Continue sliding scale insulin coverage. Qualifiers: 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 complication status: with kidney complications 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 complication detail: with chronic kidney disease 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 intermediate insulin use: with intermission coordinator use Chronic kidney disease stage: on chronic dialysis Qualified Code(s): E11.22 - Type 2 diabetes mellitus with diabetic chronic kidney disease; N18.6 - End stage renal disease; Z99.2 - Dependence on renal dialysis; Z99.2 - Dependence on renal dialysis; Z99.2 - Dependence on renal dialysis; N18.6 - End stage renal disease; N18.6 - End stage renal disease; N18.6 - End stage renal disease; Z79.4 - FPC (current ) use of insulin; Z79.4 - FPC (current) use of insulin; Z79.4 - intermission coordinator (current) use of insulin; Z79.4 - FPC (current) use of insulin; Z99.2 - Dependence on renal dialysis (6) Decubitus ulcer of left foot Current Visit: Yes Status: Acute Qualifiers: Pressure ulcer stage: unspecified pressure ulcer stage Qualified Code(s): L89.899 - Pressure ulcer of other site, unspecified stage (7) Bacteremia due to Enterobacter species Current Visit: Yes Status: Acute Recently diagnosed. Patient was undergoing treatment as an outpatient with Invanz. Unsure if this is still active infection. Repeat blood cultures are pending. Infectious disease consultation. History of Present Illness Consult date: 07/20/17 Reason for consult: other Chief complaint: Cardiac Arrest History of present illness: Patient is a 67-year-old male with history of end-stage renal disease, hypertension, diabetes who was transferred to the ICU from the general medical floor after having an episode where his heart rate gradually decreased and then he became unresponsive and her pulse was unable to be found. CODE BLUE was activated and 2 rounds of compression were given and 1 mg of epinephrine and patient had a spontaneous return of circulation. Patient. Patient was transferred to the ICU and did begin to wake up and follow commands. He was extubated that time. At this time he remains minimally responsive but breathing on his own with BiPAP assistance. Past Med Surg Social Fam HX - Past Medical History Medical history: CVA, diabetes, hyperlipidemia, hypertension, renal disease Psychiatric history: no psych history - Past Surgical History Surgical History: other (dialysis catheter placement; eye surgeries) - Social History Smoking Status: Former smoker Smokeless Tobacco Status: No Alcohol use: none Drug use: none - Family History Mother History Unknown: Yes Living Status: Father History Unknown: Yes Living Status: Hx Family Respiratory Disorders: Yes (emphasema) Hx Family Endocrine Disorder: Yes (diabetes) Medications and Allergies Aspirin [Ecotrin] 325 mg PO DAILY #0 06/05/15 [History] Finasteride [Proscar] 5 mg PO DAILY #0 06/05/15 [History] Primidone [Mysoline] 50 mg PO DAILY #0 06/05/15 [History] Ranitidine HCl [Zantac] 150 mg PO BID #0 06/05/15 [History] Simvastatin [Zocor] 10 mg PO QPM #0 06/05/15 [History] Tamsulosin [Flomax] 0.4 mg PO DAILY #0 06/05/15 [History] Calcitriol [Rocaltrol] 0.25 mcg PO DAILY 09/11/15 [History] Montelukast [Singulair] 10 mg PO QPM 12/30/16 [History] Furosemide [Lasix] 20 mg PO DAILY 06/15/17 [History] Oxygen 2 l NS AD 06/15/17 [History] PrednisoLONE Acetate 1% Opth [PredFORTE 1%] 1 drop OP QID PRN 06/15/17 [History] Pregabalin [Lyrica] 100 mg PO BID 06/15/17 [History] Epoetin Donell [Procrit] 10,000 unit SQ 3XW vial 06/25/17 [Rx] Labetalol [Trandate] 100 mg PO BID #60 tablet 06/25/17 [Rx] Pregabalin [Lyrica] 50 mg PO MoWeFr@2100 capsule 06/25/17 [Rx] amLODIPine [Norvasc] 5 mg PO DAILY #30 tablet 06/25/17 [Rx] Ertapenem [INVanz] 1,000 mg IVPB DAILY #9 vial 07/13/17 [Rx] Insulin ASPART [Novolog Flexpen] 5 unit SQ TID #0 07/13/17 [Rx] Insulin DETEMIR [Levemir Flextouch] 20 unit SQ DAILY #0 07/13/17 [Rx] Metoclopramide [Reglan] 10 mg PO QIDAC #60 tablet 07/13/17 [Rx] Omeprazole [PriLOSEC] 40 mg PO DAILY@0630 #30 capsule. 07/13/17 [Rx] Ondansetron ODT [Zofran ODT] 4 mg SL Q6HR PRN #30 tab.rapdis 07/13/17 [Rx] Tramadol HCl [Ultram] 50 mg PO BID PRN #15 tablet 07/13/17 [Rx] 3 Allergy/AdvReac Type Severity Reaction Status Date / Time No Known Allergies Allergy Verified 12/29/16 23:37 ROS unobtainable: due to mental status All Systems: A 10-system review of systems was performed and is negative for pertinent findings except as documented above in the HPI. Physical Examination Vital Signs: Vital Signs, Last 4 Hours Pulse Resp BP Pulse Ox 07/20/17 10:53 81 17 91/52 97 07/20/17 10:24 14 99/62 100 07/20/17 09:56 209/106 07/20/17 09:53 253/142 General appearance: lethargic ENT: oropharynx moist Effort: mildly labored Auscultation: bilateral: diminished breath sounds Cardiovascular: regular rate and rhythm Gastrointestinal: hypoactive bowel sounds, soft, non-tender, non-distended Extremities: no cyanosis, no clubbing, edema (1+ edema to LE bilaterally), other (Superficial excoriation to the left heel. No bleeding or drainage noted. ) unable to assess due to mental status Ventilator Settings Ventilator Settings: Ventilator Settings, Last 8 Hours Ventilator Mode CPAP Actual Respiratory Rate 20 Positive End Expiratory 5 Pressure Peak Inspiratory Airway 15 Pressure Results - Laboratory Findings CBC and BMP: 07/20/17 10:15 07/20/17 10:15 ABG ABG pH 7.15 pH Units (7.32-7.45) L* 07/20/17 10:05 ABG pCO2 83 mmHg (35-45) H* 07/20/17 10:05 ABG pO2 414 mmHg (85-104) H 07/20/17 10:05 ABG O2 Saturation 100 % (95-98) H 07/20/17 10:05 PT/INR, D-dimer PT 12.0 Seconds (9.4-12.1) 07/20/17 10:15 Abnormal lab findings: Abnormal lab results RBC 3.23 M/mcL (4.19-5.50) L 07/20/17 10:15 Hgb 9.3 g/dL (12.9-16.9) L 07/20/17 10:15 Hct 30.8 % (37.5-50.1) L 07/20/17 10:15 MCHC 30.2 g/dL (31.6-35.5) L 07/20/17 10:15 ABG pH 7.15 pH Units (7.32-7.45) L* 07/20/17 10:05 ABG pCO2 83 mmHg (35-45) H* 07/20/17 10:05 ABG pO2 414 mmHg (85-104) H 07/20/17 10:05 ABG HCO3 29 mEq/L (21-27) H 07/20/17 10:05 ABG Total CO2 31 mEq/L (20-26) H 07/20/17 10:05 ABG O2 Saturation 100 % (95-98) H 07/20/17 10:05 Creatinine 5.90 mg/dL (0.72-1.25) H 07/20/17 10:15 Est GFR ( Amer) 12 (> 60) L 07/20/17 10:15 Est GFR (Non-Af Amer) 10 (> 60) L 07/20/17 10:15 BUN/Creatinine Ratio 3 (6-26) L 07/20/17 10:15 Glucose 175 mg/dL (70-99) H 07/20/17 10:15 POC Glucose 156 (58-89) H 07/20/17 10:09 Calcium 8.1 mg/dL (8.6-10.8) L 07/20/17 10:15 Ionized Calcium 1.10 mmol/L (1.15-1.35) L 07/20/17 10:15 Albumin 2.6 g/dL (3.5-5.0) L 07/19/17 03:17 Globulin 4.4 g/dL (2.4-3.5) H 07/19/17 03:17 Albumin/Globulin Ratio 0.6 (1.1-2.2) L 07/19/17 03:17 Urine Clarity Turbid (Clear) A 07/19/17 01:40 Urine Protein >=300 mg/dL (Neg-Trace) H 07/19/17 01:40 Urine Blood Large (Negative) H 07/19/17 01:40 Ur Leukocyte Esterase Large (Negative) H 07/19/17 01:40 Urine Microscopic WBC TNTC per hpf (0-3) H 07/19/17 01:40 Urine Bacteria Many per hpf (None-Few) H 07/19/17 01:40 Urine Yeast Present per hpf (None Seen) H 07/19/17 01:40 - Microbiology Findings Microbiology Findings: Microbiology, Last 48 Hours 07/19/17 03:17 Blood Culture - Preliminary Peripheral Venipuncture No growth. 07/19/17 03:17 Blood Culture - Preliminary Central Venous Catheter No growth. - Clinical Findings Intake & Output: Intake & Output 07/19/17 07/20/17 07/20/17 23:59 07:59 15:59 Intake Total 600 / 600 20 / 20 Output Total 2700 / 2700 400 / 400 0 / 0 Balance -2100 / -2100 -400 / -400 Weight 101.242 kg Consult Discharge Plan - Plan Referrals: Anju Britt CNP [Primary Care Provider] - (Patient will follow up with ECF PCP) <Ernetso Houston - Last Filed: 07/20/17 16:55> Date of Encounter: 07/20/17 All Systems: A 10-system review of systems was performed and is negative for pertinent findings except as documented above in the HPI. Physical Examination Vital Signs: Vital Signs, Last 4 Hours Pulse Resp BP Pulse Ox 07/20/17 14:00 86 10 109/63 100 07/20/17 13:48 24 107/62 100 07/20/17 13:30 81 10 84/47 100 07/20/17 13:00 81 24 69/43 96 Ventilator Settings Ventilator Settings: Ventilator Settings, Last 8 Hours Ventilator Mode CPAP Actual Respiratory Rate 20 Positive End Expiratory 5 Pressure Peak Inspiratory Airway 15 Pressure Results - Laboratory Findings CBC and BMP: 07/20/17 10:15 07/20/17 10:15 ABG ABG pH 7.15 pH Units (7.32-7.45) L* 07/20/17 10:05 ABG pCO2 83 mmHg (35-45) H* 07/20/17 10:05 ABG pO2 414 mmHg (85-104) H 07/20/17 10:05 ABG O2 Saturation 100 % (95-98) H 07/20/17 10:05 PT/INR, D-dimer PT 12.0 Seconds (9.4-12.1) 07/20/17 10:15 Abnormal lab findings: Abnormal lab results RBC 3.23 M/mcL (4.19-5.50) L 07/20/17 10:15 Hgb 9.3 g/dL (12.9-16.9) L 07/20/17 10:15 Hct 30.8 % (37.5-50.1) L 07/20/17 10:15 MCHC 30.2 g/dL (31.6-35.5) L 07/20/17 10:15 ABG pH 7.15 pH Units (7.32-7.45) L* 07/20/17 10:05 ABG pCO2 83 mmHg (35-45) H* 07/20/17 10:05 ABG pO2 414 mmHg (85-104) H 07/20/17 10:05 ABG HCO3 29 mEq/L (21-27) H 07/20/17 10:05 ABG Total CO2 31 mEq/L (20-26) H 07/20/17 10:05 ABG O2 Saturation 100 % (95-98) H 07/20/17 10:05 Creatinine 5.90 mg/dL (0.72-1.25) H 07/20/17 10:15 Est GFR ( Amer) 12 (> 60) L 07/20/17 10:15 Est GFR (Non-Af Amer) 10 (> 60) L 07/20/17 10:15 BUN/Creatinine Ratio 3 (6-26) L 07/20/17 10:15 Glucose 175 mg/dL (70-99) H 07/20/17 10:15 POC Glucose 156 (58-89) H 07/20/17 10:09 Calcium 8.1 mg/dL (8.6-10.8) L 07/20/17 10:15 Ionized Calcium 1.10 mmol/L (1.15-1.35) L 07/20/17 10:15 Albumin 2.8 g/dL (3.5-5.0) L 07/20/17 10:15 Globulin 4.7 g/dL (2.4-3.5) H 07/20/17 10:15 Albumin/Globulin Ratio 0.6 (1.1-2.2) L 07/20/17 10:15 Urine Clarity Turbid (Clear) A 07/19/17 01:40 Urine Protein >=300 mg/dL (Neg-Trace) H 07/19/17 01:40 Urine Blood Large (Negative) H 07/19/17 01:40 Ur Leukocyte Esterase Large (Negative) H 07/19/17 01:40 Urine Microscopic WBC TNTC per hpf (0-3) H 07/19/17 01:40 Urine Bacteria Many per hpf (None-Few) H 07/19/17 01:40 Urine Yeast Present per hpf (None Seen) H 07/19/17 01:40 - Microbiology Findings Microbiology Findings: Microbiology, Last 48 Hours 07/19/17 03:17 Blood Culture - Preliminary Peripheral Venipuncture No growth. 07/19/17 03:17 Blood Culture - Preliminary Central Venous Catheter No growth. - Clinical Findings Intake & Output: Intake & Output 07/20/17 07/20/17 07/20/17 07:59 15:59 23:59 Intake Total 241 / 241 250 / 250 Output Total 400 / 400 0 / 0 Balance -400 / -400 241 / 241 250 / 250 Weight 101.242 kg - Attending Attestation I examined this patient and my medical decision-making was reviewed with the Resident Physician. I agree with the documented findings, disposition and treatment plan as described except to the extent set forth below. Patient seen and examined. Labs, radiology, chart personally reviewed. 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 After short periods of time in the ICU he started to wake up and overall he was stable hemodynamically and with a short spontaneous breathing trial his numbers were reasonable and he was extubated. Subsequently he had some respiratory distress that they had to talk to the family after having some challenges with noninvasive ventilation mainly due to his facial structure and difficult ventilation, patient's decided for no intubation and no chest compression. Some manipulation and changing the mask of noninvasive ventilation with an oral airway were successful to keep his situation saturation and reasonable ventilation. Cardiovascular: Patient hemodynamically shows evidence of shock that needed vasopressor and also central line placement. This could be multifactorial from septic shock and also could be from medications and volume with fluid was given also glucagon with some success. GI: Nutrition per dietary and GI prophylaxis per routine Heme: DVT prophylaxis per routine ID: Continue antibiotics and plan to de-escalation Renal; nephrology follow-up. Endorcine: blood glucose is monitored Lines: all lines checked and no evidence of infections Skin: skin care to prevent pressure ulcers per nursing routine care Had extensive discussion with the family at the bedside. I spent 45 min of Critical Care time with this patient. It involved decision making of high complexity to assess, manipulate, and support vital organ system failure and/or to prevent further life threatening deterioration of the patient' s condition. The time involved in the performance of separately reportable procedures was not counted toward critical care time.
[2017-07-20] MEDS ORDERED: 0.9 % Sodium Chloride 1,000 ML ONE (12:06)
--- NOTE | 2017-07-20 12:43 | Event Note ---
Date of Encounter: 07/20/17 Time of Encounter: 09:45 Code Gee was called at 0945; responded promptly and Chest compressions/CPR has been started at 0945. Noted to be in PEA. One dose of Epinephrine 1mg was given at 0950, and CPR was redumed. and patient had ROSC at 0952. Noted to have regular tachycardia on waiter/waitress informal. 12-lead EKG showed sinus tachycardia at 130bpm; Patient also required rapid sequence ET intubation at 0954, with B/L breath sounds auscultated. No grossly abnormal labs on am labs; Pending ABG, Chest XRay, BMP, Mg, LA, Troponin levels; Patient is transferred to ICU and signed out to Manager Customs/ICU team in stable condition. , also present during Code Blue. Patient was noted to be admitted with lethargy, acute encephalopathy and weakness after a recent hospital discharge for Enterobacter sepsis, on Invanz.
--- NOTE | 2017-07-20 12:54 | Procedure Note ---
<Alan Morales - Last Filed: 07/20/17 12:51> Date of procedure: 07/20/17 Pre-op diagnosis: Hypotension Post-op diagnosis: same Procedure: Central venous catheter placement: Written consent was obtained from the patient's . The left femoral area was surveyed using ultrasound and deemed to be a suitable target. Area was cleaned and draped in usual sterile fashion. 5 mL of 1% lidocaine was infiltrated into the soft tissues. Under ultrasound guidance the introducer needle was advanced into the left femoral vein. Dark red, nonpulsatile blood flow was returned. The guidewire was advanced to the introducer needle into the vein without resistance. Introducer needle was removed. Under ultrasound the guidewire was visualized within the femoral vein. A bull in the skin was made. The skin and soft tissues were dilated using the dilator. The dilator was then removed and a 20 cm triple-lumen catheter was advanced over the guidewire into the vein without resistance. The guidewire was removed intact. All 3 ports were tested and shown to draw blood and flushed easily. The catheter was sutured in place. Biopatch and sterile dressing was applied by nursing staff. The patient tolerated the procedure well, there were no immediate complications. The attending physician, Dr. Houston, was present for the entire procedure. Anesthesia: local (1% lidocaine, 5cc) Surgeon: Alan Morales Estimated blood loss (cc): 10 Pathology: none sent Condition: critical Disposition: ICU <Ernesto Houston - Last Filed: 07/20/17 16:41> Procedure: I examined this patient and my medical decision-making was reviewed with the Resident Physician. I agree with the documented findings, disposition and treatment plan as described except to the extent set forth below. I have personally supervised Dr. Morales placing left femoral line without immediate complications.
[2017-07-20] MEDS ORDERED: Norepinephrine 4 MG in D5% in Water 250 ML IVC SCH (13:15)
[2017-07-20] MEDS ORDERED: Perflutren Lipid Microsphere 1.3 ML in 0.9 % Sodium Chloride 8.7 ML IVP ONE (14:46)
[2017-07-20] MEDS ORDERED: Insulin DETEMIR 100 UNIT/ML X5UNITS SQ SCH (16:32)
[2017-07-20 19:00] VITALS: BP 0/0
[2017-07-20] MEDS ORDERED: Aminoglycoside Consult 1 EACH MC ONE (20:23)
--- NOTE | 2017-07-21 08:45 | Death Note ---
<Alan Morales - Last Filed: 07/21/17 08:41> Discharge Sum: Summary - Date and Time Date of admission: 07/19/17 02:38 Date of : 07/20/17 Time of : 18:26 - Summary Details: Patient is a 67-year-old male with history of end-stage renal disease, recently infected hemodialysis catheter with bacteremia was admitted to the hospital on 07/19/17 for altered mental status and concerns for sepsis. On the morning of 07/20/17 the patient was found by nursing staff to be acutely altered and then had a bradycardic episode where he lost a pulse and ACLS was activated. The patient underwent 2 rounds of CPR with 1 mg of epinephrine and had spontaneous return circulation. Patient was transferred to the ICU and treatment was continued including pressor support for hypotension. Upon arrival the ICU the patient was awake and alert so he was extubated and placed on BiPAP. Throughout the day the patient continued to decline clinically and the family requested that the patient be made a DNR CCA/DNI and that we do not escalate care any further. Per the family request BiPAP was removed and at 1826 patient was found by nursing staff to have no pulse or respirations. - Additional Data Confirmation of as documented by pronouncing clinician: no pulse, no respirations Family: at bedside Attending/PCP notified?: Yes Attending physician: Yessenia Gaytan MD Was code activated?: No Autopsy requested?: No Organ bank notified?: Yes Advance directives: Yes Hospice patient?: No Discharge Sum: Diag - PCOD Probable Cause of : Sepsis Discharge Sum: Prov - Provider Primary care physician: Anju Birtt, Admitting clinician: Ernesto Houston Attending physician on admission: Jonathan Luis Consults: 07/19/17 00:57 Consult to Nephrology [CONS] Routine Consulting Provider: [facility] Ricci COLLINS Reason for Consult: ERSD, recent HD catheter infection, orthostatic hypotension Call Completed: No Consult to Occupational Therapy [CONS] Routine Comment: Evaluate, develop and implement POC Reason for Consult: weakness Consult to Physical Therapy [CONS] Routine Comment: Evaluate, develop and implement POC Reason for Consult: weakness 07/19/17 01:06 Consult to Wound Care [CONS] Routine Reason for Consult: Left foot ulcer, sacral decubitus ulcer Call Completed: No 07/19/17 07:12 Consult to Speedometer Inspector [CONS] Routine Reason for SW Consult: rtn to [facility] 07/19/17 08:15 Consult to Dialysis [CONS] ONCE Consult to Dialysis [CONS] ONCE 07/19/17 14:20 Consult to Invasive Line Access Team [CONS] Routine Reason for Consult: previous line pulled out Line Type: EPIV 07/20/17 10:46 Consult to Infectious Diseases [CONS] Stat Consulting Provider: Infectious Disease Erika Reason for Consult: hx of bacteremia and temp dialysis line Call Completed: Yes 07/20/17 16:52 Consult to Pulmonology [CONS] Routine Consulting Provider: [facility] Erika Reason for Consult: critical care management Time Notified: 11:00 Call Completed: Yes <DamiErnesto antony Markel - Last Filed: 07/21/17 13:04> Discharge Sum: Summary - Date and Time Date of admission: 07/19/17 02:38 - Additional Data Attending physician: Yessenia Gaytan MD Discharge Sum: Prov - Provider Primary care physician: Anju Britt, Consults: 07/19/17 00:57 Consult to Nephrology [CONS] Routine Consulting Provider: [facility] Ricci COLLINS Reason for Consult: ERSD, recent HD catheter infection, orthostatic hypotension Call Completed: No Consult to Occupational Therapy [CONS] Routine Comment: Evaluate, develop and implement POC Reason for Consult: weakness Consult to Physical Therapy [CONS] Routine Comment: Evaluate, develop and implement POC Reason for Consult: weakness 07/19/17 01:06 Consult to Wound Care [CONS] Routine Reason for Consult: Left foot ulcer, sacral decubitus ulcer Call Completed: No 07/19/17 07:12 Consult to Speedometer Inspector [CONS] Routine Reason for SW Consult: rtn to [facility] 07/19/17 08:15 Consult to Dialysis [CONS] ONCE Consult to Dialysis [CONS] ONCE 07/19/17 14:20 Consult to Invasive Line Access Team [CONS] Routine Reason for Consult: previous line pulled out Line Type: EPIV 07/20/17 10:46 Consult to Infectious Diseases [CONS] Stat Consulting Provider: Infectious Disease Erika Reason for Consult: hx of bacteremia and temp dialysis line Call Completed: Yes 07/20/17 16:52 Consult to Pulmonology [CONS] Routine Consulting Provider: [facility] Reason for Consult: critical care management Time Notified: 11:00 Call Completed: Yes - Attending Attestation I examined this patient and my medical decision-making was reviewed with the Resident Physician. I agree with the documented findings, disposition and treatment plan as described except to the extent set forth below. Patient with end stage renal disease and was found to be in distress and cardiopulmonary arrest status post resuscitation and when he came to ICU his condition somewhat stabilized, unfortunately subsequently his condition worsen and the family decided to make him only comfort care and he after that.
--- NOTE | 2017-07-21 17:09 | Electrocardiograph Report ---
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
== END 2017-07-20 20:24 | disposition expired | DRG 871 ==
LOC: 2ANU → ICNU 07-20 10:03
PROVIDERS: ADMIT Hospitalist; ATTEND Internal Medicine